=== PATIENT | female | born 1940 | race Caucasian/White ===

== ENCOUNTER 2023-04-12 08:52 | Outpatient (OUT) | payer MEDICARE, OTHER, SELFPAY ==
--- NOTE | 2023-04-12 09:06 | XR_ITS ---
The [address] [address] Patient Name: TAMMY SANDOVAL MRN: [id number] date: 1940 Sex: F Assigned Patient Location: [facility] Current Patient Location: RAD Accession/Order Number: [id number] Exam Date: 04/12/2023 09:13 Report Date: 04/12/2023 09:28 At the request of: MATTIE BALL Procedure: XR chest 2V EXAMINATION: XR chest 2V HISTORY: screening ; chronic cough COMPARISON: No relevant comparison available. FINDINGS: LUNGS: Mild stranding within left lung base suspected represent a prominent pericardial fat pad. No convincing infiltrates. No suspicious nodules or mass. VASCULATURE: No increased pulmonary vasculature. PLEURA: No pneumothorax, effusion, or pleural thickening. CARDIAC: No cardiomegaly or cardiac silhouette abnormality. MEDIASTINUM: No visible mass or adenopathy. BONES: No fracture or visible bone lesion. OTHER: Cardiac pacer. XR/XR chest 2V IMPRESSION: 1. No acute cardiopulmonary process or significant chronic interstitial changes. Electronically authenticated by: PATRIA HARGROVE Date: 04/12/2023 09:28
== END 2023-04-12 08:53 | disposition home or self-care (01) ==
LOC: RAD 09:00
PROVIDERS: PCP Family Medicine; Visit Provider Internal Medicine
DX: R05.3 Chronic cough (principal)
CPT/HCPCS: 71046

== ENCOUNTER 2023-05-16 08:01 | Outpatient (OUT) | payer MEDICARE, OTHER, SELFPAY ==
--- OUTSIDE RECORDS SUMMARY | 2023-05-16 08:06 | XMS_ITS | CCD ---
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 Role Phone REQUEST, NONE LISTED Admitting Unavailable REQUEST, NONE LISTED Attending Unavailable REQUEST, NONE LISTED Consulting Unavailable REQUEST, NONE LISTED Admitting Unavailable BLANCA YIP Consulting Unavailable REQUEST, NONE LISTED Attending Unavailable REQUEST, NONE LISTED Consulting Unavailable Isaiah Shaw Unavailable Juan C Avila Unavailable ISAIAH SHAW Primary Care Physician DO Isaiah Shaw Primary Care Provider MD Drew Warren Attending Provider DO Isaiah Shaw Attending Provider APRIL Mac Attending Provider DO Isaiah Shaw Primary Care Provider [phone] MD Drew Warren Attending Provider Paulo Rhoades Unavailable DO Isaiah Shaw Primary Care Provider DO Isaiah Shaw Attending Provider APRIL Mac Attending Provider [phone] MD Drew Warren Attending Provider Unavailable Unavailable DO Isaiah Shaw Primary Care Provider DO Isaiah Shaw Attending Provider [phone] None, No PCP Unavailable Unavailable Isaiah Shaw Unavailable DO Isaiah Shaw Primary Care Provider [phone] MD Drew Warren Attending Provider DO Isaiah Shaw Attending Provider DO Pastor Chavarria A Emergency Provider DO Isaiah Shaw Primary Care Provider [phone] MD Regan Jolley Emergency Provider MD Ashleigh Roman Admit Provider MD Ashleigh Roman Attending Provider [phone] MD Joan Page A Other Provider DO Alexander Everett Other Provider MD Medhat Anglin Other Provider MD Regan Villalba Other Provider MD Gege Nava Other Provider DO Naun Odell A Other Provider [phone] MD Anibal Gomes II Other Provider [phone] MD Pablo Davis Admit Provider MD Pablo Davis Attending Provider ERIC العراقي Other Provider Unavailable ERIC Arauz Other Provider Unavailable ERIC Akins Other Provider Unavailable ERIC Simental Other Provider Unavailable ERIC Merchant Other Provider Unavailable Barbie RN Louann Other Provider Unavailable MD Rahel Farmer Other Provider MD Juvenal Taveras Other Provider COLT Chapin Other Provider DO Jory Crow Other Provider MD Guillermo Zeng Other Provider DO Jabari Westbrook Other Provider MD Nate Somers Other Provider MD Inessa Chavez Other Provider Venus, ANP-BC Hayley Other Provider MD Ashleigh Roman Other Provider [phone] MD Alfonso Gutierrez Other Provider MD Mauri Hernandez Other Provider MD Matt Peguero Other Provider DO Regan Mederos Other Provider MD Charlene Amrao Other Provider MD Krishna Pereira Other Provider ETHEL Bernard-C Rachel Razo Other Provider MD Geovany Shirley Other Provider MD Vasquez Wall Other Provider MD Marvel Montiel Other Provider DO Dai Dooley Other Provider DO William Ramirez Other Provider DO Nehemias Heaton Other Provider [phone] COLT Bryant Other Provider DO Kaleb Espino Other Provider MD Stas Araujo Other Provider [phone] COLT Cardozo Other Provider COLT Franklin Other Provider MD Александр Bonilla Other Provider Bria, RN Naomy Other Provider Unavailable MD Igor Pham Other Provider MD Juvenal Taveras Other Provider Unavailable MD Joan Page Attending Provider Joan Page Unavailable Faustino Mac Attending Unavailable Faustino Mac Attending Unavailable Jaret TATE Attending Unavailable MADISYN GABRIEL Attending Unavailable Jaret TATE Attending Unavailable Faustino Mac Attending Unavailable Faustino Mac Admitting Unavailable Edinsons, DO Colon Primary Care Provider Kelvin PELLETIER, Dr. Drew Raygoza Attending Unavailable Kelvin II, Dr. Drew Raygoza Referring Unavailable Kuns, Dr. Isaiah Raygoza Primary Care Unavaila ble Kuns, Dr. Isaiah Raygoza Primary Care Unavaila ble Kuns, Dr. Isaiah Raygoza Primary Care Unavaila ble Mosheuinramsey II, Dr. Drew Raygoza Attending Unavailable Kelvin II, Dr. Drew Raygoza Referring Unavailable Kuns, Dr. Isaiah Raygoza Primary Care Unavaila ble McGuinn II, Dr. Drew Raygoza Attending Unavailable Kuns, Dr. Isaiah Raygoza Primary Care Unavaila ble Kuns, DO Isaiah Primary Care Provider MD Joan Page Attending Provider MD Drew Warren Attending Provider DO Jaziel Carbone Attending Provider Magnolia, DO Colon Primary Care Provider MD Joan Page Attending Provider MD Drew Warren Attending Provider DO Jaziel Carbone Attending Provider Magnolia, DO Colon Attending Provider [phone] Magnolia, DO Colon Attending Provider Magnolia, DO Colon Primary Care Provider MD Joan Page Attending Provider MD Drew Warren Attending Provider Magnolia, DO Colon Primary Care Provider [phone] MD Drew Warren Attending Provider Isaiah Shaw Primary Care Unavailable Joan Page Attending Unavailable Joan Page Admitting Unavailable Isaiah Shaw Primary Care Unavailable Drew Warren Attending Unavail able Drew Warren Admitting Unavail able Keister, Pastor A Admitting Unavailable Pastor Chavarria Attending Unavailable Kuns, Isaiah Primary Care Unavailable Raf, Jaziel M Admitting Unavailab le Raf, Jaziel M Attending Unavailab le Kuns, Isaiah Primary Care Unavailable Kuns, Isaiah Admitting Unavailable Kuns, Isaiah Attending Unavailable Kuns, Isaiah Primary Care Unavailable Kuns, Isaiah Admitting Unavailable Kuns, Isaiah Attending Unavailable Kuns, Isaiah Primary Care Unavailable Kuns, Isaiah Primary Care Unavailable McGuinn, Drew Raygoza Attending Unavail able McGuinn, Drew Valladaresrick Admitting Unavail able Kuns, Isaiah Primary Care Unavailable McGuinn, Drew Raygoza Attending Unavail able McGuinn, Drew Jaret Admitting Unavail able Kuns, Isaiah Primary Care Unavailable Blades, Joan A Attending Unavailable Blades, Joan A Admitting Unavailable Kuns, Isaiah Primary Care Unavailable Blades, Joan A Attending Unavailable Blades, Joan A Admitting Unavailable Blades, Joan A Consulting Unavailable Ashleigh Roman Attending Unavailable Wassobridger, Marwan Admitting Unavailable Kuns, Isaiah Primary Care Unavailable Alexander Everett Consulting Unavailable OleMedhat rockwell Consulting Unavailable Regan Villalba Consulting Unavailable Gege Nava Consulting Unavailable Naun Odell Consulting Unavailable Anibal Gomes II Consulting UnavailCasie Ronquillo Consulting Unavailable Kuns, Isaiah Primary Care Unavailable Pablo Davis Attending Unavailable Pablo Davis Admitting Unavailable Marcelle Arauz Consulting Unavailable Mary Akins Consulting Unavailable Denslow, Helena Consulting Unavailable Tawanna Merchant Consulting Unavailable Louann Valentin Consulting Unavailable MassRahel jean baptiste Consulting Unavailable Nitin, Juvenal K Consulting Unavailable Dials, Liberty M Consulting Unavailable Jory Crow Consulting Unavailable AzucenaCookie luztaq Consulting Unavailable Jabari Westbrook Consulting UnavailNate Concepcion Consulting Unavailable Inessa Chavez Consulting Unavailable Hayley Morton Consulting Unavailabl e WasAshleigh zambrano Consulting Unavailable Alfonso Gutierrez Consulting Unavailable Mauri Hernandez Consulting Unavailable Matt Peguero Consulting Unavailable Regan Mederos Consulting Unavailable Charlene Amaro Consulting Unavailable Krishna Pereira Consulting Unavailable Rachel Bernard Consulting Unavailable Geovany Shirley Consulting Unavailab Vasquez Hubbard Consulting Unavailable Marvel Montiel Consulting Unavailable Dai Dooley Unavailable William Ramirez Consulting Unavailable Nehemias Heaton Consulting Unavailable Alannah Bryant Consulting Unavailable Kaleb Espino Consulting Unavailable Stas Araujo Consulting Unavailable Nitza Cardozo Consulting Unavailable Lee Ann Franklin Consulting Unavailable Александр Bonilla Consulting Unavailable Naomy Fraser Consulting Unavailable Igor Pham Consulting Unavailable Allergies Allergy Classification Reported Allergen(s) Allergy Type Date of Onset Reaction(s) Facility (18 sources) Adhesive agent; Translations: [adhesive] Allergy to substance 2 Redness of Skin/Removes Skin [facility] (6 sources) Adhesive Tape Allergy to substance (finding) [facility] y 250 DO Work Phone: (2 sources) cat dander; Translations: [cat dander] Allergy to substance 4 [facility] Medications Current Medications Medication Drug Class(es) Dates Sig (Normalized) Sig (Original) acetaminophen 500 mg oral tablet (8 sources) Start: 08-19-2022 take 500 mg by mouth every four hours Acetaminophen Active 500 MG PO Q4H 180 30 August 19, 2022 12:00am acetaminophen 325 mg / oxyCODONE hydrochloride 5 mg oral tablet (17 sources) Opioid Agonist Start: 08-19-2022 take 1 tablet by mouth four times daily Oxycodone-Acetamino phen Active 1 TAB PO Four times daily 20 5 August 19, 2022 Start: 08-05-2022 End: 08-19-2022 take 1 tablet by mouth every six hours Oxycodone-Acetaminophen Discontinued 1 T AB PO Q6H 0 August 05, 2022 August 19, 2022 10:52am ALPRAZolam 0.5 mg oral tablet (20 sources) Benzodiazepine Start: 12-17-2018 take 1 tablet by mouth every eight hours Xanax 0.5 MG 1 tablet Orally Three times a day for 30 days Feb, Active aspirin 81 mg oral tablet (20 sources) Platelet Aggregation Inhibitor, Nonsteroidal Anti-inflammatory Drug Start: 03-20-2019 take 81 mg by mouth once daily aspirin 81 mg, Oral, Daily, Refills(s) 0 Start Date: 03/20/19 Status: Ordered Start: 12-17-2018 End: 05-04-2021 take 81 mg by mouth once daily Aspirin Discontinued 81 MG PO Daily December 17, 2018 12:00am May 04, 2021 12:09pm azelastine (20 sources) Histamine-1 Receptor Antagonist Start: 03-20-2019 azelastine nasal Jose G al, BID, Refill(s) 0 Start Date: 03/20/19 Status: Ordered Start: 12-17-2018 End: 10-14-2021 Azelastine Discontinued 1 SP RAY INTRANASAL Twice daily December 17, 2018 12:00am October 14, 2021 8:18am Start: 12-06-2017 take 1 puff(s) nasal route twice daily Azelastine HCl 0.1 % 1 puff in each nostril Nasally Twice a day Nov, Not-Taking Start: 12-06-2017 azithromycin 250 mg oral tablet (1 source) Macrolide Antimicrobial Start: 01-24-2023 Zithromax Z-Fady 250 MG as directed Orally Jan, Active 120 actuat budesonide 0.16 mg/actuat / formoterol fumarate 0.0048 mg/actuat / glycopyrrolate 0.009 mg/actuat metered dose inhaler (2 sources) Corticosteroid, beta2-Adrenergic Agonist Start: 03-03-2023 take 2 puff(s) by inhalation twice daily Breztri Aerosphere 160-9-4.8 MCG/ACT 2 puffs Inhalation Twice a day samples Feb, Active 24 hr buPROPion hydrochloride 150 mg extended release oral tablet (12 sources) Aminoketone take 1 tablet by mouth every twenty-four hours carBAMazepine 200 mg oral tablet (17 sources) Mood Stabilizer Start: 08-05-2022 End: 08-19-2022 take 1 tablet by mouth twice daily Carbamazepine (Tegretol) 200 mg Tablet Active 100 MG PO Twice daily 60 August 19, 2022 10:50am cefdinir 300 mg oral capsule (1 source) Cephalosporin Antibacterial Start: 05-23-2022 take 1 capsule by mouth every twelve hours Cefdinir 300 MG 1 tablet Orally Twice a day for 10 days May, Active ciprofloxacin 500 mg oral tablet (12 sources) Quinolone Antimicrobial Start: 11-14-2022 take 1 tablet by mouth every twelve hours Ciprofloxacin HCl 500 MG 1 tablet Orally Twice a day for 10 days Oct, Active Start: 12-22-2021 take 1 tablet by jose th once daily Cipro 250 mg Tab 250 mg = 1 tab(s), Oral, Daily, Take 1 tablet the day before the procedure and 1 tablet after the procedure, # 2 tab(s), Refills(s) 0, Pharmacy: [facility] [id number], 158, cm, 09/30/21 14:28:00 EDT, Height/Length Dosing, 65, kg, 09/30/21 14:28:00... Start Date: 12/22/21 Status: Ordered Start: 08-16-2021 take 1 tablet by jose th every twelve hours Cipro 500 MG 1 tablet Orally every 12 hrs for 10 day(s) Jul, Active empagliflozin 25 mg oral tablet (12 sources) Sodium-Glucose Cotransporter 2 Inhibitor Start: 10-20-2022 take 1 tablet by mouth every twenty-four hours JARDIANCE 25 MG 1 TABLET PO DAILY for 90 days Sep, Active Start: 10-20-2022 take 10 mg by mouth once daily JARDIANCE 10 mg daily orally samples Sep, Active estradiol 0.1 mg/ml vaginal cream (2 sources) Estrogen Start: 09-30-2021 estradiol 0.1 mg/g vaginal cream See Instructions, 1 gm vaginally nightly for 3 weeks and then 3x a week thereafter for maintenance. Rub small amount around urethral opening as well., # 42.5 gm, Refills(s) 3, Pharmacy: [facility] [id number], 158, cm, 09/30/21 14:28:00 EDT, Height... Start Date: 09/30/21 Status: Ordered estradiol 0.1 mg/g vaginal cream (2 sources) Start: 12-17-2021 estradiol 0.1 mg/g vaginal cream See Instructions, 1 gm vaginally nightly for 3 weeks and then 3x a week thereafter for maintenance. Rub small amount around urethral opening as well., # 42.5 gm, Refills(s) 3, Pharmacy: [facility], 158, cm, 09/30/21 14:28:00 EDT, H... Start Date: 12/17/21 Status: Ordered fluconazole 150 mg oral tablet (1 source) Azole Antifungal Start: 04-19-2023 Fluconazole Active 150 MG PO Q3D April 19, 2023 1:00am gabapentin 300 mg oral capsule (20 sources) Anti-epileptic Agent Start: 08-05-2022 take 300 mg by mouth three times daily Gabapentin Active 300 MG PO Three times daily August 05, 2022 12:00am glimepiride 2 mg oral tablet (20 sources) Sulfonylurea Start: 11-04-2021 take 1 tablet by mouth once daily in the morning Glimepiride (Amaryl) 2 mg tablet Active 2 MG PO Every morning January 18, 2022 1:00am hydroCHLOROthiazide 25 mg oral tablet (20 sources) Thiazide Diuretic Start: 08-05-2022 take 25 mg by mouth once daily Hydrochlorothiazide Active 25 MG PO Daily August 05, 2022 12:00am ipratropium bromide 0.042 mg/actuat metered dose nasal spray (20 sources) Anticholinergic Start: 09-30-2021 ipratropium Nasal 0.06% [place] 2 spray(s), Nasal, TID, 15 mL, Refill(s) 0 Start Date: 09/30/21 Status: Ordered take 2 spray(s) nasa l route three times daily Ipratropium [place] 0.06 % 2 sprays in e ach nostril Nasally Three times a day for 90 days Not-Taking Thyroxine (20 sources) l-Thyroxine Start: 03-20-2019 levothyroxine 50 microgram, Oral, Daily, Refills(s) 0 Start Date: 03/20/19 Status: Ordered Start: 10-26-2017 take 1 tablet by jose th once daily in the morning Levothyroxine (Synthroid) 50 mcg tablet Active 50 MCG PO Every morning December 17, 2018 12:00am Start: 10-26-2017 Levothyroxine Sodium 50 MCG 1 tablet every morning on an empty stomach Orally Once a day for 90 days Oct, Active lisinopril 10 mg oral tablet (20 sources) Angiotensin Converting Enzyme Inhibitor Start: 08-24-2022 take 1 tablet by mouth every twenty-four hours Lisinopril 10 MG 1 tablet Orally Once a day for 90 days Aug, Active Start: 08-19-2022 take 20 mg by mouth once daily Lisinopril Active 20 MG PO Daily August 19, 2022 12:00am Start: 08-05-2022 End: 08-19-2022 take 10 mg by mouth once daily Lisinopril Discontinued 10 MG PO Daily August 05, 2022 12:00am August 19, 2022 10:52am lovastatin 20 mg oral tablet (20 sources) HMG-CoA Reductase Inhibitor Start: 10-26-2017 take 20 mg by mouth once daily in the morning Lovastatin Active 20 MG PO Every morning December 17, 2018 12:00am melatonin 5 mg oral tablet (8 sources) Start: 08-19-2022 take 5 mg by mouth once daily at bedtime Melatonin Active 5 MG PO Daily at bedtime August 19, 2022 12:00am 24 hr mirabegron 50 mg extended release oral tablet (20 sources) beta3-Adrenergic Agonist Start: 06-20-2022 End: 08-19-2022 take 1 tablet by mouth once daily Mirabegron (Myrbetriq) 50 mg tablet extended release 24 hr Active 50 MG PO Daily August 19, 2022 10:50am Nystatin (20 sources) Polyene Antifungal Start: 04-25-2023 take 1 mL by mouth four times daily Nystatin Active 4 ML PO Four times daily 60 April 25, 2023 1:00am swish and swallow Start: 09-30-2021 take 1 mL by mouth e very six hours nystatin 100,000 units/mL Oral Susp 100,000 unit(s) = 1 mL, Oral, q6hr, For an infant give as one milliliter to each side of mouth, Refills(s) 0 Start Date: 09/30/21 Status: Ordered Start: 03-29-2021 take 4 mL by mouth f our times daily Nystatin 410159 UNIT/ML 4 ml Mouth/Throat Four times a day Mar, Active Start: 07-29-2020 End: 08-19-2022 take 446494 [IU] by mouth once daily Nystatin Discontinued [id number] UNIT PO Daily July 29, 2020 12:00am August 19, 2022 10:52am thrush Start: 07-29-2020 take 4 mL by mouth f our times daily as needed Nystatin 589156 UNIT/ML 4 ml Mouth/Throat Four times a day Mar, Not-Taking/PRN Start: 05-01-2018 Start: 05-01-2018 Nystatin 52494 0 units/mL 1 mL to each cheek Four times a day Apr, Active oxybutynin chloride 5 mg oral tablet (20 sources) Cholinergic Muscarinic Antagonist Start: 10-26-2017 take 5 mg by mouth twice daily Oxybutynin Chloride Active 5 MG PO Twice daily December 17, 2018 12:00am Start: 10-26-2017 take 2 tablets by [facility] every twelve hours Oxybutynin Chloride 5 MG 2 tablet Orally Twice a day Oct, Active polyethylene glycol 3350 98666 mg powder for oral solution (8 sources) Osmotic Laxative Start: 08-19-2022 Polyethylene Glycol 3350 (Healthylax) 17 gram Powder In Packet Active 17 GM PO Twice daily August 19, 2022 12:00am potassium chloride 1.33 meq oral tablet (4 sources) Start: 03-20-2019 take 1 tablet by mouth once daily potassium chloride 99 mg oral tablet 99 mg = 1 tab(s), Oral, Daily, # 100 tab(s), Refills(s) 0 Start Date: 03/20/19 Status: Ordered predniSONE 20 mg oral tablet (1 source) Start: 01-24-2023 predniSONE 20 MG 1 tablet BID for 5 days and then 1 tablet daily for 5 days and then stop Orally as directed for 10 days Jan, Active 24 hr tolterodine tartrate 2 mg extended release oral capsule (16 sources) Cholinergic Muscarinic Antagonist Start: 08-05-2022 End: 08-19-2022 take 2 mg by mouth once daily before breakfast Tolterodine Active 2 MG PO Daily before breakfast August 19, 2022 12:00am Vitamin B Complex oral capsule (4 sources) Start: 03-20-2019 Vitamin B Complex oral capsule Oral, Daily, Refill(s) 0 Start Date: 03/20/19 Status: Ordered Vitamin D3 (4 sources) Start: 03-20-2019 Vitamin D3 2,000 International_Unit , Oral, Daily, Refills(s) 0 Start Date: 03/20/19 Status: Ordered Vitamin D3 2000 UNIT (20 sources) take 1 capsule by mouth once sintia ly Vitamin D3 2000 UNIT 1 capsule Orally Once a day Active Completed/Discontinued Medications Medication Drug Class(es) Dates Sig (Normalized) Sig (Original) amLODIPine 5 mg oral tablet (20 sources) Dihydropyridine Calcium Channel Abena Start: 07-30-2020 End: 08-19-2022 take 5 mg by mouth once daily in the morning Amlodipine Discontinued 5 MG PO Every morning January 18, 2022 11:51am August 05, 2022 2:07pm biotin 1 mg oral capsule (17 sources) Start: 12-17-2018 End: 10-25-2019 take 1 mg by mouth once daily Biotin Discontinued 1 MG PO Daily December 17, 2018 12:00am October 25, 2019 12:08pm cephalexin 500 mg oral capsule (17 sources) Cephalosporin Antibacterial Start: 10-25-2019 End: 07-28-2020 take 1 capsule by mouth twice daily Cephalexin (Keflex) 500 mg capsule Discontinued 500 MG PO Twice daily 14 7 October 25, 2019 12:00am July 28, 2020 6:52pm cholecalciferol 0.01 mg oral tablet (20 sources) Vitamin D Start: 12-17-2018 End: 10-25-2019 take 1 tablet by mouth once daily Cholecalciferol (Vitamin D3) (Vitamin D3) 400 unit Tablet Discontinued 400 UNIT PO Daily December 17, 2018 12:00am October 25, 2019 12:08pm Start: 12-17-2018 End: 01-18-2022 take 1 tablet by mouth once daily Cholecalciferol (Vitamin D3) (Vitamin D3) 2,000 unit Tablet Discontinued 2000 UNIT PO Daily December 17, 2018 12:00am January 18, 2022 11:44am citalopram 20 mg oral tablet (20 sources) Serotonin Reuptake Inhibitor Start: 07-28-2020 End: 10-14-2021 take 20 mg by mouth once daily Citalopram Discontinued 20 MG PO Daily July 28, 2020 12:00am October 14, 2021 8:19am Start: 07-17-2020 take 1 tablet by jose th every twenty-four hours CeleXA 40 MG 1 tablet Orally Once a day June, Active clindamycin 300 mg oral capsule (12 sources) Lincosamide Antibacterial Start: 01-20-2022 End: 05-01-2023 take 600 mg by mouth three times daily Clindamycin Hcl Discontinued 600 MG PO Three times daily 12 2 January 20, 2022 1:00am June 20, 2022 11:20am furosemide 40 mg oral tablet (17 sources) Loop Diuretic Start: 12-17-2018 End: 07-28-2020 take 1 tablet by mouth once daily Furosemide (Lasix) 40 mg tablet Discontinued 40 MG PO Daily December 17, 2018 12:00am July 28, 2020 6:52pm meclizine hydrochloride 12.5 mg oral tablet (20 sources) Antiemetic Start: 12-25-2019 End: 08-19-2022 take 12.5 mg by mouth twice daily Meclizine Discontinued 12.5 MG PO Twice daily July 29, 2020 12:00am August 19, 2022 10:52am Start: 12-25-2019 take 1 tablet by jose th every twenty-four hours Meclizine HCl 12.5 MG 1 tablet Orally once a day for 90 days Dec, Active metFORMIN hydrochloride 500 mg oral tablet (20 sources) Biguanide Start: 10-26-2017 End: 08-19-2022 take 1 tablet by mouth twice daily Metformin (Glucophage) 500 mg tablet Discontinued 500 MG PO Twice daily December 17, 2018 12:00am August 19, 2022 10:52am take 1 tablet by jose th every twelve hours at mealtime metFORMIN HCl - 500 MG Oral Tablet TAKE 1 TABLET EVERY 12 HOURS WITH FOOD. Quantity: 0 Refills: 0 Ordered: 10-Jan-2022 DO Active omeprazole 40 mg delayed release oral capsule (20 sources) Proton Pump Inhibitor Start: 10-26-2017 End: 08-19-2022 take 40 mg by mouth once daily in the morning Omeprazole Discontinued 40 MG PO Every morning July 29, 2020 12:00am August 19, 2022 10:51am potassium 99 mg extended release oral tablet (20 sources) Start: 12-17-2018 End: 10-25-2019 take 99 mg by mouth once daily Potassium Discontinued 99 MG PO Daily December 17, 2018 12:00am October 25, 2019 12:09pm potassium gluconate 2.5 meq oral tablet (17 sources) Start: 10-25-2019 End: 08-19-2022 take 99 mg by mouth two times weekly Potassium Gluconate Discontinued 99 MG PO As Directed October 25, 2019 12:00am August 19, 2022 10:52am twice a week Start: 10-25-2019 take 99 mg by mouth once daily Potassium Gluconate Active 99 MG PO Daily October 25, 2019 12:00am solifenacin succinate 5 mg oral tablet (20 sources) Cholinergic Muscarinic Antagonist Start: 09-30-2021 End: 08-19-2022 take 1 tablet by mouth before mealtime Solifenacin (Vesicare) 5 mg tablet Discontinued 5 MG PO Before meals January 18, 2022 1:00am August 19, 2022 10:52am sucralfate 1000 mg oral tablet (20 sources) Aluminum Complex Start: 07-29-2020 End: 05-04-2021 take 1 tablet by mouth twice daily Sucralfate (Carafate) 1 gram Tablet Discontinued 1 GM PO Twice daily July 29, 2020 12:00am May 04, 2021 12:09pm Start: 07-19-2017 take 1 tablet by jose th twice daily at bedtime Carafate 1 GM 1 tablet at bedtime on an empty stomach before meals Orally Twice a day June, Not-Taking Vitamin B Complex (20 sources) Start: 12-17-2018 End: 01-18-2022 take 1 tablet by mouth once daily Vitamin B Complex Discontinued 1 TAB PO Daily December 17, 2018 12:00am January 18, 2022 11:50am Start: 12-17-2018 End: 01-18-2022 take 1 tablet by mouth once daily Vitamin B Complex Discontinued 1 TAB PO Daily December 16, 2018 11:00pm January 18, 2022 10:50am Start: 12-17-2018 take 1 tablet by jose th once daily Vitamin B Complex Active 1 TAB PO Daily December 16, 2018 11:00pm Start: 12-17-2018 take 1 tablet by jose th once daily Vitamin B Complex Active 1 TAB PO Daily December 17, 2018 12:00am Vitamin B Comple x Orally Active Problems Active Problems Problem Classification Problem Date Documented Da te Episodic/Chronic Abdominal pain (20 sources) Left flank pain; Translations: [Unspecified abdominal pain] Episodic Adjustment disorders (12 sources) Adjustment disorder; Translations: [Adjustment disorder, unspecified] Onset: 3 08-12-2022 Chronic Anxiety disorders (20 sources) Mixed anxiety and depressive disorder; Translations: [Other specified anxiety disorders] Onset: 1 Resolved: 2 Chronic Asthma (3 sources) Asthmatic bronchitis; Translations: [Unspecified asthma with (acute) exacerbation] Chronic Blindness and vision defects (20 sources) Psychophysical visual disturbance; Translations: [Visual hallucinations] Episodic Calculus of urinary tract (7 sources) History of calculus of kidney; Translations: [Personal history of urinary calculi] Onset: 2 Episodic Conduction disorders (20 sources) Second degree atrioventricular block; Translations: [Atrioventricular block, second degree] Onset: 4 07-28-2020 Chronic Delirium, dementia, and amnestic and other cognitive disorders (6 sources) Dementia; Translations: [Dementia, unspecified, without behavioral disturbance] Chronic Diabetes mellitus without complication (20 sources) Type 2 diabetes mellitus well controlled; Translations: [Type 2 diabetes mellitus without complications] Onset: 1 Resolved: 2 Chronic Disorders of lipid metabolism (20 sources) Hyperlipidemia; Translations: [Hyperlipidemia, unspecified] Onset: 1 Resolved: 2 Chronic E Codes: Fall (1 source) Unspecified fall, initial encounter Episodic Esophageal disorders (20 sources) Gastroesophageal reflux disease; Translations: [Gastro-esophageal reflux disease without esophagitis] Onset: 1 Resolved: 2 Chronic Essential hypertension (20 sources) Hypertensive disorder; Translations: [Essential (primary) hypertension] Onset: 1 Resolved: 2 Chronic Gastritis and duodenitis (17 sources) Acute gastritis; Translations: [Acute gastritis without bleeding] 04-12-2021 Episodic Genitourinary symptoms and ill-defined conditions (20 sources) Unspecified urinary incontinence; Translations: [Incontinence] Onset: 2 Resolved: 2 Chronic Genitourinary symptoms and ill-defined conditions (20 sources) H/O: urinary disease; Translations: [Personal history of other diseases of urinary system] Onset: 2 Episodic Immunizations and screening for infectious disease (20 sources) Needs influenza immunization; Translations: [Encounter for immunization] Onset: 1 Resolved: 1 Episodic Malaise and fatigue (1 source) Weakness Episodic Menopausal disorders (4 sources) Atrophic vaginitis; Translations: [Postmenopausal atrophic vaginitis] Onset: 2 Chronic Mood disorders (17 sources) Depressive disorder; Translations: [Depression] 07-28-2020 Chronic Mycoses (20 sources) Candidiasis of mouth; Translations: [Candidal stomatitis] Onset: 1 Resolved: 2 Episodic Osteoarthritis (20 sources) Arthritis; Translations: [Unspecified osteoarthritis, unspecified site] Chronic Other congenital anomalies (1 source) Deletion of part of autosome; 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 Other connective tissue disease (2 sources) Arthrodesis status Onset: 2 Resolved: 2 Episodic Other connective tissue disease (20 sources) Recurrent falls ; Translations: [Repeated falls] 07-29-2020 Episodic Other connective tissue disease (1 source) Pain in left arm Episodic Other diseases of bladder and urethra (20 sources) Overactive bladder; Translations: [Overactive bladder] 07-28-2020 Chronic Other diseases of bladder and urethra (8 sources) Overactive bladder; Translations: [Hypertonicity of bladder] Onset: 3 08-19-2022 Chronic Other diseases of bladder and urethra (4 sources) Pain in urethra 03-20-2019 Episodic Other fractures (9 sources) Fracture of second cervical vertebra; Translations: [Unspecified displaced fracture of second cervical vertebra, initial encounter for closed fracture] 08-02-2022 Episodic Other fractures (7 sources) Unspecified displaced fracture of second cervical vertebra, initial encounter for closed fracture; Translations: [Closed fracture of second cervical vertebra] 08-05-2022 Episodic Other fractures (2 sources) Unspecified displaced fracture of second cervical vertebra, subsequent encounter for fracture with routine healing Episodic Other fractures (8 sources) Closed fracture of second cervical vertebra; Translations: [Unspecified nondisplaced fracture of second cervical vertebra, sequela] Episodic Other fractures (1 source) Unspecified nondisplaced fracture of second cervical vertebra, sequela Episodic Other gastrointestinal disorders (20 sources) Diarrhea; Translations: [Diarrhea, unspecified] Episodic Other injuries and conditions due to external causes (1 source) Unspecified injury of head, initial encounter Episodic Other lower respiratory disease (2 sources) Persistent cough; Translations: [Persistent cough] Episodic Other nervous system disorders (20 sources) Unsteady when walking; Translations: [Unsteadiness on feet] Episodic Other nervous system disorders (3 sources) Unsteadiness on feet; Translations: [Unsteady gait R26.81] Onset: 1 Resolved: 1 Episodic Other nervous system disorders (20 sources) Abnormal gait; Translations: [Unspecified abnormalities of gait and mobility] 07-28-2020 Episodic Other nervous system disorders (18 sources) Incoordination; Translations: [Unspecified lack of coordination] Episodic Other nervous system disorders (1 source) Unspecified lack of coordination Episodic Other nervous system disorders (10 sources) Unsteady when standing; Translations: [Unsteadiness on feet] 06-20-2022 Episodic Other nervous system disorders (8 sources) Postoperative pain ; Translations: [Other acute postprocedural pain] 08-19-2022 Episodic Other nervous system disorders (3 sources) Unspecified abnormalities of gait and mobility; Translations: [Gait disturbance] Episodic Other nutritional; endocrine; and metabolic disorders (6 sources) Overweight in adulthood with body mass index of 25 or more but less than 30; Translations: [Body Mass Index 26.0-26.9, adult] Episodic Other nutritional; endocrine; and metabolic disorders (6 sources) Overweight; Translations: [Overweight] Episodic Other screening for suspected conditions (not mental disorders or infectious disease) (18 sources) History of adenomatous polyp of colon; Translations: [Encounter for screening for malignant neoplasm of colon] 12-17-2018 Episodic Other upper respiratory disease (20 sources) Other specified disorders of nose and nasal sinuses; Translations: [Sinus drainage] Onset: 1 Resolved: 2 Episodic Other upper respiratory disease (20 sources) Nasal discharge; Translations: [Other specified disorders of nose and nasal sinuses] Episodic Residual codes; unclassified (20 sources) Hallucinations; Translations: [Hallucinations, unspecified] 07-28-2020 Episodic Residual codes; unclassified (18 sources) Amnesia; Translations: [Other amnesia] Episodic Residual codes; unclassified (1 source) Other amnesia Episodic Spondylosis; intervertebral disc disorders; other back problems (20 sources) Degeneration of lumbar intervertebral disc; Translations: [Other intervertebral disc degeneration, lumbar region] Onset: 2 Resolved: 2 Chronic Thyroid disorders (20 sources) Hyperthyroidism; Translations: [Thyrotoxicosis, unspecified without thyrotoxic crisis or storm] Onset: 1 Resolved: 2 Chronic Unclassified (4 sources) Drug therapy finding 04-09-2019 Unclassified (2 sources) Extended spectrum beta-lactamase producing bacteria carrier Onset: 2 10-04-2021 Comment on above: ESBL E coli in urine 09/30/2021 Unclassified (1 source) Unspecified nondisplaced fracture of second cervical vertebra, subsequent encounter for fracture with routine healing; Translations: [Unspecified nondisplaced fracture of second cervical vertebra, subsequent encounter for fracture with routine healing] Onset: 3 Unclassified (1 source) Unspecified dementia, mild, without behavioral disturbance, psychotic disturbance, mood disturbance, and anxiety; Translations: [Unspecified dementia, mild, without behavioral disturbance, psychotic disturbance, mood disturbance, and anxiety] Onset: 3 Unclassified (1 source) Encounter for checking and testing of cardiac pacemaker pulse generator [battery]; Translations: [Encounter for checking and testing of cardiac pacemaker pulse generator [battery]] Onset: 3 Unclassified (1 source) Unspecified nondisplaced fracture of second cervical vertebra, sequela; Translations: [Unspecified nondisplaced fracture of second cervical vertebra, sequela] Onset: 3 Unclassified (1 source) Unspecified displaced fracture of second cervical vertebra, initial encounter for closed fracture; Translations: [Unspecified displaced fracture of second cervical vertebra, initial encounter for closed fracture] Onset: 3 Urinary tract infections (20 sources) Urinary tract infection, site not specified; Translations: [Urinary tract infectious disease] Onset: 2 Resolved: 2 Episodic Past or Other Problems Problem Classification Problem Date Documented Date Episodic/Chronic Administrative/social admission (12 sources) Other reduced mobility; Translations: [Impaired mobility and activities of daily living] Onset: 08-05-2022 08-06-2022 Episodic Conditions associated with dizziness or vertigo (20 sources) Dizziness; Translations: [Dizziness and giddiness] Onset: 06-20-2022 10-25-2019 Episodic Fracture of lower limb (13 sources) Fracture of great toe ; Translations: [Displaced fracture of distal phalanx of right great toe, initial encounter for closed fracture] Onset: 08-02-2022 08-05-2022 Episodic Other connective tissue disease (9 sources) Repeated falls; Translations: [History of fall] Onset: 08-02-2022 Episodic Other connective tissue disease (1 source) Other symptoms and signs involving the nervous system; Translations: [Other symptoms and signs involving the nervous system] Onset: 08-31-2022 Episodic Other nervous system disorders (1 source) Other acute postprocedural pain; Translations: [Other acute postprocedural pain] Onset: 08-05-2022 Episodic Residual codes; unclassified (1 source) Asymptomatic menopausal state Onset: 11-04-2021 Resolved: 11-04-2021 Episodic Residual codes; unclassified (1 source) Other specified health status; Translations: [Other specified health status] Onset: 08-05-2022 Episodic Spondylosis; intervertebral disc disorders; other back problems (20 sources) Radiculopathy, sacral and sacrococcygeal region; Translations: [Fusion of spine, lumbar region] Onset: 07-07-2021 Resolved: 11-04-2021 Episodic Superficial injury; contusion (17 sources) Contusion of right index finger; Translations: [Contusion of right index finger without damage to nail, initial encounter] Onset: 08-02-2022 08-05-2022 Episodic Unclassified (3 sources) Lumbar pain M54.50 Onset: 05-26-2021 Resolved: 09-28-2021 Unclassified (1 source) Persistent cough R05.3 Results Test Name Value Interpretation Reference Range Facility A1C HEMOGLOBINon 03-03-2023 HbA1c (Bld) [Mass fraction] 8.5 % [employer] Other HbA1c (Bld) [Mass fraction]o n 03-03-2023 A1C HEMOGLOBIN [facility] [employer] Other A1C HEMOGLOBINon 11-29-2022 HbA1c (Bld) [Mass fraction] 8.0 % [employer] Other Creatinine (Bld) [Mass/Vol]O rdered By: Jaziel Carbone on 11-29-2022 Creatinine [Mass/Vol] 1.0 mg/dL 0.6-1.3 [facility] Comment on above: ER/ESD physician is notified/shown all ISTAT results.Critical values may be confirmed by laboratory testing ifdeemed necessary by ER attending doctor. HbA1c (Bld) [Mass fraction]o n 11-29-2022 A1C HEMOGLOBIN [employer] Other ISTAT XRay CREon 11-29-2022 Creatinine [Mass/Vol] 1.0 mg/dL Normal 0.6-1.3 [facility] Comment on above: Result Comment: ER/E SD physician is notified/shown all ISTAT results. Critical values may be confirmed by laboratory testing if deemed necessary by ER attending doctor. Performed By: #### G LULS #### Point of Care testing , ISTAT GFR 55.552 [facility] Comment on above: Result Comment: PERF ORMED BY: [place] [address] PATHOLOGIST PICKER MACHINE OPERATOR BRETT NAVAS M.D. Performed By: #### G LULS #### Point of Care testing , MR head/brain wo/w conon MR head/brain wo/w con [facility] [place] [address] MRI Report Signed Patient: Tammy Sandoval MR#: [id number] 3 : 1940 Acct:[id number] Age/Sex: 82 / F ADM Date: 11/29/22 Loc: MR Room: Type: [facility] Attending Dr: Jaziel Carbone DO Copies to: Jaziel Carbone DO Ordering Provider: Jaziel Carbone DO Date of Service: 11/29/22 MR/MR head/brain wo/w con: F03.A0 MILD DEMENTIA MR head/brain wo/w con 11/29/2022 7:31 AM SIGN AND SYMPTOMS: Multiple falls, dementia PROTOCOL: Multiplanar multisequence MR images of the brain were obtained with and without IV contrast CONTRAST: 13 mL of intravenous ProHance COMPARISON: 08/02/2022 FINDINGS: Extra axial spaces: There is diffuse age-related cortical atrophy. There is no evidence of focal atrophy. Hemorrhage: None. Ventricular system: Within normal limits. Basal cisterns: Within normal limits and not effaced. Cerebral parenchyma: Periventricular and subcortical white matter T2 and FLAIR hyperintense signal is noted consistent with chronic microvascular ischemic change. Midline shift: None.. Cerebellum: Within normal limits. Brainstem: Within normal limits. OTHER: Calvarium: Normal marrow signal. 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 This is unchanged when compared to the prior study. Visualized Paranasal sinuses: Within normal limits. Visualized Orbits: Within normal limits. Visualized upper cervical spine: There is redemonstration of a healed or healing obliquely oriented type III odontoid/C2 fracture. Sella and skull base: Within normal limits. MR/MR head/brain wo/w con IMPRESSION: No acute intracranial pathology or abnormal postcontrast enhancement. Chronic age-related neurodegenerative changes are noted, as above. There is no evidence of focal atrophy. 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 This is unchanged when compared to the prior study. There is redemonstration of a healed or healing obliquely oriented type III odontoid/C2 fracture. Impression dictated by: Josh Hensley M.D.11/29/2022 2:01 PM Dictation Location: [place] [address] Transcribed By: [facility] 11/29/22 1401 Dictated By: Josh Hensley II, MD 11/29/22 1352 Signed By: 11/29/22 1401 Normal [facility] No Panel InformationOrdered By: Jaziel Carbone on 11-29-2022 Bedside Estimated GFR (eGFR) 55.552 [facility] XR cerv spine AP/LAT/FLX/EXT on 10-28-2022 XR cerv spine AP/LAT/FLX/EXT [place] [address] XRay Report Signed Patient: Tammy Sandoval MR#: [id number] 3 : 1940 Acct:[id number] Age/Sex: 82 / F ADM Date: 10/28/22 Loc: XD Room: Type: [facility] Attending Dr: Joan Page MD Copies to: Joan Page MD Ordering Provider: Joan Page MD Date of Service: 10/28/22 XR/XR cerv spine AP/LAT/FLX/EXT: S12.101S AP with lateral neutral, flexion extension views of thecervical spine HISTORY: Follow-up neck fracture continued neck pain COMPARISON: 08/31/22 POSTOPERATIVE CHANGES: None BONY ALIGNMENT: Stable bony alignment. No hypermobility. FRACTURE: Stable C2 fracture. DISC DEGENERATION: Similar extensive spondylosis. Multilevel facet degeneration FACETS: Degenerative change FORAMEN: Unremarkable DENS: Intact CRANIOCERVICAL JUNCTION: Unremarkable SOFT TISSUES: Unremarkable XR/XR cerv spine AP/LAT/FLX/EXT IMPRESSION: Stable C2 fracture. No hypermobility. Impression dictated by: Juan Mcintosh M.D.10/28/2022 1:55 PM Dictation Location: [place] [address] Transcribed By: [facility] 10/28/22 1355 Dictated By: Juan Mcintosh DO 10/28/22 1353 Signed By: 10/28/22 1355 [facility] A1C HEMOGLOBINon 10-20-2022 HbA1c (Bld) [Mass fraction] 8.7 % [employer] Other HbA1c (Bld) [Mass fraction]o n 10-20-2022 A1C HEMOGLOBIN [facility] [employer] Other Reminderson 09-05-2022 Reminders - From: Judy Rico To: EU - Recalls Tate; Cc: Judy Rico; Sent: 09/05/2022 13:34:02 EDT Show up: 10/21/2022 13:33:00 EDT Subject: Call for update/sched Botox Due Date/Time: 11/07/2022 13:34:00 EDT Reminder/Recall Call pt in Oct if she has not called to see how she is doing after falling and breaking her neck. She can be sched for Botox.[facility] XR cerv spine AP/LAT/FLX/EXT on 08-31-2022 XR cerv spine AP/LAT/FLX/EXT [facility] [place] [address] [place] [address] XRay Report Signed Patient: Tammy Sandoval MR#: [id number] 3 : 1940 Acct:[id number] Age/Sex: 82 / F ADM Date: 08/31/22 Loc: XD Room: Type: [facility] Attending Dr: Joan Page MD Copies to: Joan Page MD Ordering Provider: Joan Page MD Date of Service: 08/31/22 XR/XR cerv spine AP/LAT/FLX/EXT: R29.818,R27.9,R29.6,S12.1 01D,M54.2 AP with lateral neutral, flexion and extension views of thecervical spine HISTORY: Follow-up C2 fracture one month ago COMPARISON: 08/03/22 POSTOPERATIVE CHANGES: None BONY ALIGNMENT: No hypermobility. Stable bony alignment. Minimal degenerative listhesis. FRACTURE: C2 fracture alignment unchanged. DISC DEGENERATION: Similar extensive spondylosis. FACETS: Unremarkable DENS: Intact CRANIOCERVICAL JUNCTION: Unremarkable SOFT TISSUES: Unremarkable XR/XR cerv spine AP/LAT/FLX/EXT IMPRESSION: No hypermobility. Stable bony alignment. Similar C2 fracture. Impression dictated by: Juan Mcintosh M.D.08/31/2022 2:34 PM Dictation Location: [place] [address] Transcribed By: [facility] 08/31/221433 Dictated By: Juan Mcintosh DO 08/31/221431 Signed By: 08/31/22 143 [facility] Glucose Glucometer (BldC) [M ass/Vol]Ordered By: Pablo Davis on 08-18-2022 Glucose [Mass/Vol] 194 mg/dL [facility] Comment on above: Random Glucose Refer ence Range is dependent on time and content of last meal. Glucose of more than 200 mg/dL in a nonstressed, ambulatory subject supports the diagnosis of Diabetes Mellitus. Glucose Poct Glucometerson 0 08-18-2022 Commemt1 Glu2: Cleaned Meter [facility] Comment on above: Result Comment: PERF ORMED BY: [address] [place] [address] PATHOLOGIST PICKER MACHINE OPERATOR BRETT NAVAS M.D. Performed By: #### G LULS #### Point of Care testing , Glucose [Mass/Vol] 194 mg/dL Normal [facility] Comment on above: Result Comment: [place] om Glucose Reference Range is dependent on time and content of last meal. Glucose of more than 200 mg/dL in a nonstressed, ambulatory subject supports the diagnosis of Diabetes Mellitus. Performed By: #### G LULS #### Point of Care testing , Commemt1 Glu2: Cleaned Meter [facility] Comment on above: Result Comment: PERF ORMED BY: [address] [address] PATHOLOGIST PICKER MACHINE OPERATOR BRETT NAVAS M.D. Performed By: #### G LULS #### Point of Care testing , Glucose [Mass/Vol] 94 mg/dL Normal [facility] Comment on above: Result Comment: [place] om Glucose Reference Range is dependent on time and content of last meal. Glucose of more than 200 mg/dL in a nonstressed, ambulatory subject supports the diagnosis of Diabetes Mellitus. Performed By: #### G LULS #### Point of Care testing , Commemt1 Glu2: Cleaned Meter [facility] Comment on above: Result Comment: PERF ORMED BY: [facility] [address] [place] [address] PATHOLOGIST PICKER MACHINE OPERATOR BRETT NAVAS M.D. Performed By: #### G LULS #### Point of Care testing , Glucose [Mass/Vol] 159 mg/dL Normal [facility] Comment on above: Result Comment: [place] om Glucose Reference Range is dependent on time and content of last meal. Glucose of more than 200 mg/dL in a nonstressed, ambulatory subject supports the diagnosis of Diabetes Mellitus. Performed By: #### G CANDY #### Point of Care testing , Commemt1 Glu2: Cleaned Meter Normal [facility] Comment on above: Result Comment: PERF ORMED BY: [place] [address] PATHOLOGIST PICKER MACHINE OPERATOR BRETT NAVAS M.D. Performed By: #### P TT, PT, CMP, BNP, HS TROP, CBC #### [address] Glucose [Mass/Vol] 118 mg/dL Normal [facility] Comment on above: Result Comment: [place] om Glucose Reference Range is dependent on time and content of last meal. Glucose of more than 200 mg/dL in a nonstressed, ambulatory subject supports the diagnosis of Diabetes Mellitus. Performed By: #### P TT, PT, CMP, BNP, HS TROP, CBC #### [address] No Panel InformationOrdered By: Pablo Davsi on 08-18-2022 Bedside Glucose Comment Glu2: cleaned meter [facility] Basic Metabolic Panelon 07-22 Anion gap [Moles/Vol] 13.7 mmol/L Normal 6.0-15.0 [facility] Comment on above: Performed By: #### P TT, PT, CMP, BNP, HS TROP, CBC #### [address] Calcium [Mass/Vol] 9.0 mg/dL Normal 8.6-10.3 [facility] Comment on above: Performed By: #### P TT, PT, CMP, BNP, HS TROP, CBC #### [address] Chloride [Moles/Vol] 95 mmol/L Low 98-107 [facility] Comment on above: Performed By: #### P TT, PT, CMP, BNP, HS TROP, CBC #### [facility] [address] [place] [address] [place] CO2 [Moles/Vol] 24.3 mmol/L Normal 21.0-31.0 [facility] Comment on above: Performed By: #### P TT, PT, CMP, BNP, HS TROP, CBC #### [facility] [address] [place] [address] [place] Creatinine [Mass/Vol] 0.78 mg/dL Normal 0.60-1.20 [facility] Comment on above: Performed By: #### P TT, PT, CMP, BNP, HS TROP, CBC #### [facility] [address] [place] [address] [place] Creatinine Clr Calc Pharmacy 47.42 [facility] Comment on above: Result Comment: PERF ORMED BY: [place] [address] PATHOLOGIST PICKER MACHINE OPERATOR BRETT NAVAS M.D. Performed By: #### P TT, PT, CMP, BNP, HS TROP, CBC #### [facility] [address] [place] [address] [place] GFR/1.73 sq M.predicted MDRD (S/P/Bld) [Vol rate/Area] mL/min/{1.73_m2} [facility] Comment on above: Performed By: #### P TT, PT, CMP, BNP, HS TROP, CBC #### [facility] [address] [place] [address] [place] Glucose [Mass/Vol] 106 mg/dL High 70-100 [facility] Comment on above: Result Comment: [place] Glucose Reference Range is dependent on time and content of last meal. Glucose of more than 200 mg/dL in a nonstressed, ambulatory subject supports the diagnosis of Diabetes Mellitus. ADA recommended reference range Performed By: #### P TT, PT, CMP, BNP, HS TROP, CBC #### [facility] [address] [place] [address] [place] Potassium [Moles/Vol] 4.0 mmol/L Normal 3.5-5.1 [facility] Comment on above: Performed By: #### P TT, PT, CMP, BNP, HS TROP, CBC #### [facility] [address] [place] [address] [place] Sodium [Moles/Vol] 129 mmol/L Low 136-145 [facility] Comment on above: Performed By: #### P TT, PT, CMP, BNP, HS TROP, CBC #### [facility] [address] [place] [address] [place] Urea nitrogen [Mass/Vol] 24 mg/dL Normal 7-25 [facility] Comment on above: Performed By: #### P TT, PT, CMP, BNP, HS TROP, CBC #### [facility] [address] Calcium [Mass/volume] in Ser um or PlasmaOrdered By: Pablo Davis on 08-17-2022 Calcium [Mass/Vol] 9.0 mg/dL 8.6-10.3 [facility] Carbon dioxide, total [Moles /volume] in Serum or PlasmaOrdered By: Pablo Davis on 08-17-2022 CO2 [Moles/Vol] 24.3 mmol/L 21.0-31.0 [facility] Chloride [Moles/volume] in S garret or PlasmaOrdered By: Pablo Davis on 08-17-2022 Chloride [Moles/Vol] 95 mmol/L 98-107 [facility] Creatinine [Mass/volume] in Serum or PlasmaOrdered By: Pablo Davis on 08-17-2022 Creatinine [Mass/Vol] 0.78 mg/dL 0.60-1.20 [facility] Glucose Poct Glucometerson 0 08-17-2022 Glucose [Mass/Vol] 124 mg/dL Normal [facility] Comment on above: Result Comment: [facility] Glucose Reference Range is dependent on time and content of last meal. Glucose of more than 200 mg/dL in a nonstressed, ambulatory subject supports the diagnosis of Diabetes Mellitus. PERFORMED BY: [facility] [address] [place] [address] PATHOLOGIST PICKER MACHINE OPERATOR BRETT NAVAS M.D. Performed By: #### G ACNDY #### Point of Care testing , Glucose [Mass/volume] in Ser um or PlasmaOrdered By: Pablo Davis on 08-17-2022 Glucose [Mass/Vol] 106 mg/dL 70-100 [facility] Comment on above: ADA recommended refe rence rangeRandom Glucose Reference Range is dependent on time and content of last meal. Glucose of more than 200 mg/dL in a nonstressed, ambulatory subject supports the diagnosis of Diabetes Mellitus. No Panel InformationOrdered By: Pablo Davis on 08-17-2022 Estimated GFR (CKD-EPI) > 60.0 mL/Min [facility] Creatinine Clearance (Chem 47.42 [facility] Potassium [Moles/volume] in Serum or PlasmaOrdered By: Pablo Davis on 08-17-2022 Potassium [Moles/Vol] 4.0 mmol/L 3.5-5.1 [facility] Serum or plasma anion gap de terminationOrdered By: Pablo Davis on 08-17-2022 Anion gap [Moles/Vol] 13.7 mmol/L 6.0-15.0 [facility] Sodium [Moles/volume] in Ser um or PlasmaOrdered By: Pablo Davis on 08-17-2022 Sodium [Moles/Vol] 129 mmol/L 136-145 [facility] Urea nitrogen [Mass/volume] in Serum or PlasmaOrdered By: Pablo Davis on 08-17-2022 Urea nitrogen [Mass/Vol] 24 mg/dL 7-25 [facility] Basic Metabolic Panelon 07-22 Anion gap [Moles/Vol] 14.4 mmol/L Normal 6.0-15.0 [facility] Comment on above: Performed By: #### P TT, PT, CMP, BNP, HS TROP, CBC #### [facility] [address] [place] [address] [place] Calcium [Mass/Vol] 9.0 mg/dL Normal 8.6-10.3 [facility] Comment on above: Performed By: #### P TT, PT, CMP, BNP, HS TROP, CBC #### [facility] [address] [place] [id number] [place] Chloride [Moles/Vol] 92 mmol/L Low 98-107 [facility] Comment on above: Performed By: #### P TT, PT, CMP, BNP, HS TROP, CBC #### [facility] [address] CO2 [Moles/Vol] 25.5 mmol/L Normal 21.0-31.0 [facility] Comment on above: Performed By: #### P TT, PT, CMP, BNP, HS TROP, CBC #### [facility] [address] Creatinine [Mass/Vol] 0.79 mg/dL Normal 0.60-1.20 [facility] Comment on above: Performed By: #### P TT, PT, CMP, BNP, HS TROP, CBC #### [address] Creatinine Clr Calc Pharmacy 47.42 [facility] Comment on above: Result Comment: PERF ORMED BY: [place] [address] PATHOLOGIST PICKER MACHINE OPERATOR BRETT NAVAS M.D. Performed By: #### P TT, PT, CMP, BNP, HS TROP, CBC #### [address] GFR/1.73 sq M.predicted MDRD (S/P/Bld) [Vol rate/Area] mL/min/{1.73_m2} [facility] Comment on above: Performed By: #### P TT, PT, CMP, BNP, HS TROP, CBC #### [facility] [address] Glucose [Mass/Vol] 105 mg/dL High 70-100 [facility] Comment on above: Result Comment: [place] Glucose Reference Range is dependent on time and content of last meal. Glucose of more than 200 mg/dL in a nonstressed, ambulatory subject supports the diagnosis of Diabetes Mellitus. ADA recommended reference range Performed By: #### P TT, PT, CMP, BNP, HS TROP, CBC #### [facility] [address] [place] [address] Potassium [Moles/Vol] 3.9 mmol/L Normal 3.5-5.1 [facility] Comment on above: Performed By: #### P TT, PT, CMP, BNP, HS TROP, CBC #### [address] Sodium [Moles/Vol] 128 mmol/L Low 136-145 [facility] Comment on above: Performed By: #### P TT, PT, CMP, BNP, HS TROP, CBC #### [address] Urea nitrogen [Mass/Vol] 22 mg/dL Normal 7-25 [facility] Comment on above: Performed By: #### P TT, PT, CMP, BNP, HS TROP, CBC #### [address] Basophils Auto (Bld) [#/Vol] Ordered By: Pablo Davis on 08-16-2022 Basophils (Bld) [#/Vol] 0.1 10*3/uL 0.0-0.2 [facility] Basophils/100 WBC Auto (Bld) Ordered By: Pablo Davis on 08-16-2022 Basophils/100 WBC (Bld) 1.0 % . [facility] Complete Blood Count Auto Di ffon 08-16-2022 Basophils (Bld) [#/Vol] 0.1 10*3/uL Normal 0.0-0.2 [facility] Comment on above: Result Comment: PERF ORMED BY: [place] [address] PATHOLOGIST PICKER MACHINE OPERATOR BRETT NAVAS M.D. Performed By: #### P TT, PT, CMP, BNP, HS TROP, CBC #### [address] Basophils/100 WBC (Bld) 1.0 % Normal . [facility] Comment on above: Performed By: #### P TT, PT, CMP, BNP, HS TROP, CBC #### [facility] [address] [place] [address] Eosinophils (Bld) [#/Vol] 0.2 10*3/uL Normal 0.0-0.45 [facility] Comment on above: Performed By: #### P TT, PT, CMP, BNP, HS TROP, CBC #### [address] Eosinophils/100 WBC (Bld) 2.1 % Normal . [facility] Comment on above: Performed By: #### P TT, PT, CMP, BNP, HS TROP, CBC #### [address] Erythrocyte distribution width (RBC) [Ratio] 14.6 % Normal 11.9-15.3 [facility] Comment on above: Performed By: #### P TT, PT, CMP, BNP, HS TROP, CBC #### [address] Hematocrit (Bld) [Volume fraction] 36.5 % Normal 34.0-46.4 [facility] Comment on above: Performed By: #### P TT, PT, CMP, BNP, HS TROP, CBC #### [address] Hemoglobin (Bld) [Mass/Vol] 12.4 g/dL Normal 11.8-15.4 [facility] Comment on above: Performed By: #### P TT, PT, CMP, BNP, HS TROP, CBC #### [address] Lymphocytes (Bld) [#/Vol] 3.2 10*3/uL Normal 1.00-4.8 [facility] Comment on above: Performed By: #### P TT, PT, CMP, BNP, HS TROP, CBC #### [address] Lymphocytes/100 WBC (Bld) 35.6 % Normal . [facility] Comment on above: Performed By: #### P TT, PT, CMP, BNP, HS TROP, CBC #### [address] MCH (RBC) [Entitic mass] 29.1 pg Normal 24.7-34.3 [facility] Comment on above: Performed By: #### P TT, PT, CMP, BNP, HS TROP, CBC #### [address] MCV (RBC) [Entitic vol] 85.5 fL Normal 80-100 [facility] Comment on above: Performed By: #### P TT, PT, CMP, BNP, HS TROP, CBC #### [address] Mean Corpuscular HGB Conc 34.0 g/dL Normal 32.0-35.0 [facility] Comment on above: Performed By: #### P TT, PT, CMP, BNP, HS TROP, CBC #### [address] Monocytes (Bld) [#/Vol] 0.7 10*3/uL Normal 0.0-0.8 [facility] Comment on above: Performed By: #### P TT, PT, CMP, BNP, HS TROP, CBC #### [address] Monocytes/100 WBC (Bld) 8.1 % Normal . [facility] Comment on above: Performed By: #### P TT, PT, CMP, BNP, HS TROP, CBC #### [address] Neutrophils (Bld) [#/Vol] 4.9 10*3/uL Normal 1.8-7.7 [facility] Comment on above: Performed By: #### P TT, PT, CMP, BNP, HS TROP, CBC #### [address] Neutrophils/100 WBC (Bld) 53.2 % Normal . [facility] Comment on above: Performed By: #### P TT, PT, CMP, BNP, HS TROP, CBC #### [address] NRBC% 0.1 /100{WBC} Normal 0-0.5 [facility] Comment on above: Performed By: #### P TT, PT, CMP, BNP, HS TROP, CBC #### [facility] [address] Platelet mean volume (Bld) [Entitic vol] 7.4 fL Normal 6.3-10.7 [facility] Comment on above: Performed By: #### P TT, PT, CMP, BNP, HS TROP, CBC #### [facility] [address] Platelets (Bld) [#/Vol] 209 10*3/uL Normal 150-450 [facility] Comment on above: Performed By: #### P TT, PT, CMP, BNP, HS TROP, CBC #### [address] RBC (Bld) [#/Vol] 4.27 10*6/uL Normal 3.60-5.00 [facility] Comment on above: Performed By: #### P TT, PT, CMP, BNP, HS TROP, CBC #### [address] WBC (Bld) [#/Vol] 9.1 10*3/uL Normal 3.8-11.6 [facility] Comment on above: Performed By: #### P TT, PT, CMP, BNP, HS TROP, CBC #### [address] Eosinophils Auto (Bld) [#/Vo l]Ordered By: Pablo Davis on 08-16-2022 Eosinophils (Bld) [#/Vol] 0.2 10*3/uL 0.0-0.45 [facility] Eosinophils/100 WBC Auto (Bl d)Ordered By: Pablo Davis on 08-16-2022 Eosinophils/100 WBC (Bld) 2.1 % . [facility] Erythrocyte distribution wid th Auto (RBC) [Ratio]Ordered By: Pablo Davis on 08-16-2022 Erythrocyte distribution width (RBC) [Ratio] 14.6 % 11.9-15.3 [facility] Glucose Poct Glucometerson 0 08-16-2022 Glucose [Mass/Vol] 202 mg/dL Normal [facility] Comment on above: Result Comment: [place] om Glucose Reference Range is dependent on time and content of last meal. Glucose of more than 200 mg/dL in a nonstressed, ambulatory subject supports the diagnosis of Diabetes Mellitus. PERFORMED BY: [place] [address] PATHOLOGIST PICKER MACHINE OPERATOR BRETT NAVAS M.D. Performed By: #### G LULS #### Point of Care testing , Commemt1 Glu2: Cleaned Meter [facility] Comment on above: Result Comment: PERF ORMED BY: [place] [address] PATHOLOGIST PICKER MACHINE OPERATOR BRETT NAVAS M.D. Performed By: #### P TT, PT, CMP, BNP, HS TROP, CBC #### [place] [address] [place] Glucose [Mass/Vol] 191 mg/dL Normal [facility] Comment on above: Result Comment: [facility] Glucose Reference Range is dependent on time and content of last meal. Glucose of more than 200 mg/dL in a nonstressed, ambulatory subject supports the diagnosis of Diabetes Mellitus. Performed By: #### P TT, PT, CMP, BNP, HS TROP, CBC #### [facility] [address] [place] [address] [place] Commemt1 Glu2: Cleaned Meter [facility] Comment on above: Result Comment: PERF ORMED BY: [facility] [address] [place] [address] PATHOLOGIST PICKER MACHINE OPERATOR BRETT NAVAS M.D. Performed By: #### P TT, PT, CMP, BNP, HS TROP, CBC #### [place] [id number] [place] Glucose [Mass/Vol] 177 mg/dL Normal [facility] Comment on above: Result Comment: [place] om Glucose Reference Range is dependent on time and content of last meal. Glucose of more than 200 mg/dL in a nonstressed, ambulatory subject supports the diagnosis of Diabetes Mellitus. Performed By: #### P TT, PT, CMP, BNP, HS TROP, CBC #### [facility] [address] Commemt1 Glu2: Cleaned Meter Normal [facility] Comment on above: Result Comment: PERF ORMED BY: [place] [address] PATHOLOGIST PICKER MACHINE OPERATOR BRETT NAVAS M.D. Performed By: #### P TT, PT, CMP, BNP, HS TROP, CBC #### [facility] [address] Glucose [Mass/Vol] 121 mg/dL Normal [facility] Comment on above: Result Comment: [place] Glucose Reference Range is dependent on time and content of last meal. Glucose of more than 200 mg/dL in a nonstressed, ambulatory subject supports the diagnosis of Diabetes Mellitus. Performed By: #### P TT, PT, CMP, BNP, HS TROP, CBC #### [facility] [address] Hematocrit Auto (Bld) [Volum e fraction]Ordered By: Pablo Davis on 08-16-2022 Hematocrit (Bld) [Volume fraction] 36.5 % 34.0-46.4 [facility] Hemoglobin [Mass/volume] in BloodOrdered By: Pablo Davis on 08-16-2022 Hemoglobin (Bld) [Mass/Vol] 12.4 g/dL 11.8-15.4 [facility] Leukocytes [#/volume] correc deysi for nucleated erythrocytes in Blood by Automated counOrdered By: Pablo Davis on 08-16-2022 WBC corrected for nucl RBC Auto (Bld) [#/Vol] 9.1 10*3/uL 3.8-11.6 [facility] Lymphocytes Auto (Bld) [#/Vo l]Ordered By: Pablo Davis on 08-16-2022 Lymphocytes (Bld) [#/Vol] 3.2 10*3/uL 1.00-4.8 [facility] Lymphocytes/100 WBC Auto (Bl d)Ordered By: Pablo Davis on 08-16-2022 Lymphocytes/100 WBC (Bld) 35.6 % . [facility] MCH Auto (RBC) [Entitic mass ]Ordered By: Pablo Davis on 08-16-2022 MCH (RBC) [Entitic mass] 29.1 pg 24.7-34.3 [facility] MCHC Auto (RBC) [Mass/Vol]Or dered By: Pablo Davis on 08-16-2022 MCHC (RBC) [Mass/Vol] 34.0 g/dL 32.0-35.0 [facility] MCV Auto (RBC) [Entitic vol] Ordered By: Pablo Davis on 08-16-2022 MCV (RBC) [Entitic vol] 85.5 fL 80-100 [facility] Monocytes Auto (Bld) [#/Vol] Ordered By: Pablo Davis on 08-16-2022 Monocytes (Bld) [#/Vol] 0.7 10*3/uL 0.0-0.8 [facility] Monocytes/100 WBC Auto (Bld) Ordered By: Pablo Davis on 08-16-2022 Monocytes/100 WBC (Bld) 8.1 % . [facility] Neutrophils Auto (Bld) [#/Vo l]Ordered By: Pablo Davis on 08-16-2022 Neutrophils (Bld) [#/Vol] 4.9 10*3/uL 1.8-7.7 [facility] Neutrophils/100 WBC Auto (Bl d)Ordered By: Pablo Davis on 08-16-2022 Neutrophils/100 WBC (Bld) 53.2 % . [facility] Nucleated erythrocytes [Pres ence] in Blood by Automated countOrdered By: Pablo Davis on 08-16-2022 Nucleated RBC Auto Ql (Bld) 0.1 /100{WBC} 0-0.5 [facility] Platelet mean volume Auto (B ld) [Entitic vol]Ordered By: Pablo Davis on 08-16-2022 Platelet mean volume (Bld) [Entitic vol] 7.4 fL 6.3-10.7 [facility] Platelets Auto (Bld) [#/Vol] Ordered By: Pablo Davis on 08-16-2022 Platelets (Bld) [#/Vol] 209 10*3/uL 150-450 [facility] RBC Auto (Bld) [#/Vol]Ordere d By: Pablo Davis on 08-16-2022 RBC (Bld) [#/Vol] 4.27 10*6/uL 3.60-5.00 [facility] WBC Auto (Bld) [#/Vol]Ordere d By: Pablo Ryan on 08-16-2022 WBC (Bld) [#/Vol] 9.1 10*3/uL 3.8-11.6 [facility] Glucose Poct Glucometerson 0 08-15-2022 Commemt1 Glu2: Cleaned Meter Normal [facility] Comment on above: Result Comment: PERF ORMED BY: [place] [address] PATHOLOGIST PICKER MACHINE OPERATOR BRETT NAVAS M.D. Performed By: #### P TT, PT, CMP, BNP, HS TROP, CBC #### [facility] [address] Glucose [Mass/Vol] 127 mg/dL Normal [facility] Comment on above: Result Comment: [place] om Glucose Reference Range is dependent on time and content of last meal. Glucose of more than 200 mg/dL in a nonstressed, ambulatory subject supports the diagnosis of Diabetes Mellitus. Performed By: #### P TT, PT, CMP, BNP, HS TROP, CBC #### [facility] [address] [place] [address] Commemt1 Glu2: Cleaned Meter Normal [facility] Comment on above: Result Comment: PERF ORMED BY: [facility] [address] [place] [address] PATHOLOGIST PICKER MACHINE OPERATOR BRETT NAVAS M.D. Performed By: #### G LULS #### Point of Care testing , Glucose [Mass/Vol] 142 mg/dL Normal [facility] Comment on above: Result Comment: [place] om Glucose Reference Range is dependent on time and content of last meal. Glucose of more than 200 mg/dL in a nonstressed, ambulatory subject supports the diagnosis of Diabetes Mellitus. Performed By: #### G LULS #### Point of Care testing , Glucose Poct Glucometerson 0 08-14-2022 Commemt1 Glu2: Cleaned Meter Normal [facility] Comment on above: Result Comment: PERF ORMED BY: [place] [address] [place] [address] PATHOLOGIST PICKER MACHINE OPERATOR BRETT NAVAS M.D. Performed By: #### G LULS #### Point of Care testing , Glucose [Mass/Vol] 155 mg/dL Normal [facility] Comment on above: Result Comment: [place] om Glucose Reference Range is dependent on time and content of last meal. Glucose of more than 200 mg/dL in a nonstressed, ambulatory subject supports the diagnosis of Diabetes Mellitus. Performed By: #### G LULS #### Point of Care testing , Glucose Poct Glucometerson 0 08-13-2022 Glucose [Mass/Vol] 135 mg/dL Normal [facility] Comment on above: Result Comment: [place] om Glucose Reference Range is dependent on time and content of last meal. Glucose of more than 200 mg/dL in a nonstressed, ambulatory subject supports the diagnosis of Diabetes Mellitus. PERFORMED BY: [address] [place] [address] PATHOLOGIST PICKER MACHINE OPERATOR BRETT NAVAS M.D. Performed By: #### G LULS #### Point of Care testing , Glucose Poct Glucometerson 0 08-12-2022 Glucose [Mass/Vol] 181 mg/dL Normal [facility] Comment on above: Result Comment: [place] om Glucose Reference Range is dependent on time and content of last meal. Glucose of more than 200 mg/dL in a nonstressed, ambulatory subject supports the diagnosis of Diabetes Mellitus. PERFORMED BY: [address] [place] [address] PATHOLOGIST PICKER MACHINE OPERATOR BRETT NAVAS M.D. Performed By: #### G LULS #### Point of Care testing , Glucose [Mass/Vol] 278 mg/dL Normal [facility] Comment on above: Result Comment: [place] om Glucose Reference Range is dependent on time and content of last meal. Glucose of more than 200 mg/dL in a nonstressed, ambulatory subject supports the diagnosis of Diabetes Mellitus. PERFORMED BY: [address] [place] [address] PATHOLOGIST PICKER MACHINE OPERATOR BRETT NAVAS M.D. Performed By: #### G LULS #### Point of Care testing , Glucose Poct Glucometerson 0 08-11-2022 Commemt1 Glu2: Cleaned Meter [facility] Comment on above: Result Comment: PERF ORMED BY: [address] [place] [address] PATHOLOGIST PICKER MACHINE OPERATOR BRETT NAVAS M.D. Performed By: #### G LULS #### Point of Care testing , Glucose [Mass/Vol] 126 mg/dL Normal [facility] Comment on above: Result Comment: [facility] Glucose Reference Range is dependent on time and content of last meal. Glucose of more than 200 mg/dL in a nonstressed, ambulatory subject supports the diagnosis of Diabetes Mellitus. Performed By: #### G LULS #### Point of Care testing , Commemt1 Glu2: Cleaned Meter [facility] Comment on above: Result Comment: PERF ORMED BY: [place] [address] PATHOLOGIST PICKER MACHINE OPERATOR BRETT NAVAS M.D. Performed By: #### P TT, PT, CMP, BNP, HS TROP, CBC #### [facility] [address] [place] [address] [place] Glucose [Mass/Vol] 153 mg/dL Normal [facility] Comment on above: Result Comment: [place] om Glucose Reference Range is dependent on time and content of last meal. Glucose of more than 200 mg/dL in a nonstressed, ambulatory subject supports the diagnosis of Diabetes Mellitus. Performed By: #### P TT, PT, CMP, BNP, HS TROP, CBC #### [facility] [address] [place] [address] [place] Glucose [Mass/Vol] 296 mg/dL Normal [facility] Comment on above: Result Comment: [place] om Glucose Reference Range is dependent on time and content of last meal. Glucose of more than 200 mg/dL in a nonstressed, ambulatory subject supports the diagnosis of Diabetes Mellitus. PERFORMED BY: [place] [address] PATHOLOGIST PICKER MACHINE OPERATOR BRETT NAVAS M.D. Performed By: #### P TT, PT, CMP, BNP, HS TROP, CBC #### [address] Glucose [Mass/Vol] 171 mg/dL Normal [facility] Comment on above: Result Comment: [place] Glucose Reference Range is dependent on time and content of last meal. Glucose of more than 200 mg/dL in a nonstressed, ambulatory subject supports the diagnosis of Diabetes Mellitus. PERFORMED BY: [place] [address] PATHOLOGIST PICKER MACHINE OPERATOR BRETT NAVAS M.D. Performed By: #### P TT, PT, CMP, BNP, HS TROP, CBC #### [address] Glucose Poct Glucometerson 0 08-09-2022 Commemt1 Glu2: Cleaned Meter [facility] Comment on above: Result Comment: PERF ORMED BY: [place] [address] PATHOLOGIST PICKER MACHINE OPERATOR BRETT NAVAS M.D. Performed By: #### P TT, PT, CMP, BNP, HS TROP, CBC #### [address] Glucose [Mass/Vol] 149 mg/dL Normal [facility] Comment on above: Result Comment: [place] om Glucose Reference Range is dependent on time and content of last meal. Glucose of more than 200 mg/dL in a nonstressed, ambulatory subject supports the diagnosis of Diabetes Mellitus. Performed By: #### P TT, PT, CMP, BNP, HS TROP, CBC #### [address] Commemt1 Glu2: Cleaned Meter [facility] Comment on above: Result Comment: PERF ORMED BY: [place] [address] PATHOLOGIST PICKER MACHINE OPERATOR BRETT NAVAS M.D. Performed By: #### G LULS #### Point of Care testing , Glucose [Mass/Vol] 146 mg/dL Normal [facility] Comment on above: Result Comment: [place] om Glucose Reference Range is dependent on time and content of last meal. Glucose of more than 200 mg/dL in a nonstressed, ambulatory subject supports the diagnosis of Diabetes Mellitus. Performed By: #### G LULS #### Point of Care testing , Commemt1 Glu2: Cleaned Meter [facility] Comment on above: Result Comment: PERF ORMED BY: [place] [address] PATHOLOGIST PICKER MACHINE OPERATOR BRETT NAVAS M.D. Performed By: #### G LULS #### Point of Care testing , Glucose [Mass/Vol] 149 mg/dL Normal [facility] Comment on above: Result Comment: [place] om Glucose Reference Range is dependent on time and content of last meal. Glucose of more than 200 mg/dL in a nonstressed, ambulatory subject supports the diagnosis of Diabetes Mellitus. Performed By: #### G LULS #### Point of Care testing , Glucose Poct Glucometerson 0 08-08-2022 Commemt1 Glu2: Cleaned Meter [facility] Comment on above: Result Comment: PERF ORMED BY: [place] [address] PATHOLOGIST PICKER MACHINE OPERATOR BRETT NAVAS M.D. Performed By: #### P TT, PT, CMP, BNP, HS TROP, CBC #### [address] Glucose [Mass/Vol] 192 mg/dL Normal [facility] Comment on above: Result Comment: [place] om Glucose Reference Range is dependent on time and content of last meal. Glucose of more than 200 mg/dL in a nonstressed, ambulatory subject supports the diagnosis of Diabetes Mellitus. Performed By: #### P TT, PT, CMP, BNP, HS TROP, CBC #### [facility] [address] [place] [address] [place] Glucose [Mass/Vol] 251 mg/dL Normal [facility] Comment on above: Result Comment: [place] om Glucose Reference Range is dependent on time and content of last meal. Glucose of more than 200 mg/dL in a nonstressed, ambulatory subject supports the diagnosis of Diabetes Mellitus. Performed By: #### P TT, PT, CMP, BNP, HS TROP, CBC #### [facility] [address] [place] [address] [place] Glucose [Mass/Vol] 139 mg/dL Normal [facility] Comment on above: Result Comment: [place] om Glucose Reference Range is dependent on time and content of last meal. Glucose of more than 200 mg/dL in a nonstressed, ambulatory subject supports the diagnosis of Diabetes Mellitus. PERFORMED BY: [place] [address] PATHOLOGIST PICKER MACHINE OPERATOR BRETT NAVAS M.D. Performed By: #### G LULS #### Point of Care testing , Glucose Poct Glucometerson 0 08-07-2022 Glucose [Mass/Vol] 253 mg/dL Normal [facility] Comment on above: Result Comment: [place] om Glucose Reference Range is dependent on time and content of last meal. Glucose of more than 200 mg/dL in a nonstressed, ambulatory subject supports the diagnosis of Diabetes Mellitus. PERFORMED BY: [place] [address] PATHOLOGIST PICKER MACHINE OPERATOR BRETT NAVAS M.D. Performed By: #### G LULS #### Point of Care testing , Glucose [Mass/Vol] 164 mg/dL Normal [facility] Comment on above: Result Comment: [place] om Glucose Reference Range is dependent on time and content of last meal. Glucose of more than 200 mg/dL in a nonstressed, ambulatory subject supports the diagnosis of Diabetes Mellitus. PERFORMED BY: [place] [address] PATHOLOGIST PICKER MACHINE OPERATOR BRETT NAVAS M.D. Performed By: #### P TT, PT, CMP, BNP, HS TROP, CBC #### [facility] [facility] [address] [id number] [facility] Glucose [Mass/Vol] 210 mg/dL Normal [facility] Comment on above: Result Comment: [place] Glucose Reference Range is dependent on time and content of last meal. Glucose of more than 200 mg/dL in a nonstressed, ambulatory subject supports the diagnosis of Diabetes Mellitus. PERFORMED BY: [place] [address] PATHOLOGIST PICKER MACHINE OPERATOR BRETT NAVAS M.D. Performed By: #### P TT, PT, CMP, BNP, HS TROP, CBC #### [address] [address] [facility] Alanine aminotransferase [En zymatic activity/volume] in Serum or PlasmaOrdered By: Pablo Davis on 08-06-2022 ALT [Catalytic activity/Vol] 19 U/L 7-52 [facility] Albumin [Mass/volume] in Ser um or Plasma by Bromocresol green (BCG) dye binding methoOrdered By: Pablo Davis on 08-06-2022 Albumin BCG dye [Mass/Vol] 4.1 g/dL 3.5-5.7 [facility] Alkaline phosphatase [Enzyma tic activity/volume] in Serum or PlasmaOrdered By: Pablo Davis on 08-06-2022 ALP [Catalytic activity/Vol] 74 U/L 34-104 [facility] Aspartate aminotransferase [ Enzymatic activity/volume] in Serum or PlasmaOrdered By: Pablo Davis on 08-06-2022 AST [Catalytic activity/Vol] 17 U/L 13-39 [facility] Bilirubin.total [Mass/volume ] in Serum or PlasmaOrdered By: Pablo Davis on 08-06-2022 Bilirubin [Mass/Vol] 0.4 mg/dL 0.3-1.0 [facility] Complete Blood Count Auto Di ffon 08-06-2022 Basophils (Bld) [#/Vol] 0.0 10*3/uL Normal 0.0-0.2 [facility] Comment on above: Result Comment: PERF ORMED BY: [place] [address] PATHOLOGIST PICKER MACHINE OPERATOR BRETT NAVAS M.D. Performed By: #### P TT, PT, CMP, BNP, HS TROP, CBC #### [address] Basophils/100 WBC (Bld) 0.4 % Normal . [facility] Comment on above: Performed By: #### P TT, PT, CMP, BNP, HS TROP, CBC #### [address] Eosinophils (Bld) [#/Vol] 0.1 10*3/uL Normal 0.0-0.45 [facility] Comment on above: Performed By: #### P TT, PT, CMP, BNP, HS TROP, CBC #### [address] Eosinophils/100 WBC (Bld) 0.9 % Normal . [facility] Comment on above: Performed By: #### P TT, PT, CMP, BNP, HS TROP, CBC #### [address] Erythrocyte distribution width (RBC) [Ratio] 14.5 % Normal 11.9-15.3 [facility] Comment on above: Performed By: #### P TT, PT, CMP, BNP, HS TROP, CBC #### [address] Hematocrit (Bld) [Volume fraction] 38.6 % Normal 34.0-46.4 [facility] Comment on above: Performed By: #### P TT, PT, CMP, BNP, HS TROP, CBC #### [address] Hemoglobin (Bld) [Mass/Vol] 13.1 g/dL Normal 11.8-15.4 [facility] Comment on above: Performed By: #### P TT, PT, CMP, BNP, HS TROP, CBC #### [address] Lymphocytes (Bld) [#/Vol] 3.5 10*3/uL Normal 1.00-4.8 [facility] Comment on above: Performed By: #### P TT, PT, CMP, BNP, HS TROP, CBC #### [address] Lymphocytes/100 WBC (Bld) 34.2 % Normal . [facility] Comment on above: Performed By: #### P TT, PT, CMP, BNP, HS TROP, CBC #### [address] MCH (RBC) [Entitic mass] 29.2 pg Normal 24.7-34.3 [facility] Comment on above: Performed By: #### P TT, PT, CMP, BNP, HS TROP, CBC #### [address] MCV (RBC) [Entitic vol] 85.7 fL Normal 80-100 [facility] Comment on above: Performed By: #### P TT, PT, CMP, BNP, HS TROP, CBC #### [address] Mean Corpuscular HGB Conc 34.0 g/dL Normal 32.0-35.0 [facility] Comment on above: Performed By: #### P TT, PT, CMP, BNP, HS TROP, CBC #### [address] Monocytes (Bld) [#/Vol] 0.7 10*3/uL Normal 0.0-0.8 [facility] Comment on above: Performed By: #### P TT, PT, CMP, BNP, HS TROP, CBC #### [place] [address] [place] Monocytes/100 WBC (Bld) 7.3 % Normal . [facility] Comment on above: Performed By: #### P TT, PT, CMP, BNP, HS TROP, CBC #### [place] [address] [place] Neutrophils (Bld) [#/Vol] 5.8 10*3/uL Normal 1.8-7.7 [facility] Comment on above: Performed By: #### P TT, PT, CMP, BNP, HS TROP, CBC #### [address] Neutrophils/100 WBC (Bld) 57.2 % Normal . [facility] Comment on above: Performed By: #### P TT, PT, CMP, BNP, HS TROP, CBC #### [address] NRBC% 0.1 /100{WBC} Normal 0-0.5 [facility] Comment on above: Performed By: #### P TT, PT, CMP, BNP, HS TROP, CBC #### [address] Platelet mean volume (Bld) [Entitic vol] 7.6 fL Normal 6.3-10.7 [facility] Comment on above: Performed By: #### P TT, PT, CMP, BNP, HS TROP, CBC #### [address] Platelets (Bld) [#/Vol] 212 10*3/uL Normal 150-450 [facility] Comment on above: Performed By: #### P TT, PT, CMP, BNP, HS TROP, CBC #### [address] RBC (Bld) [#/Vol] 4.50 10*6/uL Normal 3.60-5.00 [facility] Comment on above: Performed By: #### P TT, PT, CMP, BNP, HS TROP, CBC #### [address] WBC (Bld) [#/Vol] 10.1 10*3/uL Normal 3.8-11.6 [facility] Comment on above: Performed By: #### P TT, PT, CMP, BNP, HS TROP, CBC #### [address] Comprehensive Metabolic Pane nevin 08-06-2022 Albumin [Mass/Vol] 4.1 g/dL Normal 3.5-5.7 [facility] Comment on above: Performed By: #### P TT, PT, CMP, BNP, HS TROP, CBC #### [facility] [address] Albumin/Globulin [Mass ratio] 1.4 {ratio} Normal [facility] Comment on above: Performed By: #### P TT, PT, CMP, BNP, HS TROP, CBC #### [facility] [address] ALP [Catalytic activity/Vol] 74 U/L Normal 34-104 [facility] Comment on above: Performed By: #### P TT, PT, CMP, BNP, HS TROP, CBC #### [facility] [address] ALT [Catalytic activity/Vol] 19 U/L Normal 7-52 [facility] Comment on above: Performed By: #### P TT, PT, CMP, BNP, HS TROP, CBC #### [facility] [address] Anion gap [Moles/Vol] 14.5 mmol/L Normal 6.0-15.0 [facility] Comment on above: Performed By: #### P TT, PT, CMP, BNP, HS TROP, CBC #### [facility] [address] AST [Catalytic activity/Vol] 17 U/L Normal 13-39 [facility] Comment on above: Performed By: #### P TT, PT, CMP, BNP, HS TROP, CBC #### [facility] [address] [place] [address] [place] Bilirubin [Mass/Vol] 0.4 mg/dL Normal 0.3-1.0 [facility] Comment on above: Performed By: #### P TT, PT, CMP, BNP, HS TROP, CBC #### [facility] [address] Calcium [Mass/Vol] 9.2 mg/dL Normal 8.6-10.3 [facility] Comment on above: Performed By: #### P TT, PT, CMP, BNP, HS TROP, CBC #### [facility] [address] Chloride [Moles/Vol] 95 mmol/L Low 98-107 [facility] Comment on above: Performed By: #### P TT, PT, CMP, BNP, HS TROP, CBC #### [facility] [address] CO2 [Moles/Vol] 27.0 mmol/L Normal 21.0-31.0 [facility] Comment on above: Performed By: #### P TT, PT, CMP, BNP, HS TROP, CBC #### [address] Creatinine [Mass/Vol] 0.89 mg/dL Normal 0.60-1.20 [facility] Comment on above: Performed By: #### P TT, PT, CMP, BNP, HS TROP, CBC #### [facility] [address] [place] [address] Creatinine Clr Calc Pharmacy 41.94 [facility] Comment on above: Performed By: #### P TT, PT, CMP, BNP, HS TROP, CBC #### [place] [address] [place] GFR/1.73 sq M.predicted MDRD (S/P/Bld) [Vol rate/Area] mL/min/{1.73_m2} [facility] Comment on above: Performed By: #### P TT, PT, CMP, BNP, HS TROP, CBC #### [facility] [address] [place] [address] [place] Globulin (S) [Mass/Vol] 3.0 g/dL [facility] Comment on above: Performed By: #### P TT, PT, CMP, BNP, HS TROP, CBC #### [facility] [address] Glucose [Mass/Vol] 201 mg/dL High 70-100 [facility] Comment on above: Result Comment: [facility] Glucose Reference Range is dependent on time and content of last meal. Glucose of more than 200 mg/dL in a nonstressed, ambulatory subject supports the diagnosis of Diabetes Mellitus. ADA recommended reference range Performed By: #### P TT, PT, CMP, BNP, HS TROP, CBC #### [facility] [address] Potassium [Moles/Vol] 3.5 mmol/L Normal 3.5-5.1 [facility] Comment on above: Performed By: #### P TT, PT, CMP, BNP, HS TROP, CBC #### [facility] [address] Protein [Mass/Vol] 7.1 g/dL Normal 6.4-8.9 [facility] Comment on above: Performed By: #### P TT, PT, CMP, BNP, HS TROP, CBC #### [facility] [address] Sodium [Moles/Vol] 133 mmol/L Low 136-145 [facility] Comment on above: Performed By: #### P TT, PT, CMP, BNP, HS TROP, CBC #### [facility] [address] Urea nitrogen [Mass/Vol] 28 mg/dL High 7-25 [facility] Comment on above: Performed By: #### P TT, PT, CMP, BNP, HS TROP, CBC #### [address] Globulin Calc (S) [Mass/Vol] Ordered By: Pablo Davis on 08-06-2022 Globulin (S) [Mass/Vol] 3.0 g/dL [facility] Glucose Poct Glucometerson 0 08-06-2022 Glucose [Mass/Vol] 303 mg/dL Normal [facility] Comment on above: Result Comment: [facility] Glucose Reference Range is dependent on time and content of last meal. Glucose of more than 200 mg/dL in a nonstressed, ambulatory subject supports the diagnosis of Diabetes Mellitus. PERFORMED BY: [address] [address] PATHOLOGIST PICKER MACHINE OPERATOR BRETT NAVAS M.D. Performed By: #### P TT, PT, CMP, BNP, HS TROP, CBC #### [facility] [address] Glucose [Mass/Vol] 183 mg/dL Normal [facility] Comment on above: Result Comment: [facility] Glucose Reference Range is dependent on time and content of last meal. Glucose of more than 200 mg/dL in a nonstressed, ambulatory subject supports the diagnosis of Diabetes Mellitus. PERFORMED BY: [place] [address] PATHOLOGIST PICKER MACHINE OPERATOR BRETT NAVAS M.D. Performed By: #### P TT, PT, CMP, BNP, HS TROP, CBC #### [address] [address] [facility] Prealbuminon 08-06-2022 Prealbumin [Mass/Vol] 26.1 mg/dL Normal 17.0-34.0 [facility] Comment on above: Result Comment: PERF ORMED BY: [place] [address] PATHOLOGIST PICKER MACHINE OPERATOR BRETT NAVAS M.D. Performed By: #### P TT, PT, CMP, BNP, HS TROP, CBC #### [address] Prealbumin [Mass/volume] in Serum or PlasmaOrdered By: Pablo Davis on 08-06-2022 Prealbumin [Mass/Vol] 26.1 mg/dL 17.0-34.0 [facility] Protein [Mass/volume] in Ser um or PlasmaOrdered By: Pablo Davis on 08-06-2022 Protein [Mass/Vol] 7.1 g/dL 6.4-8.9 [facility] Serum or plasma albumin/glob ulin mass ratioOrdered By: Pablo Davis on 08-06-2022 Albumin/Globulin [Mass ratio] 1.4 {ratio} [facility] Glucose Glucometer (BldC) [M ass/Vol]Ordered By: Ashleigh Roman on 08-05-2022 Glucose [Mass/Vol] 327 mg/dL [facility] Comment on above: [place] Glucose Refer ence Range is dependent on time and content of last meal. Glucose of more than 200 mg/dL in a nonstressed, ambulatory subject supports the diagnosis of Diabetes Mellitus. Glucose [Mass/Vol] 230 mg/dL [facility] Comment on above: Random Glucose Refer ence Range is dependent on time and content of last meal. Glucose of more than 200 mg/dL in a nonstressed, ambulatory subject supports the diagnosis of Diabetes Mellitus. Glucose Poct Glucometerson 0 08-05-2022 Commemt1 Glu2: Cleaned Meter [facility] Comment on above: Result Comment: PERF ORMED BY: [address] [place] [id number] PATHOLOGIST PICKER MACHINE OPERATOR BRETT NAVAS M.D. Performed By: #### G LULS #### Point of Care testing , Glucose [Mass/Vol] 327 mg/dL Normal [facility] Comment on above: Result Comment: [place] Glucose Reference Range is dependent on time and content of last meal. Glucose of more than 200 mg/dL in a nonstressed, ambulatory subject supports the diagnosis of Diabetes Mellitus. Performed By: #### G LULS #### Point of Care testing , Commemt1 Glu2: Cleaned Meter [facility] Comment on above: Result Comment: PERF ORMED BY: [facility] [address] [facility] [place] [address] PATHOLOGIST PICKER MACHINE OPERATOR BRETT NAVAS M.D. Performed By: #### G LULS #### Point of Care testing , Glucose [Mass/Vol] 230 mg/dL Normal [facility] Comment on above: Result Comment: [place] om Glucose Reference Range is dependent on time and content of last meal. Glucose of more than 200 mg/dL in a nonstressed, ambulatory subject supports the diagnosis of Diabetes Mellitus. Performed By: #### G LULS #### Point of Care testing , No Panel InformationOrdered By: Ashleigh Roman on 08-05-2022 Bedside Glucose Comment Glu2: cleaned meter [facility] Bedside Glucose Comment Glu2: cleaned meter [facility] Basic Metabolic Panelon 07-21 Anion gap [Moles/Vol] 11.6 mmol/L Normal 6.0-15.0 [facility] Comment on above: Performed By: #### P TT, PT, CMP, BNP, HS TROP, CBC #### [facility] [address] Calcium [Mass/Vol] 8.8 mg/dL Normal 8.6-10.3 [facility] Comment on above: Performed By: #### P TT, PT, CMP, BNP, HS TROP, CBC #### [facility] [address] Chloride [Moles/Vol] 97 mmol/L Low 98-107 [facility] Comment on above: Performed By: #### P TT, PT, CMP, BNP, HS TROP, CBC #### [address] CO2 [Moles/Vol] 28.3 mmol/L Normal 21.0-31.0 [facility] Comment on above: Performed By: #### P TT, PT, CMP, BNP, HS TROP, CBC #### [address] Creatinine [Mass/Vol] 0.92 mg/dL Normal 0.60-1.20 [facility] Comment on above: Performed By: #### P TT, PT, CMP, BNP, HS TROP, CBC #### [address] Creatinine Clr Calc Pharmacy 34.71 Normal [facility] Comment on above: Result Comment: PERF ORMED BY: [place] [address] PATHOLOGIST PICKER MACHINE OPERATOR BRETT NAVAS M.D. Performed By: #### P TT, PT, CMP, BNP, HS TROP, CBC #### [address] GFR/1.73 sq M.predicted MDRD (S/P/Bld) [Vol rate/Area] mL/min/{1.73_m2} Normal [facility] Comment on above: Performed By: #### P TT, PT, CMP, BNP, HS TROP, CBC #### [facility] [address] [place] [address] [place] Glucose [Mass/Vol] 230 mg/dL High 70-100 [facility] Comment on above: Result Comment: [place] Glucose Reference Range is dependent on time and content of last meal. Glucose of more than 200 mg/dL in a nonstressed, ambulatory subject supports the diagnosis of Diabetes Mellitus. ADA recommended reference range Performed By: #### P TT, PT, CMP, BNP, HS TROP, CBC #### [facility] [address] Potassium [Moles/Vol] 3.9 mmol/L Normal 3.5-5.1 [facility] Comment on above: Performed By: #### P TT, PT, CMP, BNP, HS TROP, CBC #### [facility] [address] [place] [address] [place] Sodium [Moles/Vol] 133 mmol/L Low 136-145 [facility] Comment on above: Performed By: #### P TT, PT, CMP, BNP, HS TROP, CBC #### [facility] [address] [place] [address] [place] Urea nitrogen [Mass/Vol] 23 mg/dL Normal 7-25 [facility] Comment on above: Performed By: #### P TT, PT, CMP, BNP, HS TROP, CBC #### [facility] [address] [place] [address] [place] Calcium [Mass/volume] in Ser um or PlasmaOrdered By: Ashleigh Roman on 08-04-2022 Calcium [Mass/Vol] 8.8 mg/dL 8.6-10.3 [facility] Carbon dioxide, total [Moles /volume] in Serum or PlasmaOrdered By: Ashleigh Roman on 08-04-2022 CO2 [Moles/Vol] 28.3 mmol/L 21.0-31.0 [facility] Chloride [Moles/volume] in S garret or PlasmaOrdered By: Ashleigh Roman on 08-04-2022 Chloride [Moles/Vol] 97 mmol/L 98-107 [facility] Creatinine [Mass/volume] in Serum or PlasmaOrdered By: Ashleigh Roman on 08-04-2022 Creatinine [Mass/Vol] 0.92 mg/dL 0.60-1.20 [facility] Erythrocyte distribution wid th Auto (RBC) [Ratio]Ordered By: Ashleigh Roman on 08-04-2022 Erythrocyte distribution width (RBC) [Ratio] 14.5 % 11.9-15.3 [facility] Glucose Poct Glucometerson 0 08-04-2022 Glucose [Mass/Vol] 177 mg/dL Normal [facility] Comment on above: Result Comment: [facility] Glucose Reference Range is dependent on time and content of last meal. Glucose of more than 200 mg/dL in a nonstressed, ambulatory subject supports the diagnosis of Diabetes Mellitus. PERFORMED BY: [facility] [address] [facility] [place] [id number] PATHOLOGIST PICKER MACHINE OPERATOR BRETT NAVAS M.D. Performed By: #### G LULS #### Point of Care testing , Commemt1 Glu2: Cleaned Meter Normal [facility] Comment on above: Result Comment: PERF ORMED BY: [facility] [address] [facility] [place] [address] PATHOLOGIST PICKER MACHINE OPERATOR BRETT NAVAS M.D. Performed By: #### G LULS #### Point of Care testing , Glucose [Mass/Vol] 235 mg/dL Normal [facility] Comment on above: Result Comment: [place] Glucose Reference Range is dependent on time and content of last meal. Glucose of more than 200 mg/dL in a nonstressed, ambulatory subject supports the diagnosis of Diabetes Mellitus. Performed By: #### G LULS #### Point of Care testing , Glucose [Mass/volume] in Ser um or PlasmaOrdered By: Ashleigh Roman on 08-04-2022 Glucose [Mass/Vol] 230 mg/dL 70-100 [facility] Comment on above: ADA recommended refe rence rangeRandom Glucose Reference Range is dependent on time and content of last meal. Glucose of more than 200 mg/dL in a nonstressed, ambulatory subject supports the diagnosis of Diabetes Mellitus. Hematocrit Auto (Bld) [Volum e fraction]Ordered By: Ashleigh Roman on 08-04-2022 Hematocrit (Bld) [Volume fraction] 38.3 % 34.0-46.4 [facility] Hemoglobin [Mass/volume] in BloodOrdered By: Ashleigh Roman on 08-04-2022 Hemoglobin (Bld) [Mass/Vol] 13.0 g/dL 11.8-15.4 [facility] Hemogram CBC Without Diffon 08-04-2022 Erythrocyte distribution width (RBC) [Ratio] 14.5 % Normal 11.9-15.3 [facility] Comment on above: Performed By: #### P TT, PT, CMP, BNP, HS TROP, CBC #### [address] Hematocrit (Bld) [Volume fraction] 38.3 % Normal 34.0-46.4 [facility] Comment on above: Performed By: #### P TT, PT, CMP, BNP, HS TROP, CBC #### [address] Hemoglobin (Bld) [Mass/Vol] 13.0 g/dL Normal 11.8-15.4 [facility] Comment on above: Performed By: #### P TT, PT, CMP, BNP, HS TROP, CBC #### [address] MCH (RBC) [Entitic mass] 29.0 pg Normal 24.7-34.3 [facility] Comment on above: Performed By: #### P TT, PT, CMP, BNP, HS TROP, CBC #### [address] MCV (RBC) [Entitic vol] 85.8 fL Normal 80-100 [facility] Comment on above: Performed By: #### P TT, PT, CMP, BNP, HS TROP, CBC #### [address] Mean Corpuscular HGB Conc 33.8 g/dL Normal 32.0-35.0 [facility] Comment on above: Performed By: #### P TT, PT, CMP, BNP, HS TROP, CBC #### [address] Platelet mean volume (Bld) [Entitic vol] 7.7 fL Normal 6.3-10.7 [facility] Comment on above: Result Comment: PERF ORMED BY: [place] [address] PATHOLOGIST PICKER MACHINE OPERATOR BRETT NAVAS M.D. Performed By: #### P TT, PT, CMP, BNP, HS TROP, CBC #### [address] Platelets (Bld) [#/Vol] 172 10*3/uL Normal 150-450 [facility] Comment on above: Performed By: #### P TT, PT, CMP, BNP, HS TROP, CBC #### [address] RBC (Bld) [#/Vol] 4.47 10*6/uL Normal 3.60-5.00 [facility] Comment on above: Performed By: #### P TT, PT, CMP, BNP, HS TROP, CBC #### [address] WBC (Bld) [#/Vol] 9.0 10*3/uL Normal 3.8-11.6 [facility] Comment on above: Performed By: #### P TT, PT, CMP, BNP, HS TROP, CBC #### [address] Leukocytes [#/volume] correc deysi for nucleated erythrocytes in Blood by Automated counOrdered By: Ashleigh Roman on 08-04-2022 WBC corrected for nucl RBC Auto (Bld) [#/Vol] 9.0 10*3/uL 3.8-11.6 [facility] MCH Auto (RBC) [Entitic mass ]Ordered By: Ashleigh Roman on 08-04-2022 MCH (RBC) [Entitic mass] 29.0 pg 24.7-34.3 [facility] MCHC Auto (RBC) [Mass/Vol]Or dered By: Ashleigh Roman on 08-04-2022 MCHC (RBC) [Mass/Vol] 33.8 g/dL 32.0-35.0 [facility] MCV Auto (RBC) [Entitic vol] Ordered By: Ashleigh Roman on 08-04-2022 MCV (RBC) [Entitic vol] 85.8 fL 80-100 [facility] No Panel InformationOrdered By: Ashleigh Roman on 08-04-2022 Estimated GFR (CKD-EPI) > 60.0 mL/Min [facility] Creatinine Clearance (Chem 34.71 [facility] Platelet mean volume Auto (B ld) [Entitic vol]Ordered By: Ashleigh Roman on 08-04-2022 Platelet mean volume (Bld) [Entitic vol] 7.7 fL 6.3-10.7 [facility] Platelets Auto (Bld) [#/Vol] Ordered By: Ashleigh Oneilkenya on 08-04-2022 Platelets (Bld) [#/Vol] 172 10*3/uL 150-450 [facility] Potassium [Moles/volume] in Serum or PlasmaOrdered By: Ashleigh Roman on 08-04-2022 Potassium [Moles/Vol] 3.9 mmol/L 3.5-5.1 [facility] RBC Auto (Bld) [#/Vol]Ordere d By: Ashleigh Oneilsobridger on 08-04-2022 RBC (Bld) [#/Vol] 4.47 10*6/uL 3.60-5.00 [facility] Serum or plasma anion gap de terminationOrdered By: Ashleigh Riggssobridger on 08-04-2022 Anion gap [Moles/Vol] 11.6 mmol/L 6.0-15.0 [facility] Sodium [Moles/volume] in Ser um or PlasmaOrdered By: Ashleigh Roman on 08-04-2022 Sodium [Moles/Vol] 133 mmol/L 136-145 [facility] Urea nitrogen [Mass/volume] in Serum or PlasmaOrdered By: Ashleigh Roman on 08-04-2022 Urea nitrogen [Mass/Vol] 23 mg/dL 7-25 [facility] Glucose Poct Glucometerson 0 08-03-2022 Glucose [Mass/Vol] 266 mg/dL Normal [facility] Comment on above: Result Comment: [place] Glucose Reference Range is dependent on time and content of last meal. Glucose of more than 200 mg/dL in a nonstressed, ambulatory subject supports the diagnosis of Diabetes Mellitus. PERFORMED BY: [place] [address] PATHOLOGIST PICKER MACHINE OPERATOR BRETT NAVAS M.D. Performed By: #### G LULS #### Point of Care testing , Commemt1 Glu2: Cleaned Meter [facility] Comment on above: Result Comment: PERF ORMED BY: [place] [address] PATHOLOGIST PICKER MACHINE OPERATOR BRETT NAVAS M.D. Performed By: #### G LULS #### Point of Care testing , Glucose [Mass/Vol] 246 mg/dL Normal [facility] Comment on above: Result Comment: [facility] Glucose Reference Range is dependent on time and content of last meal. Glucose of more than 200 mg/dL in a nonstressed, ambulatory subject supports the diagnosis of Diabetes Mellitus. Performed By: #### G LULS #### Point of Care testing , Commemt1 Glu2: Cleaned Meter [facility] Comment on above: Result Comment: PERF ORMED BY: [place] [address] PATHOLOGIST PICKER MACHINE OPERATOR BRETT NAVAS M.D. Performed By: #### P TT, PT, CMP, BNP, HS TROP, CBC #### [address] Glucose [Mass/Vol] 233 mg/dL Normal [facility] Comment on above: Result Comment: [facility] Glucose Reference Range is dependent on time and content of last meal. Glucose of more than 200 mg/dL in a nonstressed, ambulatory subject supports the diagnosis of Diabetes Mellitus. Performed By: #### P TT, PT, CMP, BNP, HS TROP, CBC #### [address] XR cervical spine 2Von 08-03 XR cervical spine 2V [facility] Main [place] [id number] XRay Report Signed Patient: Tammy Sandoval MR#: [id number] 3 : 1940 Acct:[id number] Age/Sex: 82 / F ADM Date: 08/02/22 Loc: Room: [address] [place] [address] Type: ADM IN Attending Dr: Ashleigh Roman MD Copies to: MD Ashleigh Sanders MD Ordering Provider: Joan Page MD Date of Service: 08/03/22 XR/XR cervical spine 2V: c2 fx- assess alignment in soft collar 2 views of thecervical spine HISTORY: Assessment of C2 fracture. COMPARISON: CT 08/02/22 POSTOPERATIVE CHANGES: None BONY ALIGNMENT: Adequate FRACTURE: C2 fracture alignment unchanged. DISC DEGENERATION: Advanced C5-C6 spondylosis. Facet degeneration. FACETS: Unremarkable FORAMEN: Unremarkable DENS: Intact CRANIOCERVICAL JUNCTION: Unremarkable SOFT TISSUES: Unremarkable XR/XR cervical spine 2V IMPRESSION: Stable alignment of C2 fracture. Impression dictated by: Juan Mcintosh M.D.08/03/2022 12:59 PM Dictation Location: [place] [address] Transcribed By: [facility] 08/03/22 1259 Dictated By: Juan Mcintosh DO 08/03/22 1257 Signed By: 08/03/22 1259 [facility] XR foot RT 2Von 08-03-2022 XR foot RT 2V [facility] Main [place] [id number] XRay Report Signed Patient: Tammy Sandoval MR#: [id number] 3 : 1940 Acct:[id number] Age/Sex: 82 / F ADM Date: 08/02/22 Loc: 4N Room: 4G2702-2 Type: ADM IN Attending Dr: Ashleigh Roman MD Copies to: DO Ashleigh Mccoy MD Ordering Provider: Alexander Everett DO Date of Service: 08/03/22 XR/XR foot RT 2V: fall, bruising suggestive of fracture XR foot RT 2V 08/03/2022 2:01 PM SIGNS AND SYMPTOMS: Bruising and swelling of first and second digits, recent fall PROTOCOL: Frontal and lateral radiographs of the right foot COMPARISON: None FINDINGS: Findings suggest a transverse aortic fracture through the waist of the distal phalanx of the first digit with accompanying soft tissue swelling. No additional fractures are visualized. There is diffuse osteopenia. The joint spaces are relatively well-preserved. There is plantar surface calcaneal spurring. XR/XR foot RT 2V IMPRESSION: Findings suggest a transverse aortic fracture through the waist of the distal phalanx of the first digit with accompanying soft tissue swelling. No additional fractures are visualized. Impression dictated by: Josh Hensley M.D.08/03/2022 3:56 PM Dictation Location: [place] [address] Transcribed By: [facility] 08/03/22 1555 Dictated By: Josh Hensley II, MD 08/03/22 1554 Signed By: 08/03/22 1556 [facility] XR hand RT min 3V*on 023 XR hand RT min 3V* [place] [address] XRay Report Signed Patient: Tammy Sandoval MR#: [id number] 3 : 1940 Acct:[id number] Age/Sex: 82 / F ADM Date: 08/02/22 Loc: 4N Room: 2B0449-3 Type: ADM IN Attending Dr: Ashleigh Roman MD Copies to: MD Ashleigh Sanders MD Ordering Provider: Joan Page MD Date of Service: 08/03/22 XR/XR hand RT min 3V*: R/O Right index fx 3 views RIGHT hand plain film COMPARISON: None HISTORY: RIGHT index finger injury ACUTE FINDINGS: None DEGENERATIVE CHANGE: Extensive interphalangeal degenerative changes. SOFT TISSUE FINDINGS: Unremarkable JOINT EFFUSION: None POSTOP CHANGES: None BONY MINERALIZATION: Adequate XR/XR hand RT min 3V* IMPRESSION: No acute fracture. Extensive degenerative change. Impression dictated by: Juan Mcintosh M.D.08/03/2022 1:00 PM Dictation Location: [place] [address] Transcribed By: [facility] 08/03/22 1300 Dictated By: Juan Mcintosh DO 08/03/22 1259 Signed By: 08/03/22 1300 Normal [facility] Activated partial thrombopla stin time (aPTT) in platelet poor plasma by coagulation aOrdered By: Sanchez Campoverde on 08-02-2022 aPTT Coag (PPP) [Time] 27.5 s 25.1-36.5 [facility] Alanine aminotransferase [En zymatic activity/volume] in Serum or PlasmaOrdered By: Sanchez Campoverde on 08-02-2022 ALT [Catalytic activity/Vol] 33 U/L 7-52 [facility] Albumin [Mass/volume] in Ser um or Plasma by Bromocresol green (BCG) dye binding methoOrdered By: Sanchez Campoverde on 08-02-2022 Albumin BCG dye [Mass/Vol] 4.6 g/dL 3.5-5.7 [facility] Alkaline phosphatase [Enzyma tic activity/volume] in Serum or PlasmaOrdered By: Sanchez Campoverde on 08-02-2022 ALP [Catalytic activity/Vol] 90 U/L 34-104 [facility] Aspartate aminotransferase [ Enzymatic activity/volume] in Serum or PlasmaOrdered By: Sanchez Campoverde on 08-02-2022 AST [Catalytic activity/Vol] 55 U/L 13-39 [facility] Automated erythrocytes count in urine sediment (number/area)Ordered By: Sanchez Campoverde on 08-02-2022 RBC Auto (Urine sed) [#/Area] 3-4 [HPF] 0-4 [facility] Automated leukocytes count i n urine sediment (number/area)Ordered By: Sanchez Campoverde on 08-02-2022 WBC Auto (Urine sed) [#/Area] 10-19 [HPF] 0-4 [facility] B-Type Natriuretic Peptideon 08-02-2022 Natriuretic peptide B (Bld) [Mass/Vol] 48.0 pg/mL Normal 5-100 [facility] Comment on above: Result Comment: PERF ORMED BY: [place] [address] PATHOLOGIST PICKER MACHINE OPERATOR BRETT NAVAS M.D. Performed By: #### P TT, PT, CMP, BNP, HS TROP, CBC #### [address] Basophils Auto (Bld) [#/Vol] Ordered By: Sanchez Campoverde on 08-02-2022 Basophils (Bld) [#/Vol] 0.0 10*3/uL 0.0-0.2 [facility] Basophils/100 WBC Auto (Bld) Ordered By: Sanchez Campoverde on 08-02-2022 Basophils/100 WBC (Bld) 0.4 % . [facility] Bilirubin Test strip Ql (U)O rdered By: Krysten Mike on 08-02-2022 Bilirubin Ql (U) Negative Negative [facility] Bilirubin.total [Mass/volume ] in Serum or PlasmaOrdered By: Sanchez Campoverde on 08-02-2022 Bilirubin [Mass/Vol] 0.6 mg/dL 0.3-1.[address] [facility] [address] angio neckon 08-02-2022 CT angio neck [facility] Main [place] [address] [place] [address] CT Scan Report Signed Patient: Tammy Sandoval MR#: [id number] 3 : 1940 Acct:[id number] Age/Sex: 82 / F ADM Date: 08/02/22 Loc: ER Room: Type: [facility] ER Attending Dr: Copies to: Krysten Mike APRN Ordering Provider: Krysten Mike APRN Date of Service: 08/02/22 CT/CT angio head: injury ([id number]) CT/CT angio neck: injury CTA Head and Neck TECHNIQUE: Axial imaging of the head and neck with 2-D and 3-D reconstruction. 90cc of Isovue-370. The CT exam was performed using one or more the following dose reduction techniques: Automated exposure control, adjustment of the MA and/or Kv according to patient size, or use of the iterative reconstruction technique. Stenoses were measured using the NASCET criteria. COMPARISON: CT head and neck 06/20/2022 HISTORY: Fracture of the dens with involvement of the right transverse process foramen The visualized aortic arch and great vessels are unremarkable. Subclavian arteries are patent No carotid dissection, critical stenosis or occlusion identified. There is lack of contrast identified in the midportion of the right vertebral artery at the C3 level. Lack of contrast present in the levels of C2 and C1 level of the right vertebral artery with reconstitution of flow identified in the occipital region. The findings are concerning for occlusion and spasm in this region. There may be concern for intramural hematoma and/or occluding dissection. Left vertebral artery unremarkable. The carotid siphons and vertebral basilar systems are patent. No intracranial aneurysm, dissection, abrupt cut off or critical stenosis identified.. . CT/CT angio head IMPRESSION: Redemonstration of fracture of the dens which extends into the right transverse process foramen. There is lack of contrast opacification of the midportion of the right vertebral artery with smooth narrowing starting at the C3 level with reconstitution of flow identified at the level of the occiput. Findings are concerning for occlusion of a vertebral artery this at this level with likely spasm. There also may be concern for intramural hematoma and/or dissection at this level. Dedicated angiogram may be beneficial. The left vertebral artery and carotid arteries and intracranial circulation unremarkable. Impression dictated by: Juan Mcintosh M.D.08/02/2022 5:24 PM Dictation Location: [place] [address] Transcribed By: [facility] 08/02/221723 Dictated By: Juan Mcintosh DO 08/02/221702 Signed By: 08/02/22 [address] [facility] [address] cervical spine wo conon 0 08-02-2022 CT cervical spine wo [facility] [place] [address] CT Scan Report Signed Patient: Tammy Sandoval MR#: [id number] 3 : 1940 Acct:[id number] Age/Sex: 82 / F ADM Date: 08/02/22 Loc: ER Room: Type: PRE ER Attending Dr: Copies to: COLT Andrade DO Ordering Provider: Sanchez Campoverde DO Date of Service: 08/02/22 CT/CT cervical spine wo con: fall CT Cervical Spine withoutcontrast TECHNIQUE: Axial imaging with 2-D and 3-D reconstruction. The CT exam was performed using one or more the following dose reduction techniques: Automated exposure control, adjustment of the MA and/or Kv according to patient size, or use of the iterative reconstruction technique. COMPARISON: CTA head and neck 06/20/2022 HISTORY: Fell this morning. Spasms in the head. Frequent falls. POST SURGERY CHANGES: None BONY ALIGNMENT: Adequate BONY SPINAL CANAL: Patent central bony canal FRACTURE: Acute comminuted mildly displaced fracture of the base of the dens of the C2 vertebral body identified. This extends into the transverse processes bilaterally. This extends into the right transverse foramen with resultant marked narrowing. This is new compared to prior CTA 06/20/2022. There is concern for the right vertebral artery injury at this level. BONY LESIONS: None SOFT TISSUES: Unremarkable DEGENERATIVE CHANGES: None LUNG APICES: Unremarkable ADDITIONAL FINDINGS: CT/CT cervical spine wo con IMPRESSION: Comminuted fracture involving the base of the dens extending into the transverse processes bilaterally. There is encroachment into the right transverse foramen concerning for vertebral artery injury. CTA head and neck recommended to further assess. Preliminary findings given at 3:52 PM 08/02/2022 Impression dictated by: Juan Mcintosh M.D.08/02/2022 4:00 PM Dictation Location: [place] [address] Transcribed By: [facility] 08/02/22 1600 Dictated By: Juan Mcintosh DO 08/02/22 1551 Signed By: 08/02/22 [address] [facility] [address] facial bones wo vince CT facial bones wo [facility] [place] [address] [place] [address] [address] [address] Scan Report Signed Patient: Tammy Sandoval MR#: [id number] 3 : 1940 Acct:[id number] Age/Sex: 82 / F ADM Date: 08/02/22 Loc: ER Room: Type: REG ER Attending Dr: Copies to: COLT Andrade DO Ordering Provider: Sanchez Campoverde DO Date of Service: 08/02/22 CT/CT facial bones wo con: fall CT Facial Bones without contrast TECHNIQUE: Axial imaging with 2-D reconstruction. The CT exam was performed using one or more the following dose reduction techniques: Automated exposure control, adjustment of the MA and/or Kv according to patient size, or use of the iterative reconstruction technique. HISTORY: Fell this morning. Neck pain and had spasms COMPARISON: None FRACTURES: Dens fracture redemonstrated better visualized with CT of the cervical spine. No facial bone fracture. BONY LESIONS: None ORBITS: Unremarkable SINUSES: The sinuses are well pneumatized. SOFT TISSUES: No focal soft tissue abnormality identified. ADDITIONAL FINDINGS: None CT/CT facial bones wo con IMPRESSION: No facial bone fracture. Redemonstration of dense fracture. Impression dictated by: Juan Mcintosh M.D.08/02/2022 4:13 PM Dictation Location: [place] [address] Transcribed By: [facility] 08/02/22 1613 Dictated By: Juan Mcintosh DO 08/02/22 1541 Signed By: 08/02/22 1613 [facility] [address] head/brain wo conon 08-02 CT head/brain wo con [facility] Main [address] [address] [address] Scan Report Signed Patient: Tammy Sandoval MR#: [id number] 3 : 1940 Acct:[id number] Age/Sex: 82 / F ADM Date: 08/02/22 Loc: ER Room: Type: PRE ER Attending Dr: Copies to: COLT Andrade DO Ordering Provider: Sanchez Campoverde DO Date of Service: 08/02/22 CT/CT head/brain wo con: fall Unenhanced head CT TECHNIQUE: Contiguous axial imaging of the head. The CT exam was performed using one or more the following dose reduction techniques: Automated exposure control, adjustment of the MA and/or Kv according to patient size, or use of the iterative reconstruction technique. COMPARISON: 06/20/2022 HISTORY: Fell this morning. Neck pain. Head spasms. VENTRICLES: Within normal limits ATROPHY: None BRAIN PARENCHYMA: Adequate wetzel-white matter differentiation identified. HEMORRHAGE: None HERNIATION: No mass effect or herniation INFARCTION: No recent vascular distribution infarction is seen. EXTRA-AXIAL FLUID COLLECTIONS None MIDBRAIN: Unremarkable RJ: Unremarkable MEDULLA: Unremarkable SINUSES: Unremarkable ORBITS: Grossly unremarkable MASTOIDS: Unremarkable BONY STRUCTURES Intact ADDITIONAL FINDINGS: CT/CT head/brain wo con IMPRESSION: No acute intracranial findings. Impression dictated by: Juan Mcintosh M.D.08/02/2022 4:04 PM Dictation Location: [place] [address] Transcribed By: [facility] 08/02/22 1604 Dictated By: Juan Mcintosh DO 08/02/22 1600 Signed By: 08/02/22 1604 Normal [facility] Color Auto (U)Ordered By: Nori Mike on 08-02-2022 Color (U) Yellow Yellow [facility] Complete Blood Count Auto Di ffon 08-02-2022 Basophils (Bld) [#/Vol] 0.0 10*3/uL Normal 0.0-0.2 [facility] Comment on above: Result Comment: PERF ORMED BY: [address] [place] [address] PATHOLOGIST PICKER MACHINE OPERATOR BRETT NAVAS M.D. Performed By: #### P TT, PT, CMP, BNP, HS TROP, CBC #### [facility] [address] [place] [address] [place] Basophils/100 WBC (Bld) 0.4 % Normal . [facility] Comment on above: Performed By: #### P TT, PT, CMP, BNP, HS TROP, CBC #### [facility] [address] [place] [address] [place] Eosinophils (Bld) [#/Vol] 0.0 10*3/uL Normal 0.0-0.45 [facility] Comment on above: Performed By: #### P TT, PT, CMP, BNP, HS TROP, CBC #### [address] Eosinophils/100 WBC (Bld) 0.1 % Normal . [facility] Comment on above: Performed By: #### P TT, PT, CMP, BNP, HS TROP, CBC #### [address] Erythrocyte distribution width (RBC) [Ratio] 14.5 % Normal 11.9-15.3 [facility] Comment on above: Performed By: #### P TT, PT, CMP, BNP, HS TROP, CBC #### [address] Hematocrit (Bld) [Volume fraction] 41.3 % Normal 34.0-46.4 [facility] Comment on above: Performed By: #### P TT, PT, CMP, BNP, HS TROP, CBC #### [address] Hemoglobin (Bld) [Mass/Vol] 13.9 g/dL Normal 11.8-15.4 [facility] Comment on above: Performed By: #### P TT, PT, CMP, BNP, HS TROP, CBC #### [address] Lymphocytes (Bld) [#/Vol] 1.0 10*3/uL Normal 1.00-4.8 [facility] Comment on above: Performed By: #### P TT, PT, CMP, BNP, HS TROP, CBC #### [address] Lymphocytes/100 WBC (Bld) 9.2 % Normal . [facility] Comment on above: Performed By: #### P TT, PT, CMP, BNP, HS TROP, CBC #### [address] MCH (RBC) [Entitic mass] 29.1 pg Normal 24.7-34.3 [facility] Comment on above: Performed By: #### P TT, PT, CMP, BNP, HS TROP, CBC #### [address] MCV (RBC) [Entitic vol] 86.5 fL Normal 80-100 [facility] Comment on above: Performed By: #### P TT, PT, CMP, BNP, HS TROP, CBC #### [address] Mean Corpuscular HGB Conc 33.7 g/dL Normal 32.0-35.0 [facility] Comment on above: Performed By: #### P TT, PT, CMP, BNP, HS TROP, CBC #### [address] Monocytes (Bld) [#/Vol] 0.3 10*3/uL Normal 0.0-0.8 [facility] Comment on above: Performed By: #### P TT, PT, CMP, BNP, HS TROP, CBC #### [address] Monocytes/100 WBC (Bld) 21.64 % High 0.00-20.00 [facility] Comment on above: Result Comment: For adults in ED, MDW > 20.0 may be associated with a higher risk of sepsis during the first 12 hrs of hospital admission Performed By: #### P TT, PT, CMP, BNP, HS TROP, CBC #### [address] Monocytes/100 WBC (Bld) 2.9 % Normal . [facility] Comment on above: Performed By: #### P TT, PT, CMP, BNP, HS TROP, CBC #### [address] Neutrophils (Bld) [#/Vol] 9.5 10*3/uL High 1.8-7.7 [facility] Comment on above: Performed By: #### P TT, PT, CMP, BNP, HS TROP, CBC #### [address] Neutrophils/100 WBC (Bld) 87.4 % Normal . [facility] Comment on above: Performed By: #### P TT, PT, CMP, BNP, HS TROP, CBC #### [address] NRBC% 0.1 /100{WBC} Normal 0-0.5 [facility] Comment on above: Performed By: #### P TT, PT, CMP, BNP, HS TROP, CBC #### [address] Platelet mean volume (Bld) [Entitic vol] 7.8 fL Normal 6.3-10.7 [facility] Comment on above: Performed By: #### P TT, PT, CMP, BNP, HS TROP, CBC #### [address] Platelets (Bld) [#/Vol] 183 10*3/uL Normal 150-450 [facility] Comment on above: Performed By: #### P TT, PT, CMP, BNP, HS TROP, CBC #### [address] RBC (Bld) [#/Vol] 4.78 10*6/uL Normal 3.60-5.00 [facility] Comment on above: Performed By: #### P TT, PT, CMP, BNP, HS TROP, CBC #### [address] WBC (Bld) [#/Vol] 10.8 10*3/uL Normal 3.8-11.6 [facility] Comment on above: Performed By: #### P TT, PT, CMP, BNP, HS TROP, CBC #### [address] Comprehensive Metabolic Pane nevin 08-02-2022 Albumin [Mass/Vol] 4.6 g/dL Normal 3.5-5.7 [facility] Comment on above: Performed By: #### P TT, PT, CMP, BNP, HS TROP, CBC #### [facility] [address] Albumin/Globulin [Mass ratio] 1.4 {ratio} Normal [facility] Comment on above: Performed By: #### P TT, PT, CMP, BNP, HS TROP, CBC #### [facility] [address] ALP [Catalytic activity/Vol] 90 U/L Normal 34-104 [facility] Comment on above: Performed By: #### P TT, PT, CMP, BNP, HS TROP, CBC #### [address] ALT [Catalytic activity/Vol] 33 U/L Normal 7-52 [facility] Comment on above: Performed By: #### P TT, PT, CMP, BNP, HS TROP, CBC #### [address] Anion gap [Moles/Vol] 15.7 mmol/L High 6.0-15.0 [facility] Comment on above: Performed By: #### P TT, PT, CMP, BNP, HS TROP, CBC #### [address] AST [Catalytic activity/Vol] 55 U/L High 13-39 [facility] Comment on above: Performed By: #### P TT, PT, CMP, BNP, HS TROP, CBC #### [address] Bilirubin [Mass/Vol] 0.6 mg/dL Normal 0.3-1.0 [facility] Comment on above: Performed By: #### P TT, PT, CMP, BNP, HS TROP, CBC #### [address] Calcium [Mass/Vol] 9.1 mg/dL Normal 8.6-10.3 [facility] Comment on above: Performed By: #### P TT, PT, CMP, BNP, HS TROP, CBC #### [facility] [address] [place] [address] [place] Chloride [Moles/Vol] 97 mmol/L Low 98-107 [facility] Comment on above: Performed By: #### P TT, PT, CMP, BNP, HS TROP, CBC #### [address] CO2 [Moles/Vol] 25.7 mmol/L Normal 21.0-31.0 [facility] Comment on above: Performed By: #### P TT, PT, CMP, BNP, HS TROP, CBC #### [address] Creatinine [Mass/Vol] 0.83 mg/dL Normal 0.60-1.20 [facility] Comment on above: Performed By: #### P TT, PT, CMP, BNP, HS TROP, CBC #### [address] Creatinine Clr Calc Pharmacy 44.90 [facility] Comment on above: Result Comment: PERF ORMED BY: [place] [address] PATHOLOGIST PICKER MACHINE OPERATOR BRETT NAVAS M.D. Performed By: #### P TT, PT, CMP, BNP, HS TROP, CBC #### [address] GFR/1.73 sq M.predicted MDRD (S/P/Bld) [Vol rate/Area] mL/min/{1.73_m2} [facility] Comment on above: Performed By: #### P TT, PT, CMP, BNP, HS TROP, CBC #### [address] Globulin (S) [Mass/Vol] 3.2 g/dL [facility] Comment on above: Performed By: #### P TT, PT, CMP, BNP, HS TROP, CBC #### [address] Glucose [Mass/Vol] 289 mg/dL High 70-100 [facility] Comment on above: Result Comment: [place] Glucose Reference Range is dependent on time and content of last meal. Glucose of more than 200 mg/dL in a nonstressed, ambulatory subject supports the diagnosis of Diabetes Mellitus. ADA recommended reference range Performed By: #### P TT, PT, CMP, BNP, HS TROP, CBC #### [address] Potassium [Moles/Vol] 4.4 mmol/L Normal 3.5-5.1 [facility] Comment on above: Performed By: #### P TT, PT, CMP, BNP, HS TROP, CBC #### [address] Protein [Mass/Vol] 7.8 g/dL Normal 6.4-8.9 [facility] Comment on above: Performed By: #### P TT, PT, CMP, BNP, HS TROP, CBC #### [address] Sodium [Moles/Vol] 134 mmol/L Low 136-145 [facility] Comment on above: Performed By: #### P TT, PT, CMP, BNP, HS TROP, CBC #### [address] Urea nitrogen [Mass/Vol] 17 mg/dL Normal 7-25 [facility] Comment on above: Performed By: #### P TT, PT, CMP, BNP, HS TROP, CBC #### [address] Dipstick and Microscopicon 0 08-02-2022 Appearance (U) Clear Normal Clear [facility] Comment on above: Order Comment: Name Collection Type:: Clean-Voided Midstream Performed By: #### G LULS #### Point of Care testing , Order Comment: Name Collection Type:: Straight Catheter Performed By: #### P TT, PT, CMP, BNP, HS TROP, CBC #### [address] Bacteria,Urine None Seen Normal None Seen [facility] Comment on above: Order Comment: Name Collection Type:: Clean-Voided Midstream Performed By: #### G LULS #### Point of Care testing , Bilirubin,Urine Negative Normal Negative [facility] Comment on above: Order Comment: Name Collection Type:: Clean-Voided Midstream Performed By: #### G LULS #### Point of Care testing , Order Comment: Name Collection Type:: Straight Catheter Performed By: #### P TT, PT, CMP, BNP, HS TROP, CBC #### [facility] [address] [place] [address] [place] Color (U) Yellow Normal Yellow [facility] Comment on above: Order Comment: Name Collection Type:: Clean-Voided Midstream Performed By: #### G LULS #### Point of Care testing , Order Comment: Name Collection Type:: Straight Catheter Performed By: #### P TT, PT, CMP, BNP, HS TROP, CBC #### [address] Glucose Ql (U) 500 mg/dL High Normal [facility] Comment on above: Order Comment: Name Collection Type:: Clean-Voided Midstream Performed By: #### G LULS #### Point of Care testing , Order Comment: Name Collection Type:: Straight Catheter Performed By: #### P TT, PT, CMP, BNP, HS TROP, CBC #### [facility] [address] [place] [address] [place] Hyaline Casts,Urine 0-8 Normal 0-8 [facility] Comment on above: Order Comment: Name Collection Type:: Clean-Voided Midstream Result Comment: PERF ORMED BY: [place] [address] PATHOLOGIST PICKER MACHINE OPERATOR BRETT NAVAS M.D. Performed By: #### G LULS #### Point of Care testing , Ketones Ql (U) 1+ High Negative [facility] Comment on above: Order Comment: Name Collection Type:: Clean-Voided Midstream Performed By: #### G LULS #### Point of Care testing , Order Comment: Name Collection Type:: Straight Catheter Performed By: #### P TT, PT, CMP, BNP, HS TROP, CBC #### [address] Leukocyte esterase Test strip Ql (U) Negative Normal Negative [facility] Comment on above: Order Comment: Name Collection Type:: Clean-Voided Midstream Performed By: #### G LULS #### Point of Care testing , Order Comment: Name Collection Type:: Straight Catheter Performed By: #### P TT, PT, CMP, BNP, HS TROP, CBC #### [place] [address] [place] Nitrite,Urine Negative Normal Negative [facility] Comment on above: Order Comment: Name Collection Type:: Clean-Voided Midstream Performed By: #### G LULS #### Point of Care testing , Order Comment: Name Collection Type:: Straight Catheter Performed By: #### P TT, PT, CMP, BNP, HS TROP, CBC #### [address] Occult Blood,Urine 2+ High Negative [facility] Comment on above: Order Comment: Name Collection Type:: Clean-Voided Midstream Result Comment: PERF ORMED BY: [place] [address] PATHOLOGIST PICKER MACHINE OPERATOR BRETT NAVAS M.D. Performed By: #### G LULS #### Point of Care testing , Order Comment: Name Collection Type:: Straight Catheter Performed By: #### P TT, PT, CMP, BNP, HS TROP, CBC #### [address] pH (U) 7.0 [pH] Normal 5.0-9.0 [facility] Comment on above: Order Comment: Name Collection Type:: Clean-Voided Midstream Performed By: #### G LULS #### Point of Care testing , Order Comment: Name Collection Type:: Straight Catheter Performed By: #### P TT, PT, CMP, BNP, HS TROP, CBC #### [address] Protein (U) [Mass/Vol] 300 mg/dL High Negative [facility] Comment on above: Order Comment: Name Collection Type:: Clean-Voided Midstream Performed By: #### G LULS #### Point of Care testing , Order Comment: Name Collection Type:: Straight Catheter Performed By: #### P TT, PT, CMP, BNP, HS TROP, CBC #### [facility] [address] RBC,Urine 3-4 Normal 0-4 [facility] Comment on above: Order Comment: Name Collection Type:: Clean-Voided Midstream Performed By: #### G LULS #### Point of Care testing , Renal Epithelial Cells,Urine None Seen Normal 0-1 [facility] Comment on above: Order Comment: Name Collection Type:: Clean-Voided Midstream Performed By: #### G LULS #### Point of Care testing , Specificy [place],Urine 1.022 Normal 1.001-1.03 0 [facility] Comment on above: Order Comment: Name Collection Type:: Clean-Voided Midstream Performed By: #### G LULS #### Point of Care testing , Order Comment: Name Collection Type:: Straight Catheter Performed By: #### P TT, PT, CMP, BNP, HS TROP, CBC #### [facility] [address] [place] [address] [place] Squamous Epithelial Cell,Urine 5-9 High 0-2 [facility] Comment on above: Order Comment: Name Collection Type:: Clean-Voided Midstream Performed By: #### G LULS #### Point of Care testing , Urobilinogen,Urine Normal Normal Normal [facility] Comment on above: Order Comment: Name Collection Type:: Clean-Voided Midstream Performed By: #### G LULS #### Point of Care testing , Order Comment: Name Collection Type:: Straight Catheter Performed By: #### P TT, PT, CMP, BNP, HS TROP, CBC #### [facility] [address] [place] [address] [place] WBC,Urine 10-19 High 0-4 [facility] Comment on above: Order Comment: Name Collection Type:: Clean-Voided Midstream Performed By: #### G LULS #### Point of Care testing , ECG 12 lead ECGon 08-02-2022 ECG 12 lead ECG [place] [address] Electrocardiograph Report Signed Patient: Tammy Sandoval MR#: [id number] 3 : 1940 Acct:[id number] Age/Sex: 82 / F ADM Date: 08/02/22 Loc: ER Room: Type: PRE ER Attending Dr: Ordering Provider: Sanchez Campoverde DO Date of Service: 08/02/22 ECG/ECG 12 lead ECG: Fall Copies to: Test Reason : Blood Pressure : 166/078 mmHG Vent. Rate : 092 BPM Atrial Rate : 092 BPM P-R Int : 168 ms QRS Dur : 154 ms QT Int : 466 ms P-R-T Axes : 058 -80 102 degrees QTc Int : 576 ms Normal sinus rhythm Left axis deviation Left bundle branch block Abnormal ECG When compared with ECG of 20-JUN-2022 09:50, Sinus rhythm has replaced Electronic ventricular pacemaker Confirmed by Sanchez Campoverde DO ([id number]) on 08/02/2022 3:22:35 PM Referred By: Electronically Signed By:Sanchez Campoverde DO Transcribed By: MUS Signed By Sanchez Campoverde DO 3 1522 Normal [facility] Eosinophils Auto (Bld) [#/Vo l]Ordered By: Sanchez Campoverde on 08-02-2022 Eosinophils (Bld) [#/Vol] 0.0 10*3/uL 0.0-0.45 [facility] Eosinophils/100 WBC Auto (Bl d)Ordered By: Sanchez Campoverde on 08-02-2022 Eosinophils/100 WBC (Bld) 0.1 % . [facility] Folate [Mass/volume] in Seru m or PlasmaOrdered By: Ashleigh Roman on 08-02-2022 Folate [Mass/Vol] 35.0 ng/mL >5.9 [facility] Comment on above: Folate reference ran ge: >5.9 ng/mlThe WHO technical consultation on folate and vitamin [id number] has determined that folate concentrations lessthan 4 ng/ml are considered deficient. Globulin Calc (S) [Mass/Vol] Ordered By: Sanchez Campoverde on 08-02-2022 Globulin (S) [Mass/Vol] 3.2 g/dL [facility] Ketones Auto test strip (U) [Mass/Vol]Ordered By: Krysten Mike on 08-02-2022 Ketones (U) [Mass/Vol] 1+ Negative Fi relaFormerly [facility] - CoagulationOrde red By: Sanchez Campoverde on 08-02-2022 PT Coag (PPP) [Time] 13.1 s 9.0-12.9 [facility] Laboratory - UrinalysisOrder ed By: Sanchez Campoverde on 08-02-2022 Hyaline casts LM Ql (Urine sed) 0-8 [LPF] 0-8 [facility] Lymphocytes Auto (Bld) [#/Vo l]Ordered By: Sanchez Campoverde on 08-02-2022 Lymphocytes (Bld) [#/Vol] 1.0 10*3/uL 1.00-4.8 [facility] Lymphocytes/100 WBC Auto (Bl d)Ordered By: Sanchez Campoverde on 08-02-2022 Lymphocytes/100 WBC (Bld) 9.2 % . [facility] Monocyte distribution width [Entitic volume] in Blood by AutomatedOrdered By: Sanchez Campoverde on 08-02-2022 Monocyte distribution width Auto (Bld) [Entitic vol] 21.64 % 0.00-20.00 [facility] Comment on above: For adults in ED, MD W > 20.0 may be associated with a higher risk of sepsis during the first 12 hrs of hospital admission Monocytes Auto (Bld) [#/Vol] Ordered By: Sanchez Campoverde on 08-02-2022 Monocytes (Bld) [#/Vol] 0.3 10*3/uL 0.0-0.8 [facility] Monocytes/100 WBC Auto (Bld) Ordered By: Sanchez Campoverde on 08-02-2022 Monocytes/100 WBC (Bld) 2.9 % . [facility] Natriuretic peptide B [Mass/ Vol]Ordered By: Sanchez Campoverde on 08-02-2022 Natriuretic peptide B (Bld) [Mass/Vol] 48.0 pg/mL 5-100 [facility] Neutrophils Auto (Bld) [#/Vo l]Ordered By: Sanchez Campoverde on 08-02-2022 Neutrophils (Bld) [#/Vol] 9.5 10*3/uL 1.8-7.7 [facility] Neutrophils/100 WBC Auto (Bl d)Ordered By: Sanchez Campoverde on 08-02-2022 Neutrophils/100 WBC (Bld) 87.4 % . [facility] Nitrite Test strip Ql (U)Ord ered By: Krysten Mike on 08-02-2022 Nitrite Ql (U) Negative Negative [facility] Nucleated erythrocytes [Pres ence] in Blood by Automated countOrdered By: Sanchez Campoverde on 08-02-2022 Nucleated RBC Auto Ql (Bld) 0.1 /100{WBC} 0-0.5 [facility] Partial Thromboplastin Timeo n 08-02-2022 aPTT Coag (Bld) [Time] 27.5 s Normal 25.1-36.5 [facility] Comment on above: Result Comment: PERF ORMED BY: [place] [address] PATHOLOGIST PICKER MACHINE OPERATOR BRETT NAVAS M.D. Performed By: #### P TT, PT, CMP, BNP, HS TROP, CBC #### [address] Platelet poor plasma interna tional normalized ratio (INR) by coagulation assay (relatOrdered By: Sanchez Campoverde on 08-02-2022 INR Coag (PPP) [Relative time] 1.1 {INR} [facility] Comment on above: INR Therapeutic Rang e A) Pre- and Peroperative OAT started two weeks before surgery. NOT HIP SURGERY: 1.5 - 2.5 HIP SURGERY: 2 - 3B) Primary and secondary prevention of venous THROMBOSIS: 2 - 3C) Active venous thrombosis, pulmonary embolismand prevention of recurrent venous thrombosis: 2 - 3D) Prevention of arterial thromboembolismincluding patients with mechanical heart valves: 3 - 4.5 Protein Auto test strip (U) [Mass/Vol]Ordered By: Krysten Mike on 08-02-2022 Protein (U) [Mass/Vol] 300 mg/dL Negative [facility] Protein [Mass/volume] in Ser um or PlasmaOrdered By: Sanchez Campoverde on 08-02-2022 Protein [Mass/Vol] 7.8 g/dL 6.4-8.9 [facility] Prothrombin Time INRon 08-02 INR Coag (PPP) [Relative time] 1.1 {INR} Normal [facility] Comment on above: Result Comment: INR Therapeutic Range A) Pre- and Peroperative OAT started two weeks before surgery. NOT HIP SURGERY: 1.5 - 2.5 HIP SURGERY: 2 - 3 B) Primary and secondary prevention of venous THROMBOSIS: 2 - 3 C) Active venous thrombosis, pulmonary embolism and prevention of recurrent venous thrombosis: 2 - 3 D) Prevention of arterial thromboembolism including patients with mechanical heart valves: 3 - 4.5 Performed By: #### P TT, PT, CMP, BNP, HS TROP, CBC #### [facility] [address] PT Coag (PPP) [Time] 13.1 s High 9.0-12.9 [facility] Comment on above: Performed By: #### P TT, PT, CMP, BNP, HS TROP, CBC #### [facility] [address] Serum or plasma albumin/glob ulin mass ratioOrdered By: Sanchez Campoverde on 08-02-2022 Albumin/Globulin [Mass ratio] 1.4 {ratio} [facility] Specific gravity Auto test s trip (U) [Rel density]Ordered By: Krysten Mike on 08-02-2022 Specific gravity (U) [Rel density] 1.022 1.001-1.03 0 [facility] Squamous epithelial cells de tection in urine sediment by light microscopyOrdered By: Sanchez Campoverde on 08-02-2022 Epithelial cells.squamous LM Ql (Urine sed) 5-9 [HPF] 0-2 [facility] Thyroid Stimulating Hormoneo n 08-02-2022 TSH Qn 2.46 m[IU]/L Normal 0.45-5.33 [facility] Comment on above: Order Comment: Comme nt add on Comment Add on Performed By: #### P TT, PT, CMP, BNP, HS TROP, CBC #### [facility] [address] Thyrotropin [Units/volume] i n Serum or PlasmaOrdered By: Ashleigh Roman on 08-02-2022 TSH Qn 2.46 m[IU]/L 0.45-5.33 [facility] Troponin I High Sensitivityo n 08-02-2022 Troponin I High Sensitivity 6.4 pg/mL Normal 0.0-15.0 [facility] Comment on above: Result Comment: PERF ORMED BY: [facility] [address] [place] [address] PATHOLOGIST PICKER MACHINE OPERATOR BRETT NAVAS M.D. Performed By: #### P TT, PT, CMP, BNP, HS TROP, CBC #### [facility] [address] Troponin I.cardiac [Mass/vol ume] in Serum or Plasma by Detection limit <= 0.01 ng/Ordered By: Sanchez Campoverde on 08-02-2022 Troponin I.cardiac DL <= 0.01 ng/mL [Mass/Vol] 6.4 pg/mL 0.0-15.0 [facility] Urine bacteria detection by automated methodOrdered By: Sanchez Campoverde on 08-02-2022 Bacteria Auto Ql (U) None seen None Seen [facility] Urine clarity by refractomet ry automatedOrdered By: Krysten Mike on 08-02-2022 Clarity Refractometry automated (U) Clear Clear [facility] Urine glucose measurement by automated test strip (mass/volume)Ordered By: Krysten Mike on 08-02-2022 Glucose Auto test strip (U) [Mass/Vol] 500 mg/dL Normal [facility] Urine hemoglobin detection b y automated test stripOrdered By: Krysten Mike on 08-02-2022 Hemoglobin Auto test strip Ql (U) 2+ Negative [facility] Urine leukocyte esterase det ection by automated test stripOrdered By: Krysten Mike on 08-02-2022 Leukocyte esterase Auto test strip Ql (U) Negative Negative [facility] Urine sediment renal epithel ial cell count by microscopy (number/high power field)Ordered By: Sanchez Campoverde on 08-02-2022 Epithelial cells.renal LM.HPF (Urine sed) [#/Area] None seen [HPF] 0-1 [facility] Urobilinogen Auto test strip (U) [Mass/Vol]Ordered By: Krysten Mike on 08-02-2022 Urobilinogen (U) [Mass/Vol] Normal mg/dL Normal [facility] Vit. B12/Folate Profileon Cobalamin (Vitamin B12) [Mass/Vol] 773 pg/mL Normal 180-914 [facility] Comment on above: Order Comment: Fermin nt add on Comment Add on Performed By: #### P TT, PT, CMP, BNP, HS TROP, CBC #### [facility] [address] Folate 35.0 ng/mL Normal >5.9 [facility] Comment on above: Order Comment: Comme nt add on Comment Add on Result Comment: Joanie te reference range: >5.9 ng/ml The WHO technical consultation on folate and vitamin b12 deficiencies has determined that folate concentrations less than 4 ng/ml are considered deficient. Performed By: #### P TT, PT, CMP, BNP, HS TROP, CBC #### [facility] [address] [place] [id number] [facility] Vitamin B12 ser/plasOrdered By: Ashleigh Roman on 08-02-2022 Cobalamin (Vitamin B12) [Mass/Vol] 773 pg/mL 180-914 [facility] Vitamin D 25 Hydroxy Totalon 08-02-2022 Vitamin D 25 Hydroxy Total 49.2 ng/mL Normal 30-100 [facility] Comment on above: Order Comment: Comme nt add on Comment Add on Result Comment: CRUZ MIN D STATUS 25(OH)VITAMIN D RANGE (ng/mL) Deficient <20 Insufficient 20 to <30 Sufficient 30 to 100 Reference: Uriel MF,Baldemar NC, Kelsey FERRERA, et al. Evaluation,treatment, and prevention of vitamin D deficiency; an Endocrine Society clinical practice guideline. JCEM. 2010; 96(7):1911-30. PERFORMED BY: [place] [address] PATHOLOGIST PICKER MACHINE OPERATOR BRETT NAVAS M.D. Performed By: #### P TT, PT, CMP, BNP, HS TROP, CBC #### [address] Vitamin D+Metabolites [Mass/ volume] in Serum or PlasmaOrdered By: Ashleigh Roman on 08-02-2022 Vitamin D+Metabolites [Mass/Vol] 49.2 ng/mL 30-100 [facility] Comment on above: VITAMIN D STATUS 25( [place])VITAMIN D RANGE (ng/mL) Deficient <20 Insufficient 20 to <30Sufficient 30 to 100Reference: Uriel MF,Baldemar CHÁVEZ, Kelsey FERRERA, et al. Evaluation,treatment, and prevention of vitamin D deficiency; an Endocrine Society clinical practice guideline. JCEM. 2010; 96(7):191-. WBC Auto (Bld) [#/Vol]Ordere d By: Sanchez Campoverde on 08-02-2022 WBC (Bld) [#/Vol] 10.8 10*3/uL 3.8-11.6 [facility] XR chest 1V portableon 08-02 XR chest 1V portable [facility] [place] [address] [place], [place] [id number] XRay Report Signed Patient: Tammy Sandoval MR#: [id number] 3 : 1940 Acct:[id number] Age/Sex: 82 / F ADM Date: 08/02/22 Loc: ER Room: Type: PRE ER Attending Dr: Copies to: COLT Andrade DO Ordering Provider: Sanchez Campoverde DO Date of Service: 08/02/22 XR/XR chest 1V portable: Fall Plain film chest single view HISTORY: Fell. COMPARISON: 06/20/2022 FINDINGS: SUPPORT DEVICES: None POSTSURGICAL CHANGES: Left cardiac device remains intact. HEART: Within normal limits PULMONARY HAYDEN: Stable MEDIASTINUM: Stable LUNGS AND PLEURA: No acute lung process, pleural effusion or pneumothorax identified. Minor basilar interstitial prominence. BONY STRUCTURES: Intact ADDITIONAL FINDINGS None XR/XR chest 1V portable IMPRESSION: No acute process. Impression dictated by: Juan Mcintosh M.D.08/02/2022 3:22 PM Dictation Location: [place] [address] Transcribed By: [facility] 08/02/22 1522 Dictated By: Juan Mcintosh DO 08/02/22 1520 Signed By: 08/02/22 152 Normal [facility] pH Auto test strip (U)Ordere d By: Krysten Mike on 08-02-2022 pH (U) 7.0 [pH] 5.0-9.0 [facility] Patient Educationon 07-29-19 Patient Education Urology Botulinum Toxin Bladder Injection A botulinum toxin bladder injection is a procedure to treat an overactive bladder. During the procedure, a drug called botulinum toxin is injected into the bladder through a long, thin needle. This drug relaxes the bladder muscles and reduces overactivity. You may need this procedure if your medicines are not working or you cannot take them. The procedure may be repeated as needed. The treatment is done once and it usually lasts for 6 months. Your health care provider will monitor you to see how well you respond. Tell a health care provider about: ? Any allergies you have. ? All medicines you are taking, including vitamins, herbs, eye drops, creams, and gdeu-pch-qnrzevv medicines. ? Any problems you or family members have had with anesthetic medicines. ? Any bleeding problems you have. ? Any surgeries you have had. ? Any medical conditions you have. ? Any previous reactions to a botulinum toxin injection. ? Any symptoms of urinary tract infection. These include chills, fever, a burning feeling when passing urine, and needing to pass urine often. ? Whether you are or may be . What are the risks? Generally this is a safe procedure. However, problems may occur, including: ? Not being able to pass urine. If this happens, you may need to have your bladder emptied with a thin tube (urinary catheter). ? Bleeding. ? Urinary tract infection. ? Allergic reaction to the botulinum toxin. ? Pain or burning when passing urine. ? Damage to nearby structures or organs. What happens before the procedure? When to stop eating and drinking Follow instructions from your health care provider about what you may eat and drink before your procedure. These may include: ? 8 hours before the procedure ? Stop eating most foods. Do not eat meat, fried foods, or fatty foods. ? Eat only light foods, such as toast or crackers. ? All liquids are okay except energy drinks and alcohol. ? 6 hours before the procedure ? Stop eating. ? Drink only clear liquids, such as water, clear fruit juice, black coffee, plain tea, and sports drinks. ? Do not drink energy drinks or alcohol. ? 2 hours before the procedure ? Stop drinking all liquids. ? You may be allowed to take medicines with small sips of water. If you do not follow your health care provider's instructions, your procedure may be delayed or canceled. Medicines Ask your health care provider about: ? Changing or stopping your regular medicines. This is especially important if you are taking diabetes medicines or blood thinners. ? Taking medicines such as aspirin and ibuprofen. These medicines can thin your blood. Do not take these medicines unless your health care provider tells you to take them. ? Taking vtat-zfm-poyojgf medicines, vitamins, herbs, and supplements. General instructions ? Ask your health care provider what steps will be taken to help prevent infection. These steps may include: ? Removing hair at the procedure site. ? Washing skin with a germ-killing soap. ? Taking antibiotic medicine. ? If you will be going home right after the procedure, plan to have a responsible adult: ? Take you home from the hospital or clinic. You will not be allowed to drive. ? Care for you for the time you are told. What happens during the procedure? ? You will be asked to empty your bladder. ? An IV will be inserted into one of your veins. ? You will be given one or more of the following: ? A medicine to help you relax (sedative). ? A medicine to numb the area (local anesthetic). ? A medicine to make you fall asleep (general anesthetic). ? A long, thin scope called a cystoscope will be passed into your bladder through the part of the body that carries urine from your bladder (urethra). ? The cystoscope will be used to fill your bladder with water. ? A long needle will be passed through the cystoscope and into the bladder. ? The botulinum toxin will be injected into your bladder. It may be injected into multiple areas of your bladder. ? The cystoscope will be removed and your bladder will be emptied with a urinary catheter. The procedure may vary among health care providers and hospitals. What can I expect after the procedure? After your procedure, it is common to have: ? Blood-tinged urine. ? Burning or soreness when you pass urine. Follow these instructions at home: Medicines ? Take xpes-nic-wlfckzr and prescription medicines only as told by your health care provider. ? If you were prescribed an antibiotic medicine, take it as told by your health care provider. Do not stop using the antibiotic even if you start to feel better. General instructions ? If you were given a sedative during the procedure, it can affect you for several hours. Do not drive or operate machinery until your health ca (more content not included)... Normal [facility] Urology Office/Clinic Noteon 07-28-2022 Urology Office/Clinic Note Chief Complaint OV HPI Staff This is a 82 year old female due to not being able to control bladder. Previous DX: H/O urethral stricture, recurrent UTI, dysuria, urgency, H/O kidney stone and atrophic vaginitis. Pt. was not able to give a urine sample today. Pt. states she was taking VESIcare 5mg but she states it was not helping. Pt. states Dr. Shaw put her on Myrbetriq but then she was not able to urinate. Pt. states she went back on VESIcare 5mg BID. Dysuria: no Incomplete bladder emptying: no Hematuria: no Frequency: Pt. states she is leaking all the time Urgency: yes Nocturia: 1-2x's Stream: Pt. states she is not sure due to leaking all the time Wearing pads/ Depends: Pt. states she wears Depends and sometimes will use as pad as well as Depends. Urge incontinence: yes Stress incontinence: yes Incontinence without Sensory Awareness: Pt. states she is leaking all the time History of Present Illness staff HPI reviewed and agree. Tests Reviewed: Reviewed UA, op note. Review of Systems PHQ Score Initial Depression Screen Score: 0 no fever, chills, malaise, myalgia. no rash/lesions. no chest pain, palpitations, or SOB. no abdominal pain, nausea, vomiting. no unilateral calf swelling, redness, pain Physical Exam Vitals & Measurements HR: 75(Peripheral) RR: 16 BP: 168/87 HT: 62 in HT: 158 cm WT: 65 kg WT: 143 lb BMI: 26.04 General: nontoxic, NAD Mouth: moist mucosa Lungs: normal respiratory effort Cardio: regular rate, good distal perfusion Abdomen: nondistended, no suprapubic distention or tenderness, no CVA tenderness Neurologic: Grossly normal Skin: No rashes or suspicious lesions Assessment/Plan PRW pt. Pt here with today. Pt unable to give urine sample today. Bladder scan 0ml. 1. 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 Had Nbtenfje-Vwxtvdiyq-Hguxvg procedure in the 70s and says she has leaked to some degree since prior to that. Previously failed Ditropan due to SEs (dry eyes and mouth) and lack of efficacy. Was taking Vesicare 5 mg qd but it was not effective. Tried 10mg without success. Dr. Shaw stopped Vesicare and started Myrbetriq but pt was unable to urinate. Restarted Vesicare 5 mg bid. Wearing depends, sometimes pad in addition to depends. Leaks all the time. Vesicare helped at first then became ineffective. Discussed tx options including Botox vs SNM. Risks and benefits discussed. Educational pamphlets provided. Pt more interested in Botox. Goal would be to eventually d/c Vesicare hopefully. -Will schedule Botox with PRW. The procedural risks, benefits, details, and treatment alternatives have been discussed with the patient. These include bleeding, infection, continued problems with overactive bladder, inability to empty the bladder which could require an indwelling catheter or need for in/out catheterization to empty the bladder, and need for repeat procedures over time (usually lasts up to six months), as well as fatigue and insomnia, among others. There is a minimal risk of Botox entering the blood stream and causing neurological problems, which is quite rare. Full informed consent has been obtained. Will order Local anesthesia. -knows she will need to submit UA within 2 weeks prior to procedure. Hat given so she can collect at home. 2. Urgency incontinence (N39.41: Urge incontinence) See #1. 3. Urethral stricture (N35.919: Unspecified urethral stricture, male, unspecified site) Cysto/UD 01/04/22 - Tight urethra. Dilated 20-30 Fr. No GUERA, or prolapse. No change in sx since UD. 4. History of kidney stones (Z87.442: Personal history of urinary calculi) CT AP wo con 10/22/21 - Punctate stone LLP, slightly larger stone LMP 3 mm. No R stones. No hydro. 5. Atrophic vaginitis (N95.2: Postmenopausal atrophic vaginitis) Cysto/UD 01/04/22 - Moderate A.V. Using Estradiol. Follow-up With When Contact Information ANDREA CHEN, MADISYN Cabrera, URL [address] [facility] [place] [address] Additional Instructions: schedule botox with prw Patient Education Botulinum Toxin Bladder Injection Documentation recorded by the scribtrish Ballard accurately reflects the services(s) I performed and decisions made by me. Authenticated by Madisyn Gabriel PA-C on 07/28/2022 17:03:08. IAmarilis, personally scribed for DICK Hernandez on 07/28/2022 15:02:32. . Problem List/Past Medical History Ongoing Anticoagulated Atrophic vaginitis Bladder wall thickening Diabetes mellitus Dysuria ESBL E. coli carrier Frequency of urination Hematuria History of kidney stones History of urethral stricture Hyperlipidemia Hypertension Incontinence without sensory awareness Leaking of urine Mixed incontinence Nocturia Recurrent UTI Renal cyst Urethral pain Urethral stricture Urgency incontinence Historical No q (more content not included)... Normal [facility] Comment on above: Result Comment: Elec tronically Signed By: MADISYN GABRIEL PA-C\.br\Date and Time Signed: 07/28/22 17:04 EDT\.br\Electronically Co-Signed By: Amarilis Ballard.br\Date and Time Co-Signed: 07/28/22 15:02 EDT Activated partial thrombopla stin time (aPTT) in platelet poor plasma by coagulation aOrdered By: Pastor Chavarria on 06-20-2022 aPTT Coag (PPP) [Time] 26.0 s 25.1-36.5 [facility] Alanine aminotransferase [En zymatic activity/volume] in Serum or PlasmaOrdered By: Pastor Chavarria on 06-20-2022 ALT [Catalytic activity/Vol] 16 U/L 7-52 [facility] Albumin [Mass/volume] in Ser um or Plasma by Bromocresol green (BCG) dye binding methoOrdered By: Pastor Chavarria on 06-20-2022 Albumin BCG dye [Mass/Vol] 4.2 g/dL 3.5-5.7 [facility] Alkaline phosphatase [Enzyma tic activity/volume] in Serum or PlasmaOrdered By: Pastor Chavarria on 06-20-2022 ALP [Catalytic activity/Vol] 63 U/L 34-104 [facility] Aspartate aminotransferase [ Enzymatic activity/volume] in Serum or PlasmaOrdered By: Pastor Chavarria on 06-20-2022 AST [Catalytic activity/Vol] 16 U/L 13-39 [facility] Automated epithelial cells c ount in urine sediment (number/area)Ordered By: Pastor Chavarria on 06-20-2022 Epithelial cells Auto (Urine sed) [#/Area] 10-19 [HPF] 0-2 [facility] Comment on above: Microscopic results may be affected due to low specimen volume. Automated erythrocytes count in urine sediment (number/area)Ordered By: Pastor Chavarria on 06-20-2022 RBC Auto (Urine sed) [#/Area] 20-49 [HPF] 0-4 [facility] Comment on above: Microscopic results may be affected due to low specimen volume. Automated leukocytes count i n urine sediment (number/area)Ordered By: Pastor Chavarria on 06-20-2022 WBC Auto (Urine sed) [#/Area] 10-19 [HPF] 0-4 [facility] Comment on above: Microscopic results may be affected due to low specimen volume. Automated urine hyaline cast s count (number/volume)Ordered By: Pastor Chavarria on 06-20-2022 Hyaline casts Auto (U) [#/Vol] 0-1 [LPF] 0-1 [facility] Comment on above: Microscopic results may be affected due to low specimen volume. Basophils Auto (Bld) [#/Vol] Ordered By: Pastor Chavarria on 06-20-2022 Basophils (Bld) [#/Vol] 0.1 10*3/uL 0.0-0.2 [facility] Basophils/100 WBC Auto (Bld) Ordered By: Pastor Chavarria on 06-20-2022 Basophils/100 WBC (Bld) 1.0 % . [facility] Bilirubin Auto test strip Ql (U)Ordered By: Pastor Chavarria on 06-20-2022 Bilirubin Ql (U) Negative Negative [facility] Bilirubin.total [Mass/volume ] in Serum or PlasmaOrdered By: Pastor Chavarria on 06-20-2022 Bilirubin [Mass/Vol] 0.4 mg/dL 0.3-1.[address] [facility] [address] angio neckon 06-20-2022 CT angio neck [place] [address] CT Scan Report Signed Patient: Tammy Sandoval MR#: [id number] 3 : 1940 Acct:[id number] Age/Sex: 82 / F ADM Date: 06/20/22 Loc: ER Room: Type: [facility] ER Attending Dr: Copies to: Pastor Chavarria DO Ordering Provider: Pastor Chavarria DO Date of Service: 06/20/22 CT/CT angio head: neuro ([id number]) CT/CT angio neck: neuro CTA Head and Neck TECHNIQUE: Axial imaging of the head and neck with 2-D and 3-D reconstruction. 75cc of Isovue-370. The CT exam was performed using one or more the following dose reduction techniques: Automated exposure control, adjustment of the MA and/or Kv according to patient size, or use of the iterative reconstruction technique. Stenoses were measured using the NASCET criteria. COMPARISON: 07/28/20 HISTORY: Dizziness. Lightheaded. The visualized aortic arch and great vessels are unremarkable. No carotid dissection, critical stenosis or occlusion identified. Mild atherosclerosis. No vertebral dissection, occlusion or abrupt cut off identified. The carotid siphons and vertebral basilar systems are patent. No intracranial aneurysm, dissection, abrupt cut off or critical stenosis identified.. Hypoplasia of the LEFT A1 segment present. origin of the LEFT posterior cerebral artery present. Intracranial circulation patent.. Advanced cervical spine degeneration. CT/CT angio head IMPRESSION: No occlusion, critical stenosis or dissection of the extracranial or intracranial circulation. No intracranial aneurysm. Impression dictated by: Juan Mcintosh M.D.06/20/2022 1:03 PM Dictation Location: [place] [address] Transcribed By: [facility] 06/20/22 1303 Dictated By: Juan Mcintosh DO 06/20/22 1259 Signed By: 06/20/22 130[address] [facility] [address] head/brain wo conon 06-20 CT head/brain wo con [facility] [place] [address] [place] [address] CT Scan Report Signed Patient: Tammy Sandoval MR#: [id number] 3 : 1940 Acct:[id number] Age/Sex: 82 / F ADM Date: 06/20/22 Loc: ER Room: Type: [facility] ER Attending Dr: Copies to: Pastor Chavarria DO Ordering Provider: Pastor Chavarria DO Date of Service: 06/20/22 CT/CT head/brain wo con: lightheadedness/dizziness Unenhanced head CT TECHNIQUE: Contiguous axial imaging of the head. The CT exam was performed using one or more the following dose reduction techniques: Automated exposure control, adjustment of the MA and/or Kv according to patient size, or use of the iterative reconstruction technique. COMPARISON: 10/13/20 HISTORY: Dizziness. VENTRICLES: Stable ATROPHY: Mild generalized atrophy. BRAIN PARENCHYMA: Decreased density of the white matter is most consistent with chronic small vessel disease. HEMORRHAGE: None HERNIATION: No mass effect or herniation INFARCTION: No recent vascular distribution infarction is seen. EXTRA-AXIAL FLUID COLLECTIONS None MIDBRAIN: Unremarkable RJ: Unremarkable MEDULLA: Unremarkable SINUSES: Unremarkable ORBITS: Grossly unremarkable MASTOIDS: Unremarkable BONY STRUCTURES Intact ADDITIONAL FINDINGS: CT/CT head/brain wo con IMPRESSION: No acute findings. Impression dictated by: Juan Mcintosh M.D.06/20/2022 12:51 PM Dictation Location: [place] [address] Transcribed By: [facility] 06/20/22 1251 Dictated By: Juan Mcintosh DO 06/20/22 1245 Signed By: 05/01/23 1251 [facility] Calcium [Mass/volume] in Ser um or PlasmaOrdered By: Pastor Chavarria on 06-20-2022 Calcium [Mass/Vol] 8.5 mg/dL 8.6-10.3 [facility] Carbon dioxide, total [Moles /volume] in Serum or PlasmaOrdered By: Pastor Chavarria on 06-20-2022 CO2 [Moles/Vol] 24.3 mmol/L 21.0-31.0 [facility] Chloride [Moles/volume] in S garret or PlasmaOrdered By: Pastor Chavarria on 06-20-2022 Chloride [Moles/Vol] 103 mmol/L 98-107 [facility] Complete Blood Count Auto Di ffon 06-20-2022 Basophils (Bld) [#/Vol] 0.1 10*3/uL Normal 0.0-0.2 [facility] Comment on above: Result Comment: PERF ORMED BY: [facility] [address] [place] [address] PATHOLOGIST PICKER MACHINE OPERATOR BRETT NAVAS M.D. Performed By: #### G LULS #### Point of Care testing , Basophils/100 WBC (Bld) 1.0 % Normal . [facility] Comment on above: Performed By: #### G LULS #### Point of Care testing , Eosinophils (Bld) [#/Vol] 0.2 10*3/uL Normal 0.0-0.45 [facility] Comment on above: Performed By: #### G LULS #### Point of Care testing , Eosinophils/100 WBC (Bld) 3.3 % Normal . [facility] Comment on above: Performed By: #### G LULS #### Point of Care testing , Erythrocyte distribution width (RBC) [Ratio] 15.4 % High 11.9-15.3 [facility] Comment on above: Performed By: #### G LULS #### Point of Care testing , Hematocrit (Bld) [Volume fraction] 40.6 % Normal 34.0-46.4 [facility] Comment on above: Performed By: #### G LULS #### Point of Care testing , Hemoglobin (Bld) [Mass/Vol] 13.2 g/dL Normal 11.8-15.4 [facility] Comment on above: Performed By: #### Genaro GUPTA #### Point of Care testing , Lymphocytes (Bld) [#/Vol] 1.9 10*3/uL Normal 1.00-4.8 [facility] Comment on above: Performed By: #### Genaro GUPTA #### Point of Care testing , Lymphocytes/100 WBC (Bld) 33.2 % Normal . [facility] Comment on above: Performed By: #### Genaro GUPTA #### Point of Care testing , MCH (RBC) [Entitic mass] 28.0 pg Normal 24.7-34.3 [facility] Comment on above: Performed By: #### Genaro GUPTA #### Point of Care testing , MCV (RBC) [Entitic vol] 86.0 fL Normal 80-100 [facility] Comment on above: Performed By: #### Genaro GUPTA #### Point of Care testing , Mean Corpuscular HGB Conc 32.5 g/dL Normal 32.0-35.0 [facility] Comment on above: Performed By: #### Genaro GUPTA #### Point of Care testing , Monocytes (Bld) [#/Vol] 0.3 10*3/uL Normal 0.0-0.8 [facility] Comment on above: Performed By: #### Genaro GUPTA #### Point of Care testing , Monocytes/100 WBC (Bld) 19.20 % Normal 0.00-20.00 [facility] Comment on above: Performed By: #### Genaro GUPTA #### Point of Care testing , Monocytes/100 WBC (Bld) 6.0 % Normal . [facility] Comment on above: Performed By: #### Genaro GUPTA #### Point of Care testing , Neutrophils (Bld) [#/Vol] 3.3 10*3/uL Normal 1.8-7.7 [facility] Comment on above: Performed By: #### Genaro GUPTA #### Point of Care testing , Neutrophils/100 WBC (Bld) 56.5 % Normal . [facility] Comment on above: Performed By: #### G CANDY #### Point of Care testing , NRBC% 0.1 /100{WBC} Normal 0-0.5 [facility] Comment on above: Performed By: #### G CANDY #### Point of Care testing , Platelet mean volume (Bld) [Entitic vol] 7.6 fL Normal 6.3-10.7 [facility] Comment on above: Performed By: #### G CANDY #### Point of Care testing , Platelets (Bld) [#/Vol] 176 10*3/uL Normal 150-450 [facility] Comment on above: Performed By: #### G CANDY #### Point of Care testing , RBC (Bld) [#/Vol] 4.72 10*6/uL Normal 3.60-5.00 [facility] Comment on above: Performed By: #### G CHLOELS #### Point of Care testing , WBC (Bld) [#/Vol] 5.9 10*3/uL Normal 3.8-11.6 [facility] Comment on above: Performed By: #### G CANDY #### Point of Care testing , Comprehensive Metabolic Pane nevin 06-20-2022 Albumin [Mass/Vol] 4.2 g/dL Normal 3.5-5.7 [facility] Comment on above: Performed By: #### P TT, PT, CMP, BNP, HS TROP, CBC #### [facility] [address] Albumin/Globulin [Mass ratio] 1.3 {ratio} Normal [facility] Comment on above: Performed By: #### P TT, PT, CMP, BNP, HS TROP, CBC #### [facility] [address] ALP [Catalytic activity/Vol] 63 U/L Normal 34-104 [facility] Comment on above: Performed By: #### P TT, PT, CMP, BNP, HS TROP, CBC #### [facility] [address] ALT [Catalytic activity/Vol] 16 U/L Normal 7-52 [facility] Comment on above: Performed By: #### P TT, PT, CMP, BNP, HS TROP, CBC #### [facility] [address] Anion gap [Moles/Vol] 12.9 mmol/L Normal 6.0-15.0 [facility] Comment on above: Performed By: #### P TT, PT, CMP, BNP, HS TROP, CBC #### [facility] [address] AST [Catalytic activity/Vol] 16 U/L Normal 13-39 [facility] Comment on above: Performed By: #### P TT, PT, CMP, BNP, HS TROP, CBC #### [address] Bilirubin [Mass/Vol] 0.4 mg/dL Normal 0.3-1.0 [facility] Comment on above: Performed By: #### P TT, PT, CMP, BNP, HS TROP, CBC #### [address] Calcium [Mass/Vol] 8.5 mg/dL Low 8.6-10.3 [facility] Comment on above: Performed By: #### P TT, PT, CMP, BNP, HS TROP, CBC #### [facility] [address] [place] [address] [place] Chloride [Moles/Vol] 103 mmol/L Normal 98-107 [facility] Comment on above: Performed By: #### P TT, PT, CMP, BNP, HS TROP, CBC #### [facility] [address] [place] [address] [place] CO2 [Moles/Vol] 24.3 mmol/L Normal 21.0-31.0 [facility] Comment on above: Performed By: #### P TT, PT, CMP, BNP, HS TROP, CBC #### [address] Creatinine [Mass/Vol] 0.99 mg/dL Normal 0.60-1.20 [facility] Comment on above: Performed By: #### P TT, PT, CMP, BNP, HS TROP, CBC #### [facility] [address] [place] [address] [place] Creatinine Clr Calc Pharmacy 38.56 [facility] Comment on above: Performed By: #### P TT, PT, CMP, BNP, HS TROP, CBC #### [facility] [address] [place] [address] [place] GFR/1.73 sq M.predicted MDRD (S/P/Bld) [Vol rate/Area] 56.226 mL/min/{1.73_m2} [facility] Comment on above: Performed By: #### P TT, PT, CMP, BNP, HS TROP, CBC #### [facility] [address] Globulin (S) [Mass/Vol] 3.2 g/dL [facility] Comment on above: Performed By: #### P TT, PT, CMP, BNP, HS TROP, CBC #### [facility] [address] Glucose [Mass/Vol] 192 mg/dL High 70-100 [facility] Comment on above: Result Comment: [place] Glucose Reference Range is dependent on time and content of last meal. Glucose of more than 200 mg/dL in a nonstressed, ambulatory subject supports the diagnosis of Diabetes Mellitus. ADA recommended reference range Performed By: #### P TT, PT, CMP, BNP, HS TROP, CBC #### [facility] [address] Potassium [Moles/Vol] 4.2 mmol/L Normal 3.5-5.1 [facility] Comment on above: Performed By: #### P TT, PT, CMP, BNP, HS TROP, CBC #### [facility] [address] Protein [Mass/Vol] 7.4 g/dL Normal 6.4-8.9 [facility] Comment on above: Performed By: #### P TT, PT, CMP, BNP, HS TROP, CBC #### [facility] [address] [place] [id number] [place] Sodium [Moles/Vol] 136 mmol/L Normal 136-145 [facility] Comment on above: Performed By: #### P TT, PT, CMP, BNP, HS TROP, CBC #### [facility] [address] [place] [id number] [place] Urea nitrogen [Mass/Vol] 18 mg/dL Normal 7-25 [facility] Comment on above: Performed By: #### P TT, PT, CMP, BNP, HS TROP, CBC #### [facility] [address] [place] [id number] [place] Creatine Kinaseon 06-20-2022 CK [Catalytic activity/Vol] 36 U/L Normal [facility] Comment on above: Performed By: #### G CANDY #### Point of Care testing , Creatine kinase [Enzymatic a ctivity/volume] in Serum or PlasmaOrdered By: Pastor Chavarria on 06-20-2022 CK [Catalytic activity/Vol] 36 U/L [facility] Creatinine [Mass/volume] in Serum or PlasmaOrdered By: Pastor Chavarria on 06-20-2022 Creatinine [Mass/Vol] 0.99 mg/dL 0.60-1.20 [facility] Dipstick and Microscopicon 0 06-20-2022 Appearance (U) Slightly Cloudy Critically abnormal Clear [facility] Comment on above: Order Comment: Name Collection Type:: Clean-Voided Midstream Performed By: #### P TT, PT, CMP, BNP, HS TROP, CBC #### [facility] [address] [place] [id number] [place] Bacteria,Urine Rare High None Seen [facility] Comment on above: Order Comment: Name Collection Type:: Clean-Voided Midstream Result Comment: Micr oscopic results may be affected due to low specimen volume. Performed By: #### P TT, PT, CMP, BNP, HS TROP, CBC #### [facility] [address] [place] [address] [place] Bilirubin,Urine Negative Normal Negative [facility] Comment on above: Order Comment: Name Collection Type:: Clean-Voided Midstream Performed By: #### P TT, PT, CMP, BNP, HS TROP, CBC #### [address] Color (U) Yellow Normal Yellow [facility] Comment on above: Order Comment: Name Collection Type:: Clean-Voided Midstream Performed By: #### P TT, PT, CMP, BNP, HS TROP, CBC #### [address] Glucose Ql (U) Normal Normal Normal [facility] Comment on above: Order Comment: Name Collection Type:: Clean-Voided Midstream Performed By: #### P TT, PT, CMP, BNP, HS TROP, CBC #### [address] Hyaline Casts,Urine 0-1 Normal 0-1 [facility] Comment on above: Order Comment: Name Collection Type:: Clean-Voided Midstream Result Comment: Micr oscopic results may be affected due to low specimen volume. PERFORMED BY: [place] [address] PATHOLOGIST PICKER MACHINE OPERATOR BRETT NAVAS M.D. Performed By: #### P TT, PT, CMP, BNP, HS TROP, CBC #### [address] Ketones Ql (U) Negative Normal Negative [facility] Comment on above: Order Comment: Name Collection Type:: Clean-Voided Midstream Performed By: #### P TT, PT, CMP, BNP, HS TROP, CBC #### [place] [address] [place] Leukocyte esterase Test strip Ql (U) 4+ High Negative [facility] Comment on above: Order Comment: Name Collection Type:: Clean-Voided Midstream Performed By: #### P TT, PT, CMP, BNP, HS TROP, CBC #### [place] [address] [place] Nitrite,Urine Negative Normal Negative [facility] Comment on above: Order Comment: Name Collection Type:: Clean-Voided Midstream Performed By: #### P TT, PT, CMP, BNP, HS TROP, CBC #### [address] Occult Blood,Urine 3+ High Negative [facility] Comment on above: Order Comment: Name Collection Type:: Clean-Voided Midstream Result Comment: PERF ORMED BY: [place] [address] PATHOLOGIST PICKER MACHINE OPERATOR BRETT NAVAS M.D. Performed By: #### P TT, PT, CMP, BNP, HS TROP, CBC #### [address] pH (U) 6.0 [pH] Normal 5.0-9.0 [facility] Comment on above: Order Comment: Name Collection Type:: Clean-Voided Midstream Performed By: #### P TT, PT, CMP, BNP, HS TROP, CBC #### [address] Protein (U) [Mass/Vol] 30 mg/dL High Negative [facility] Comment on above: Order Comment: Name Collection Type:: Clean-Voided Midstream Performed By: #### P TT, PT, CMP, BNP, HS TROP, CBC #### [address] RBC,Urine 20-49 High 0-4 [facility] Comment on above: Order Comment: Name Collection Type:: Clean-Voided Midstream Result Comment: Micr oscopic results may be affected due to low specimen volume. Performed By: #### P TT, PT, CMP, BNP, HS TROP, CBC #### [address] Specificy [place],Urine 1.025 Normal 1.001-1.03 0 [facility] Comment on above: Order Comment: Name Collection Type:: Clean-Voided Midstream Performed By: #### P TT, PT, CMP, BNP, HS TROP, CBC #### [place] [address] [place] Squamous Epithelial Cell,Urine 10-19 High 0-2 [facility] Comment on above: Order Comment: Name Collection Type:: Clean-Voided Midstream Result Comment: Micr oscopic results may be affected due to low specimen volume. Performed By: #### P TT, PT, CMP, BNP, HS TROP, CBC #### [facility] [address] [place] [address] [facility] Urobilinogen,Urine Normal Normal Normal [facility] Comment on above: Order Comment: Name Collection Type:: Clean-Voided Midstream Performed By: #### P TT, PT, CMP, BNP, HS TROP, CBC #### [facility] [address] [place] [address] [facility] WBC,Urine 10-19 High 0-4 [facility] Comment on above: Order Comment: Name Collection Type:: Clean-Voided Midstream Result Comment: Micr oscopic results may be affected due to low specimen volume. Performed By: #### P TT, PT, CMP, BNP, HS TROP, CBC #### [facility] [address] [place] [address] [facility] ECG 12 lead ECGon 06-20-2022 ECG 12 lead ECG [facility] [place] [address] [place] [address] Electrocardiograph Report Signed Patient: Tammy Sandoval MR#: [id number] 3 : 1940 Acct:[id number] Age/Sex: 82 / F ADM Date: 06/20/22 Loc: ER Room: Type: [facility] ER Attending Dr: Ordering Provider: Pastor Chavarria DO Date of Service: 06/20/2203/14/945 ECG/ECG 12 lead ECG: Fall Copies to: Test Reason : Blood Pressure : 191/086 mmHG Vent. Rate : 072 BPM Atrial Rate : 072 BPM P-R Int : 186 ms QRS Dur : 168 ms QT Int : 488 ms P-R-T Axes : 040 -75 093 degrees QTc Int : 534 ms Atrial-sensed ventricular-paced rhythm Left axis deviation Left bundle branch block Confirmed by Pastor CHAVARRIA DO ([id number]) on 06/20/2022 3:05:30 PM Referred By: Electronically Signed By:Pastor CHAVARRIA DO Transcribed By: MUS Signed By Pastor Chavarria, 0 06/20/22 1505 Normal [facility] Eosinophils Auto (Bld) [#/Vo l]Ordered By: Pastor Chavarria on 06-20-2022 Eosinophils (Bld) [#/Vol] 0.2 10*3/uL 0.0-0.45 [facility] Eosinophils/100 WBC Auto (Bl d)Ordered By: Pastor Chavarria on 06-20-2022 Eosinophils/100 WBC (Bld) 3.3 % . [facility] Erythrocyte distribution wid th Auto (RBC) [Ratio]Ordered By: Pastor Chavarria on 06-20-2022 Erythrocyte distribution width (RBC) [Ratio] 15.4 % 11.9-15.3 [facility] Globulin Calc (S) [Mass/Vol] Ordered By: Pastor Chavarria on 06-20-2022 Globulin (S) [Mass/Vol] 3.2 g/dL [facility] Glucose [Mass/volume] in Ser um or PlasmaOrdered By: Pastor Chavarria on 06-20-2022 Glucose [Mass/Vol] 192 mg/dL 70-100 [facility] Comment on above: ADA recommended refe rence rangeRandom Glucose Reference Range is dependent on time and content of last meal. Glucose of more than 200 mg/dL in a nonstressed, ambulatory subject supports the diagnosis of Diabetes Mellitus. Hematocrit Auto (Bld) [Volum e fraction]Ordered By: Pastor Chavarria on 06-20-2022 Hematocrit (Bld) [Volume fraction] 40.6 % 34.0-46.4 [facility] Hemoglobin [Mass/volume] in BloodOrdered By: Pastor Chavarria on 06-20-2022 Hemoglobin (Bld) [Mass/Vol] 13.2 g/dL 11.8-15.4 [facility] Ketones Auto test strip (U) [Mass/Vol]Ordered By: Pastor Chavarria on 06-20-2022 Ketones (U) [Mass/Vol] Negative Negative Fi [facility] Laboratory - CoagulationOrde red By: Pastor Chavarria on 06-20-2022 PT Coag (PPP) [Time] 12.3 s 9.0-12.9 [facility] Leukocytes [#/volume] correc deysi for nucleated erythrocytes in Blood by Automated counOrdered By: Pastor Chavarria on 06-20-2022 WBC corrected for nucl RBC Auto (Bld) [#/Vol] 5.9 10*3/uL 3.8-11.6 [facility] Lymphocytes Auto (Bld) [#/Vo l]Ordered By: Pastor Chavarria on 06-20-2022 Lymphocytes (Bld) [#/Vol] 1.9 10*3/uL 1.00-4.8 [facility] Lymphocytes/100 WBC Auto (Bl d)Ordered By: Pastor Chavarria on 06-20-2022 Lymphocytes/100 WBC (Bld) 33.2 % . [facility] MCH Auto (RBC) [Entitic mass ]Ordered By: Pastor Chavarria on 06-20-2022 MCH (RBC) [Entitic mass] 28.0 pg 24.7-34.3 [facility] MCHC Auto (RBC) [Mass/Vol]Or dered By: Pastor Chavarria on 06-20-2022 MCHC (RBC) [Mass/Vol] 32.5 g/dL 32.0-35.0 [facility] MCV Auto (RBC) [Entitic vol] Ordered By: Pastor Chavarria on 06-20-2022 MCV (RBC) [Entitic vol] 86.0 fL 80-100 [facility] Monocyte distribution width [Entitic volume] in Blood by AutomatedOrdered By: Pastor Chavarria on 06-20-2022 Monocyte distribution width Auto (Bld) [Entitic vol] 19.20 % 0.00-20.00 [facility] Monocytes Auto (Bld) [#/Vol] Ordered By: Pastor Chavarria on 06-20-2022 Monocytes (Bld) [#/Vol] 0.3 10*3/uL 0.0-0.8 [facility] Monocytes/100 WBC Auto (Bld) Ordered By: Pastor Chavarria on 06-20-2022 Monocytes/100 WBC (Bld) 6.0 % . [facility] Neutrophils Auto (Bld) [#/Vo l]Ordered By: Pastor Chavarria on 06-20-2022 Neutrophils (Bld) [#/Vol] 3.3 10*3/uL 1.8-7.7 [facility] Neutrophils/100 WBC Auto (Bl d)Ordered By: Pastor Chavarria on 06-20-2022 Neutrophils/100 WBC (Bld) 56.5 % . [facility] No Panel InformationOrdered By: Pastor Chavarria on 06-20-2022 Estimated GFR (CKD-EPI) 56.226 mL/Min [facility] Creatinine Clearance (Chem 38.56 [facility] Nucleated erythrocytes [Pres ence] in Blood by Automated countOrdered By: Pastor Chavarria on 06-20-2022 Nucleated RBC Auto Ql (Bld) 0.1 /100{WBC} 0-0.5 [facility] Partial Thromboplastin Timeo n 06-20-2022 aPTT Coag (Bld) [Time] 26.0 s Normal 25.1-36.5 [facility] Comment on above: Result Comment: PERF ORMED BY: [place] [address] PATHOLOGIST PICKER MACHINE OPERATOR BRETT NAVAS M.D. Performed By: #### P TT, PT, CMP, BNP, HS TROP, CBC #### [facility] [address] [place] [address] Platelet mean volume Auto (B ld) [Entitic vol]Ordered By: Pastor Chavarria on 06-20-2022 Platelet mean volume (Bld) [Entitic vol] 7.6 fL 6.3-10.7 [facility] Platelet poor plasma interna tional normalized ratio (INR) by coagulation assay (relatOrdered By: Pastor Chavarria on 06-20-2022 INR Coag (PPP) [Relative time] 1.1 {INR} [facility] Comment on above: INR Therapeutic Rang e A) Pre- and Peroperative OAT started two weeks before surgery. NOT HIP SURGERY: 1.5 - 2.5 HIP SURGERY: 2 - 3B) Primary and secondary prevention of venous THROMBOSIS: 2 - 3C) Active venous thrombosis, pulmonary embolismand prevention of recurrent venous thrombosis: 2 - 3D) Prevention of arterial thromboembolismincluding patients with mechanical heart valves: 3 - 4.5 Platelets Auto (Bld) [#/Vol] Ordered By: Pastor Chavarria on 06-20-2022 Platelets (Bld) [#/Vol] 176 10*3/uL 150-450 [facility] Potassium [Moles/volume] in Serum or PlasmaOrdered By: Pastor Chavarria on 06-20-2022 Potassium [Moles/Vol] 4.2 mmol/L 3.5-5.1 [facility] Protein Auto test strip (U) [Mass/Vol]Ordered By: Pastor Chavarria on 06-20-2022 Protein (U) [Mass/Vol] 30 mg/dL Negative [facility] Protein [Mass/volume] in Ser um or PlasmaOrdered By: Pastor Chavarria on 06-20-2022 Protein [Mass/Vol] 7.4 g/dL 6.4-8.9 [facility] Prothrombin Time INRon 06-20 INR Coag (PPP) [Relative time] 1.1 {INR} Normal [facility] Comment on above: Result Comment: INR Therapeutic Range A) Pre- and Peroperative OAT started two weeks before surgery. NOT HIP SURGERY: 1.5 - 2.5 HIP SURGERY: 2 - 3 B) Primary and secondary prevention of venous THROMBOSIS: 2 - 3 C) Active venous thrombosis, pulmonary embolism and prevention of recurrent venous thrombosis: 2 - 3 D) Prevention of arterial thromboembolism including patients with mechanical heart valves: 3 - 4.5 Performed By: #### P TT, PT, CMP, BNP, HS TROP, CBC #### [facility] [address] [place] [address] [place] PT Coag (PPP) [Time] 12.3 s Normal 9.0-12.9 [facility] Comment on above: Performed By: #### P TT, PT, CMP, BNP, HS TROP, CBC #### [facility] [address] [place] [address] [place] RBC Auto (Bld) [#/Vol]Ordere d By: Pastor Chavarria on 06-20-2022 RBC (Bld) [#/Vol] 4.72 10*6/uL 3.60-5.00 [facility] Serum or plasma albumin/glob ulin mass ratioOrdered By: Pastor Chavarria on 06-20-2022 Albumin/Globulin [Mass ratio] 1.3 {ratio} [facility] Serum or plasma anion gap de terminationOrdered By: Pastor Chavarria on 06-20-2022 Anion gap [Moles/Vol] 12.9 mmol/L 6.0-15.0 [facility] Sodium [Moles/volume] in Ser um or PlasmaOrdered By: Pastor Chavarria on 06-20-2022 Sodium [Moles/Vol] 136 mmol/L 136-145 [facility] Thyroid Stimulating Hormoneo n 06-20-2022 TSH Qn 3.57 m[IU]/L Normal 0.45-5.33 [facility] Comment on above: Result Comment: PERF ORMED BY: [place] [address] PATHOLOGIST PICKER MACHINE OPERATOR BRETT NAVAS M.D. Performed By: #### P TT, PT, CMP, BNP, HS TROP, CBC #### [facility] [address] Thyrotropin [Units/volume] i n Serum or PlasmaOrdered By: Pastor Chavarria on 06-20-2022 TSH Qn 3.57 m[IU]/L 0.45-5.33 [facility] Troponin I High Sensitivityo n 06-20-2022 Troponin I High Sensitivity 5.3 pg/mL Normal 0.0-15.0 [facility] Comment on above: Result Comment: PERF ORMED BY: [place] [address] PATHOLOGIST PICKER MACHINE OPERATOR BRETT NAVAS M.D. Performed By: #### G LULS #### Point of Care testing , Troponin I.cardiac [Mass/vol ume] in Serum or Plasma by Detection limit <= 0.01 ng/Ordered By: Pastor Chavarria on 06-20-2022 Troponin I.cardiac DL <= 0.01 ng/mL [Mass/Vol] 5.3 pg/mL 0.0-15.0 [facility] Urea nitrogen [Mass/volume] in Serum or PlasmaOrdered By: Pastor Chavarria on 06-20-2022 Urea nitrogen [Mass/Vol] 18 mg/dL 7-25 [facility] Urine Cultureon 06-20-2022 Bacteria identified Cx Nom (U) 50,000 colonies/ml mixed bacterial skin contaminants 2 Days PERFORMED BY: [place] [address] PATHOLOGIST PICKER MACHINE OPERATOR BRETT NAVAS M.D. Normal [facility] Comment on above: Performed By: #### P TT, PT, CMP, BNP, HS TROP, CBC #### [address] Urine appearanceOrdered By: Pastor Chavarria on 06-20-2022 Appearance (U) Slightly cloudy Clear [facility] Urine bacteria detection by automated methodOrdered By: Pastor Chavarria on 06-20-2022 Bacteria Auto Ql (U) Rare None Seen [facility] Comment on above: Microscopic results may be affected due to low specimen volume. Urine colorOrdered By: Kendra Chavarria on 06-20-2022 Color (U) Yellow Yellow [facility] Urine culture routineOrdered By: Pastor Chavarria on 06-20-2022 Bacteria identified Cx Nom (U) 2 Days [facility] Urine glucose measurement by automated test strip (mass/volume)Ordered By: Pastor Chavarria on 06-20-2022 Glucose Auto test strip (U) [Mass/Vol] Normal mg/dL Normal [facility] Urine hemoglobin detection b y automated test stripOrdered By: Patsor Chavarria on 06-20-2022 Hemoglobin Auto test strip Ql (U) 3+ Negative [facility] Urine leukocyte esterase det ection by automated test stripOrdered By: Pastor Chavarria on 06-20-2022 Leukocyte esterase Auto test strip Ql (U) 4+ Negative [facility] Urine nitrite detection by a utomated test stripOrdered By: Pastor Chavarria on 06-20-2022 Nitrite Auto test strip Ql (U) Negative Negative [facility] Urobilinogen Auto test strip (U) [Mass/Vol]Ordered By: Pastor Chavarria on 06-20-2022 Urobilinogen (U) [Mass/Vol] Normal mg/dL Normal [facility] WBC Auto (Bld) [#/Vol]Ordere d By: Pastor Chavarria on 06-20-2022 WBC (Bld) [#/Vol] 5.9 10*3/uL 3.8-11.6 [facility] XR chest 2V*on 06-20-2022 XR chest 2V* [facility] [place] [address] [place] [id number] XRay Report Signed Patient: Tammy Sandoval MR#: [id number] 3 : 1940 Acct:[id number] Age/Sex: 82 / F ADM Date: 06/20/22 Loc: ER Room: Type: [facility] ER Attending Dr: Copies to: Pastor Chavarria DO Ordering Provider: Pastor Chavarria DO Date of Service: 06/20/22 XR/XR chest 2V*: Fall Plain film chest 2 view HISTORY: Fell. Weakness. Shortness of breath. COMPARISON: 01/20/22 FINDINGS: SUPPORT DEVICES: LEFT cardiac device remains intact. POSTSURGICAL CHANGES: None HEART: Within normal limits PULMONARY HAYDEN: Within normal limits MEDIASTINUM: Unremarkable LUNGS AND PLEURA: No acute lung process, pleural effusion or pneumothorax identified. BONY STRUCTURES: Thoracic spondylosis. ADDITIONAL FINDINGS atherosclerosis. XR/XR chest 2V* IMPRESSION: No acute process. Impression dictated by: Juan Mcintosh M.D.06/20/2022 12:58 PM Dictation Location: [place] [address] Transcribed By: [facility] 06/20/22 1258 Dictated By: Juan Mcintosh DO 06/20/22 1257 Signed By: 06/20/22 1258 Normal [facility] pH Auto test strip (U)Ordere d By: Pastor Chavarria on 06-20-2022 pH (U) 1.025 [pH] 1.001-1.03 0 [facility] pH (U) 6.0 [pH] 5.0-9.0 [facility] A1C with Estimated Average G lorenn 06-07-2022 Glucose [Mass/Vol] 169 mg/dL Normal [facility] Comment on above: Order Comment: Reaso n for Exam Diabetes type 2, controlled Result Comment: PERF ORMED BY: [address] [address] PATHOLOGIST PICKER MACHINE OPERATOR BRETT NAVAS M.D. Performed By: #### G LULS #### Point of Care testing , HbA1c (Bld) [Mass fraction] 7.5 % High 4.3-5.6 [facility] Comment on above: Order Comment: Reaso n for Exam Diabetes type 2, controlled Result Comment: Incr eased risk for diabetes: 5.7 - 6.4 diabetes: >6.4 glycemic control for adults with diabetes: <7.0 Performed By: #### G LULS #### Point of Care testing , Alanine aminotransferase [En zymatic activity/volume] in Serum or PlasmaOrdered By: Isaiah Shaw on 06-07-2022 ALT [Catalytic activity/Vol] 20 U/L 7-52 [facility] Albumin [Mass/volume] in Ser um or Plasma by Bromocresol green (BCG) dye binding methoOrdered By: Isaiah Shaw on 06-07-2022 Albumin BCG dye [Mass/Vol] 4.1 g/dL 3.5-5.7 [facility] Alkaline phosphatase [Enzyma tic activity/volume] in Serum or PlasmaOrdered By: Isaiah Shaw on 06-07-2022 ALP [Catalytic activity/Vol] 60 U/L 34-104 [facility] Aspartate aminotransferase [ Enzymatic activity/volume] in Serum or PlasmaOrdered By: Isaiah Shaw on 06-07-2022 AST [Catalytic activity/Vol] 21 U/L 13-39 [facility] Basophils Auto (Bld) [#/Vol] Ordered By: Isaiah Shaw on 06-07-2022 Basophils (Bld) [#/Vol] 0.0 10*3/uL 0.0-0.2 [facility] Basophils/100 WBC Auto (Bld) Ordered By: Isaiah Shaw on 06-07-2022 Basophils/100 WBC (Bld) 0.7 % . [facility] Bilirubin.total [Mass/volume ] in Serum or PlasmaOrdered By: Isaiah Shaw on 06-07-2022 Bilirubin [Mass/Vol] 0.4 mg/dL 0.3-1.0 [facility] Calcium [Mass/volume] in Ser um or PlasmaOrdered By: Isaiah Shaw on 06-07-2022 Calcium [Mass/Vol] 8.5 mg/dL 8.6-10.3 [facility] Carbon dioxide, total [Moles /volume] in Serum or PlasmaOrdered By: Isaiah Shaw on 06-07-2022 CO2 [Moles/Vol] 28.1 mmol/L 21.0-31.0 [facility] Chloride [Moles/volume] in S garret or PlasmaOrdered By: Isaiah Shaw on 06-07-2022 Chloride [Moles/Vol] 102 mmol/L 98-107 [facility] Cholesterol [Mass/volume] in Serum or PlasmaOrdered By: Isaiah Shaw on 06-07-2022 Cholesterol [Mass/Vol] 217 mg/dL 140-200 [facility] Comment on above: Chol less than 200 m g/dl low riskChol 201-239 mg/dl borderline riskChol 240 mg/dl and greater high risk Cholesterol in LDL Calc [Mas s/Vol]Ordered By: Isaiah Shaw on 06-07-2022 Cholesterol in LDL [Mass/Vol] 106 mg/dL 0-100 [facility] Comment on above: LDL ATP III CLASSIFI CATIONLDL less than 100 mg/dL OptimalLDL 100-129 mg/dL Near or above optimalLDL 130-159 mg/dL Borderline highLDL 160-189 mg/dL HighLDL greater than 189 mg/dL Very high Cholesterol in VLDL Calc [Ma ss/Vol]Ordered By: Isaiah Shaw on 06-07-2022 Cholesterol in VLDL [Mass/Vol] 66 mg/dL [facility] Complete Blood Count Auto Di ffon 06-07-2022 Basophils (Bld) [#/Vol] 0.0 10*3/uL Normal 0.0-0.2 [facility] Comment on above: Order Comment: Reaso n for Exam Hyperlipidemia Result Comment: PERF ORMED BY: [facility] [address] [place] [address] PATHOLOGIST PICKER MACHINE OPERATOR BRETT NAVAS M.D. Performed By: #### G LULS #### Point of Care testing , Basophils/100 WBC (Bld) 0.7 % Normal . [facility] Comment on above: Order Comment: Reaso n for Exam Hyperlipidemia Performed By: #### G LULS #### Point of Care testing , Eosinophils (Bld) [#/Vol] 0.2 10*3/uL Normal 0.0-0.45 [facility] Comment on above: Order Comment: Reaso n for Exam Hyperlipidemia Performed By: #### G LULS #### Point of Care testing , Eosinophils/100 WBC (Bld) 3.0 % Normal . [facility] Comment on above: Order Comment: Reaso n for Exam Hyperlipidemia Performed By: #### G LULS #### Point of Care testing , Erythrocyte distribution width (RBC) [Ratio] 15.9 % High 11.9-15.3 [facility] Comment on above: Order Comment: Reaso n for Exam Hyperlipidemia Performed By: #### G LULS #### Point of Care testing , Hematocrit (Bld) [Volume fraction] 41.6 % Normal 34.0-46.4 [facility] Comment on above: Order Comment: Reaso n for Exam Hyperlipidemia Performed By: #### G LULS #### Point of Care testing , Hemoglobin (Bld) [Mass/Vol] 13.5 g/dL Normal 11.8-15.4 [facility] Comment on above: Order Comment: Reaso n for Exam Hyperlipidemia Performed By: #### G LULS #### Point of Care testing , Lymphocytes (Bld) [#/Vol] 2.8 10*3/uL Normal 1.00-4.8 [facility] Comment on above: Order Comment: Reaso n for Exam Hyperlipidemia Performed By: #### G LULS #### Point of Care testing , Lymphocytes/100 WBC (Bld) 45.1 % Normal . [facility] Comment on above: Order Comment: Reaso n for Exam Hyperlipidemia Performed By: #### G LULS #### Point of Care testing , MCH (RBC) [Entitic mass] 28.1 pg Normal 24.7-34.3 [facility] Comment on above: Order Comment: Reaso n for Exam Hyperlipidemia Performed By: #### G LULS #### Point of Care testing , MCV (RBC) [Entitic vol] 86.5 fL Normal 80-100 [facility] Comment on above: Order Comment: Reaso n for Exam Hyperlipidemia Performed By: #### G LULS #### Point of Care testing , Mean Corpuscular HGB Conc 32.4 g/dL Normal 32.0-35.0 [facility] Comment on above: Order Comment: Reaso n for Exam Hyperlipidemia Performed By: #### G LULS #### Point of Care testing , Monocytes (Bld) [#/Vol] 0.3 10*3/uL Normal 0.0-0.8 [facility] Comment on above: Order Comment: Reaso n for Exam Hyperlipidemia Performed By: #### G LULS #### Point of Care testing , Monocytes/100 WBC (Bld) 5.2 % Normal . [facility] Comment on above: Order Comment: Reaso n for Exam Hyperlipidemia Performed By: #### G LULS #### Point of Care testing , Neutrophils (Bld) [#/Vol] 2.9 10*3/uL Normal 1.8-7.7 [facility] Comment on above: Order Comment: Reaso n for Exam Hyperlipidemia Performed By: #### G LULS #### Point of Care testing , Neutrophils/100 WBC (Bld) 46.0 % Normal . [facility] Comment on above: Order Comment: Reaso n for Exam Hyperlipidemia Performed By: #### G LULS #### Point of Care testing , NRBC% 0.2 /100{WBC} Normal 0-0.5 [facility] Comment on above: Order Comment: Reaso n for Exam Hyperlipidemia Performed By: #### G LULS #### Point of Care testing , Platelet mean volume (Bld) [Entitic vol] 7.9 fL Normal 6.3-10.7 [facility] Comment on above: Order Comment: Reaso n for Exam Hyperlipidemia Performed By: #### G LULS #### Point of Care testing , Platelets (Bld) [#/Vol] 181 10*3/uL Normal 150-450 [facility] Comment on above: Order Comment: Reaso n for Exam Hyperlipidemia Performed By: #### G LULS #### Point of Care testing , RBC (Bld) [#/Vol] 4.80 10*6/uL Normal 3.60-5.00 [facility] Comment on above: Order Comment: Reaso n for Exam Hyperlipidemia Performed By: #### G LULS #### Point of Care testing , WBC (Bld) [#/Vol] 6.3 10*3/uL Normal 3.8-11.6 [facility] Comment on above: Order Comment: Reaso n for Exam Hyperlipidemia Performed By: #### G LULS #### Point of Care testing , Comprehensive Metabolic Pane nevin 06-07-2022 Albumin [Mass/Vol] 4.1 g/dL Normal 3.5-5.7 [facility] Comment on above: Order Comment: Reaso n for Exam Hyperlipidemia Performed By: #### G CHLOELS #### Point of Care testing , Albumin/Globulin [Mass ratio] 1.2 {ratio} Normal [facility] Comment on above: Order Comment: Reaso n for Exam Hyperlipidemia Performed By: #### G CHLOELS #### Point of Care testing , ALP [Catalytic activity/Vol] 60 U/L Normal 34-104 [facility] Comment on above: Order Comment: Reaso n for Exam Hyperlipidemia Performed By: #### G CHLOELS #### Point of Care testing , ALT [Catalytic activity/Vol] 20 U/L Normal 7-52 [facility] Comment on above: Order Comment: Reaso n for Exam Hyperlipidemia Performed By: #### G CHLOELS #### Point of Care testing , Anion gap [Moles/Vol] 11.8 mmol/L Normal 6.0-15.0 [facility] Comment on above: Order Comment: Reaso n for Exam Hyperlipidemia Performed By: #### G LULS #### Point of Care testing , AST [Catalytic activity/Vol] 21 U/L Normal 13-39 [facility] Comment on above: Order Comment: Reaso n for Exam Hyperlipidemia Performed By: #### G LULS #### Point of Care testing , Bilirubin [Mass/Vol] 0.4 mg/dL Normal 0.3-1.0 [facility] Comment on above: Order Comment: Reaso n for Exam Hyperlipidemia Performed By: #### G LULS #### Point of Care testing , Calcium [Mass/Vol] 8.5 mg/dL Low 8.6-10.3 [facility] Comment on above: Order Comment: Reaso n for Exam Hyperlipidemia Performed By: #### G LULS #### Point of Care testing , Chloride [Moles/Vol] 102 mmol/L Normal 98-107 [facility] Comment on above: Order Comment: Reaso n for Exam Hyperlipidemia Performed By: #### G LULS #### Point of Care testing , CO2 [Moles/Vol] 28.1 mmol/L Normal 21.0-31.0 [facility] Comment on above: Order Comment: Reaso n for Exam Hyperlipidemia Performed By: #### G LULS #### Point of Care testing , Creatinine [Mass/Vol] 0.88 mg/dL Normal 0.60-1.20 [facility] Comment on above: Order Comment: Reaso n for Exam Hyperlipidemia Performed By: #### G LULS #### Point of Care testing , GFR/1.73 sq M.predicted MDRD (S/P/Bld) [Vol rate/Area] mL/min/{1.73_m2} [facility] Comment on above: Order Comment: Reaso n for Exam Hyperlipidemia Performed By: #### G LULS #### Point of Care testing , Globulin (S) [Mass/Vol] 3.3 g/dL [facility] Comment on above: Order Comment: Reaso n for Exam Hyperlipidemia Performed By: #### G LULS #### Point of Care testing , Glucose [Mass/Vol] 164 mg/dL High 70-100 [facility] Comment on above: Order Comment: Reaso n for Exam Hyperlipidemia Result Comment: [place] Glucose Reference Range is dependent on time and content of last meal. Glucose of more than 200 mg/dL in a nonstressed, ambulatory subject supports the diagnosis of Diabetes Mellitus. ADA recommended reference range Performed By: #### G LULS #### Point of Care testing , Potassium [Moles/Vol] 3.9 mmol/L Normal 3.5-5.1 [facility] Comment on above: Order Comment: Reaso n for Exam Hyperlipidemia Performed By: #### G LULS #### Point of Care testing , Protein [Mass/Vol] 7.4 g/dL Normal 6.4-8.9 [facility] Comment on above: Order Comment: Reaso n for Exam Hyperlipidemia Performed By: #### G LULS #### Point of Care testing , Sodium [Moles/Vol] 138 mmol/L Normal 136-145 [facility] Comment on above: Order Comment: Reaso n for Exam Hyperlipidemia Performed By: #### G LULS #### Point of Care testing , Urea nitrogen [Mass/Vol] 16 mg/dL Normal 7-25 [facility] Comment on above: Order Comment: Reaso n for Exam Hyperlipidemia Performed By: #### G LULS #### Point of Care testing , Creatinine [Mass/volume] in Serum or PlasmaOrdered By: Isaiah Shaw on 06-07-2022 Creatinine [Mass/Vol] 0.88 mg/dL 0.60-1.20 [facility] Eosinophils Auto (Bld) [#/Vo l]Ordered By: Isaiah Shaw on 06-07-2022 Eosinophils (Bld) [#/Vol] 0.2 10*3/uL 0.0-0.45 [facility] Eosinophils/100 WBC Auto (Bl d)Ordered By: Isaiah Shaw on 06-07-2022 Eosinophils/100 WBC (Bld) 3.0 % . [facility] Erythrocyte distribution wid th Auto (RBC) [Ratio]Ordered By: Isaiah Shaw on 06-07-2022 Erythrocyte distribution width (RBC) [Ratio] 15.9 % 11.9-15.3 [facility] Globulin Calc (S) [Mass/Vol] Ordered By: Isaiah Shaw on 06-07-2022 Globulin (S) [Mass/Vol] 3.3 g/dL [facility] Glucose [Mass/volume] in Ser um or PlasmaOrdered By: Isaiah Shaw on 06-07-2022 Glucose [Mass/Vol] 164 mg/dL 70-100 [facility] Comment on above: ADA recommended refe rence rangeRandom Glucose Reference Range is dependent on time and content of last meal. Glucose of more than 200 mg/dL in a nonstressed, ambulatory subject supports the diagnosis of Diabetes Mellitus. Glucose mean value [Mass/vol ume] in Blood Estimated from glycated hemoglobinOrdered By: Isaiah Shaw on 06-07-2022 Average glucose Estimated from glycated hemoglobin (Bld) [Mass/Vol] 169 mg/dL [facility] Hematocrit Auto (Bld) [Volum e fraction]Ordered By: Isaiah Shaw on 06-07-2022 Hematocrit (Bld) [Volume fraction] 41.6 % 34.0-46.4 [facility] Hemoglobin A1c percentageOrd ered By: Isaiah Shaw on 06-07-2022 HbA1c (Bld) [Mass fraction] 7.5 % 4.3-5.6 [facility] Comment on above: Increased risk for d iabetes: 5.7 - 6.4diabetes: >6.4glycemic control for adults with diabetes: <7.0 Hemoglobin [Mass/volume] in BloodOrdered By: Isaiah Shaw on 06-07-2022 Hemoglobin (Bld) [Mass/Vol] 13.5 g/dL 11.8-15.4 [facility] Leukocytes [#/volume] correc deysi for nucleated erythrocytes in Blood by Automated counOrdered By: Isaiah Shaw on 06-07-2022 WBC corrected for nucl RBC Auto (Bld) [#/Vol] 6.3 10*3/uL 3.8-11.6 [facility] Lipid Panelon 06-07-2022 Cholesterol [Mass/Vol] 217 mg/dL High 140-200 [facility] Comment on above: Order Comment: Reaso n for Exam Hyperlipidemia Result Comment: Chol less than 200 mg/dl low risk Chol 201-239 mg/dl borderline risk Chol 240 mg/dl and greater high risk Performed By: #### G LULS #### Point of Care testing , Cholesterol in HDL [Mass/Vol] 44 mg/dL Normal 35-85 [facility] Comment on above: Order Comment: Reaso n for Exam Hyperlipidemia Result Comment: HDL CHOL ATP-III CLASSIFICATION Cardiovascular Risk HDL > or equal to 60 mg/dL LOW HDL < 40 mg/dL HIGH Performed By: #### G LULS #### Point of Care testing , Cholesterol.total/Chol esterol in HDL [Mass ratio] 4.9 {ratio} Normal <5.0 [facility] Comment on above: Order Comment: Reaso n for Exam Hyperlipidemia Performed By: #### G LULS #### Point of Care testing , LDL Cholesterol,Calculated 106 mg/dL High 0-100 [facility] Comment on above: Order Comment: Reaso n for Exam Hyperlipidemia Result Comment: LDL ATP III CLASSIFICATION LDL less than 100 mg/dL Optimal LDL 100-129 mg/dL Near or above optimal LDL 130-159 mg/dL Borderline high LDL 160-189 mg/dL High LDL greater than 189 mg/dL Very high Performed By: #### G LULS #### Point of Care testing , Triglyceride w/Reflex 334 mg/dL High 0-149 [facility] Comment on above: Order Comment: Reaso n for Exam Hyperlipidemia Result Comment: TRIG ATP III CLASSIFICATION TRIG less than 150 mg/dL Normal TRIG 150-199 mg/dL Borderline high TRIG 200-500 mg/dL High TRIG greater than 500 mg/dL Very high Standard traceable to the Center for Disease Conrtrol and Prevention (CDC) test method. Performed By: #### G LULS #### Point of Care testing , VLDL CHOLESTEROL 66 mg/dL Normal [facility] Comment on above: Order Comment: Reaso n for Exam Hyperlipidemia Performed By: #### G LULS #### Point of Care testing , Lymphocytes Auto (Bld) [#/Vo l]Ordered By: Isaiah Shaw on 06-07-2022 Lymphocytes (Bld) [#/Vol] 2.8 10*3/uL 1.00-4.8 [facility] Lymphocytes/100 WBC Auto (Bl d)Ordered By: Isaiah Shaw on 06-07-2022 Lymphocytes/100 WBC (Bld) 45.1 % . [facility] MCH Auto (RBC) [Entitic mass ]Ordered By: Isaiah Shaw on 06-07-2022 MCH (RBC) [Entitic mass] 28.1 pg 24.7-34.3 [facility] MCHC Auto (RBC) [Mass/Vol]Or dered By: Isaiah Shaw on 06-07-2022 MCHC (RBC) [Mass/Vol] 32.4 g/dL 32.0-35.0 [facility] MCV Auto (RBC) [Entitic vol] Ordered By: Isaiah Shaw on 06-07-2022 MCV (RBC) [Entitic vol] 86.5 fL 80-100 [facility] Monocytes Auto (Bld) [#/Vol] Ordered By: Isaiah Shaw on 06-07-2022 Monocytes (Bld) [#/Vol] 0.3 10*3/uL 0.0-0.8 [facility] Monocytes/100 WBC Auto (Bld) Ordered By: Isaiah Shaw on 06-07-2022 Monocytes/100 WBC (Bld) 5.2 % . [facility] Neutrophils Auto (Bld) [#/Vo l]Ordered By: Isaiah Shaw on 06-07-2022 Neutrophils (Bld) [#/Vol] 2.9 10*3/uL 1.8-7.7 [facility] Neutrophils/100 WBC Auto (Bl d)Ordered By: Isaiah Shaw on 06-07-2022 Neutrophils/100 WBC (Bld) 46.0 % . [facility] No Panel InformationOrdered By: Isaiah Shaw on 06-07-2022 Estimated GFR (CKD-EPI) > 60.0 mL/Min [facility] Creatinine Clearance (Chem N/A [facility] Nucleated erythrocytes [Pres ence] in Blood by Automated countOrdered By: Isaiah Shaw on 06-07-2022 Nucleated RBC Auto Ql (Bld) 0.2 /100{WBC} 0-0.5 [facility] Platelet mean volume Auto (B ld) [Entitic vol]Ordered By: Isaiah Shaw on 06-07-2022 Platelet mean volume (Bld) [Entitic vol] 7.9 fL 6.3-10.7 [facility] Platelets Auto (Bld) [#/Vol] Ordered By: Isaiah hSaw on 06-07-2022 Platelets (Bld) [#/Vol] 181 10*3/uL 150-450 [facility] Potassium [Moles/volume] in Serum or PlasmaOrdered By: Isaiah Shaw on 06-07-2022 Potassium [Moles/Vol] 3.9 mmol/L 3.5-5.1 [facility] Protein [Mass/volume] in Ser um or PlasmaOrdered By: Isaiah Shaw on 06-07-2022 Protein [Mass/Vol] 7.4 g/dL 6.4-8.9 [facility] RBC Auto (Bld) [#/Vol]Ordere d By: Isaiah Shaw on 06-07-2022 RBC (Bld) [#/Vol] 4.80 10*6/uL 3.60-5.00 [facility] Serum or plasma albumin/glob ulin mass ratioOrdered By: Isaiah Shaw on 06-07-2022 Albumin/Globulin [Mass ratio] 1.2 {ratio} [facility] Serum or plasma anion gap de terminationOrdered By: Isaiah Shaw on 06-07-2022 Anion gap [Moles/Vol] 11.8 mmol/L 6.0-15.0 [facility] Serum or plasma high density lipoprotein (HDL) cholesterol measurementOrdered By: Isaiah Shaw on 06-07-2022 Cholesterol in HDL [Mass/Vol] 44 mg/dL 35-85 [facility] Comment on above: HDL CHOL ATP-III CLA SSIFICATION Cardiovascular RiskHDL > or equal to 60 mg/dL LOWHDL < 40 mg/dL HIGH Serum or plasma total choles terol/high density lipoprotein (HDL) cholesterol mass ratOrdered By: Isaiah Shaw on 06-07-2022 Cholesterol.total/Chol esterol in HDL [Mass ratio] 4.9 {ratio} <5.0 [facility] Sodium [Moles/volume] in Ser um or PlasmaOrdered By: Isaiah Shaw on 06-07-2022 Sodium [Moles/Vol] 138 mmol/L 136-145 [facility] Thyroid Stimulating Hormoneo n 06-07-2022 TSH Qn 5.56 m[IU]/L High 0.45-5.33 [facility] Comment on above: Order Comment: Reaso n for Exam Hyperlipidemia Result Comment: PERF ORMED BY: [facility] [address] [place] [address] PATHOLOGIST PICKER MACHINE OPERATOR BRETT NAVAS M.D. Performed By: #### G LULS #### Point of Care testing , Thyrotropin [Units/volume] i n Serum or PlasmaOrdered By: Isaiah Shaw on 06-07-2022 TSH Qn 5.56 m[IU]/L 0.45-5.33 [facility] Triglyceride [Mass/volume] i n Serum or PlasmaOrdered By: Isaiah Shaw on 06-07-2022 Triglyceride [Mass/Vol] 334 mg/dL 0-149 [facility] Comment on above: TRIG ATP III CLASSIF ICATIONTRIG less than 150 mg/dL NormalTRIG 150-199 mg/dL Borderline highTRIG 200-500 mg/dL High TRIG greater than 500 mg/dL Very highStandard traceable to the Center for Disease Conrtrol and Prevention (CDC) test method. Urea nitrogen [Mass/volume] in Serum or PlasmaOrdered By: Isaiah Shaw on 06-07-2022 Urea nitrogen [Mass/Vol] 16 mg/dL 7-25 [facility] WBC Auto (Bld) [#/Vol]Ordere d By: Isaiah Shaw on 06-07-2022 WBC (Bld) [#/Vol] 6.3 10*3/uL 3.8-11.6 [facility] A1C HEMOGLOBINon 03-14-2022 HbA1c (Bld) [Mass fraction] 7.4 % [facility] [employer] Other HbA1c (Bld) [Mass fraction]o n 03-14-2022 A1C HEMOGLOBIN [facility] [employer] Other Activated partial thrombopla stin time (aPTT) in platelet poor plasma by coagulation aOrdered By: Drew Warren on 01-20-2022 aPTT Coag (PPP) [Time] 31.4 s 25.1-36.5 [facility] Glucose Glucometer (BldC) [M ass/Vol]Ordered By: Drew Warren on 01-20-2022 Glucose [Mass/Vol] 139 mg/dL [facility] Comment on above: Random Glucose Refer ence Range is dependent on time and content of last meal. Glucose of more than 200 mg/dL in a nonstressed, ambulatory subject supports the diagnosis of Diabetes Mellitus. Laboratory - CoagulationOrde red By: Drew Warren on 01-20-2022 PT Coag (PPP) [Time] 12.8 s 9.0-12.9 [facility] No Panel Informationon 01-20 139\S\[address] [facility] y 250 DO Work Phone: Comment on above: Random Glucose Refer ence Range is dependent on time and content of last meal. Glucose of more than 200 mg/dL in a nonstressed, ambulatory subject supports the diagnosis of Diabetes Mellitus.PERFORMED BY:[address] [place], [place] [phone] MEDICAL DIRECTORBRETT NAVAS M.D. 189\S\189 Normal [facility] 250 DO Work Phone: Comment on above: Random Glucose Refer ence Range is dependent on time and content of last meal. Glucose of more than 200 mg/dL in a nonstressed, ambulatory subject supports the diagnosis of Diabetes Mellitus.PERFORMED BY:[place] [address] [address] [place], [place] [id number] MEDICAL DIRECTORBRETT NAVAS M.D. 31.4\S\31.4 Normal 25.1-36.5 [facility] 250 DO Work Phone: Comment on above: PERFORMED BY:[place] [address] [address] [place], [place] [phone] MEDICAL DIRECTORBRETT NAVAS M.D. 1.1\S\1.[address] [facility] y 250 DO Work Phone: Comment on above: INR Therapeutic Rang e A) Pre- and Peroperative OAT started two weeks before surgery. NOT HIP SURGERY: 1.5 - 2.5 HIP SURGERY: 2 - 3 B) Primary and secondary prevention of venous THROMBOSIS: 2 - 3 C) Active venous thrombosis, pulmonary embolism and prevention of recurrent venous thrombosis: 2 - 3 D) Prevention of arterial thromboembolism including patients with mechanical heart valves: 3 - 4.5 12.8\S\12.8 Normal 9.0-12.9 [facility] y 250 DO Work Phone: Normal [facility] y 250 DO Work Phone: Platelet poor plasma interna tional normalized ratio (INR) by coagulation assay (relatOrdered By: Drew Warren on 01-20-2022 INR Coag (PPP) [Relative time] 1.1 {INR} [facility] Comment on above: INR Therapeutic Rang e A) Pre- and Peroperative OAT started two weeks before surgery. NOT HIP SURGERY: 1.5 - 2.5 HIP SURGERY: 2 - 3B) Primary and secondary prevention of venous THROMBOSIS: 2 - 3C) Active venous thrombosis, pulmonary embolismand prevention of recurrent venous thrombosis: 2 - 3D) Prevention of arterial thromboembolismincluding patients with mechanical heart valves: 3 - 4.5 Radiologyon 01-20-2022 Portable XR Chest Views Normal [facility] y 250 DO Work Phone: Basophils Auto (Bld) [#/Vol] Ordered By: Drew Warren on 01-18-2022 Basophils (Bld) [#/Vol] 0.1 10*3/uL 0.0-0.2 [facility] Basophils/100 WBC Auto (Bld) Ordered By: Drew Warren on 01-18-2022 Basophils/100 WBC (Bld) 0.8 % . [facility] Creatinine and Glomerular fi ltration rate.predicted panel (S/P/Bld)Ordered By: Drew Warren on 01-18-2022 Creatinine [Mass/Vol] 0.82 mg/dL 0.44-1.03 [facility] Eosinophils Auto (Bld) [#/Vo l]Ordered By: Drew Warren on 01-18-2022 Eosinophils (Bld) [#/Vol] 0.2 10*3/uL 0.0-0.45 [facility] Eosinophils/100 WBC Auto (Bl d)Ordered By: Drwe Warren on 01-18-2022 Eosinophils/100 WBC (Bld) 4.0 % . [facility] Erythrocyte distribution wid th Auto (RBC) [Ratio]Ordered By: Drew Warren on 01-18-2022 Erythrocyte distribution width (RBC) [Ratio] 14.6 % 11.9-15.3 [facility] Estimated glomerular filtrat ion rate (GFR) non- AmericanOrdered By: Drew Warren on 01-18-2022 GFR/1.73 sq M.predicted among non-blacks MDRD (S/P/Bld) [Vol rate/Area] > 60 mL/Min [facility] Hematocrit Auto (Bld) [Volum e fraction]Ordered By: Drew Warren on 01-18-2022 Hematocrit (Bld) [Volume fraction] 41.1 % 34.0-46.4 [facility] Hemoglobin [Mass/volume] in BloodOrdered By: Drew Warren on 01-18-2022 Hemoglobin (Bld) [Mass/Vol] 13.6 g/dL 11.8-15.4 [facility] Lymphocytes Auto (Bld) [#/Vo l]Ordered By: Drew Warren on 01-18-2022 Lymphocytes (Bld) [#/Vol] 2.3 10*3/uL 1.00-4.8 [facility] Lymphocytes/100 WBC Auto (Bl d)Ordered By: Drew Warren on 01-18-2022 Lymphocytes/100 WBC (Bld) 37.9 % . [facility] MCH Auto (RBC) [Entitic mass ]Ordered By: Drew Warren on 01-18-2022 MCH (RBC) [Entitic mass] 28.8 pg 24.7-34.3 [facility] MCHC Auto (RBC) [Mass/Vol]Or dered By: Drew Warren on 01-18-2022 MCHC (RBC) [Mass/Vol] 33.1 g/dL 32.0-35.0 [facility] MCV Auto (RBC) [Entitic vol] Ordered By: Derw Warren on 01-18-2022 MCV (RBC) [Entitic vol] 87.0 fL 80-100 [facility] Monocytes Auto (Bld) [#/Vol] Ordered By: Drew Warren on 01-18-2022 Monocytes (Bld) [#/Vol] 0.4 10*3/uL 0.0-0.8 [facility] Monocytes/100 WBC Auto (Bld) Ordered By: Drew Warren on 01-18-2022 Monocytes/100 WBC (Bld) 6.4 % . [facility] Neutrophils Auto (Bld) [#/Vo l]Ordered By: Drew Warren on 01-18-2022 Neutrophils (Bld) [#/Vol] 3.1 10*3/uL 1.8-7.7 [facility] Neutrophils/100 WBC Auto (Bl d)Ordered By: Drew Warren on 01-18-2022 Neutrophils/100 WBC (Bld) 50.9 % . [facility] No Panel InformationOrdered By: Drew Warren on 01-18-2022 Estimated GFR () > 60 mL/Min [facility] Comment on above: GFR estimated refere nce range: According to KDOQI guidelines, <60 ml/min/1.73m2 is sufficient to diagnose a patient with chronic kidney disease. Pharmacy Creatinine Clearance (Chem N/A [facility] No Panel Informationon 01-18 14.1\S\14.1 Normal 6.0-15.0 [facility] Work Phone: 8.9\S\8.9 Normal 8.2-10.2 [facility] Work Phone: Comment on above: PERFORMED BY:[place] [address] [address] [place], [place] [phone] MEDICAL DIRECTORBRETT NAVAS M.D. 24.1\S\24.1 Normal 22.0-30.0 [facility] Work Phone: 102\S\102 Normal 95-114 [facility] Work Phone: 4.2\S\4.2 Normal 3.5-5.1 [facility] Work Phone: [phone] 136\S\136 Normal 136-146 [facility] 250 DO Work Phone: [phone] > 60 Normal [facility] 250 DO Work Phone: [phone] Comment on above: GFR estimated refere nce range: According to KDOQI guidelines, <60 ml/min/1.73m2 is sufficient to diagnose a patient with chronic kidney disease. 0.82\S\0.82 Normal 0.44-1.03 [facility] [place]o 250 DO Work Phone: [phone] 15\S\15 Normal 9-23 [facility] 250 DO Work Phone: 144\S\144 above high threshold 70-100 [facility] dEy robledo 250 DO Work Phone: Comment on above: Random Glucose Refer ence Range is dependent on time and content of last meal. Glucose of more than 200 mg/dL in a nonstressed, ambulatory subject supports the diagnosis of Diabetes Mellitus. ADA recommended reference range 50.9\S\50.9 Normal . [facility] 250 DO Work Phone: [phone] 7.9\S\7.9 Normal 6.3-10.7 [facility] 250 DO Work Phone: [phone] 192\S\192 Normal 150-450 [facility] 250 DO Work Phone: [phone] 14.6\S\14.6 Normal 11.9-15.3 [facility] 250 DO Work Phone: [phone] 33.1\S\33.1 Normal 32.0-35.0 [facility] 250 DO Work Phone: [phone] 28.8\S\28.8 Normal 24.7-34.3 [facility] 250 DO Work Phone: [phone] 3.1\S\3.1 Normal 1.8-7.7 [facility] 250 DO Work Phone: 0.0\S\0.0 Normal 0-0.5 [facility] 250 DO Work Phone: 0.8\S\0.8 Normal . [facility] 250 DO Work Phone: 4.0\S\4.0 Normal . [facility] 250 DO Work Phone: 6.4\S\6.4 Normal . [facility] 250 DO Work Phone: 37.9\S\37.9 Normal . [facility] 250 DO Work Phone: 0.1\S\0.1 Normal 0.0-0.2 [facility] 250 DO Work Phone: [phone] Comment on above: PERFORMED BY:[facility] [place], [place] [phone] MEDICAL DIRECTORBRETT NAVAS M.D. 0.2\S\0.2 Normal 0.0-0.45 [facility] 250 DO Work Phone: 0.4\S\0.4 Normal 0.0-0.8 [facility] 250 DO Work Phone: 2.3\S\2.3 Normal 1.00-4.8 [facility] 250 DO Work Phone: 87.0\S\87.0 Normal 80-100 [facility] 250 DO Work Phone: 41.1\S\41.1 Normal 34.0-46.4 [facility] 250 DO Work Phone: 13.6\S\13.6 Normal 11.8-15.4 [facility] 250 DO Work Phone: 4.73\S\4.73 Normal 3.60-5.00 [facility] 250 DO Work Phone: 6.1\S\6.1 Normal 3.8-11.6 [facility] 250 DO Work Phone: Nucleated erythrocytes [Pres ence] in Blood by Automated countOrdered By: Drew Warren on 01-18-2022 Nucleated RBC Auto Ql (Bld) 0.0 % 0-0.5 [facility] Platelet mean volume Auto (B ld) [Entitic vol]Ordered By: Drew Warren on 01-18-2022 Platelet mean volume (Bld) [Entitic vol] 7.9 fL 6.3-10.7 [facility] Platelets Auto (Bld) [#/Vol] Ordered By: Drew Warren on 01-18-2022 Platelets (Bld) [#/Vol] 192 10*3/uL 150-450 [facility] RBC Auto (Bld) [#/Vol]Ordere d By: Drew Warren on 01-18-2022 RBC (Bld) [#/Vol] 4.73 10*6/uL 3.60-5.00 [facility] Serum or plasma anion gap de terminationOrdered By: Drew Warren on 01-18-2022 Anion gap [Moles/Vol] 14.1 mmol/L 6.0-15.0 [facility] Serum or plasma calcium jacy urement (mass/volume)Ordered By: Drew Warren on 01-18-2022 Calcium [Mass/Vol] 8.9 mg/dL 8.2-10.2 [facility] Serum or plasma chloride mele surement (moles/volume)Ordered By: Drew Warren on 01-18-2022 Chloride [Moles/Vol] 102 mmol/L 95-114 [facility] Serum or plasma glucose jacy urement (mass/volume)Ordered By: Drew Warren on 01-18-2022 Glucose [Mass/Vol] 144 mg/dL 70-100 [facility] Comment on above: ADA recommended refe rence rangeRandom Glucose Reference Range is dependent on time and content of last meal. Glucose of more than 200 mg/dL in a nonstressed, ambulatory subject supports the diagnosis of Diabetes Mellitus. Serum or plasma potassium me asurement (moles/volume)Ordered By: Drew Warren on 01-18-2022 Potassium [Moles/Vol] 4.2 mmol/L 3.5-5.1 [facility] Serum or plasma sodium measu rement (moles/volume)Ordered By: Drew Warren on 01-18-2022 Sodium [Moles/Vol] 136 mmol/L 136-146 [facility] Serum or plasma total carbon dioxide measurement (moles/volume)Ordered By: Drew Warren on 01-18-2022 CO2 [Moles/Vol] 24.1 mmol/L 22.0-30.0 [facility] Serum or plasma urea nitroge n measurement (mass/volume)Ordered By: Drew Warren on 01-18-2022 Urea nitrogen [Mass/Vol] 15 mg/dL 9- [facility] WBC Auto (Bld) [#/Vol]Ordere d By: Drew Warren on 01-18-2022 WBC (Bld) [#/Vol] 6.1 10*3/uL 4.5-11.0 [facility] Consent for Procedure/Surger yon 01-05-2022 Consent for Procedure/Surgery [id number]:1 [id number] Normal [facility] Ambulatory Visit Summaryon 1 03-06-2021 Ambulatory Visit Summary TAMMY SANDOVAL Rubi :1940 Visit Date:01/04/2022 Ambulatory Visit Instructions Your Diagnosis History of urethral stricture Recurrent UTI Dysuria Urgency incontinence History of kidney stones Atrophic vaginitis Your Care Team Attending Physician - LEA SHAW, Jaret Davila Primary Care Physician - ISAIAH SHAW DO This Is Your Medications List ciprofloxacin (Cipro 250 mg Tab) estradiol topical (estradiol 0.1 mg/g vaginal cream) solifenacin (solifenacin 5 mg Tab) Contact prescribing physician if questions or concerns alprazolam (Xanax) amlodipine (amLODIPine 5 mg Tab) aspirin azelastine nasal cholecalciferol (Vitamin D3) ipratropium nasal (ipratropium Nasal 0.06% [place]) levothyroxine lovastatin metformin multivitamin (Vitamin B Complex oral capsule) nystatin (nystatin 100,000 units/mL Oral Susp) omeprazole (omeprazole 40 mg Cap-DR) potassium chloride (potassium chloride 99 mg oral tablet) Procedures Performed Cystourethroscopy with dilation of urethral stricture (01/04/2022), Cystourethroscopy with dilation of urethral stricture (2019), Appendectomy, Cardiac pacemaker, Fusion of lumbar spine, h/o colon polyps, Hysterectomy. Discharge Vitals Height 158 cm Height 62 in Weight 65 kg Weight 143 lb BMI 26.04 What to do next Scheduled Follow-Up Appointments Monday 2:00 PM EST With: LEA SHAW, Jaret Davila Where: [facility] Patient Educationon 01-05-20 Patient Education Urology Urodynamic Testing What is urodynamic testing? Urodynamic tests are done to determine how well your lower urinary tract is working. The lower urinary tract includes your bladder and the part of your body that drains urine from the bladder (urethra). When your kidneys filter your blood, urine is stored in your bladder until you feel the urge to urinate. Urination requires coordination between the nerves and muscles of your bladder and urethra. When your lower urinary tract is working well, you should be able to: ? Start urinating when your bladder is full. ? Empty your bladder completely. ? Control the flow of your urine. Why do I need urodynamic testing? You may need urodynamic testing to help find the cause of any of these problems: ? Leaking urine (incontinence). ? Problems starting or stopping your urine flow. ? Frequent or painful urination. ? Frequent urinary tract infections. ? Being unable to empty your bladder completely. ? Having strong urges to pass urine (urgency). ? Having a weak flow of urine. How do I prepare for the tests? ? Ask your health care provider about changing or stopping your regular medicines. This is especially important if you are taking diabetes medicines or blood thinners. ? You may be asked to avoid urinating before coming to the test so that you arrive with a full bladder. ? Tell a health care provider about: ? Any allergies you have. ? All medicines you are taking, including vitamins, herbs, eye drops, creams, and vrbx-yjg-nweugwh medicines. ? Whether you are or may be . What are the risks of this testing? Generally, these tests are safe. However, some of the tests have risks, including: ? Discomfort. ? Frequent urge to urinate. ? Bleeding. ? Infection. ? Allergic reactions to medicines or dyes (contrast material). How is urodynamic testing done? You may have various urodynamic tests. The tests may be done separately or may all be done during one testing visit. You may be given an antibiotic medicine before or after testing to help prevent infection. The types of tests that may be done include: Uroflowmetry This test measures how much urine you pass and how long it takes to pass. ? You will urinate into a certain type of toilet or device (flowmeter). ? The device will measure the volume and the time of your urine flow. ? These measurements will be sent to a computer that creates a graph of your urine flow. Postvoid residual measurement This test measures how much urine is left in your bladder after you urinate. ? The test may be done with ultrasound. In this method, sound waves and a computer will be used to create an image of your bladder. ? The test can also be done by inserting a thin, flexible tube (catheter) into your bladder after you urinate. The remaining urine will be removed through the catheter so it can be measured. ? Remaining urine will be measured in milliliters (mL). If you have more than 100 mL left in your bladder after you urinate, your bladder is not emptying as it should. Cystometric testing This test uses a type of bladder catheter that can measure pressure. ? You may be given a medicine to numb the area (local anesthetic). ? The area around the opening of your urethra will be cleaned. ? A urinary catheter will be passed through your urethra into your bladder and used to empty your bladder completely. ? Then a measuring catheter will be placed, and your bladder will be filled with warm, germ-free (sterile) water. ? Pressure measurements will be taken: ? As your bladder fills. ? When you feel the need to urinate. ? As your bladder is emptied. ? You may be asked to cough or bear down to check for leakage. ? In some cases, your bladder may be filled with a material that shows up on X-rays (contrast material) so that X-ray pictures can be taken during the test. Electromyogram This test measures the electrical activity of the nerves and muscles of your bladder and the opening of your urethra. ? Sticky patches (electrodes) will be placed near your rectum and urethra to measure electrical activity. ? The measurements will show how well your nerves are communicating with your muscles. What happens after the testing? ? You should be able to go home right away and do your usual activities. ? You may be told to drink a glass of water every 30 minutes for the first 2 hours after testing. ? Taking a warm bath or using warm, wet cloths (warm compresses) may relieve any discomfort near your urethra. ? Contact your health care provider if you have: ? Pain. ? Blood in your urine. ? Chills. ? Fever. What do the results mean? Talk with your health care provider about what your results mean. Some common causes for abnormal results from urodynamic tests include: ? Enlarged prostate in men. ? Overactive bladder. ? Urinary tract infection. ? Nervous system diseases. (more content not included)... Normal [facility] Urology Office/Clinic Noteon 01-04-2022 Urology Office/Clinic Note Chief Complaint Pt is here for cysto/UD HPI Staff Tammy is a 81 y.o. female here for cysto/UD. ABX taken. History of Present Illness Tests reviewed: none. I have reviewed the previous health record information and history for this patient from Dr. Tate. I have reviewed and verified the staff HPI to be accurate for this encounter. There have been no associated fever, chills, flank pain, or blood in the urine. Denies any urinary infections since last encounter. Review of Systems PHQ Score Initial Depression Screen Score: 0 ROS - Provider Constitutional: denies weight loss, denies hot flashes. Eyes: denies eye problems. Gastrointestinal: denies nausea, denies vomiting. Cardiovascular: denies chest pain or angina. Integumentary: no dryness Musculoskeletal: denies musculoskeletal symptoms. ENMT: denies otolaryngeal symptoms. Respiratory: no shortness of breath. Heme/Lymph: denies easy bleeding tendency, denies easy bruising tendency. Psychiatric: no confusion, no anxiety. Genitourinary: denies vaginal discharge, denies incontinence, denies dysuria, denies hematuria, denies urinary frequency, denies amenorrhea, denies menorrhagia, denies abnormal bleeding, denies pelvic pain, denies genital sores, and denies decreased libido. Physical Exam Vitals & Measurements HT: 62 in HT: 158 cm WT: 65 kg WT: 143 lb BMI: 26.04 General Appearance: alert , no acute distress, well nourished, well developed female. Genitourinary: bladder nonpalpable, no flank pain. Procedure Operative Information Anesthesia Type: Local Procedure: Local Cystoscopy with Urethral Dilation Complications: None Surgical risks, benefits, details of the procedure have been explained to the patient. Full informed consent has been obtained. Intraoperative Information Prepped: Patient is brought back to the endoscopy suite. Patient is placed in modified dorso/lithotomy position. Patient prepped in the usual fashion with Betadine solution. 2% Xylocaine Jelly is placed per Urethra. After waiting several minutes, the Cystoscope is introduced. The Urethra is: Tight A.V. evident. The Bladder: Normal, no GUERA, or prolapse. Moderate A.V. No tumors or stones. Trabeculated: None (0) The Ureteral orifices: Show efflux of clear urine The Urethra was dilated to: 20-30 Gren[place] with sounds. Specimens Removed: None Removal: Cystoscope is removed. The patient tolerated it well. Postoperative Information Patient is discharged home with antibiotic coverage. Follow up arranged. Assessment/Plan DLS patient. 1. History of urethral stricture (Z87.448: Personal history of other diseases of urinary system) Pt IO today for cysto/UD. ABX taken. she will continue estradiol cream. Follow up 3 mos. 2. Recurrent UTI (N39.0: Urinary tract infection, site not specified) Pt continues to use Estradiol 0.1mg/g. 3. Dysuria (R30.0: Dysuria) May be due to UTI or vaginal atrophy. 4. Urgency incontinence (N39.41: Urge incontinence) Reports urgency w/ urge incontinence. she failed ditroapan due to side effect and lack of efficacy. Pt to start Vesicare 5mg QD. Rx sent to pharmacy. 5. History of kidney stones (Z87.442: Personal history of urinary calculi) CT AP w/o con done 10/22/21 showed left nephrolithiasis and possible small cysts. No obstructive uropathy. Under distended bladder with apparent wall thickening. Minor diverticulosis. 6. Atrophic vaginitis (N95.2: Postmenopausal atrophic vaginitis) Moderate A.V. noted during cysto/UD today. she will continue her estradiol cream. Follow-up With When Contact Information Jaret TATE MD, VIRGIL In 3 months [facility] [address], [place] [address]- Additional Instructions: Office visit Patient Education Urodynamic Testing I, Amarilis Ballard, personally scribed for Dr. Tate on 01/04/2022 15:25:34. . Documentation recorded by the scribe, Amarilis aBllard, accurately reflects the services(s) I performed and decisions made by me. Authenticated by Dr. Tate on 01/04/2022 15:28:25. Problem List/Past Medical History Ongoing Anticoagulated Atrophic vaginitis Diabetes mellitus Dysuria ESBL E. coli carrier Frequency of urination Hematuria History of kidney stones History of urethral stricture Hyperlipidemia Hypertension Leaking of urine Mixed incontinence Nocturia Recurrent UTI Urethral pain Urgency incontinence Historical No qualifying data Procedure/Surgical History Cystourethroscopy with dilation of urethral stricture (01/04/2022), Cystourethroscopy with dilation of urethral stricture (2019), Appendectomy, Cardiac pacemaker, Fusion of lumbar spine, h/o colon polyps, Hysterectomy. Medications amLODIPine 5 mg Tab aspirin, 81 mg, Oral, Daily azelastine nasal, Nasal, BID Cipro 250 mg Tab, 250 mg= 1 tab(s), Oral, Daily estradiol 0.1 mg/g vaginal cream, See Instructions, 3 refills ipratro (more content not included)... Normal [facility] Comment on above: Result Comment: Elec tronically Signed By: Jaret TATE MD\.br\Date and Time Signed: 01/04/22 15:28 EST\.br\Electronically Co-Signed By: Amarilis Ballard.br\Date and Time Co-Signed: 01/04/22 15:26 EST Pre-Certification Formon Pre-Certification Form [id number]#1.00CD:1 27 [facility] Patient Letter [facility] (Inserted Image. Amy ble to display) December 02, 2021 TAMMY SANDOVAL [address] [place] [phone] Dear Tammy Sandoval, Our office has been trying to reach you to get scheduled for the scope of your bladder (cystoscopy) and possible dilation with Dr. Jaret Tate. The office has left messages with no response from you. Please call our office as soon as possible to get scheduled for this simple out patient procedure. Thank you for your cooperation in this matter. Sincerely, Jaret Tate M.D., F.A.C.S. [facility] [address] [place] [id number] [facility] RAD - CT Reporton 11-21-[address] - [address] Report [id number]#[id number]:12 7 [facility] Lab Reportson 10-27-2021 Lab Reports [id number]#[id number]:12 7 [facility] Provider Letter [facility] Provider Letter [facility] October 13, 2021 TAMMY SANDOVAL [address] [place] [phone] TAMMY SANDOVAL 1940 Dear Tammy, We have been trying to reach you with no success. It is important that you return our call upon receiving this letter. Also, at the time of your call, please provide us with your current information. Thank you for your prompt attention to this matter. Sincerely, [facility] [address] [place] [address] [place] [address] [facility] Coding Summary.on 10-11-2021 Coding Summary. [id number] Gh0bW w+PGhlYWQ+SX2NDWSrX83uoUE dhD5NS7fCEU0CSFQZSGFWUG7H JL0qzZM6PAfpK0JomrZg KwvhoSQfVT12SXa1UFR1hEcoE LbmhT7cuSGzJ0c3WxRwEE45fW 88ABphECGlCnO3YwZhvhxdsTT y G2nzYfIrwNJuRff+PHRhYmxlI HdpZHRoPScxMDAlJyBzdHlsZT 6yNi3vFKCrOHDuwDwfbWZtYfY j w9dkFUUeYKcrPQ5ydMukE5Vyv OM8IDZqy1h0Bc35oUE+PHRkIH Q4dNifTBnpt729NmBig9miLPR 3 iDZwHJhvZWP9T01ap5F2GSIjT CGvNWZ3yDW5jN8hpKseueahN9 MstPAgUdM6BUE1aSSluS3qaDy n oigisA8uJwf+P45FKD2LTGDAB F5FPok7U1MiRgpktHI+PC90YW YiWU67yUDvvNYeb8mruEw0VmD w KFIvCYM8xRfgZIpat0RzKMDeT 74sfSSqe0U1CEJayWhmkWQjYc DkbYD2pP5xIIaibvhgw2qhean n Yjleq0annh90jA60V22iMPkxH UEsOAK0BSDwZWKamIajpk2tbA 9wIi8+JTydi6wbt1qolUj0VpT w FNSrxaZzkVnkQWI4n5TeYo09E 3PqsEfiv7OtOeq7zc83yYBrb7 O3iXA8ZWjxLECmxD2gWXiuGeC 6 RPAkRiEroL62oYVqKSwuPn5rz CphiQftQP2xCZOmjspmMPHrhK 4mUXDtaXOfxHkiFG8yGWTkjbj m c676CzKcLPF6DACccXOwP0Kfz Q3fUgPdPDFmUVYkY8WhyBNkFH shR865LUpqFbW7IOTzmgEdP0V s GBNozZkpTzW5k5X6Ki0We7Tcg cygISH7ZZeeKAL2ElSpMjVkTw B8I9NaJyi5EDIwkDihAI0dI0M h QUGsuqskdcrqeDU6NIHtJHQqp T28wYFzMSwfDo7fg8U3w123TZ AaVTAmkP10Mn2djHawEKKgdSZ U dU5ghspor5okjhmiYmUqHKBjF Ld6DOe9JEIhgUynOoWgYLN3Gk A3ZIA1tRKfwW3ktWhihjnluD8 w Oyc+Z23iuU3lSCP0EUA3arayZ DUqwoRnHZ61UW55A9QxKdvldK FibGU+VEEhpdOnaSvxTN4cXbL j b6bhd5ReTZyyH5SrFOUfAOfrY xu7QMAhUDL5kZM4jU8lYJZwWS bvg7G4iKP0V4XiunPhzq0ub1z s YUKzOBqfQ73fqEQgu4U8HIIdw YL9PDVwmXbpFfLocB37Xri+PG EdgAqqc9MeGecws7fxc7zmxNn 9 NsWrNMDrfxZgcRjcQIV8u1UeS h64M49hAIkpRVEkWTGlWQGzSO YwlOliho4taA9mFv4+PGNvbCB 3 wKG4dN3pXSJdIkZ5QDskD257U zOkxCEfHisge2brj1pewGm5Gg NxYEQpzvBnrBkcSAZ0s6PlGn6 8 R29vIMscMBXeKVZnPWEpDMNpb Epckb3nmH0sOl3+ER0hn9ntfz 60vL25yMK+IYKlIOQ5fKogWSk w AGZwtQ7hWVqyUtU9AAPfNkEvm H81nFTgEJnpMd9alZiwmJafBE 8nLTIncjgbk654CyWmp4jbJBF w xEBbYDaeTKO5T72ux6R0QJMtC PImFJR5wBX0cZ0poFxjnarnoO EquMtpyaGkdHfrLYgnOCnaN07 6 IHRvcDsnPlBhdGllbnQgTmFtZ Zu4Q8VwDgj8QDVecDtqDQ7tsC OtZGajJn9sfYwmgDupIH9vFMK p ilqzb795NwDqa4luBIYmoUHlM VccWQD1K05gi2N1PAOgXSKkDH O1cZW0cI7tlTkpvkhtkBKshDs g pxKmlXguCCtsTFabK244LORgk TtqOuYmhgOhSKQkzQP3ZM81WX 67uKTzb7Z6dOI7V5CfUKFpesu t rtngdOQ2YKCmFIIzbR16Rf2ze AhsBt4oXNJxXRR2JQVneDNqJ8 PvbG2dMbWjUCNvAGEyS4HezYK t PNddH681USsdJaR4UKMsglVsT 4KyCREjbDojSgW6a4M7Ir2VK4 Y2AD71BW47tIVgk9Z8qGZ9U9Z h DQLvbgubkcgwjAI1HWZcSJNmu N47Bj3koErnEg9iHUQsDTF7SV SobIFoD4PdpA2pJjUaZWIfGLH w Z9TwbMVbUAanO974RAbhIhH2F BNtclRfE1GfHZMbpMovDeK7m4 G2Cc3SWVy3UF72JP54zHMpf3Y 5 oZT8M3RqEQOwxjdrhihffFV6O GUeNGHjsN10Bg8oqQqkUk9gMD XcUUC6PYMmpGUaW5LhuE5qNoT j MLSqTRIxX9VepVAeWIdiW964H LqmEbZ7FTKmjwGeA8TlGPTbyN kcBwS9o5V2Pv0HKKPoFH64LQY 5 oCJ8EK40FC43L7XkZkyxmEBil +PHRhYmxlIHdpZHRoPScxMD GtUpOldQayLM7lUy3tHGDbJQJ v lXhucUZlZeTwf3taTGWuJXswU X6rmZkyF7BxoKK2JBYgr4t6Xf 75I97rM0ToiKD+KKZbjDB8nGP 0 dQ6vHpUiBhV8QYftL777NbOyj VQhSqevf7ftn4awgKy5UtS2XT ReoaEobPfySRT0i6HiIw27S87 s IHdpZHRoPSIxNSUiIHZhbGlnb g1ovE7mIi8+OXVfvFE1aDB0uM 6uBxJyVvH6OEdvE346OxPivIP v Wqhaj7bei2vyfDm0JnMlYCYzp zVtcCaeJDC2e0UiIi48Z0DmwH azc2GtFdh0eh35gIQah6C5fQW 9 Q0KjTUXzxakyqAInaDrlII1qN VYpsjesJURrmS5dVWNuE6t1Yr CpElS1SNeeE0HeroE8TJDncMM g GAhwWNH4Z41kp5I0FFLkLXMnD LA3gPR3nM4moFglypkvsZBndS evrgXfvFfuPGjqGLgcT274VXN v cVtdPNWimM2lMEJjdSResVxcN Y2hHKIvpqidRtKFK1WVOCcqIj 6FNrEDOU35UX75dXVzu6M1wHW 9 G9LtOIPrmqqhnsfnpLC5UNNdL LRsvE03lDTgHPljGy1jz7X2e6 52INOrBJIjtD60Af9yyTxeFGH w yTSIzX1lfrfvu6btdbxfRtGnB XCySRw5IRe4WFBuhRisEeNjJB T1VdU6QPY0bQUevH2ytVnuclo g oY7eQur+MDIvMDMvMTkzOTwvd GQ+PLAiPIA3bAeuWOoiIUNtiE 2uQYXtG7f0GnKwLgW0EEdlV3A h MCCaoehuCk00vM0vRiLrBrL6P GhwX3IdrlD8RUEmmMOsFMmcTG L8T68ph1V5FUXdINUvBSX3kGL 4 gE5ywPrphgkioAXztTanmvPjj ZmjHKjdUWdwG538HEThwAhrOu ijXImtXIGyKB45AY24cAFoq8T 5 tFA3P2ElEKVapwtnbxfxzIT8K IQzVONnnP15tHSzFOkhQf3ku3 K2d419LIUyFOCnvZ00Ag3cxWr g QYLagYNXhN3lmmwsp6kktrhvD uYzVGGlSJh3PZm0ANAkqGbjSe ZdXIS6QsF4XUL1zOBwnR7ohVw n dkpjtQ1gXat+TvOmVQqjNY12A T71fKHrz9L9rER6R1DgRCNunv obnnwaeIZ9LLMkCHSovE98kJD k VRsgPe6xk2B9w390PJKwRIGbk J95Lh7voPayGVZvdNXPcE6wwt xnj2lumifuAwKpCIDnDRe5SOa 0 VQYokVclVlSpOUC9XsR3UOE4o PRahQ4vpDoyqyfbwV4lPjz+TG VoJUVbs6Vbx4VxXZ12CZ12U3V y PjwvdGFibGU+PHRhYmxlIHdpZ SQwAJkkLXMlGuVvpHdyJI2zHt 7gCCGmGLOpsMejhGQoVwUzf4y s RVZwENbpFP2fuBieM7YagTL7V VZru9f8Yf79H73uI1BdbCO+PG KjwNZ7uME8zL6sJbAbPaO4SHc p E263GbCjjLPrZkvjv9pxg5tgh Mf7HqUdBJMlhsCccCmuPLP1k8 TwIb06M28hIPuqWKDsZUFxFSV i XWVrbVpjgv4yuK2nQa5+PGNvb WU1tJZ2qL7yWfZrOwC6FTshJ3 59ZyMxpSQaDwwlY66bF7HyjLP + OQHkNmk1PHDgfWghYX2adINzW XvgAf7aSKX0PuLtDtHkBStvP8 XbIUKaupspwrzluOX1RPRvHQB w hO04Vw4spKwuFr8xQNYrGVJ0A KOuaMWoU8QwfE8iCcPtVSUqYY KqP7NteXHtPQptM815CMubZgP 7 SHQxrpPwQ4MsHHMopZorPqT2n 4E2Df9KrQsxlIBpPO2nKdFgHJ q8P1AqBws9MFLzvKmuYT6saZE k RVdsNs0uaUhrxAktLF1eAUQts znit402FoUpg7qsGQPhxKAaAF acLJD9P88lz5W0TKHqIZNxTVW 7 kBE3yE4keUlvivcrhIQwdIszl tGuvXlnULfqVNkuH068TGMxfR khQlDTVmf1I2MjCqm3XLLtgDc s QT2qhJUqUGfuYc9cxZhcnFthM E9iXQNgjpvuj165SzCsg1wzLF KvrAPmNWjcSCC3L74xd5B1KWD w SAFzGUJ9tKB1eV1laLawyrfod GVmdDsgdmVydGljYWwtYWxpZ2 92SFPiyZncXm4UFlx5F2XtWyh 0 KVHlsNepUX9osDNmVYtaTr7tr OgfuQuqUR8kJBFjlzvvu112Cj Iso3dfPHMmmEGaFDwcAAW4G53 s i6Z1TYZjJIDeJZE5iXF5zZ7lc GlnbjogbGVmdDsgdmVydGljYW aeKYovY460WHEjqWfoRyWdbZI y OjwvdGQ+AS43hd96M3XcCpesQ te2RLWyPPM5rCS5zP0uRHYjNK qko4S7aHF2D6FuecUqko3ub0u s YXBz (more content not included)... Normal [facility] Albumin [Mass/volume] in Ser um or PlasmaOrdered By: Isaiah Shaw on 10-08-2021 Albumin [Mass/Vol] 3.9 g/dL 3.2-5.5 [facility] Basophils Auto (Bld) [#/Vol] Ordered By: Isaiah Shaw on 10-08-2021 Basophils (Bld) [#/Vol] 0.1 10*3/uL 0.0-0.2 [facility] Basophils/100 WBC Auto (Bld) Ordered By: Isaiah Shaw on 10-08-2021 Basophils/100 WBC (Bld) 0.9 % . [facility] Blood hemoglobin measurement (mass/volume)Ordered By: Isaiah Shaw on 10-08-2021 Hemoglobin (Bld) [Mass/Vol] 13.7 g/dL 11.8-15.4 [facility] Blood leukocytes automated c ount (number/volume)Ordered By: Isaiah Shaw on 10-08-2021 WBC (Bld) [#/Vol] 7.2 10*3/uL 4.5-11.0 [facility] Cholesterol [Mass/volume] in Serum or PlasmaOrdered By: Isaiah Shaw on 10-08-2021 Cholesterol [Mass/Vol] 166 mg/dL 140-200 [facility] Comment on above: Chol less than 200 m g/dl low risk Chol 201-239 mg/dl borderline risk Chol 240 mg/dl and greater high risk Chol less than 200 m g/dl low riskChol 201-239 mg/dl borderline riskChol 240 mg/dl and greater high risk Cholesterol in LDL Calc [Mas s/Vol]Ordered By: Isaiah Shaw on 10-08-2021 Cholesterol in LDL [Mass/Vol] 83 mg/dL 0-100 [facility] Comment on above: LDL ATP III CLASSIFI CATION LDL less than 100 mg/dL Optimal LDL 100-129 mg/dL Near or above optimal LDL 130-159 mg/dL Borderline high LDL 160-189 mg/dL High LDL greater than 189 mg/dL Very high LDL ATP III CLASSIFI CATIONLDL less than 100 mg/dL OptimalLDL 100-129 mg/dL Near or above optimalLDL 130-159 mg/dL Borderline highLDL 160-189 mg/dL HighLDL greater than 189 mg/dL Very high Cholesterol in VLDL Calc [Ma ss/Vol]Ordered By: Isaiah Shaw on 10-08-2021 Cholesterol in VLDL [Mass/Vol] 46 mg/dL [facility] Creatinine and Glomerular fi ltration rate.predicted panel (S/P/Bld)Ordered By: Isaiah Shwa on 10-08-2021 Creatinine [Mass/Vol] 0.89 mg/dL 0.44-1.03 [facility] Eosinophils Auto (Bld) [#/Vo l]Ordered By: Isaiah Shaw on 10-08-2021 Eosinophils (Bld) [#/Vol] 0.4 10*3/uL 0.0-0.45 [facility] Eosinophils/100 WBC Auto (Bl d)Ordered By: Isaiah Shaw on 10-08-2021 Eosinophils/100 WBC (Bld) 5.6 % . [facility] Erythrocyte distribution wid th Auto (RBC) [Ratio]Ordered By: Isaiah Shaw on 10-08-2021 Erythrocyte distribution width (RBC) [Ratio] 13.7 % 11.9-15.3 [facility] Estimated glomerular filtrat ion rate (GFR) non- AmericanOrdered By: Isaiah Shaw on 10-08-2021 GFR/1.73 sq M.predicted among non-blacks MDRD (S/P/Bld) [Vol rate/Area] > 60 mL/Min [facility] Globulin Calc (S) [Mass/Vol] Ordered By: Isaiah Shaw on 10-08-2021 Globulin (S) [Mass/Vol] 3.5 g/dL [facility] Glucose mean value [Mass/vol ume] in Blood Estimated from glycated hemoglobinOrdered By: Isaiah Shaw on 10-08-2021 Average glucose Estimated from glycated hemoglobin (Bld) [Mass/Vol] 171 mg/dL [facility] Hematocrit Auto (Bld) [Volum e fraction]Ordered By: Isaiah Shaw on 10-08-2021 Hematocrit (Bld) [Volume fraction] 41.0 % 34.0-46.4 [facility] Hemoglobin A1c percentageOrd ered By: Isaiah Shaw on 10-08-2021 HbA1c (Bld) [Mass fraction] 7.6 % 4.3-5.6 [facility] Comment on above: Increased risk for d iabetes: 5.7 - 6.4 diabetes: >6.4 glycemic control for adults with diabetes: <7.0 Increased risk for d iabetes: 5.7 - 6.4diabetes: >6.4glycemic control for adults with diabetes: <7.0 Laboratory - Hematology and Cell countsOrdered By: Isaiah Shaw on 10-08-2021 Nucleated RBC/100 WBC (Bld) [Ratio] 0.1 % 0-0.5 [facility] Lymphocytes Auto (Bld) [#/Vo l]Ordered By: Isaiah Shaw on 10-08-2021 Lymphocytes (Bld) [#/Vol] 3.0 10*3/uL 1.00-4.8 [facility] Lymphocytes/100 WBC Auto (Bl d)Ordered By: Isaiah Shaw on 10-08-2021 Lymphocytes/100 WBC (Bld) 41.4 % . [facility] MCH Auto (RBC) [Entitic mass ]Ordered By: Isaiah Shaw on 10-08-2021 MCH (RBC) [Entitic mass] 29.0 pg 24.7-34.3 [facility] MCHC Auto (RBC) [Mass/Vol]Or dered By: Isaiah Shaw on 10-08-2021 MCHC (RBC) [Mass/Vol] 33.4 g/dL 32.0-35.0 [facility] MCV Auto (RBC) [Entitic vol] Ordered By: Isaiah Shaw on 10-08-2021 MCV (RBC) [Entitic vol] 86.8 fL 80-100 [facility] Monocytes Auto (Bld) [#/Vol] Ordered By: Isaiah Shaw on 10-08-2021 Monocytes (Bld) [#/Vol] 0.5 10*3/uL 0.0-0.8 [facility] Monocytes/100 WBC Auto (Bld) Ordered By: Isaiah Shaw on 10-08-2021 Monocytes/100 WBC (Bld) 6.4 % . [facility] Neutrophils Auto (Bld) [#/Vo l]Ordered By: Isaiah Shaw on 10-08-2021 Neutrophils (Bld) [#/Vol] 3.3 10*3/uL 1.8-7.7 [facility] Neutrophils/100 WBC Auto (Bl d)Ordered By: Isaiah Shaw on 10-08-2021 Neutrophils/100 WBC (Bld) 45.7 % . [facility] No Panel InformationOrdered By: Isaiah Shaw on 10-08-2021 Estimated GFR () > 60 mL/Min [facility] Comment on above: GFR estimated refere nce range: According to KDOQI guidelines, <60 ml/min/1.73m2 is sufficient to diagnose a patient with chronic kidney disease. Pharmacy Creatinine Clearance (Chem N/A [facility] Platelet mean volume Auto (B ld) [Entitic vol]Ordered By: Isaiah Shaw on 10-08-2021 Platelet mean volume (Bld) [Entitic vol] 8.4 fL 6.3-10.7 [facility] Platelets Auto (Bld) [#/Vol] Ordered By: Isaiah Shaw on 10-08-2021 Platelets (Bld) [#/Vol] 233 10*3/uL 150-450 [facility] Pre-Certification Formon Pre-Certification Form [id number]#1.00CD:127 Normal [facility] Protein [Mass/volume] in Ser um or PlasmaOrdered By: Isaiah Shaw on 10-08-2021 Protein [Mass/Vol] 7.4 g/dL 6.1-7.9 [facility] RBC Auto (Bld) [#/Vol]Ordere d By: Isaiah Shaw on 10-08-2021 RBC (Bld) [#/Vol] 4.72 10*6/uL 3.60-5.00 [facility] Serum or plasma alanine mackenzie otransferase measurement without P-5'-P (enzymatic activiOrdered By: Isaiah Shaw on 10-08-2021 ALT No additional P-5'-P [Catalytic activity/Vol] 26 U/L 10-60 [facility] Serum or plasma albumin/glob ulin mass ratioOrdered By: Isaiah Shaw on 10-08-2021 Albumin/Globulin [Mass ratio] 1.1 {ratio} [facility] Serum or plasma alkaline elfego sphatase measurement (enzymatic activity/volume)Ordered By: Isaiah Shaw on 10-08-2021 ALP [Catalytic activity/Vol] 69 U/L 32-92 [facility] Serum or plasma aspartate am inotransferase measurement (enzymatic activity/volume)Ordered By: Isaiah Shaw on 10-08-2021 AST [Catalytic activity/Vol] 25 U/L 10-42 [facility] Serum or plasma calcium ajcy urement (mass/volume)Ordered By: Isaiah Shaw on 10-08-2021 Calcium [Mass/Vol] 9.3 mg/dL 8.2-10.2 [facility] Serum or plasma chloride mele surement (moles/volume)Ordered By: Isaiah Shaw on 10-08-2021 Chloride [Moles/Vol] 101 mmol/L 95-114 [facility] Serum or plasma glucose jacy urement (mass/volume)Ordered By: Isaiah Shaw on 10-08-2021 Glucose [Mass/Vol] 176 mg/dL 70-100 [facility] Comment on above: ADA recommended refe rence range Random Glucose Reference Range is dependent on time and content of last meal. Glucose of more than 200 mg/dL in a nonstressed, ambulatory subject supports the diagnosis of Diabetes Mellitus. ADA recommended refe rence rangeRandom Glucose Reference Range is dependent on time and content of last meal. Glucose of more than 200 mg/dL in a nonstressed, ambulatory subject supports the diagnosis of Diabetes Mellitus. Serum or plasma high density lipoprotein (HDL) cholesterol measurementOrdered By: Isaiah Shaw on 10-08-2021 Cholesterol in HDL [Mass/Vol] 37 mg/dL 35-85 [facility] Comment on above: HDL CHOL ATP-III CLA SSIFICATION Cardiovascular Risk HDL > or equal to 60 mg/dL LOW HDL < 40 mg/dL HIGH HDL CHOL ATP-III CLA SSIFICATION Cardiovascular RiskHDL > or equal to 60 mg/dL LOWHDL < 40 mg/dL HIGH Serum or plasma potassium me asurement (moles/volume)Ordered By: Isaiah Shaw on 10-08-2021 Potassium [Moles/Vol] 3.7 mmol/L 3.5-5.1 [facility] Serum or plasma sodium measu rement (moles/volume)Ordered By: Isaiah Shaw on 10-08-2021 Sodium [Moles/Vol] 135 mmol/L 136-146 [facility] Serum or plasma total biliru bin measurement (mass/volume)Ordered By: Isaiah Shaw on 10-08-2021 Bilirubin [Mass/Vol] 0.2 mg/dL 0.3-1.2 [facility] Serum or plasma total carbon dioxide measurement (moles/volume)Ordered By: Isaiah Shaw on 10-08-2021 CO2 [Moles/Vol] 23.9 mmol/L 22.0-30.0 [facility] Serum or plasma total choles terol/high density lipoprotein (HDL) cholesterol mass ratOrdered By: Isiaah Shaw on 10-08-2021 Cholesterol.total/Chol esterol in HDL [Mass ratio] 4.5 {ratio} <5.0 [facility] Serum or plasma urea nitroge n measurement (mass/volume)Ordered By: Isaiah Shaw on 10-08-2021 Urea nitrogen [Mass/Vol] 24 mg/dL 9- [facility] TSH DL <= 0.005 mIU/L QnOrde red By: Isaiah Shaw on 10-08-2021 TSH Qn 5.07 m[IU]/L 0.45-5.33 [facility] Triglyceride [Mass/volume] i n Serum or PlasmaOrdered By: Isaiah Shaw on 10-08-2021 Triglyceride [Mass/Vol] 232 mg/dL 35-149 [facility] Comment on above: TRIG ATP III CLASSIF ICATION TRIG less than 150 mg/dL Normal TRIG 150-199 mg/dL Borderline high TRIG 200-500 mg/dL High TRIG greater than 500 mg/dL Very high Standard traceable to the Center for Disease Conrtrol and Prevention (CDC) test method. TRIG ATP III CLASSIF ICATIONTRIG less than 150 mg/dL NormalTRIG 150-199 mg/dL Borderline highTRIG 200-500 mg/dL High TRIG greater than 500 mg/dL Very highStandard traceable to the Center for Disease Conrtrol and Prevention (CDC) test method. C Urineon 10-02-2021 Bacteria identified Cx Nom (U) Microbiology PROCEDURE: Urine Culture [R1] SOURCE: U CleanCatch BODY SITE: COLLECTED DATE/TIME: 09/30/2021 14:35 EDT RECEIVED DATE/TIME: 09/30/2021 19:06 EDT START DATE/TIME: 09/30/2021 19:07 EDT FREE TEXT SOURCE: Faustino Mccarthy, Faustino Jay FINAL REPORTS Final Report [] Verified Date/Time: 10/02/2021 10:40 EDT >100,000 cfu/ml Escherichia coli ESBL confirmed ESBL. SUSCEPTIBILITY RESULTS LEGEND: S=Susceptible, N/R=Not Reported, Blank=Data not available, or drug not advisable or tested, I=Intermediate, ESBL=Extended spectrum beta-lactamase, R=Resistant, TFG=Thymidine-dependent strain, VINOD=Beta-lactamase positive, ANA=mcg/m;(mg/L), S*=Predicted susceptible interp, R*=Predicted resistant interp ECESBL Antibiotic ANA Dilutn ANA Interp Amikacin <=16 S Ampicillin >16 R* Ampicillin/ 16/8 I Sulbactam Aztreonam >16 ESBL Cefazolin >16 R* Cefepime >16 R* Cefoxitin <=8 S Ceftazidime 16 ESBL Ceftazidime/ <=8 S Avibactam Ceftriaxone >32 ESBL Ciprofloxacin >2 R Ertapenem <=0.5 S Gentamicin <=4 S Levofloxacin >4 R Meropenem <=1 S Nitrofurantoin <=32 S Piperacillin/ <=16 S Tazobactam Tetracycline <=4 S Tigecycline <=2 S Tobramycin <=4 S Trimethoprim/ <=2/38 S Sulfa Performing Locations R1: This test was performed at: [facility], [address] [place] [address], [id number] , , Normal [facility] Comment on above: Performed By: #### [id number] ####[facility] [id number] [place] [address] Urology Office/Clinic Noteon 10-02-2021 Urology Office/Clinic Note Chief Complaint recurrent uti HPI Staff Office visit due to recurrent UTI. Patient last seen 04/09/2019 for follow up to negative Cysto with Dr. Cardozo. Cysto w/ UD done 03/28/2019 due to asymptomatic microscopic hematuria and urethral stricture. Prior Dx: nocturia, frequency of urination, mixed incontinence, Hx of kidney stones. Patient did have urodynamics done on 05/27/2015. Pt comments on having bladder surgery (describes suspension) in 1989. Denies having mesh. Reports bladder spasms in the past 6 weeks. Can go urinate and 20 min later be back in restroom urinating again. Nocturia 5-6x/night and gets leakage before making it to the toilet. This occurs more often than not. Dysuria x 6 weeks. Patient was given Cipro 2x in the last 6 weeks for urinary Sx. Currently taking oxybutynin 5 mg bid. Pt indicates she increased dose to 2 tabs BID 6-8 months ago. Reports dry mouth. Pt can't think of any changes that would have contributed to her Sx. She denies change in meds, change in health, and no hospitalization(s) since Sx started around 6 weeks ago. Had dysuria so went to PCP probably around July 2021. Was treated based on urine specimen but specimen not sent for Cx per Pt. Took Cipro (she thinks once/day x 10 days). The burning and bladder spasms resolved. Sx returned in August 2021. Placed back on Cipro again (x10 days) and cleared up Sx and then 1-2 weeks later Sx came back and PCP said go to urologist. The 2nd Rx for Cipro was prescribed after Pt made phone call to PCP. Pt doesn't think a Cx was ever done. Dysuria: yes but denies active pain/dysuria but did have it this AM when she was urinating; onset of this 6 weeks ago Incomplete bladder emptying: denies; PVR 10 mL today Hematuria: denies gross hematuria Frequency: no Urgency: yes Nocturia:every 20 minutes Stream: weak stream (all the time) that had a gradual onset; improved stream after urethral dilation in the past; denies spraying stream or split stream Leaking: severe Post void dripping: no Wearing pads/Depends: wears Depends which she changes 2-3x a day; also puts a large pad in the Depends and changes the pad 3x/day; says she doesn't let the pads get saturated; Pt cautioned about sitting in wet pads and says she doesn't Urge incontinence: sudden severe; can not hold; states when she gets the urge to urinate its too late and she already has leaked; worse x 6 weeks, manageable before 6 weeks ago Stress incontinence: no Incontinence without Sensory Awareness: Abdominal pain: no Flank pain: no Sexual complaints: no History of Present Illness See staff HPI. Review of Systems Denies known fever. Does report bilateral LBP. Says she has rods . See staff HPI. Physical Exam Vitals & Measurements HR: 76(Peripheral) BP: 149/73 HT: 158 cm HT: 158.0 cm WT: 65 kg WT: 65.0 kg BMI: 26.04 General Appearance: alert , no acute distress, well nourished, well developed female. HEENT: normal orbit and globe, no facial weakness. Chest: respirations non labored, no conversational dyspnea Cardiovascular: no cyanosis or edema Abdomen: soft, non distended, tenderness just in infraumbilical area, no mass or organomegaly Genitourinary: bladder nonpalpable, suprapubic area non-tender External genitalia normally formed and dry mucous membranes but w/o irritation other than irritation at urethral opening (Pt also indicates feeling irritated at urethral opening area when I palpate area). Urethral opening is patent. No external genitalia drainage, swelling, lesions or masses. Feels like minimal descent of bladder w/ Valsalva. No stress incontinence w/ Valsalva. Weak contraction of pelvic floor muscles when asked to identify pelvic floor muscles during digital exam. Lymph Nodes: no inguinal adenopathy Skin: warm, dry, no bruising. Psychiatric: cooperative, affect appropriate for age, normal judgement, euthymic mood. Assessment/Plan 1. Recurrent UTI (N39.0: Urinary tract infection, site not specified) UA today w/ small blood, protein 30 mg/dl, large WBC, nitrite +. Sending urine for Cx. Discussed empiric antibiotic while waiting for Cx. Rx for Keflex 500 mg BID x 7 days and may need to be changed depending on C & S results. Pt says she did wipe w/ a towelette prior to submitting urine specimen. Double voiding discussed. Pt indicates she always wipes from front to back. Pt is a type 2 diabetic (treated w/ meds) and says her glucose has been normal . OTC supplements (probiotics, D-mannose, cranberry extract) for UTI prevention discussed and can re-visit this topic in the future. Estrogen cream prescribed today and may help w/ UTIs. Rx for estrogen cream sent to pharmacy. Discussed intravaginal use as well as rubbing a small amount around urethral opening. Will have staff request records from PCP regarding Tx of UTIs/suspected UTIs. Ordered: Urine Culture 2. Dysuria (R30.0: Dysuria) May be due to UTI. Also considered and discussed may be due to vaginal atr (more content not included)... Normal [facility] Comment on above: Result Comment: Elec tronically Signed By: Faustino Mccarthy\.angle\Date and Time Signed: 10/01/21 22:06 EDT Ambulatory Visit Summaryon 0 09-30-2021 Ambulatory Visit Summary TAMMY SANDOVAL :1940 Visit Date:09/30/2021 Ambulatory Visit Instructions Your Diagnosis Recurrent UTI History of kidney stones History of urethral stricture Dysuria Other deletions of part of a chromosome Tests Performed Urnls Dip Stick Auto w/o Microscopy POC [address] CT Abdomen w/o Contrast -- Results Pending -- Please visit your patient portal for your results or contact your primary care physician. Your Care Team Attending Physician - Faustino Mccarthy Primary Care Physician - ISAIAH SHAW DO This Is Your Medications List alprazolam (Xanax) amlodipine (amLODIPine 5 mg Tab) aspirin azelastine nasal cholecalciferol (Vitamin D3) estradiol topical (estradiol 0.1 mg/g vaginal cream) ipratropium nasal (ipratropium Nasal 0.06% [place]) levothyroxine lovastatin metformin multivitamin (Vitamin B Complex oral capsule) nystatin (nystatin 100,000 units/mL Oral Susp) omeprazole (omeprazole 40 mg Cap-DR) potassium chloride (potassium chloride 99 mg oral tablet) solifenacin (solifenacin 5 mg Tab) [Image Removed: STOP]Stop taking these medications oxybutynin (Ditropan XL 5 mg Tab-ER) Procedures Performed Cystourethroscopy with dilation of urethral stricture (2019), Appendectomy, Cardiac pacemaker, Fusion of lumbar spine, h/o colon polyps, Hysterectomy. Discharge Vitals Heart Rate (Peripheral) 76 Blood Pressure 149/73 Height 158 cm Height 158.0 cm Weight 65 kg Weight 65.0 kg BMI 26.04 Medications What How Much When Instructions New estradiol topical (estradiol 0.1 mg/ g vaginal cream) See instructions Refills: 3 1 gm vaginally nightly for 3 weeks and then 3x a week thereafter for maintenance. Rub small amount around urethral opening as well. Pickup at [facility] [id number] New solifenacin (solifenacin 5 mg Tab) 1 Tablets By Mouth Every day Refills: 3 Pickup at [facility] [id number] Unchanged alprazolam (Xanax) 0.5 Milligram By Mouth As Directed Unchanged amlodipine (amLODIPine 5 mg Tab) Unchanged aspirin 81 Milligram By Mouth Every day Unchanged azelastine nasal Nasal Inhalation 2 times a day Unchanged cholecalciferol (Vitamin D3) 2,000 International unit By Mouth Every day Unchanged ipratropium nasal (ipratropium Nasal 0.06% [place]) 2 Sprays Nasal Inhalation 3 times a day Unchanged levothyroxine 50 Microgram By Mouth Every day Unchanged lovastatin 20 Milligram By Mouth Every day Unchanged metformin 500 Milligram By Mouth 2 times a day Unchanged multivitamin (Vitamin B Complex oral capsule) By Mouth Every day Unchanged nystatin (nystatin 100,000 units/ mL Oral Susp) 1 Milliliter By Mouth Every 6 hours For an give as one milliliter to each side of mouth Unchanged omeprazole (omeprazole 40 mg Cap-DR) Unchanged potassium chloride (potassium chloride 99 mg oral tablet) 1 Tablets By Mouth Every day Pharmacy Information [facility] [id number]: [address] [place], [place] [id number] [phone] What How Much When Comments Stop Taking oxybutynin (Ditropan XL 5 mg Tab-ER) 1 Tablets By Mouth 2 times a day Test Results Urnls Dip Stick Auto w/o Microscopy POC 83806 (09/30/2021) Bilirubin Urine Dipstick - Negative Blood Urine Dipstick - 1+ Small Glucose Urine Dipstick - Negative Ketones Urine Dipstick - Negative Leukocytes Urine Dipstick - 3+ Large Nitrite Urine Dipstick - Positive Protein Urine Dipstick - 1+ (30 mg/dl) Specific [place] Urine Dipstick - 1.020 Urine Appearance Urine Dipstick - Clear Urine Color Urine Dipstick - Yellow Urobilinogen Urine Dipstick - Normal 0.2-1 EU/dl pH Urine Dipstick - 5.5 Allergies No Known Allergies Problems Ongoing - Any problem that you are currently receiving treatment for. Anticoagulated Diabetes mellitus Dysuria Frequency of urination Hematuria History of kidney stones History of urethral stricture Hyperlipidemia Hypertension Leaking of urine Mixed incontinence Nocturia Urethral pain Normal [facility] A1C HEMOGLOBINon 04-05-2021 HbA1c (Bld) [Mass fraction] 6.8 % [facility] Other HbA1c (Bld) [Mass fraction]o n 02-14-2022 A1C HEMOGLOBIN [employer] Other A1C HEMOGLOBINon 11-25-2020 HbA1c (Bld) [Mass fraction] 7.0 % [facility] Other HbA1c (Bld) [Mass fraction]o n 11-25-2020 A1C HEMOGLOBIN [employer] Other Vital Signs Date Time Vital Sign Value Performing Clinician Facility 03-03-2023 12:40-0500 Body height 156.21 cm Isaiah Shaw Other [facility] 03-03-2023 12:40-0500 Body mass index (BMI) [Ratio] 26.95 kg/m2 Isaiah Shaw Other [facility] Other 03-03-2023 12:40-0500 Body weight 65.77 kg Isaiah Shaw Other [facility] 03-03-2023 12:40-0500 Diastolic blood pressure 60 mm[Hg] Isaiah Shaw Other [facility] 03-03-2023 12:40-0500 Respiratory rate 20 /min Isaiah Shaw Other [facility] Other 03-03-2023 12:40-0500 SaO2% (BldA) [Mass fraction] 92 % Isaiah Shaw Other [facility] Other 03-03-2023 12:40-0500 Systolic blood pressure 140 mm[Hg] Isaiah Shaw Other [facility] 11-29-2022 13:00-0400 Body height 156.21 cm Isaiah Shaw Other [facility] Other 11-29-2022 13:00-0400 Body mass index (BMI) [Ratio] 26.21 kg/m2 Isaiah Shaw Other [facility] Other 11-29-2022 13:00-0400 Body weight 63.96 kg Isaiah Nevesrosendo Other [facility] Other 11-29-2022 13:00-0400 Diastolic blood pressure 62 mm[Hg] Isaiah Shaw Other [facility] Other 11-29-2022 13:00-0400 Respiratory rate 18 /min Isaiahpati Shaw Other [facility] Other 11-29-2022 13:00-0400 SaO2% (BldA) [Mass fraction] 93 % Isaiah Shaw Other [facility] Other 11-29-2022 13:00-0400 Systolic blood pressure 136 mm[Hg] Isaiah Shaw Other [facility] Other 11-29-2022 07:38-0400 Body height 157.48 cm DO Isaiah Shaw Work Phone: [facility] 11-29-2022 07:38-0400 Body weight 63.5 kg DO Isaiah Shaw Work Phone: [facility] 10-20-2022 13:30-0400 Body height 156.21 cm Isaiah Shaw Other [facility] Other 10-20-2022 13:30-0400 Body mass index (BMI) [Ratio] 26.58 kg/m2 Isaiah Shaw Other [facility] Other 10-20-2022 13:30-0400 Body weight 64.86 kg Isaiah Shaw Other [facility] Other 10-20-2022 13:30-0400 Diastolic blood pressure 60 mm[Hg] Isaiah Shaw Other [facility] Other 10-20-2022 13:30-0400 Respiratory rate 18 /min Isaiah Shaw Other [facility] Other 10-20-2022 13:30-0400 SaO2% (BldA) [Mass fraction] 97 % Isaiah Magnolia Other [facility] Other 10-20-2022 13:30-0400 Systolic blood pressure 124 mm[Hg] Isaiah hSaw Other [facility] Other 08-31-2022 10:00-0400 Body height 156.21 cm Joan Blades Other [facility] Other 08-31-2022 10:00-0400 Body mass index (BMI) [Ratio] 25.28 kg/m2 Joan Blades Other [facility] Other 08-31-2022 10:00-0400 Body weight 61.69 kg Joan Blades Other [facility] Other 08-31-2022 10:00-0400 Diastolic blood pressure 64 mm[Hg] Joan Blades Other [facility] Other 08-31-2022 10:00-0400 Systolic blood pressure 102 mm[Hg] Joan Blades Other [facility] Other 08-19-2022 11:30-0400 Body temperature 98 [degF] DO Isaiah Shaw Work Phone: [facility] 08-19-2022 11:30-0400 Diastolic blood pressure 79 mm[Hg] DO Isaiah Kuns Work Phone: [facility] 08-19-2022 11:30-0400 Respiratory rate 15 /min DO Isaiah Kuns Work Phone: [facility] 08-19-2022 11:30-0400 SaO2% (BldA) [Mass fraction] 95 % DO Isiaah Kuns Work Phone: [facility] 08-19-2022 11:30-0400 Systolic blood pressure 165 mm[Hg] DO Isaiah Kuns Work Phone: [facility] 08-19-2022 05:00-0400 Heart rate 72 /min DO Isaiah Kuns Work Phone: [facility] 08-17-2022 08:41-0400 Body height 157.48 cm DO Isaiah Kuns Work Phone: [facility] 08-14-2022 06:00-0400 Body weight 68.3 kg DO Isaiah Kuns Work Phone: [facility] 08-05-2022 15:31-0400 Body temperature 97.7 [degF] DO Isaiah Kuns Work Phone: [facility] 08-05-2022 15:31-0400 Diastolic blood pressure 94 mm[Hg] DO Isaiah Kuns Work Phone: [facility] 08-05-2022 15:31-0400 Heart rate 91 /min DO Isaiah Kuns Work Phone: [facility] 08-05-2022 15:31-0400 Respiratory rate 14 /min DO Isaiah Kuns Work Phone: [facility] 08-05-2022 15:31-0400 SaO2% (BldA) [Mass fraction] 92 % DO Isaiah Kuns Work Phone: [facility] 08-05-2022 15:31-0400 Systolic blood pressure 182 mm[Hg] DO Isaiah Kuns Work Phone: [facility] 08-05-2022 06:00-0400 Body weight 49.5 kg DO Isaiah Kuns Work Phone: [facility] 08-03-2022 13:24-0400 Body height 157.48 cm DO Isaiah Kuns Work Phone: [facility] 06-20-2022 14:11-0400 Diastolic blood pressure 82 mm[Hg] DO Isaiah Kuns Work Phone: [facility] 06-20-2022 14:11-0400 Heart rate 79 /min DO Isaiah Kuns Work Phone: [facility] 06-20-2022 14:11-0400 Respiratory rate 22 /min DO Isaiah Edinsons Work Phone: [facility] 06-20-2022 14:11-0400 SaO2% (BldA) [Mass fraction] 94 % DO Isaiah Edinsons Work Phone: [facility] 06-20-2022 14:11-0400 Systolic blood pressure 180 mm[Hg] DO Isaiah Edinsons Work Phone: [facility] 06-20-2022 09:44-0400 Body temperature 97.7 [degF] DO Isaiah Edinsons Work Phone: [facility] 06-20-2022 09:42-0400 Body height 157.48 cm DO Isaiah Kuns Work Phone: [facility] 06-20-2022 09:42-0400 Body weight 69.2 kg DO Isaiah Kuns Work Phone: [facility] 06-20-2022 09:15-0400 Body height 156.21 cm Isaiah Edinsons Other [facility] Other 06-20-2022 09:15-0400 Body mass index (BMI) [Ratio] 28.44 kg/m2 Isaiahpati Nevesrosendo Other [facility] Other 06-20-2022 09:15-0400 Body weight 69.4 kg Isaiah Edinsonrosendo Other [facility] Other 06-20-2022 09:15-0400 Diastolic blood pressure 70 mm[Hg] Isaiah Shaw Other [facility] Other 06-20-2022 09:15-0400 Respiratory rate 16 /min Isaiah Shaw Other [facility] Other 06-20-2022 09:15-0400 SaO2% (BldA) [Mass fraction] 96 % Isaiah Shaw Other [facility] Other 06-20-2022 09:15-0400 Systolic blood pressure 164 mm[Hg] Isaiah Shaw Other [facility] Other 03-14-2022 10:15-0500 Body height 156.21 cm Isaiah Shaw Other [facility] Other 03-14-2022 10:15-0500 Body mass index (BMI) [Ratio] 28.25 kg/m2 Isaiah Shaw Other [facility] Other 03-14-2022 10:15-0500 Body weight 68.95 kg Isaiah Shaw Other [facility] Other 03-14-2022 10:15-0500 Diastolic blood pressure 70 mm[Hg] Isaiah Shaw Other [facility] Other 03-14-2022 10:15-0500 Respiratory rate 16 /min Isaiah Shaw Other [facility] Other 03-14-2022 10:15-0500 SaO2% (BldA) [Mass fraction] 95 % Isaiah Edinsonrosendo Other [facility] Other 03-14-2022 10:15-0500 Systolic blood pressure 132 mm[Hg] Isaiah Shaw Other [facility] Other 01-27-2022 10:47-0500 Body temperature 97.2 [degF] Isaiah Shaw Work Phone: [facility] DO Work Phone: 01-27-2022 10:47-0500 Body weight 68.61 kg Isaiah Nevesrosendo Work Phone: [facility] DO Work Phone: 01-27-2022 10:47-0500 Diastolic blood pressure 72 mm[Hg] Isaiah Nevesrosendo Work Phone: [facility] DO Work Phone: 01-27-2022 10:47-0500 Heart rate 68 /min Isaiah Dejah Shaw Work Phone: [facility] DO Work Phone: 01-27-2022 10:47-0500 Systolic blood pressure 128 mm[Hg] Isaiah Shaw Work Phone: [facility] DO Work Phone: 01-20-2022 13:50-0500 Diastolic blood pressure 70 mm[Hg] DO Isaiahpati Shaw Work Phone: [facility] 01-20-2022 13:50-0500 Heart rate 68 /min DO Isaiah Shaw Work Phone: [facility] 01-20-2022 13:50-0500 Respiratory rate 16 /min DO Isaiah Shaw Work Phone: [facility] 01-20-2022 13:50-0500 SaO2% (BldA) [Mass fraction] 96 % DO Isaiah Shaw Work Phone: [facility] 01-20-2022 13:50-0500 Systolic blood pressure 139 mm[Hg] DO Isaiah Shaw Work Phone: [facility] 01-20-2022 10:56-0500 Body height 160.02 cm DO Isaiah Shaw Work Phone: [facility] 01-20-2022 10:56-0500 Body mass index (BMI) [Ratio] 26.7 kg/m2 DO Isaiah Shaw Work Phone: [facility] 01-20-2022 10:56-0500 Body weight 68.5 kg DO Isaiah Shaw Work Phone: [facility] 01-20-2022 09:37-0500 Body temperature 98.2 [degF] DO Isaiah Shaw Work Phone: [facility] 01-04-2022 14:46-0500 Blood Pressure Location Jaret TATE [facility] 12-28-2021 11:40-0500 Body height 156.21 cm Paulo Rhoades Other [facility] Other 12-28-2021 11:40-0500 Body mass index (BMI) [Ratio] 27.32 kg/m2 Paulo Rhoades Other [facility] Other 12-28-2021 11:40-0500 Body weight 66.68 kg Paulo Rhoades Other [facility] Other 11-04-2021 15:15-0400 Body height 156.21 cm Isaiah Shaw Other [facility] Other 11-04-2021 15:15-0400 Body mass index (BMI) [Ratio] 27.36 kg/m2 Isaiah Magnolia Other [facility] Other 11-04-2021 15:15-0400 Body weight 66.77 kg Isaiah Shaw Other [facility] Other 11-04-2021 15:15-0400 Diastolic blood pressure 68 mm[Hg] Isaiah Shaw Other [facility] Other 11-04-2021 15:15-0400 Respiratory rate 18 /min Isaiah Shaw Other [facility] Other 11-04-2021 15:15-0400 SaO2% (BldA) [Mass fraction] 97 % Isaiah Shaw Other [facility] Other 11-04-2021 15:15-0400 Systolic blood pressure 136 mm[Hg] Isaiah Shaw Other [facility] Other 10-14-2021 10:08-0400 Diastolic blood pressure 84 mm[Hg] DO Isaiah Edinsons Work Phone: [facility] 10-14-2021 10:08-0400 Heart rate 67 /min DO Isaiah Kuns Work Phone: [facility] 10-14-2021 10:08-0400 Respiratory rate 16 /min DO Isaiah Kuns Work Phone: [facility] 10-14-2021 10:08-0400 SaO2% (BldA) [Mass fraction] 95 % DO Isaiah Shaw Work Phone: [facility] 10-14-2021 10:08-0400 Systolic blood pressure 164 mm[Hg] DO Isaiah Shaw Work Phone: [facility] 10-14-2021 08:15-0400 Body height 157.48 cm DO Isaiah Shaw Work Phone: [facility] 10-14-2021 08:15-0400 Body weight 62.14 kg DO Isaiah Shaw Work Phone: [facility] 09-30-2021 14:27-0400 Blood Pressure Location Faustino Mac [facility] 09-30-2021 14:27-0400 Diastolic blood pressure 73 mm[Hg] Faustino Mac [facility] 09-30-2021 14:27-0400 Heart rate 76 /min Faustino Mac [facility] 09-30-2021 14:27-0400 Systolic blood pressure 149 mm[Hg] Faustino Mac [facility] 07-07-2021 09:30-0400 Body height 156.21 cm Isaiah Shaw Other [facility] Other 07-07-2021 09:30-0400 Body mass index (BMI) [Ratio] 26.95 kg/m2 Isaiah Shaw Other [facility] Other 07-07-2021 09:30-0400 Body weight 65.77 kg Isaiah Shaw Other [facility] Other 07-07-2021 09:30-0400 Diastolic blood pressure 70 mm[Hg] Isaiah Shaw Other [facility] Other 07-07-2021 09:30-0400 Respiratory rate 16 /min Isaiah Shaw Other [facility] Other 07-07-2021 09:30-0400 SaO2% (BldA) [Mass fraction] 99 % Isaiah Shaw Other [facility] Other 07-07-2021 09:30-0400 Systolic blood pressure 142 mm[Hg] Isaiah Shaw Other [facility] Other 04-05-2021 10:30-0500 Body height 156.21 cm Isaiah Shaw Other [facility] Other 04-05-2021 10:30-0500 Body mass index (BMI) [Ratio] 27.66 kg/m2 Isaiah Shaw Other [facility] Other 04-05-2021 10:30-0500 Body weight 67.5 kg Isaiah Shaw Other [facility] Other 04-05-2021 10:30-0500 Diastolic blood pressure 72 mm[Hg] Isaiah Shaw Other [facility] Other 04-05-2021 10:30-0500 Respiratory rate 18 /min Isaiah Shaw Other [facility] Other 04-05-2021 10:30-0500 SaO2% (BldA) [Mass fraction] 95 % Isaiah Shaw Other [facility] Other 04-05-2021 10:30-0500 Systolic blood pressure 139 mm[Hg] Isaiah Shaw Other [facility] Other 11-25-2020 10:45-0400 Body height 156.21 cm Isaiah Shaw Other [facility] Other 11-25-2020 10:45-0400 Body mass index (BMI) [Ratio] 27.14 kg/m2 Isaiah Shaw Other [facility] Other 11-25-2020 10:45-0400 Body weight 66.23 kg Isaiah Shaw Other [facility] Other 11-25-2020 10:45-0400 Diastolic blood pressure 70 mm[Hg] Isaiah Shaw Other [facility] Other 11-25-2020 10:45-0400 Respiratory rate 16 /min Isaiah Shaw Other [facility] Other 11-25-2020 10:45-0400 SaO2% (BldA) [Mass fraction] 94 % Isaiah Shaw Other [facility] Other 11-25-2020 10:45-0400 Systolic blood pressure 144 mm[Hg] Isaiah Shaw Other [facility] Other Encounters Encounter Date Encounter Type Care Provider Facility Start: 05-10-2023 End: 05-10-2023 ambulatory Isaiah Shaw Facility:[facility] Start: 05-10-2023 End: 05-10-2023 ambulatory DO Isaiah Shaw Work Phone: [facility] Work Phone: Start: 05-10-2023 End: 05-10-2023 Patient encounter procedure DO Isaiah Shaw Work Phone: [facility] Start: 03-22-2023 End: 03-22-2023 ambulatory Isaiah Nevesrosendo Other [facility] Other Start: 03-22-2023 Telephone encounter Isaiah Shaw [employer] [facility] Start: 03-03-2023 End: 03-03-2023 ambulatory Isaiah Shaw Other [facility] Other Start: 03-03-2023 Office outpatient visit 25 minutes Isaiah Shaw [facility] [place] Start: 03-03-2023 End: 03-03-2023 Patient encounter procedure DO Isaiah Shaw Work Phone: [facility] [place] Work Phone: Start: 02-15-2023 End: 02-15-2023 ambulatory Isaiah Shaw Other [employer] Other Start: 02-15-2023 Telephone encounter Isaiah Shaw [facility] [place] Start: 02-06-2023 End: 02-06-2023 ambulatory Isaiah Shaw Facility:[facility] Start: 02-06-2023 End: 02-06-2023 ambulatory DO Isaiah Shaw Work Phone: [facility] Work Phone: Start: 02-06-2023 End: 02-06-2023 Patient encounter procedure DO Isaiah Shaw Work Phone: [facility]-Pacemaker Check Start: 01-24-2023 End: 01-24-2023 ambulatory DO Isaiah Shaw Work Phone: [facility] Work Phone: Start: 01-24-2023 End: 01-24-2023 Discharged Recurring DO Isaiah Shaw Work Phone: [facility]-Physical Therapy [place] Work Phone: Start: 12-20-2022 End: 12-20-2022 ambulatory Isaiah Shaw Other [facility] [employer] Other Start: 12-20-2022 Telephone encounter Isaiah Shaw [facility] Start: 12-19-2022 End: 12-19-2022 ambulatory Isaiah Shaw Other [facility] [employer] Other Start: 12-19-2022 Telephone encounter Isaiah Shaw [facility] Start: 12-01-2022 Registered Recurring DO Isaiah Shaw Work Phone: [facility]-Physical Therapy [place] Work Phone: Start: 11-29-2022 Office outpatient visit 25 minutes Isaiahpati Shaw [facility] [place] Start: 11-29-2022 End: 11-29-2022 ambulatory Isaiah Shaw Facility:[facility] Start: 11-29-2022 End: 11-29-2022 ambulatory DO Isaiah Shaw Work Phone: [facility] Work Phone: Start: 11-29-2022 End: 11-29-2022 Discharged Recurring DO Isaiah Shaw Work Phone: [facility]-Physical Therapy [place] Work Phone: Start: 11-29-2022 Registered Recurring DO Isaiah Shaw Work Phone: [facility]-Physical Therapy [place] Work Phone: Start: 11-29-2022 End: 11-29-2022 ambulatory Jaziel Carbone Facility:[facility] Start: 11-29-2022 End: 11-29-2022 ambulatory DO Isaiah Shaw Work Phone: [facility] Work Phone: Start: 11-29-2022 End: 11-29-2022 Patient encounter procedure DO Isaiah Shaw Work Phone: [facility]-MRI [place] Work Phone: Start: 11-04-2022 End: 11-04-2022 ambulatory Isaiah Shaw Facility:[facility] Start: 11-04-[address] Isaiah Nevess Facility:[id number] Start: 11-04-2022 End: 11-04-2022 Patient encounter procedure DO Isaiah Shaw Work Phone: [facility]-Pacemaker Check Start: 11-03-2022 End: 11-03-2022 ambulatory Isaiah Shaw Other [employer] Other Start: 11-03-2022 Telephone encounter Isaiah Shaw [facility] [place] Start: 10-28-2022 End: 10-28-2022 ambulatory Isaiah Shaw Facility:[facility] Start: 10-28-2022 End: 10-28-2022 ambulatory DO Isaiah Shaw Work Phone: [facility] Work Phone: Start: 10-28-2022 End: 10-28-2022 Patient encounter procedure DO Isaiah Shaw Work Phone: [facility]-XRay [place] Work Phone: Start: 10-20-2022 End: 10-20-2022 ambulatory Isaiah Shaw Other [employer] Other Start: 10-20-2022 Office outpatient visit 25 minutes Isaiah Shaw [facility] [place] Start: 10-20-2022 Telephone encounter Isaiah Shaw [facility] [place] Start: 09-21-2022 End: 09-21-2022 ambulatory Isaiah Shaw Other [employer] Other Start: 09-21-2022 Telephone encounter Isaiah Shaw [facility] [place] Start: 09-15-2022 End: 09-15-2022 ambulatory Isaiah Shaw Other [employer] Other Start: 09-15-2022 Telephone encounter Isaiah Shaw [facility] [place] Start: 08-31-2022 Office outpatient visit 15 minutes Joan Page [facility] Neurosurgery Start: 08-31-2022 End: 08-31-2022 ambulatory Isaiah Shaw Facility:[facility] Start: 08-31-2022 End: 08-31-2022 ambulatory DO Isaiah hSaw Work Phone: [facility] Work Phone: Start: 08-31-2022 End: 08-31-2022 Patient encounter procedure DO Isaiah Shaw Work Phone: [facility]-XRay [place] Work Phone: Start: 08-29-2022 End: 08-29-2022 ambulatory Isaiah Shaw Other [employer] Other Start: 08-29-2022 Telephone encounter Isaiah Shaw [facility] [place] Start: 08-24-2022 End: 08-24-2022 ambulatory Isaiah Shaw Other [employer] Other Start: 08-24-2022 Telephone encounter Isaiah Shaw [facility] [place] Start: 08-19-2022 End: 08-19-2022 ambulatory Isaiah Shaw Other [employer] Other Start: 08-19-2022 Telephone encounter Isaiah Shaw [facility] [place] Start: 08-18-2022 End: 08-18-2022 ambulatory Isaiah Shaw Other [employer] Other Start: 08-18-2022 Telephone encounter Isaiah Shaw [facility] Start: 08-08-2022 End: 08-08-2022 ambulatory Isaiah Shaw Other [employer] Other Start: 08-08-2022 Telephone encounter Isaiah Shaw [facility] Start: 08-05-2022 End: 08-19-2022 Evaluation and management of inpatient Casie Dulce Maria Facility:[facility] Start: 08-05-2022 End: 08-19-2022 Evaluation and management of inpatient DO Isaiah Shaw Work Phone: [facility] Work Phone: Start: 08-02-2022 End: 08-05-2022 Evaluation and management of inpatient Joan Page Facility:[facility] Start: 08-02-2022 End: 08-05-2022 Evaluation and management of inpatient DO Isaiah Shaw Work Phone: [facility] Work Phone: Start: 07-28-2022 End: 07-29-2022 ambulatory MADISYN GABRIEL Facility:[facility] Start: 06-20-2022 Office outpatient visit 25 minutes Isaiah Shaw [facility] Start: 06-20-2022 End: 06-20-[address] Isaiah Shaw [place] [employer] Other Start: 06-20-2022 End: 06-20-2022 Emergency department patient visit Pastor Chavarria Facility:[facility] Start: 06-20-2022 End: 06-20-2022 Emergency department patient visit DO Isaiah Shaw Work Phone: [facility]-Emergency Room Work Phone: Start: 06-07-2022 End: 06-07-2022 ambulatory Isaiah Shaw Facility:[facility] Start: 06-07-2022 End: 06-07-2022 Patient encounter procedure DO Isaiah Nevesrosendo Work Phone: [facility]-Lab [place] Work Phone: Start: 05-23-2022 End: 05-23-2022 ambulatory Isaiah Nevesrosendo Other [employer] Other Start: 05-23-2022 Telephone encounter Isaiah Shaw [facility] Start: 05-13-[address] Drew Warren II Facility: Start: 05-04-2022 End: 05-04-2022 ambulatory DO Isaiah Shaw Work Phone: [facility] Work Phone: Start: 05-04-2022 End: 05-04-2022 Patient encounter procedure DO Isaiah Magnolia Work Phone: [facility]-Pacemaker Check Start: 04-06-2022 ambulatory Jaret Starr ty:[facility] Start: 03-14-2022 End: 03-14-2022 ambulatory Isaiah Shaw Other [employer] Other Start: 03-14-2022 Office outpatient visit 25 minutes Isaiah Shaw [facility] Start: 02-24-2022 End: 02-24-2022 ambulatory Isaiah Shaw Other [employer] Other Start: 02-24-2022 Telephone encounter Isaiah Shaw [facility] Start: 01-27-[address] Drew Warren II Facility: Start: 01-27-2022 Postop follow up visit related to original px Isaiah Shaw Work Phone: [facility] [address] DO Work Phone: Start: 01-24-2022 Chart Update No PCP None [facility] hio Heart-[place] 250 DO Work Phone: Start: 01-21-2022 Chart Update No PCP None [facility]-[place] 250 DO Work Phone: Start: 01-20-[address] Drew Warren II Facility:[id number] Start: 01-20-2022 [facility], Provider: Drew Warren, Status: Pen, Time: 11:00 AM Drew Warren MD Work Phone: [facility] [facility] DO Work Phone: Start: 01-20-2022 End: 01-20-2022 Admission to same day surgery center DO Isaiah Shaw Work Phone: [facility]-Surgery Center [place] Start: 01-20-2022 End: 01-20-2022 ambulatory DO Isaiah Shaw Work Phone: [facility] Work Phone: Start: 01-19-2022 Chart Update Drew mustafa MD Work Phone: [facility] [address] DO Work Phone: Start: 01-18-2022 End: 01-18-2022 ambulatory DO Isaiah Shaw Work Phone: [facility] Work Phone: Start: 01-18-2022 End: 01-18-2022 Patient encounter procedure DO Isaiah Shaw Work Phone: [facility]-Pre-Surgical Testing Start: 01-06-2022 Telephone encounter Drew Owens MD Work Phone: [facility] [facility] DO Work Phone: Start: 01-04-2022 End: 01-05-2022 ambulatory Jaret TATE Facility:[facility] Start: 01-04-2022 End: 01-04-2022 Patient encounter procedure Jaret TATE [facility] Start: 12-30-2021 End: 12-30-2021 ambulatory Isaiah Shaw Other [employer] Other Start: 12-30-2021 Telephone encounter Isaiah Shaw [facility] Start: 12-28-2021 End: 12-28-2021 ambulatory Paulo Rhoades Other [place] [employer] Other Start: 12-28-2021 Office outpatient new 30 minutes Paulo Verona [facility] Neurosurgery Start: 12-25-2021 End: 12-25-2021 ambulatory DO Isaiah Shaw Work Phone: [facility] Work Phone: Start: 12-25-2021 End: 12-25-2021 Patient encounter procedure DO Isaiahpati Shaw Work Phone: [facility]-XRay [facility] Start: 11-26-2021 End: 11-26-2021 ambulatory DO Isaiahpati Shaw Work Phone: [facility] Work Phone: Start: 11-26-2021 End: 11-26-2021 Patient encounter procedure DO Isaiah Shaw Work Phone: [facility]-Center for [facility] Care Start: 11-22-2021 End: 11-22-2021 ambulatory Isaiah Shaw Other [facility] [employer] Other Start: 11-22-2021 Telephone encounter Isaiah Sahw [facility] [place] Start: 11-15-2021 End: 11-15-2021 Patient encounter procedure DO Isaiah Shaw Work Phone: [facility]-Pacemaker Check Start: 11-12-[address] Drew Owens II Facility:[id number] Start: 11-04-2021 End: 11-04-2021 ambulatory Isaiah Shaw Other [place] [employer] Other Start: 11-04-2021 Patient encounter procedure Isaiah Shaw [facility] [place] Start: 10-22-2021 End: 10-22-2021 Patient encounter procedure DO Isaiah Magnolia Work Phone: [facility]-CT Scan [place] Start: 10-14-2021 End: 10-14-2021 Admission to same day surgery center DO Isaiah Edinsonrosendo Work Phone: [facility]-XRay [place] Start: 10-08-2021 End: 10-08-2021 Patient encounter procedure DO Isaiah Magnolia Work Phone: [facility]-Lab [place] Start: 10-07-2021 End: 10-07-2021 ambulatory Isaiah Shaw Other [employer] Other Start: 10-07-2021 Telephone encounter Isaiah Shaw [facility] Start: 09-30-2021 End: 10-01-2021 ambulatory Faustino Mac Facility:[facility] Start: 09-30-2021 End: 09-30-2021 Lab Drop off Faustino [facility] Start: 09-30-2021 End: 09-30-2021 Patient encounter procedure Faustino Jay [place] [facility] Start: 09-28-2021 End: 09-28-2021 ambulatory Isaiah Shaw Other [employer] Other Start: 09-28-2021 Telephone encounter Isaiah Shaw [facility] [place] Start: 09-20-2021 End: 09-20-2021 ambulatory Isaiah Shaw Other [employer] Other Start: 09-20-2021 Telephone encounter Isaiah Shaw [facility] [place] Start: 09-06-2021 End: 09-06-2021 ambulatory Isaiah Nevesrosendo Other [employer] Other Start: 09-06-2021 Telephone encounter Isaiahpati Shaw [facility] [place] Start: 09-03-2021 End: 09-03-2021 ambulatory Isaiah Nevesrosendo Other [employer] Other Start: 09-03-2021 Patient encounter procedure Isaiah Shaw [facility] [place] Start: 09-03-2021 Telephone encounter Isaiah Shaw [facility] [place] Start: 08-16-2021 End: 08-16-2021 ambulatory Isaiah Shaw Other [employer] Other Start: 08-16-2021 Telephone encounter Isaiah Shaw [facility] [place] Start: 08-04-2021 End: 08-04-2021 ambulatory Isaiah Shaw Other [employer] Other Start: 08-04-2021 Telephone encounter Isaiah Nevesrosendo [facility] [place] Start: 08-02-2021 End: 08-02-2021 Patient encounter procedure DO Isaiah Magnolia Work Phone: [facility]-Pacemaker Check Start: 07-07-2021 End: 07-07-2021 ambulatory Isaiah Shaw Other [employer] Other Start: 07-07-2021 Office outpatient visit 25 minutes Isaiah Shaw [facility] [place] Start: 06-16-2021 End: 06-16-2021 ambulatory Isaiah Shaw Other [employer] Other Start: 06-16-2021 Telephone encounter Isaiah Shaw [facility] [place] Start: 06-15-2021 End: 06-15-2021 ambulatory Isaiah Shaw Other [employer] Other Start: 06-15-2021 Telephone encounter Isaiahpati Shaw [facility] [place] Start: 05-26-2021 End: 05-26-2021 ambulatory Isaiahpati Shaw Other [employer] Other Start: 05-26-2021 Telephone encounter Isaiahpati Shaw [facility] Vascular Surgery Start: 05-05-2021 End: 05-05-2021 ambulatory Juan C Avila Other [employer] Other Start: 05-05-2021 Telephone encounter Juan C Avila [facility] Start: 04-05-2021 End: 04-05-2021 ambulatory Isaiah Nevesrosendo Other [employer] Other Start: 04-05-2021 Office outpatient visit 25 minutes [facility] Start: 03-29-2021 End: 03-29-2021 ambulatory Isaiahpati Shaw Other [employer] Other Start: 03-29-2021 Telephone encounter Isaiahpati Shaw [facility] [place] Start: 03-22-2021 End: 03-22-2021 ambulatory Isaiahpati Shaw Other [employer] Other Start: 03-22-2021 Telephone encounter Isaiahpati Shaw [facility] [place] Start: 03-03-2021 End: 03-03-2021 ambulatory Isaiahpati Shaw Other [employer] Other Start: 03-03-2021 Telephone encounter Isaiahpati Shaw [facility] [place] Start: 01-27-2021 End: 01-27-2021 ambulatory Isaiahpati Shaw Other [employer] Other Start: 01-27-2021 Telephone encounter Isaiahpati Shaw [facility] [place] Start: 11-25-2020 Office outpatient visit 25 minutes Isaiah Shaw [facility] Start: 11-25-2020 Telephone encounter Isaiah Shaw [facility] Start: 04-21-2020 End: 04-22-2020 Patient encounter procedure NONE LISTED REQUEST Facility:H1 Start: 03-24-2020 End: 2020 Patient encounter procedure NONE LISTED REQUEST Facility: Patient encounter status Drew Warren MD Work Phone: [facility]-[place] 250 DO Work Phone: Procedures Date Procedure Procedure Detail Performing Clinician Start: 11-29-2022 MRI of head DO Isaiah pena Work Phone: Start: 10-28-2022 X-ray of cervical spine DO Isaiah Shaw Work Phone: Start: 08-31-2022 X-ray of cervical spine DO Isaiah Shaw Work Phone: Start: 08-03-2022 X-ray of right foot DO Isaiah Shaw Work Phone: Start: 08-03-2022 Plain X-ray of right hand DO Isaiah Shaw Work Phone: Start: 08-03-2022 X-ray of cervical spine DO Isaiah Shaw Work Phone: Start: 08-02-2022 CT angiography of head DO Isaiah Shaw Work Phone: Start: 08-02-2022 CT angiography of ne ck vessels DO Isaiah Shaw Work Phone: Start: 08-02-2022 CT cervical spine wi thout contrast DO Isaiah Shaw Work Phone: Start: 08-02-2022 CT of facial bones w ithout contrast DO Isaiah Shaw Work Phone: Start: 08-02-2022 CT of head without contrast DO Isaiah Shaw Work Phone: Start: 08-02-2022 Plain chest X-ray DO Angle Shaw Work Phone: Start: 06-20-2022 Urine culture DO Isaiah Shaw Work Phone: Start: 06-20-2022 CT of head without contrast DO Isaiah Shaw Work Phone: Start: 06-20-2022 Plain chest X-ray DO Angle Shaw Work Phone: Start: 06-20-2022 CT angiography of head DO Isaiah Shaw Work Phone: Start: 06-20-2022 CT angiography of ne ck vessels DO Isaiah Shaw Work Phone: Start: 01-20-2022 Plain chest X-ray DO Angle Shaw Work Phone: Start: 01-20-2022 Implantation of card iac pacemaker DO Isaiah Shaw Work Phone: Start: 01-04-2022 Cystourethroscopy wi th dilation of urethral stricture Jaret TATE Start: 12-25-2021 X-ray of lumbar spin e, six views including bending views DO Isaiah Shaw Work Phone: Start: 11-26-2021 Dual energy X-ray absorptiometry DO Isaiah Shaw Work Phone: Start: 10-22-2021 CT of abdomen and pe lvis without contrast DO Isaiah Shaw Work Phone: Start: 10-14-2021 Computerized axial t omography of lumbar spine with contrast DO Isaiah Shaw Work Phone: Start: 10-14-2021 Lumbosacral myelography DO Isaiah Shaw Work Phone: Start: 02-20-2019 Cystourethroscopy wi th dilation of urethral stricture Faustino Mac Appendectomy Faustino Ba s Cardiac pacemaker, d evice (physical object) Faustino Mac h/o colon polyps Faustino Cl emons Hysterectomy Faustino robbins Hysterectomy Drew Warren MD Work Phone: Insertion of pacemak er pulse generator Drew Warren MD Work Phone: Lumbar spinal fusion Madalyn Mac Operation on bladder Drew Warren MD Work Phone: Procedure on back Drew Owens MD Work Phone: Screening for malign ant neoplasm of breast Isaiah Shaw Other Screening for malign ant neoplasm of colon Isaiah Shaw Other Total colonoscopy Drew Owens MD Work Phone: Plan of Treatment Date Care Activity Detail Author Start: 08-19-2022 [facility] Start: 08-11-2022 Referral to psychiatrist [facility] Start: 08-05-2022 Administration of prophylactic treatment [facility] Start: 08-05-2022 Hospital admission [facility] Start: 08-05-2022 Referral to clinical junior programmer analyst [facility] Start: 08-05-2022 [facility] Start: 08-03-2022 Consultation [facility] Start: 08-03-2022 Administration of prophylactic treatment [facility] Start: 08-02-2022 Consultation [facility] Start: 08-02-2022 Referral to neurologist [facility] Start: 08-02-2022 Hospital admission [facility] Start: 08-02-2022 [facility] Start: 06-20-2022 Bacteria identified in Urine by Culture Urine Culture [facility] Start: 05-13-2022 [facility], Provider: Drew Warren, Status: Pen, Time: 2:00 PM [facility], Provider: Drew Warren, Status: Pen, Time: 2:00 PM [facility] [facility] DO Work Phone: Start: 01-27-2022 WOUNDCHEMATTHEW, Provider: DENTON DE LA CRUZ WORK FROM HOME 1,[id number], Status: Pen, Time: 10:00 AM DOMINIQUE, Provider: DENTON DE LA CRUZ WORK FROM [employer] 1,[id number], Status: Pen, Time: 10:00 AM [facility] [facility] DO Work Phone: Start: 01-20-2022 [facility], Provider: Drew Warren, Status: Pen, Time: 11:00 AM [facility], Provider: Drew Warren, Status: Pen, Time: 11:00 AM -[facility] [facility] DO Work Phone: Start: 01-20-2022 End: 01-20-2022 [facility] Start: 10-22-2021 CT of abdomen and pelvis without contrast CT abdomen pelvis wo con [facility] Start: 10-22-2021 End: 10-22-2021 Patient encounter procedure [facility]-CT Scan [facility] [place] Start: 10-14-2021 [facility] Start: 10-14-2021 Computerized axial tomography of lumbar spine with contrast CT lumbar spine w con [facility] Start: 10-14-2021 Lumbosacral myelography IR myelogram spine lumbosacral [facility] Start: 10-14-2021 End: 10-14-2021 Admission to same day surgery center Departed Surgical Day [facility] [place] Patient Education [facility] Work Phone: Patient referral [facility] Work Phone: [facility] Immunizations Immunization Date Immunization Notes Care Provider Gonzalez ferris 02-17-2023 Arexvy-For documentation purposes only Isaiah Shaw Other [facility] 01-20-2023 COVID-19 Moderna (SPIKEVAX) Isaiah Shaw Other [facility] 12-23-2022 Flu Shot - Documentation Purposes Only Isaiah Shaw Other [facility] 12-23-2022 zoster vaccine recombinant Isaiah Edinsons Other [facility] 05-20-2022 zoster vaccine recombinant Isaiah Nevess Other [facility] 12-03-2021 COVID-19 mRNA Bivale nt Booster (Moderna) DO Isaiah Shaw Work Phone: [facility] 12-03-2021 Fluad Quadrivalent 0 .5 ML Intramuscular Prefilled Syringe Isaiah Shaw Work Phone: [facility] 250 DO Work Phone: 12-03-2021 influenza virus vaccine, unspecified formulation Jaret TATE [facility] 11-05-2021 Prevnar 20 Isaiah Shaw Other [facility] 05-28-2021 COVID-19 Vaccine Moderna - Documentation Purposes Only Isaiah Shaw Other [facility] 01-05-2021 COVID-19 Vaccine Moderna - Documentation Purposes Only Isaiah Shaw Other [facility] 11-25-2020 influenza virus vaccine, unspecified formulation Jaret TATE [facility] 11-25-2020 influenza, high dose seasonal, preservative-free Isaiah Shaw Other [facility] [employer] Other 04-21-2020 COVID-19 Vaccine Moderna - Documentation Purposes Only Isaiah Shaw Other [facility] 03-24-2020 COVID-19 Vaccine Moderna - Documentation Purposes Only Isaiah Shaw Other [facility] 03-23-2020 COVID-19 Vaccine Moderna - Documentation Purposes Only Isaiah Shaw Other [facility] [employer] Other 12-08-2019 influenza virus vaccine, unspecified formulation Drew Warren MD Work Phone: [place] [id number] DO Work Phone: 12-05-2019 influenza, high dose seasonal, preservative-free Isaiahpati Shaw Other [facility] [employer] Other 12-05-2019 influenza virus vaccine, unspecified formulation Jaret TATE [facility] 11-30-2018 influenza virus vaccine, unspecified formulation Jaret TATE [facility] 11-30-2018 influenza, high dose seasonal, preservative-free Isaiah Edinsons Other [facility] [employer] Other 11-20-2018 influenza virus vaccine, unspecified formulation Jaret TATE [facility] 11-20-2018 influenza, high dose seasonal, preservative-free Drew Warren MD Work Phone: [place] [id number] DO Work Phone: 11-20-2017 influenza virus vaccine, unspecified formulation Drew Warren MD Work Phone: [place] [id number] DO Work Phone: 12-21-2016 influenza, injectabl e, quadrivalent, contains preservative Isaiah Shaw Other [facility] [employer] Other 12-21-2016 influenza virus vaccine, unspecified formulation Jaret TATE [facility] 12-21-2016 influenza, injectabl e, quadrivalent, preservative free DO Isaiah Magnolia Work Phone: [facility] 12-21-2016 Seasonal trivalent influenza vaccine, adjuvanted, preservative free Drew Warren MD Work Phone: [place] [phone] DO Work Phone: 11-20-2016 influenza virus vaccine, unspecified formulation Drew Warren MD Work Phone: [place] [phone] DO Work Phone: 12-07-2015 influenza, high dose seasonal, preservative-free Isaiah Kuns Other [facility] [employer] Other 12-07-2015 influenza virus vaccine, unspecified formulation Jaret TATE [facility] 11-21-2015 influenza virus vaccine, unspecified formulation Drew Warren MD Work Phone: [place] [phone] DO Work Phone: 06-18-2015 pneumococcal conjuga te vaccine, 13 valent Drew Warren MD Work Phone: [place] [phone] DO Work Phone: 01-12-2015 influenza, high dose seasonal, preservative-free Isaiah Kuns Other [facility] [employer] Other 01-12-2015 influenza virus vaccine, unspecified formulation Jaret TATE [facility] 11-20-2014 influenza virus vaccine, unspecified formulation Drew Warren MD Work Phone: [place] [id number] DO Work Phone: 01-14-2014 influenza virus vaccine, unspecified formulation Jaret TATE [facility] 01-14-2014 influenza, high dose seasonal, preservative-free Isaiah Kuns Other [facility] Other 12-21-2013 influenza virus vaccine, unspecified formulation Drew Warren MD Work Phone: [facility] 250 DO Work Phone: 12-24-2012 influenza, injectabl e, quadrivalent, contains preservative Isaiah Shaw Other [facility] 12-12-2011 influenza virus vaccine, unspecified formulation DO Isaiah Shaw Work Phone: [facility] 12-12-2011 influenza, high dose seasonal, preservative-free Isaiah Magnolia Other [facility] Other influenza virus vaccine, unspecified formulation Drew Warren MD [facility]: [facility] Work Phone: Comment on above: 2012Nov 2011 Payers Date Payer Category Payer Medicare [id number] 2.1 [id number] 2022 [employer] ( and others) [id number] 2022 Medicare [id number] 2022 [employer] ( and others) [id number] 3.19 2022 [employer] ( and others) [id number] 10 2021 [employer] ( and others) 2021 Medicare [id number] 2021 Medicare [id number] 2. 16.840.1.988790.19 1959 Self-pay 1940 Unknown [id number] 2.16.840.1.472477.3.579.2.727 1938 Unknown [id number] 2.16.840.1.870829.3.579.2.727 1938 Unknown [id number] 2.16.840.1.637892.3.579.2.727 1938 Unknown [id number] 2.16.840.1.627075.3.579.2.727 1938 Unknown [id number] 2.16.840.1.412251.3.579.2.727 1938 Unknown [id number] 2.16.840.1.650074.3.579.2.727 1938 Unknown [id number] 2..840.1.148502.3.579.2.356 1938 Unknown [id number] 2..840.1.922831.3.579.2.356 1938 Unknown [id number] 2.840.1.155823.3.579.2.356 1938 Unknown [id number] 2.840.1.480529.3.579.2.356 1938 Unknown [id number] 2.840.1.298207.3.579.2.356 1938 Unknown [id number] 2.840.1.397577.3.579.2.356 1938 Unknown [id number] 2.840.1.701249.3.579.2.356 Unknown [id number] 2.840.1.643778.3.579.2.593 Unknown [id number] 2..840.1.372211.3.579.2.593 Unknown Unknown [id number] 2.16.840.1.393210.3.579.2.531 Unknown [id number] 2.16.840.1.588763.3.579.2.531 Unknown [id number] 2.16.840.1.166472.3.579.2.531 Unknown [id number] 2.840.1.576688.3.579.2.531 Unknown [id number] 2.16.840.1.004294.3.579.2.531 Unknown [id number] 2.16.840.1.921603.3.579.2.531 Unknown [id number] 2.16.840.1.625110.3.579.2.531 Unknown [id number] 2.16.840.1.483148.3.579.2.531 Unknown [id number] 2.16.840.1.338719.3.579.2.531 Unknown [id number] 2.16.840.1.617038.3.579.2.531 Unknown [id number] 2.16.840.1.540099.3.579.2.531 Unknown [id number] 2.16.840.1.076848.3.579.2.531 Social History Date Type Detail Facility Unknown if ever smoked [facility] Other Sex Assigned At [facility] Other Tobacco smoking status No Smokin g Status Entered [facility] Start: 09-30-2021 End: 03-16-2023 Tobacco smoking status Never smoked tobacco (finding) [facility] Start: 1940 Sex Assigned At Female [facility] Daily caffeine consumption Daily caffeine consumption [facility] 250 DO Work Phone: Medical Equipment Procedure Code Equipment Code Equipment Origin al Text Equipment Identifier Dates Insertion, pacemaker Dual-chamber implantable pacemaker, rate-responsive ([id number] [facility] Start: 01-20-2022 Goals Date Patient Goal Desired Activity /State Functional Status Date Assessment Result Facility 08-19-2022 Functional status Patient is Pro gressing Toward Baseline [facility] Work Phone: 08-05-2022 Functional status Patient is Pro gressing Toward Baseline [facility] Work Phone: 01-04-2022 Functional Status N/A [facility] Zahra 09-30-2021 Functional Status N/A [facility] Marichuy Mental Status Date Assessment Result Facility 08-19-2022 Cognitive function Cognitive Sta tus Patient is Progressing Toward Baseline [facility] Work Phone: 08-05-2022 Cognitive function Cognitive Sta tus Patient at Baseline [facility] Work Phone: Clinical Notes 11-25-2020 to 03-03-2023 Note Date & Type Note Facility 03-03-2023 Evaluation note Encounter Date Diagnosis Assessment Notes Feb, Persistent cough (ICD-10 - R05.3) I did provide samples of an inhaler for the patient to start using. We will continue to monitor. Feb, Type 2 diabetes mellitus (ICD-10 - E11.9) In house A1C reading of 8.5. This is an increase from last check at 8.0. Patient admits to running out of the jardiance due to a mailing issues with her pharmacy. Therefore I did provide a refill to a local pharmacy along with some samples. I advised the patient to not run out of the medication. We will recheck again in three months. Feb, Anxiety and depression (ICD-10 - F41.8) Refill provided of the above medication. Feb, Asthmatic bronchitis with acute exacerbation, unspecified asthma severity, unspecified whether persistent (ICD-10 - J45.901) I did provide a sample of the above inhaler. I instructed the patient on how to use the inhaler. I advised the patient once she is finished with the inhaler and this did help, she can call the office for another refill. Patient is to call next week with an update. Feb, Hypertension (ICD-10 - I10) The patients blood pressure was slightly elevated upon check in. Patient is to continue with the above medication. [facility] Other [id number] Evaluation note* Encounter Date Diagnosis Assessment Notes Treatment Notes Treatment Clinical Notes Nov, Anxiety and depression (ICD-10 - F41.8) [facility] Other 10-30-2023 Evaluation note* Encounter Date Diagnosis Assessment Notes Treatment Notes Treatment Clinical Notes Nov, Overactive bladder (ICD-10 - N32.81) [facility] Other 10-10-2023 Evaluation note* Encounter Date Diagnosis Assessment Notes Treatment Notes Treatment Clinical Notes Nov, Type 2 diabetes mellitus (ICD-10 - E11.9) The above lab performed in house, and the improved result reviewed with the pt today. I advsied I am happy with the progress she has made so far, and encourage her to continue on the above medications, and monitoring her diet and increase exercise as tolerated. Nov, Gait disturbance (ICD-10 - R26.9) Pt's MRI from this morning is available to review. I advsied this imaging is negative, and only shows age related changes. She has been doing PT for her balance as ordered by Dr. Page, which she reports does help her. Nov, Closed nondisplaced fracture of second cervical vertebra, unspecified fracture morphology, sequela (ICD-10 - S12.101S) Review of her recent imaging, which does reveal significant arthritis of the cervical spine. I did provide her with a written order for PT for her cervical spine. She is to continue with Dr. Page, and we will continue to monitor. Nov, Overactive bladder (ICD-10 - N32.81) Pt states the above medication is working well for her. She is to continue this, and we will continue to monitor. Nov, Left arm pain (ICD-10 - M79.602) I recommended pt take two Advil twice a day OTC for this as needed. Pt voices agreement. We will continue to monitor. [facility] Other 09-14-2023 Evaluation note* Encounter Date Diagnosis Assessment Notes Treatment Notes Treatment Clinical Notes Oct, Anxiety and depression (ICD-10 - F41.8) [facility] Other 08-31-2023 Evaluation note* Encounter Date Diagnosis Assessment Notes Treatment Notes Treatment Clinical Notes Sep, Type 2 diabetes mellitus (ICD-10 - E11.9) Her a1c has increased from 7.8% in May. She has had episodes of hypoglycemia in the past therefore would recommend that she start Jardiance. She will start 10mg for 3 weeks with samples that were provided to her today, and then if tolerated will increase to 25mg. Sep, Closed odontoid fracture with routine healing, subsequent encounter (ICD-10 - S12.100D) Reviewed xray with patient. She states that her range of motion is very limited and painful. Complains of paresthesia on the right side of her head. We called Dr. Page office for her and have arranged a follow up on 10/28. She was instructed to put her cervical collar back on and she verbalized understanding. Encouraged her to be very careful with all activities. Sep, Hypertension (ICD-10 - I10) Sep, Hyperlipidemia (ICD-10 - E78.5) Sep, Falls (ICD-10 - W19.XXXA) Patient reports 2 falls in the last 24 hours. She really needs to follow up with neurologist and neurosurgeon again as soon as possible and we will help her arrange these visits. She was encouraged to BE VERY CAREFUL, as any further injuries to her neck could results in permanent paralysis. She verbalized undertanding Sep, Gait disturbance (ICD-10 - R26.9) Patient did have a consult with Dr. Carbone prior to her fall and an MRI was ordered and approved but she did not schedule. We will see if the MRI authorization is still valid and if so will have her schedule this and also have her f/u with Dr. Carbone. Sep, Anxiety and depression (ICD-10 - F41.8) Patient was encouraged to try to use this medication sparingly and only when really needed. She states that she is trying to do this. OARRS report ran and reviewed. Sep, Overactive bladder (ICD-10 - N32.81) [facility] Other 07-12-2023 Evaluation note* Encounter Date Diagnosis Assessment Notes Treatment Notes Treatment Clinical Notes Aug, Closed odontoid fracture with routine healing, subsequent encounter (ICD-10 - S12.100D) [facility] Other 07-05-2023 Evaluation note* Encounter Date Diagnosis Assessment Notes Treatment Notes Treatment Clinical Notes Aug, Hypertension (ICD-10 - I10) Aug, Diabetes type 2, controlled (ICD-10 - E11.9) Aug, Unsteady gait (ICD-1 0 - R26.81) Aug, Hyperthyroidism (ICD-10 - E05.90) Aug, Hyperlipidemia (ICD- 10 - E78.5) Aug, GERD (gastroesophage al reflux disease) (ICD-10 - K21.9) Aug, Urinary incontinence (ICD-10 - R32) Aug, Anxiety and depressi on (ICD-10 - F41.8) [facility] Other 06-28-2023 Hospital Discharge instructionsAmbulatory Orders* Initiate Home Health Time Frame: 08/17/22, Location: Determined By Patient Additional Instructions -Code status: DNRCCA with intubation. -Activity: Ambulate as tolerated. Wear soft cervical collar at all times until told otherwise by Dr. Page. Continue to wear right foot post-op shoe when out of bed. No driving, may ride in car. -Diet: Diabetic, 2000 calories a day, carb consistent diet. -You should check your fingerstick blood sugar twice daily, prior to breakfast and dinner. Keep a log of your blood sugars to review with your primary care provider at your follow up appointment (see below for appointment details). Your Home Health agency is [facility] [place] ( ). They will contact you 24-48 hours after discharge to schedule a day/time to meet with you at your home to establish care. You have been given prescriptions for new and/or needed medications. These prescriptions are for a one-time fill only, with no re-fills. For further re-fills going forward, you will need to address with your PCP at your follow up appointment, or by calling your PCP s office prior to the prescriptions running out. NOTE: please call within 24 hours if you need to cancel or change any follow up appointments. Arrive early to all follow up appointments, bring current medication list, photo ID and any insurance card(s) to all future follow ups (listed below). Please remember to wear a mask to all appointments. If you develop any symptoms (cough, fever/chills, shortness of breath, sore throat, nausea/vomiting, etc.) please contact your provider's office to inform them prior to your appointment.[facility] Work Phone: 1(166) 547-939806-28-2023 Progress note Author Pablo Davis [facility] August 17, 2022 10:59am Note Date/Time August 17, 2022 9:27 am [facility] [address] [place] [address] Physiatry(Rehab) Progress Note Signed Patient: Tammy Sandoval MR#: [id number] : 1940 Acct:[id number] Age/Sex: 82 / F Adm Date: 3 Loc: Room: [address] [place] [address] Type: ADM IN Attending Dr: Pablo Davis MD Copies to: ~ Date of Service: 08/17/2022 Subjective Subjective Narrative: Ms. Sandoval is a 82 year old female presenting to acute rehab with functional impairments secondary to C2 fracture s/p fall. Her past medical history is notable for type II DM, hyperlipidemia, GERD, hypothyroidism, cardiac arrhythmias/p pacemaker implantation. Patient reports a history of recurrent falls due to poor balance for the past 2 years. She was seen and worked up by Dr. Klein with neurology a few years ago, however no diagnosis was made at that time. This time she sustained a fall in her living room, striking her head on something; she is not exactly sure whether that was a piece of furniture, or just the floor. She did not lose consciousness, but felt an intense pain in her head and neck. She was unable to get to her phone and laid on the floor for approximately 3 hours until her made his way back home. CT spine demonstrated comminuted mildly displaced fracture of the base of C2, aswell as encroachment to the right transverse foramen concerning for vertebral artery injury. Head CT was nonacute. CTA redemonstrated C2 fracture and opacification of the midpoint of the right vertebral artery with narrowing starting at the C3 level. There was also a right great toe distal phalanx fracture noted, otherwise no acute injuries. Neurosurgery was consulted and recommended conservative treatment with soft c- collar. Neurology was also following while inpatient. 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 Considerations are made for occipital nerve block down the road if symptoms do not improve. Interval History: No acute events overnight Improving with therapy Ambulatory 400'. Discussed progress with , patient wants to go home soon. Chronic conditions stable. Review of Systems Review of Systems All other systems reviewed & are negative unless noted below or in HPI Exam Physical Exam Vital Signs: Temp Pulse Resp BP Pulse Ox O2 Del Method 97.9 F 80 18 156/79 H 94 L Room Air 08/17/22 04:23 08/17/22 04:23 08/17/22 04:23 08/17/22 04:23 08/17/22 04:23 08/17/22 04:23 Narrative: Const General: cooperative, comfortable, no acute distress, well developed Nutritional Appearance: Normal body habitus Orientation: alert, awake and oriented x3 Limitations: None HEENT Head: normal to inspection, normocephalic and atraumatic. Reports frontal headaches which come and go Ears: hearing grossly normal bilaterally Nose: external nose normal Face and sinus: normal facial exam Eyes General: appearance normal, both eyes and all related structures Pupils: PERRL EOM: EOM intact bilaterally Neck Neck: Soft c-collar intact, no lymphadenopathy and trachea midline. Pain with movement. Neck mass: No Chest Chest palpation & inspection: normal inspection of the chest Resp Effort & Inspection: normal respiratory effort, able to speak in complete sentences, symmetric chest movement and no cough Auscultation: clear to auscultation bilaterally Cardio Jugular venous pressure: no JVD Rhythm: Regular rhythm and rate GI: Inspection: normal to inspection Palpation: soft, no hepatosplenomegaly and nontender Auscultation: normal bowel sounds Musc Cervical Spine: normal cervical lordosis and cervical ROM normal Thoracic/Lumbar Spine: thoraco-lumbar ROM normal Skin General: no rashes or lesions noted Neuro General: patient alert, oriented x3, moves all extremities Cranial Nerves: PERRL Speech: speech normal Extrem Other: WNL Psych Appearance: grossly normal Mental Status: WNL Mood: congruent mood Affect: normal affect Speech and Movement: speech and movement normal Attitude: cooperative Insight: Fair Judgment: Fair Objective Labs 08/16/22 05:13 08/17/22 05:08 Labs: Laboratory Results - last 24 hr 08/16/22 08/16/22 08/16/22 11:11 16:14 20:21 PHA Creatinine Clear Sodium Potassium Chloride Carbon Dioxide Anion Gap BUN Creatinine Est GFR (CKD-EPI) Glucose POC Glucose 177 191 202 POC Glucose Comment Glu2: cleaned meter Glu2: cleaned meter Calcium 08/17/22 05:08 PHA Creatinine Clear 47.42 Sodium 129 L Potassium 4.0 Chloride 95 L Carbon Dioxide 24.3 Anion Gap 13.7 BUN 24 Creatinine 0.78 Est GFR (CKD-EPI) > 60.0 Glucose 106 H POC Glucose POC Glucose Comment Calcium 9.0 Medications and Allergies Allergies and Active Meds: Allergies adhesive Allergy (Verified 08/02/22 14:10) Redness of Skin/Removes Skin Active Medications Generic Name Dose Route Start Last Admin Trade Name Freq PRN Reason Stop Dose Admin Acetaminophen 500 mg 08/05/22 16:50 08/16/22 21:10 Acetaminophen 500 Mg Tablet PO 08/05/23 16:49 500 mg Q4H PRN Administration Pain Al Hydrox/Mg Hydrox/Simethicone 30 ml 08/05/22 16:50 Mag Hydrox/Al Hydrox/Simeth 30 Ml Udc PO 08/05/23 16:49 Q4H PRN Indigestion Alprazolam 0.5 mg 08/05/22 16:45 08/16/22 21:09 Alprazolam 0.5 Mg Tablet PO 02/01/23 16:44 0.5 mg TID PRN Administration Anxiety Amlodipine Besylate 10 mg 08/08/22 09:00 08/17/22 08:13 Amlodipine 10 Mg Tablet PO 08/08/23 08:59 10 mg DAILY DONITA Administration Atorvastatin Calcium 5 mg 08/06/22 09:00 08/17/22 08:16 Atorvastatin 10 Mg Tablet PO 08/06/23 08:59 5 mg QAM DONITA Administration Bisacodyl 10 mg 08/05/22 16:50 Bisacodyl 10 Mg Supp.Rect MS 08/05/23 16:49 DAILY PRN Constipation Carbamazepine 100 mg 08/05/22 21:00 08/17/22 08:14 Carbamazepine 200 Mg Tablet PO 08/05/23 20:59 100 mg BID DONITA Administration Docusate Sodium 100 mg 08/05/22 16:50 08/15/22 20:28 Docusate 100 Mg Capsule PO 08/05/23 16:49 100 mg BID PRN Administration Constipation Docusate Sodium 283 mg 08/05/22 16:50 Docusate Enema 283 Mg/5 Ml Enema MS 08/05/23 16:49 DAILY PRN Constipation Gabapentin 300 mg 08/05/22 22:00 08/17/22 08:13 Gabapentin 300 Mg Capsule PO 08/05/23 21:59 300 mg TID DONITA Administration Glimepiride 2 mg 08/06/22 09:00 08/17/22 08:15 Glimepiride 2 Mg Tablet PO 08/06/23 08:59 2 mg QAM DONITA Administration Hydrochlorothiazide 25 mg 08/06/22 09:00 08/17/22 08:15 Hydrochlorothiazide 25 Mg Tablet PO 08/06/23 08:59 25 mg DAILY DONITA Administration Insulin Aspart 0 units 08/07/22 12:00 08/17/22 07:43 Insulin Aspart 300 Units/3 Ml Insuln.Pen SUBCUT 08/07/23 11:59 Not Given TID.WM.HS DONITA Protocol Lactulose 30 gm 08/05/22 16:50 08/08/22 06:47 Lactulose 20 Gm/30 Ml Udc PO 08/05/23 16:49 30 gm DAILY PRN Administration Constipation Levothyroxine Sodium 50 mcg 08/06/22 06:30 08/17/22 06:10 Levothyroxine 50 Mcg Tablet PO 08/06/23 06:29 50 mcg DAILY.0630 DONITA Administration Lisinopril 20 mg 08/11/22 09:00 08/17/22 08:14 Lisinopril 20 Mg Tablet PO 08/11/23 08:59 20 mg DAILY DONITA Administration Meclizine HCl 12.5 mg 08/05/22 16:45 Meclizine 12.5 Mg Tablet PO 08/05/23 16:44 BID PRN Vertigo Melatonin 5 mg 08/09/22 22:00 08/16/22 21:10 Melatonin 5 Mg Tablet PO 08/09/23 21:59 5 mg QHS DONITA Administration Metformin HCl 500 mg 08/05/22 21:00 08/17/22 08:13 Metformin 500 Mg Tablet PO 08/05/23 20:59 500 mg BID DONITA Administration Mirabegron 50 mg 08/06/22 09:00 08/17/22 08:14 Mirabegron 25 Mg Tab.Er.24h PO 08/06/23 08:59 50 mg DAILY DONITA Administration Oxycodone/Acetaminophen 1 tab 08/06/22 09:12 08/16/22 13:22 Oxycodone/Acetaminophen 5-325 Mg Tablet PO 1 tab Q4H PRN Administration Pain Scale 6 - 10 Pantoprazole Sodium 40 mg 08/05/22 21:00 08/17/22 08:14 Pantoprazole 40 Mg Tablet. PO 08/05/23 20:59 40 mg BID DONITA Administration Polyethylene Glycol 17 gm 08/08/22 10:20 08/17/22 08:16 Polyethylene Glycol 3350 17 Gm Powd.Pack PO 08/08/23 10:19 17 gm BID DONITA Administration Sennosides 2 tab 08/06/22 12:00 08/11/22 08:26 Sennosides 8.6 Mg Tablet PO 08/06/23 11:59 2 tab DAILY@12 PRN Administration If no BM in 2 days Sodium Chloride 0 ml 08/05/22 16:50 Sodium Chloride 0.9 % 10 Ml Syringe IV-PUSH 08/05/23 16:49 PRN PRN Flush Tolterodine Tartrate 2 mg 08/06/22 07:30 08/17/22 06:10 Tolterodine 2 Mg Cap.Er.24h PO 08/06/23 07:29 2 mg DAILY.AC.BKFAST DONITA Administration Assessment/Plan Assessment/Plan (1) HTN (hypertension): Code(s): I10 - Essential (primary) hypertension Status: Acute (2) Fracture of distal phalanx of right great toe: Code(s): S92.421A - Displaced fracture of distal phalanx of right great toe, initial encounter for closed fracture Status: Acute (3) C2 cervical fracture: Code(s): S12.100A - Unspecified displaced fracture of second cervical vertebra, initial encounter for closed fracture Status: Acute (4) Overactive bladder: Code(s): N32.81 - Overactive bladder Status: Acute (5) Recurrent falls: Code(s): R29.6 - Repeated falls Status: Acute (6) Hypothyroid: Code(s): E03.9 - Hypothyroidism, unspecified Status: Acute (7) Diabetes: Code(s): E11.9 - Type 2 diabetes mellitus without complications Status: Acute (8) Impaired mobility and activities of daily living: Code(s): Z74.09 - Other reduced mobility; Z78.9 - Other specified health status Status: Acute Plan 82-year-old female who sustained a fall at home resulting in head injury and [id number]. Evaluated by neurosurgery and recommended conservative treatment withjust a soft c-collar. 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 * C-collar on at all times per neurosurgery. * Patient requesting MRI, CT head neck / reviewed. Can f/u outpatient with Dr. Everett. * Ambulatory 400' * Plan for home 08/19 -Hospital bed was prescribed due to patient requiring frequent and immediate changes in body positioning for pain alleviation that is not feasible in a standard bed due to impaired bed mobility related to her C2 cervical fracture. Patient education Pressure ulcer prophylaxis; encourage mobilization, frequent postural changes, pressure-relief techniques DVT prophylaxis: Mechanical prophylaxis with SCDs and DEYSI hose Encourage deep breathing exercise incentive spirometry. Monitor bladder. Toileting schedule. Continue current bladder management, with scans as needed and CIC if needed. Start bowel care program every day to obtain continence, prevent ileus. Maintain fall precautions Gait and balance retraining Functional training and self-care and home management, including activities of daily living and instrumental activities of daily living Provision of the necessary gait aids and functional adaptive equipment to enhance the patient's a functional cheondoism Ensure adequate nutrition and hydration Sleep: Add melatonin. Pain: Continue current regimen Discharge planning: Home with family 08/19. Plan: I completed a substantive portion of this encounter, the medical decision makingportion of this note in its entirety, including Allied health note review, nursing note review, [employer] consultant note review, discussion with nursing and case management, and more than 50% of my time was spent on counseling and coordination of care, time spent 30 minutes Patient was personally seen by me, Dr. Davis, on the day of encounter, reviewed the history and the relevant portions of the chart, including current orders, allied health and [employer] consultant notes, labs/imaging and performed milan elements of exam and I formulated the plan of care and facilitated the medical decision making. Documented By: Pablo Davis MD 08/17/22 0926 Signed By: <Electronically signed by Pablo Davis MD> 08/17/22 1059 [facility] Work Phone: 1(939) 954-850506-26-2023 Progress note Author Pablo Davis [facility] August 15, 2022 4:45pm Note Date/Time August 15, 2022 4:45 pm [facility] [address] [place] [address] Physiatry(Rehab) Progress Note Signed Patient: Tammy Sandoval MR#: [id number] : 1940 Acct:[id number] Age/Sex: 82 / F Adm Date: 3 Loc: Room: 5P0692-0 Type: ADM IN Attending Dr: Pablo Davis MD Copies to: ~ Date of Service: 08/15/2022 Subjective Subjective Narrative: Ms. Sandoval is a 82 year old female presenting to acute rehab with functional impairments secondary to C2 fracture s/p fall. Her past medical history is notable for type II DM, hyperlipidemia, GERD, hypothyroidism, cardiac arrhythmias/p pacemaker implantation. Patient reports a history of recurrent falls due to poor balance for the past 2 years. She was seen and worked up by Dr. Klein with neurology a few years ago, however no diagnosis was made at that time. This time she sustained a fall in her living room, striking her head on something; she is not exactly sure whether that was a piece of furniture, or just the floor. She did not lose consciousness, but felt an intense pain in her head and neck. She was unable to get to her phone and laid on the floor for approximately 3 hours until her made his way back home. CT spine demonstrated comminuted mildly displaced fracture of the base of C2, aswell as encroachment to the right transverse foramen concerning for vertebral artery injury. Head CT was nonacute. CTA redemonstrated C2 fracture and opacification of the midpoint of the right vertebral artery with narrowing starting at the C3 level. There was also a right great toe distal phalanx fracture noted, otherwise no acute injuries. Neurosurgery was consulted and recommended conservative treatment with soft c- collar. Neurology was also following while inpatient. 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 Considerations are made for occipital nerve block down the road if symptoms do not improve. Interval History: No acute events over weekend. Tolerating therapy. FI arranged for tomorrow for d/c planning. Chronic conditions stable. Review of Systems Review of Systems All other systems reviewed & are negative unless noted below or in HPI Exam Physical Exam Vital Signs: Temp Pulse Resp BP Pulse Ox O2 Del Method 97.9 F 83 16 131/66 96 Room Air 08/15/22 15:23 08/15/22 15:23 08/15/22 15:23 08/15/22 15:23 08/15/22 15:23 08/15/22 15:23 Narrative: Const General: cooperative, comfortable, no acute distress, well developed Nutritional Appearance: Normal body habitus Orientation: alert, awake and oriented x3 Limitations: None HEENT Head: normal to inspection, normocephalic and atraumatic. Reports frontal headaches which come and go Ears: hearing grossly normal bilaterally Nose: external nose normal Face and sinus: normal facial exam Eyes General: appearance normal, both eyes and all related structures Pupils: PERRL EOM: EOM intact bilaterally Neck Neck: Soft c-collar intact, no lymphadenopathy and trachea midline. Pain with movement. Neck mass: No Chest Chest palpation & inspection: normal inspection of the chest Resp Effort & Inspection: normal respiratory effort, able to speak in complete sentences, symmetric chest movement and no cough Auscultation: clear to auscultation bilaterally Cardio Jugular venous pressure: no JVD Rhythm: Regular rhythm and rate GI: Inspection: normal to inspection Palpation: soft, no hepatosplenomegaly and nontender Auscultation: normal bowel sounds Musc Cervical Spine: normal cervical lordosis and cervical ROM normal Thoracic/Lumbar Spine: thoraco-lumbar ROM normal Skin General: no rashes or lesions noted Neuro General: patient alert, oriented x3, moves all extremities Cranial Nerves: PERRL Speech: speech normal Extrem Other: WNL Psych Appearance: grossly normal Mental Status: WNL Mood: congruent mood Affect: normal affect Speech and Movement: speech and movement normal Attitude: cooperative Insight: Fair Judgment: Fair Objective Labs 08/06/22 04:53 08/06/22 04:53 Labs: Laboratory Results - last 24 hr 08/14/22 08/15/22 20:07 16:13 POC Glucose 155 142 POC Glucose Comment Glu2: cleaned meter Glu2: cleaned meter Medications and Allergies Allergies and Active Meds: Allergies adhesive Allergy (Verified 08/02/22 14:10) Redness of Skin/Removes Skin Active Medications Generic Name Dose Route Start Last Admin Trade Name Pepe PRN Reason Stop Dose Admin Acetaminophen 500 mg 08/05/22 16:50 08/14/22 08:43 Acetaminophen 500 Mg Tablet PO 08/05/23 16:49 500 mg Q4H PRN Administration Pain Al Hydrox/Mg Hydrox/Simethicone 30 ml 08/05/22 16:50 Mag Hydrox/Al Hydrox/Simeth 30 Ml Udc PO 08/05/23 16:49 Q4H PRN Indigestion Alprazolam 0.5 mg 08/05/22 16:45 08/14/22 20:42 Alprazolam 0.5 Mg Tablet PO 02/01/23 16:44 0.5 mg TID PRN Administration Anxiety Amlodipine Besylate 10 mg 08/08/22 09:00 08/15/22 08:52 Amlodipine 10 Mg Tablet PO 08/08/23 08:59 10 mg DAILY DONITA Administration Atorvastatin Calcium 5 mg 08/06/22 09:00 08/15/22 08:52 Atorvastatin 10 Mg Tablet PO 08/06/23 08:59 5 mg QAM DONITA Administration Bisacodyl 10 mg 08/05/22 16:50 Bisacodyl 10 Mg Supp.Rect MS 08/05/23 16:49 DAILY PRN Constipation Carbamazepine 100 mg 08/05/22 21:00 08/15/22 08:52 Carbamazepine 200 Mg Tablet PO 08/05/23 20:59 100 mg BID DONITA Administration Docusate Sodium 100 mg 08/05/22 16:50 08/10/22 20:35 Docusate 100 Mg Capsule PO 08/05/23 16:49 100 mg BID PRN Administration Constipation Docusate Sodium 283 mg 08/05/22 16:50 Docusate Enema 283 Mg/5 Ml Enema MS 08/05/23 16:49 DAILY PRN Constipation Gabapentin 300 mg 08/05/22 22:00 08/15/22 15:11 Gabapentin 300 Mg Capsule PO 08/05/23 21:59 300 mg TID DONITA Administration Glimepiride 2 mg 08/06/22 09:00 08/15/22 08:52 Glimepiride 2 Mg Tablet PO 08/06/23 08:59 2 mg QAM DONITA Administration Hydrochlorothiazide 25 mg 08/06/22 09:00 08/15/22 08:52 Hydrochlorothiazide 25 Mg Tablet PO 08/06/23 08:59 25 mg DAILY DONITA Administration Insulin Aspart 0 units 08/07/22 12:00 08/15/22 11:34 Insulin Aspart 300 Units/3 Ml Insuln.Pen SUBCUT 08/07/23 11:59 8 units TID.WM.HS DONITA Administration Protocol Lactulose 30 gm 08/05/22 16:50 08/08/22 06:47 Lactulose 20 Gm/30 Ml Udc PO 08/05/23 16:49 30 gm DAILY PRN Administration Constipation Levothyroxine Sodium 50 mcg 08/06/22 06:30 08/15/22 06:10 Levothyroxine 50 Mcg Tablet PO 08/06/23 06:29 50 mcg DAILY.0630 DONITA Administration Lisinopril 20 mg 08/11/22 09:00 08/15/22 08:52 Lisinopril 20 Mg Tablet PO 08/11/23 08:59 20 mg DAILY DONITA Administration Meclizine HCl 12.5 mg 08/05/22 16:45 Meclizine 12.5 Mg Tablet PO 08/05/23 16:44 BID PRN Vertigo Melatonin 5 mg 08/09/22 22:00 08/14/22 20:41 Melatonin 5 Mg Tablet PO 08/09/23 21:59 5 mg QHS DONITA Administration Metformin HCl 500 mg 08/05/22 21:00 08/15/22 08:52 Metformin 500 Mg Tablet PO 08/05/23 20:59 500 mg BID DONITA Administration Mirabegron 50 mg 08/06/22 09:00 08/15/22 08:52 Mirabegron 25 Mg Tab.Er.24h PO 08/06/23 08:59 50 mg DAILY DONITA Administration Oxycodone/Acetaminophen 1 tab 08/06/22 09:12 08/15/22 15:11 Oxycodone/Acetaminophen 5-325 Mg Tablet PO 1 tab Q4H PRN Administration Pain Scale 6 - 10 Pantoprazole Sodium 40 mg 08/05/22 21:00 08/15/22 08:52 Pantoprazole 40 Mg Tablet.Dr PO 08/05/23 20:59 40 mg BID DONITA Administration Polyethylene Glycol 17 gm 08/08/22 10:20 08/15/22 08:53 Polyethylene Glycol 3350 17 Gm Powd.Pack PO 08/08/23 10:19 17 gm BID DONITA Administration Sennosides 2 tab 08/06/22 12:00 08/11/22 08:26 Sennosides 8.6 Mg Tablet PO 08/06/23 11:59 2 tab DAILY@12 PRN Administration If no BM in 2 days Sodium Chloride 0 ml 08/05/22 16:50 Sodium Chloride 0.9 % 10 Ml Syringe IV-PUSH 08/05/23 16:49 PRN PRN Flush Tolterodine Tartrate 2 mg 08/06/22 07:30 08/15/22 06:10 Tolterodine 2 Mg Cap.Er.24h PO 08/06/23 07:29 2 mg DAILY.AC.BKFAST DONITA Administration Assessment/Plan Assessment/Plan (1) HTN (hypertension): Code(s): I10 - Essential (primary) hypertension Status: Acute (2) Fracture of distal phalanx of right great toe: Code(s): S92.421A - Displaced fracture of distal phalanx of right great toe, initial encounter for closed fracture Status: Acute (3) C2 cervical fracture: Code(s): S12.100A - Unspecified displaced fracture of second cervical vertebra, initial encounter for closed fracture Status: Acute (4) Overactive bladder: Code(s): N32.81 - Overactive bladder Status: Acute (5) Recurrent falls: Code(s): R29.6 - Repeated falls Status: Acute (6) Hypothyroid: Code(s): E03.9 - Hypothyroidism, unspecified Status: Acute (7) Diabetes: Code(s): E11.9 - Type 2 diabetes mellitus without complications Status: Acute (8) Impaired mobility and activities of daily living: Code(s): Z74.09 - Other reduced mobility; Z78.9 - Other specified health status Status: Acute Plan 82-year-old female who sustained a fall at home resulting in head injury and [id number]. Evaluated by neurosurgery and recommended conservative treatment withjust a soft c-collar. 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 * C-collar on at all times per neurosurgery. May remove briefly while seated. * Continue current plan of care. * Patient requesting MRI, need outpatient Neurology records. She said she discussed with Dr Everett. * Ambulatory 100'. * Check labs tomorrow. Patient education Pressure ulcer prophylaxis; encourage mobilization, frequent postural changes, pressure-relief techniques DVT prophylaxis: Mechanical prophylaxis with SCDs and DEYSI hose Encourage deep breathing exercise incentive spirometry. Monitor bladder. Toileting schedule. Continue current bladder management, with scans as needed and CIC if needed. Start bowel care program every day to obtain continence, prevent ileus. Maintain fall precautions Gait and balance retraining Functional training and self-care and home management, including activities of daily living and instrumental activities of daily living Provision of the necessary gait aids and functional adaptive equipment to enhance the patient's a functional cheondoism Ensure adequate nutrition and hydration Sleep: Add melatonin. Pain: Continue current regimen Discharge planning: Home with family end of week. Plan: I completed a substantive portion of this encounter, the medical decision makingportion of this note in its entirety, including Allied health note review, nursing note review, [employer] consultant note review, discussion with nursing and case management, and more than 50% of my time was spent on counseling and coordination of care, time spent 30 minutes Patient was personally seen by me, Dr. Davis, on the day of encounter, reviewed the history and the relevant portions of the chart, including current orders, allied health and [employer] consultant notes, labs/imaging and performed milan elements of exam and I formulated the plan of care and facilitated the medical decision making. Documented By: Pablo Davis MD 08/15/221643 Signed By: <Electronically signed by Pablo Davis MD> 08/15/221 [facility] Work Phone: 1(887) 606-207406-25-2023 Progress note Author Hayley Donovan [facility] August 14, 2022 3:45pm Note Date/Time August 14, 2022 2:22 pm [facility] [address] [place] [address] Hospitalist Progress Note Signed Patient: Tammy Sandoval MR#: [id number] : 1940 Acct:[id number] Age/Sex: 82 / F Adm Date: 3 Loc: Room: [address] [place] [address] Type: ADM IN Attending Dr: Pablo Davis MD Copies to: ~ Date of Service: 08/14/2022 Subjective Subjective Narrative: Patient is seen and examined on follow-up. He continues to work with therapy. Psychiatry is following with depression. Declined medication initiation. Cervical pain managed with medication. Vitals reviewed BP not optimally controlled however with advanced age will hold off changing medications at this time to prevent any orthostasis or hypotension potentially contributing to further falls. Labs reviewed from August 06 CBC normal, sodium 133 normal renal function. Exam Physical Exam Vital Signs: Temp Pulse Resp BP Pulse Ox O2 Del Method 97.9 F 90 20 163/77 H 95 Room Air 08/13/22 14:27 08/14/22 08:50 08/14/22 06:31 08/14/22 08:50 08/14/22 08:50 08/14/22 08:50 Narrative: CONST- alert, in bed, no distress at rest, frail elderly CARD- RRR no abnormal heart tones PULM- dimin without wheeze or rhonchi, RA ABD- S/NT, NABS EXTREM- no edema BLE, calves nontender Objective Lab Results 08/06/22 04:53 08/06/22 04:53 Meds Allergies and Active Meds Allergies adhesive Allergy (Verified 08/02/22 14:10) Redness of Skin/Removes Skin Active Meds: Active Medications Generic Name Dose Route Start Last Admin Trade Name Freq PRN Reason Stop Dose Admin Acetaminophen 500 mg 08/05/22 16:50 08/14/22 08:43 Acetaminophen 500 Mg Tablet PO 08/05/23 16:49 500 mg Q4H PRN Administration Pain Al Hydrox/Mg Hydrox/Simethicone 30 ml 08/05/22 16:50 Mag Hydrox/Al Hydrox/Simeth 30 Ml Udc PO 08/05/23 16:49 Q4H PRN Indigestion Alprazolam 0.5 mg 08/05/22 16:45 08/13/22 20:41 Alprazolam 0.5 Mg Tablet PO 02/01/23 16:44 0.5 mg TID PRN Administration Anxiety Amlodipine Besylate 10 mg 08/08/22 09:00 08/14/22 08:40 Amlodipine 10 Mg Tablet PO 08/08/23 08:59 10 mg DAILY DONITA Administration Atorvastatin Calcium 5 mg 08/06/22 09:00 08/14/22 08:40 Atorvastatin 10 Mg Tablet PO 08/06/23 08:59 5 mg QAM DONITA Administration Bisacodyl 10 mg 08/05/22 16:50 Bisacodyl 10 Mg Supp.Rect MS 08/05/23 16:49 DAILY PRN Constipation Carbamazepine 100 mg 08/05/22 21:00 08/14/22 08:40 Carbamazepine 200 Mg Tablet PO 08/05/23 20:59 100 mg BID DONITA Administration Docusate Sodium 100 mg 08/05/22 16:50 08/10/22 20:35 Docusate 100 Mg Capsule PO 08/05/23 16:49 100 mg BID PRN Administration Constipation Docusate Sodium 283 mg 08/05/22 16:50 Docusate Enema 283 Mg/5 Ml Enema MS 08/05/23 16:49 DAILY PRN Constipation Gabapentin 300 mg 08/05/22 22:00 08/14/22 13:48 Gabapentin 300 Mg Capsule PO 08/05/23 21:59 300 mg TID DONITA Administration Glimepiride 2 mg 08/06/22 09:00 08/14/22 08:40 Glimepiride 2 Mg Tablet PO 08/06/23 08:59 2 mg QAM DONITA Administration Hydrochlorothiazide 25 mg 08/06/22 09:00 08/14/22 08:40 Hydrochlorothiazide 25 Mg Tablet PO 08/06/23 08:59 25 mg DAILY DONITA Administration Insulin Aspart 0 units 08/07/22 12:00 08/14/22 13:25 Insulin Aspart 300 Units/3 Ml Insuln.Pen SUBCUT 08/07/23 11:59 2 units TID.WM.HS DONITA Administration Protocol Lactulose 30 gm 08/05/22 16:50 08/08/22 06:47 Lactulose 20 Gm/30 Ml Udc PO 08/05/23 16:49 30 gm DAILY PRN Administration Constipation Levothyroxine Sodium 50 mcg 08/06/22 06:30 08/14/22 06:17 Levothyroxine 50 Mcg Tablet PO 08/06/23 06:29 50 mcg DAILY.0630 DONITA Administration Lisinopril 20 mg 08/11/22 09:00 08/14/22 08:40 Lisinopril 20 Mg Tablet PO 08/11/23 08:59 20 mg DAILY DONITA Administration Meclizine HCl 12.5 mg 08/05/22 16:45 Meclizine 12.5 Mg Tablet PO 08/05/23 16:44 BID PRN Vertigo Melatonin 5 mg 08/09/22 22:00 08/13/22 22:00 Melatonin 5 Mg Tablet PO 08/09/23 21:59 5 mg QHS DONITA Administration Metformin HCl 500 mg 08/05/22 21:00 08/14/22 08:40 Metformin 500 Mg Tablet PO 08/05/23 20:59 500 mg BID DONITA Administration Mirabegron 50 mg 08/06/22 09:00 08/14/22 08:39 Mirabegron 25 Mg Tab.Er.24h PO 08/06/23 08:59 50 mg DAILY DONITA Administration Oxycodone/Acetaminophen 1 tab 08/06/22 09:12 08/14/22 11:26 Oxycodone/Acetaminophen 5-325 Mg Tablet PO 1 tab Q4H PRN Administration Pain Scale 6 - 10 Pantoprazole Sodium 40 mg 08/05/22 21:00 08/14/22 08:40 Pantoprazole 40 Mg Tablet. PO 08/05/23 20:59 40 mg BID DONITA Administration Polyethylene Glycol 17 gm 08/08/22 10:20 08/14/22 08:39 Polyethylene Glycol 3350 17 Gm Powd.Pack PO 08/08/23 10:19 17 gm BID DONITA Administration Sennosides 2 tab 08/06/22 12:00 08/11/22 08:26 Sennosides 8.6 Mg Tablet PO 08/06/23 11:59 2 tab DAILY@12 PRN Administration If no BM in 2 days Sodium Chloride 0 ml 08/05/22 16:50 Sodium Chloride 0.9 % 10 Ml Syringe IV-PUSH 08/05/23 16:49 PRN PRN Flush Tolterodine Tartrate 2 mg 08/06/22 07:30 08/14/22 06:17 Tolterodine 2 Mg Cap.Er.24h PO 08/06/23 07:29 2 mg DAILY.AC.BKFAST DONITA Administration A&P - Hospitalist Assessment/Plan (1) C2 cervical fracture: (2) Fracture of distal phalanx of right great toe: (3) Contusion of right index finger without damage to nail, initial encounter: (4) HTN (hypertension): (5) Recurrent falls: Plan Recurrent falls C2 cervical fracture Fracture of distal phalanx of right great toe Contusion of right index finger ?Plan of care for rehabilitation for PT/OT, DVT prophylaxis, bowel regimen per PM&R team Chronic conditions: 1.Hypertension, suboptimal control but will not change further to prevent any orthostasis which could precipitate further falls with advancing age. Continuesamlodipine, hydrochlorothiazide, lisinopril, continue to monitor 2.Diabetes?metformin and glimepiride, blood sugars controlled 3.Hypothyroidism? Synthroid 4.GERD? pantoprazole 5.Overactive bladder? Detrol LA, Myrbetriq 6.Neuropathy? Tegretol and gabapentin 7.Hyperlipidemia? atorvastatin Documented By: SHANKAR Fontenot 3 1422 Signed By: <Electronically signed by ANP-BC Hayley Donovan> 08/14/22 1541 [facility] Work Phone: [phone]) 756-227106-24-2023 Progress note Author Pablo Davis [facility] August 13, 2022 9:29am Note Date/Time August 12, 2022 10:0 3am [facility] [address] [place] [address] Physiatry(Rehab) Progress Note Signed Patient: Tammy Sandoval MR#: [id number] : 1940 Acct:[id number] Age/Sex: 82 / F Adm Date: 3 Loc: Room: 3H5779-3 Type: ADM IN Attending Dr: Pablo Davis MD Copies to: ~ Date of Service: 08/12/2022 Subjective Subjective Narrative: Ms. Sandoval is a 82 year old female presenting to acute rehab with functional impairments secondary to C2 fracture s/p fall. Her past medical history is notable for type II DM, hyperlipidemia, GERD, hypothyroidism, cardiac arrhythmias/p pacemaker implantation. Patient reports a history of recurrent falls due to poor balance for the past 2 years. She was seen and worked up by Dr. Klein with neurology a few years ago, however no diagnosis was made at that time. This time she sustained a fall in her living room, striking her head on something; she is not exactly sure whether that was a piece of furniture, or just the floor. She did not lose consciousness, but felt an intense pain in her head and neck. She was unable to get to her phone and laid on the floor for approximately 3 hours until her made his way back home. CT spine demonstrated comminuted mildly displaced fracture of the base of C2, aswell as encroachment to the right transverse foramen concerning for vertebral artery injury. Head CT was nonacute. CTA redemonstrated C2 fracture and opacification of the midpoint of the right vertebral artery with narrowing starting at the C3 level. There was also a right great toe distal phalanx fracture noted, otherwise no acute injuries. Neurosurgery was consulted and recommended conservative treatment with soft c- collar. Neurology was also following while inpatient. 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 Considerations are made for occipital nerve block down the road if symptoms do not improve. Interval History: No events overnight. Told staff she wanted to . Psychiatry consulted. Working with PT/OT. Ambulatory with increased time. Chronic conditions stable. Review of Systems Review of Systems All other systems reviewed & are negative unless noted below or in HPI Exam Physical Exam Vital Signs: Temp Pulse Resp BP Pulse Ox O2 Del Method 97.6 F 88 18 128/73 95 Room Air 08/12/22 08:52 08/12/22 08:52 08/12/22 08:52 08/12/22 08:52 08/12/22 08:52 08/12/22 08:52 Narrative: Const General: cooperative, comfortable, no acute distress, well developed Nutritional Appearance: Normal body habitus Orientation: alert, awake and oriented x3 Limitations: None HEENT Head: normal to inspection, normocephalic and atraumatic. Reports frontal headaches which come and go Ears: hearing grossly normal bilaterally Nose: external nose normal Face and sinus: normal facial exam Eyes General: appearance normal, both eyes and all related structures Pupils: PERRL EOM: EOM intact bilaterally Neck Neck: Soft c-collar intact, no lymphadenopathy and trachea midline. Pain with movement. Neck mass: No Chest Chest palpation & inspection: normal inspection of the chest Resp Effort & Inspection: normal respiratory effort, able to speak in complete sentences, symmetric chest movement and no cough Auscultation: clear to auscultation bilaterally Cardio Jugular venous pressure: no JVD Rhythm: Regular rhythm and rate GI: Inspection: normal to inspection Palpation: soft, no hepatosplenomegaly and nontender Auscultation: normal bowel sounds Musc Cervical Spine: normal cervical lordosis and cervical ROM normal Thoracic/Lumbar Spine: thoraco-lumbar ROM normal Skin General: no rashes or lesions noted Neuro General: patient alert, oriented x3, moves all extremities Cranial Nerves: PERRL Speech: speech normal Extrem Other: WNL Psych Appearance: grossly normal Mental Status: WNL Mood: congruent mood Affect: normal affect Speech and Movement: speech and movement normal Attitude: cooperative Insight: Fair Judgment: Fair Objective Labs 08/06/22 04:53 08/06/22 04:53 Labs: Laboratory Results - last 24 hr 08/11/22 08/11/22 08/11/22 11:07 16:19 20:35 POC Glucose 296 153 126 POC Glucose Comment Glu2: cleaned meter Glu2: cleaned meter Medications and Allergies Allergies and Active Meds: Allergies adhesive Allergy (Verified 08/02/22 14:10) Redness of Skin/Removes Skin Active Medications Generic Name Dose Route Start Last Admin Trade Name Freq PRN Reason Stop Dose Admin Acetaminophen 500 mg 08/05/22 16:50 08/11/22 13:20 Acetaminophen 500 Mg Tablet PO 08/05/23 16:49 500 mg Q4H PRN Administration Pain Al Hydrox/Mg Hydrox/Simethicone 30 ml 08/05/22 16:50 Mag Hydrox/Al Hydrox/Simeth 30 Ml Udc PO 08/05/23 16:49 Q4H PRN Indigestion Alprazolam 0.5 mg 08/05/22 16:45 08/11/22 20:17 Alprazolam 0.5 Mg Tablet PO 02/01/23 16:44 0.5 mg TID PRN Administration Anxiety Amlodipine Besylate 10 mg 08/08/22 09:00 08/12/22 08:55 Amlodipine 10 Mg Tablet PO 08/08/23 08:59 10 mg DAILY DONITA Administration Atorvastatin Calcium 5 mg 08/06/22 09:00 08/12/22 08:55 Atorvastatin 10 Mg Tablet PO 08/06/23 08:59 5 mg QAM DONITA Administration Bisacodyl 10 mg 08/05/22 16:50 Bisacodyl 10 Mg Supp.Rect MS 08/05/23 16:49 DAILY PRN Constipation Carbamazepine 100 mg 08/05/22 21:00 08/12/22 08:54 Carbamazepine 200 Mg Tablet PO 08/05/23 20:59 100 mg BID DONITA Administration Docusate Sodium 100 mg 08/05/22 16:50 08/10/22 20:35 Docusate 100 Mg Capsule PO 08/05/23 16:49 100 mg BID PRN Administration Constipation Docusate Sodium 283 mg 08/05/22 16:50 Docusate Enema 283 Mg/5 Ml Enema MS 08/05/23 16:49 DAILY PRN Constipation Gabapentin 300 mg 08/05/22 22:00 08/12/22 08:55 Gabapentin 300 Mg Capsule PO 08/05/23 21:59 300 mg TID DONITA Administration Glimepiride 2 mg 08/06/22 09:00 08/12/22 08:55 Glimepiride 2 Mg Tablet PO 08/06/23 08:59 2 mg QAM DONITA Administration Hydrochlorothiazide 25 mg 08/06/22 09:00 08/12/22 08:55 Hydrochlorothiazide 25 Mg Tablet PO 08/06/23 08:59 25 mg DAILY DONITA Administration Insulin Aspart 0 units 08/07/22 12:00 08/12/22 08:55 Insulin Aspart 300 Units/3 Ml Insuln.Pen SUBCUT 08/07/23 11:59 Not Given TID.WM.HS DONITA Protocol Lactulose 30 gm 08/05/22 16:50 08/08/22 06:47 Lactulose 20 Gm/30 Ml Udc PO 08/05/23 16:49 30 gm DAILY PRN Administration Constipation Levothyroxine Sodium 50 mcg 08/06/22 06:30 08/12/22 06:48 Levothyroxine 50 Mcg Tablet PO 08/06/23 06:29 50 mcg DAILY.0630 DONITA Administration Lisinopril 20 mg 08/11/22 09:00 08/12/22 08:55 Lisinopril 20 Mg Tablet PO 08/11/23 08:59 20 mg DAILY DONITA Administration Meclizine HCl 12.5 mg 08/05/22 16:45 Meclizine 12.5 Mg Tablet PO 08/05/23 16:44 BID PRN Vertigo Melatonin 5 mg 08/09/22 22:00 08/11/22 20:16 Melatonin 5 Mg Tablet PO 08/09/23 21:59 5 mg QHS DONITA Administration Metformin HCl 500 mg 08/05/22 21:00 08/12/22 08:55 Metformin 500 Mg Tablet PO 08/05/23 20:59 500 mg BID DONITA Administration Mirabegron 50 mg 08/06/22 09:00 08/12/22 08:54 Mirabegron 25 Mg Tab.Er.24h PO 08/06/23 08:59 50 mg DAILY DONITA Administration Oxycodone/Acetaminophen 1 tab 08/06/22 09:12 08/12/22 06:48 Oxycodone/Acetaminophen 5-325 Mg Tablet PO 1 tab Q4H PRN Administration Pain Scale 6 - 10 Pantoprazole Sodium 40 mg 08/05/22 21:00 08/12/22 08:55 Pantoprazole 40 Mg Tablet. PO 08/05/23 20:59 40 mg BID DONITA Administration Polyethylene Glycol 17 gm 08/08/22 10:20 08/12/22 08:56 Polyethylene Glycol 3350 17 Gm Powd.Pack PO 08/08/23 10:19 17 gm BID DONITA Administration Sennosides 2 tab 08/06/22 12:00 08/11/22 08:26 Sennosides 8.6 Mg Tablet PO 08/06/23 11:59 2 tab DAILY@12 PRN Administration If no BM in 2 days Sodium Chloride 0 ml 08/05/22 16:50 Sodium Chloride 0.9 % 10 Ml Syringe IV-PUSH 08/05/23 16:49 PRN PRN Flush Tolterodine Tartrate 2 mg 08/06/22 07:30 08/12/22 06:48 Tolterodine 2 Mg Cap.Er.24h PO 08/06/23 07:29 2 mg DAILY.AC.BKFAST DONITA Administration Assessment/Plan Assessment/Plan (1) HTN (hypertension): Code(s): I10 - Essential (primary) hypertension Status: Acute (2) Fracture of distal phalanx of right great toe: Code(s): S92.421A - Displaced fracture of distal phalanx of right great toe, initial encounter for closed fracture Status: Acute (3) C2 cervical fracture: Code(s): S12.100A - Unspecified displaced fracture of second cervical vertebra, initial encounter for closed fracture Status: Acute (4) Overactive bladder: Code(s): N32.81 - Overactive bladder Status: Acute (5) Recurrent falls: Code(s): R29.6 - Repeated falls Status: Acute (6) Hypothyroid: Code(s): E03.9 - Hypothyroidism, unspecified Status: Acute (7) Diabetes: Code(s): E11.9 - Type 2 diabetes mellitus without complications Status: Acute (8) Impaired mobility and activities of daily living: Code(s): Z74.09 - Other reduced mobility; Z78.9 - Other specified health status Status: Acute Plan 82-year-old female who sustained a fall at home resulting in head injury and [id number]. Evaluated by neurosurgery and recommended conservative treatment withjust a soft c-collar. 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 * C-collar on at all times per neurosurgery. May remove briefly while seated. * Passive suicidal ideation, appreciate psychiatry recommendations * Patient requesting MRI, need outpatient Neurology records. She said she discussed with Dr Everett. * Ambulatory 100'. Patient education Pressure ulcer prophylaxis; encourage mobilization, frequent postural changes, pressure-relief techniques DVT prophylaxis: Mechanical prophylaxis with SCDs and DEYSI hose Encourage deep breathing exercise incentive spirometry. Monitor bladder. Toileting schedule. Continue current bladder management, with scans as needed and CIC if needed. Start bowel care program every day to obtain continence, prevent ileus. Maintain fall precautions Gait and balance retraining Functional training and self-care and home management, including activities of daily living and instrumental activities of daily living Provision of the necessary gait aids and functional adaptive equipment to enhance the patient's a functional cheondoism Ensure adequate nutrition and hydration Sleep: Add melatonin. Pain: Continue current regimen Discharge planning: Home with family in 2 weeks. Plan: I completed a substantive portion of this encounter, the medical decision makingportion of this note in its entirety, including Allied health note review, nursing note review, [employer] commerce consultant note review, discussion with nursing and case management, and more than 50% of my time was spent on counseling and coordination of care, time spent 30 minutes Patient was personally seen by me, Dr. Davis, on the day of encounter, reviewed the history and the relevant portions of the chart, including current orders, allied health and ibm web[employer] commerce consultant notes, labs/imaging and performed milan elements of exam and I formulated the plan of care and facilitated the medical decision making. Documented By: Pablo Davis MD 08/12/22 1003 Signed By: <Electronically signed by Pablo Davis MD> 08/13/22 5187 [facility] Work Phone: [phone]) 479-330606-23-2023 Consult note Author Igor Pham [facility] August 12, 2022 11:13am Note Date/Time August 12, 2022 11:1 1am [facility] [address] [place] [address] Psychiatry Consult Note Signed Patient: Tammy Sandoval MR#: [id number] : 1940 Acct:[id number] Age/Sex: 82 / F Adm Date: 3 Loc: Room: 7B2386-4 Type : ADM IN Attending Dr: Pablo Davis MD Copies to: MD Isaiah Gay DO Joseph Riley, MD~ HPI Consult Date: 08/12/22 Requesting Physician: Pablo Davis MD Primary Care Provider: Isaiah Shaw DO Consult Narrative HPI: Ms. Sandoval is a 82 year old female reported that she had suicidal thoughts yesterday when she was in the shower. She reported that she cut down on herselfand did not want to keep doing what she was doing. She reported that she is better today. She slept well overnight. She denied any current thoughts of harming herself. She stated that she is Mandaen and she would never do this. She denied any past psych history including suicide attempts or hospitalizations. She is currently prescribed Xanax for anxiety. Mental Status Exam: Appearance: grossly normal Mental Status: mental status grossly normal Mood: Dysphoric mood due to pain Affect: Normal affect Speech and Movement: speech and movement normal and speech clear Attitude: cooperative Thought Process: normal Thought Content: Denied hallucinations, no homicidality and no suicidality Insight: Good Judgment: Good PMFSH Vaccinated for COVID-19?: Yes Medical History Acid reflux Arthritis Back pain Diabetes GERD (gastroesophageal reflux disease) High cholesterol High triglycerides History of basal cell cancer right nose History of cardiac arrhythmia Hypothyroid Incontinence abb Other abnormal clinical finding I had fluid around my heart Overactive bladder Pacemaker st judes, 2012 placement. Huff 2021 Panic attacks Surgical History History of bladder surgery 1970 History of cystoscopy december 2021 History of hysterectomy History of lumbar laminectomy dr KELTON David, 2013 History of phacoemulsification of cataract of both eyes with intraocular lens implantation Previous back surgery Family History Father HTN (hypertension) Sister Osteoporosis Sister Uterine cancer Sister Alzheimer disease Sister COPD (chronic obstructive pulmonary disease) Social History Smoking Status: Never smoker Substance Use Type: None Substance Abuse Comment: Non smoker and non drinker Social History Comments: Mother of 2 adult males Meds Medications and Allergies Allergies adhesive Allergy (Verified 08/02/22 14:10) Redness of Skin/Removes Skin Home Medications alprazolam 0.5 mg tablet (Xanax) 0.5 mg PO TID PRN Anxiety 12/17/18 [History Confirmed 08/05/22] levothyroxine 50 mcg tablet (Synthroid) 50 mcg PO QAM 12/17/18 [History Confirmed 08/05/22] lovastatin 20 mg tablet 20 mg PO QAM 12/17/18 [History Confirmed 08/05/22] metformin 500 mg tablet (Glucophage) 500 mg PO BID 12/17/18 [History Confirmed 08/05/22] potassium gluconate 600 mg (99 mg) tablet 99 mg PO DIRECTED 10/25/19 [History Confirmed 08/02/22] meclizine 12.5 mg tablet 12.5 mg PO BID PRN Vertigo 07/29/20 [History Confirmed 08/05/22] nystatin 100,000 unit/mL oral suspension 100,000 unit PO DAILY PRN discomfort 07/29/20 [History Confirmed 08/02/22] omeprazole 40 mg capsule,delayed release 40 mg PO QAM 07/29/20 [History Confirmed 08/05/22] glimepiride 2 mg tablet (Amaryl) 2 mg PO QAM 01/18/22 [History Confirmed 08/05/22] solifenacin 5 mg tablet (Vesicare) 5 mg PO AC 01/18/22 [History Confirmed 08/02/22] mirabegron 50 mg tablet,extended release 24 hr (Myrbetriq) 50 mg PO DAILY 06/20/22 [History Confirmed 08/05/22] amlodipine 5 mg tablet 5 mg PO DAILY 08/05/22 [History Confirmed 08/05/22] carbamazepine 200 mg tablet (Tegretol) 100 mg PO BID #60 tabs 08/05/22 [Rx Confirmed 08/05/22] gabapentin 300 mg capsule 300 mg PO TID #90 caps 08/05/22 [Rx Confirmed 08/05/22] hydrochlorothiazide 25 mg tablet 25 mg PO DAILY #30 tabs 08/05/22 [Rx Confirmed 08/05/22] lisinopril 10 mg tablet 10 mg PO DAILY #30 tabs 08/05/22 [Rx Confirmed 08/05/22] oxycodone-acetaminophen 5 mg-325 mg tablet 1 tab PO Q6H PRN Pain Scale 6 - 10 #0tabs 08/05/22 [Rx Confirmed 08/05/22] tolterodine 2 mg capsule,extended release 24 hr (Detrol LA) 2 mg PO DAILY.AC.BKFAST 08/05/22 [History Confirmed 08/05/22] Exam Physical Exam Vital Signs: Temp Pulse Resp BP Pulse Ox O2 Del Method 97.6 F 88 18 128/73 95 Room Air 08/12/22 08:52 08/12/22 08:52 08/12/22 08:52 08/12/22 08:52 08/12/22 08:52 08/12/22 08:52 Results Labs 08/06/22 04:53 08/06/22 04:53 Psychiatry Labs: 08/06/22 08/06/22 04:53 04:53 RBC 4.50 Hgb 13.1 Hct 38.6 MCV 85.7 MCH 29.2 MCHC 34.0 RDW 14.5 Plt Count 212 MPV 7.6 Sodium 133 L Potassium 3.5 Chloride 95 L Carbon Dioxide 27.0 Anion Gap 14.5 BUN 28 H Creatinine 0.89 Calcium 9.2 Total Bilirubin 0.4 AST 17 ALT 19 Alkaline Phosphatase 74 Total Protein 7.1 Albumin 4.1 Assessment/Plan (1) HTN (hypertension): Code(s): I10 - Essential (primary) hypertension Status: Acute (2) Fracture of distal phalanx of right great toe: Code(s): S92.421A - Displaced fracture of distal phalanx of right great toe, initial encounter for closed fracture Status: Acute (3) C2 cervical fracture: Code(s): S12.100A - Unspecified displaced fracture of second cervical vertebra, initial encounter for closed fracture Status: Acute (4) Overactive bladder: Code(s): N32.81 - Overactive bladder Status: Acute (5) Recurrent falls: Code(s): R29.6 - Repeated falls Status: Acute (6) Hypothyroid: Code(s): E03.9 - Hypothyroidism, unspecified Status: Acute (7) Diabetes: Code(s): E11.9 - Type 2 diabetes mellitus without complications Status: Acute (8) Impaired mobility and activities of daily living: Code(s): Z74.09 - Other reduced mobility; Z78.9 - Other specified health status Status: Acute (9) Adjustment disorder: Code(s): F43.20 - Adjustment disorder, unspecified Status: Acute Plan Patient reporting that she is dealing with some depression due to her medical issues and reported that she has been in a lot of pain due to recent falls Denies current suicidal ideation and reported that her malinda prevents her from acting on the thoughts Would not start any medication at this time Please page with any further questions Documented By: Igor Pham MD 08/12/22 111 Signed By: <Electronically signed by Igor Pham MD> 08/12/22 [facility] Work Phone: [phone]) 889-522706-21-2023 Progress note Author Pablo Davis [facility] August 10, 2022 5:50am Note Date/Time August 10, 2022 5:50 am [facility] [address] [place] [address] Physiatry(Rehab) Progress Note Signed Patient: Tammy Sandoval MR#: [id number] : 1940 Acct:[id number] Age/Sex: 82 / F Adm Date: 3 Loc: Room: 9E4801-1 Type: ADM IN Attending Dr: Pablo Davis MD Copies to: ~ Date of Service: 08/09/2022 Subjective Subjective Narrative: Ms. Sandoval is a 82 year old female presenting to acute rehab with functional impairments secondary to C2 fracture s/p fall. Her past medical history is notable for type II DM, hyperlipidemia, GERD, hypothyroidism, cardiac arrhythmias/p pacemaker implantation. Patient reports a history of recurrent falls due to poor balance for the past 2 years. She was seen and worked up by Dr. Klein with neurology a few years ago, however no diagnosis was made at that time. This time she sustained a fall in her living room, striking her head on something; she is not exactly sure whether that was a piece of furniture, or just the floor. She did not lose consciousness, but felt an intense pain in her head and neck. She was unable to get to her phone and laid on the floor for approximately 3 hours until her made his way back home. CT spine demonstrated comminuted mildly displaced fracture of the base of C2, aswell as encroachment to the right transverse foramen concerning for vertebral artery injury. Head CT was nonacute. CTA redemonstrated C2 fracture and opacification of the midpoint of the right vertebral artery with narrowing starting at the C3 level. There was also a right great toe distal phalanx fracture noted, otherwise no acute injuries. Neurosurgery was consulted and recommended conservative treatment with soft c- collar. Neurology was also following while inpatient. 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 Considerations are made for occipital nerve block down the road if symptoms do not improve. Interval History: No events overnight, poor sleep noted, she takes Unisom at home. Ambulatory with therapy Generally weak but improving. Chronic conditions stable. Review of Systems Review of Systems All other systems reviewed & are negative unless noted below or in HPI Exam Physical Exam Vital Signs: Temp Pulse Resp BP Pulse Ox O2 Del Method 98.3 F 79 16 161/74 H 95 Room Air 08/10/22 05:26 08/10/22 05:26 08/10/22 05:26 08/10/22 05:26 08/10/22 05:26 08/10/22 05:26 Narrative: Const General: cooperative, comfortable, no acute distress, well developed Nutritional Appearance: Normal body habitus Orientation: alert, awake and oriented x3 Limitations: None HEENT Head: normal to inspection, normocephalic and atraumatic. Reports frontal headaches which come and go Ears: hearing grossly normal bilaterally Nose: external nose normal Face and sinus: normal facial exam Eyes General: appearance normal, both eyes and all related structures Pupils: PERRL EOM: EOM intact bilaterally Neck Neck: Soft c-collar intact, no lymphadenopathy and trachea midline. Pain with movement. Neck mass: No Chest Chest palpation & inspection: normal inspection of the chest Resp Effort & Inspection: normal respiratory effort, able to speak in complete sentences, symmetric chest movement and no cough Auscultation: clear to auscultation bilaterally Cardio Jugular venous pressure: no JVD Rhythm: Regular rhythm and rate GI: Inspection: normal to inspection Palpation: soft, no hepatosplenomegaly and nontender Auscultation: normal bowel sounds Musc Cervical Spine: normal cervical lordosis and cervical ROM normal Thoracic/Lumbar Spine: thoraco-lumbar ROM normal Skin General: no rashes or lesions noted Neuro General: patient alert, oriented x3, moves all extremities Cranial Nerves: PERRL Speech: speech normal Extrem Other: WNL Psych Appearance: grossly normal Mental Status: WNL Mood: congruent mood Affect: normal affect Speech and Movement: speech and movement normal Attitude: cooperative Insight: Fair Judgment: Fair Objective Labs 08/06/22 04:53 08/06/22 04:53 Labs: Laboratory Results - last 24 hr 08/09/22 08/09/22 08/09/22 07:26 11:30 16:12 POC Glucose 149 146 149 POC Glucose Comment Glu2: cleaned meter Glu2: cleaned meter Glu2: cleaned meter Medications and Allergies Allergies and Active Meds: Allergies adhesive Allergy (Verified 08/02/22 14:10) Redness of Skin/Removes Skin Active Medications Generic Name Dose Route Start Last Admin Trade Name Freq PRN Reason Stop Dose Admin Acetaminophen 500 mg 08/05/22 16:50 08/06/22 20:25 Acetaminophen 500 Mg Tablet PO 08/05/23 16:49 500 mg Q4H PRN Administration Pain Al Hydrox/Mg Hydrox/Simethicone 30 ml 08/05/22 16:50 Mag Hydrox/Al Hydrox/Simeth 30 Ml Udc PO 08/05/23 16:49 Q4H PRN Indigestion Alprazolam 0.5 mg 08/05/22 16:45 08/10/22 05:32 Alprazolam 0.5 Mg Tablet PO 02/01/23 16:44 0.5 mg TID PRN Administration Anxiety Amlodipine Besylate 10 mg 08/08/22 09:00 08/09/22 08:34 Amlodipine 10 Mg Tablet PO 08/08/23 08:59 Not Given DAILY DONITA Atorvastatin Calcium 5 mg 08/06/22 09:00 08/09/22 08:33 Atorvastatin 10 Mg Tablet PO 08/06/23 08:59 5 mg QAM DONITA Administration Bisacodyl 10 mg 08/05/22 16:50 Bisacodyl 10 Mg Supp.Rect MS 08/05/23 16:49 DAILY PRN Constipation Carbamazepine 100 mg 08/05/22 21:00 08/09/22 21:02 Carbamazepine 200 Mg Tablet PO 08/05/23 20:59 100 mg BID DONITA Administration Docusate Sodium 100 mg 08/05/22 16:50 08/07/22 20:31 Docusate 100 Mg Capsule PO 08/05/23 16:49 100 mg BID PRN Administration Constipation Docusate Sodium 283 mg 08/05/22 16:50 Docusate Enema 283 Mg/5 Ml Enema MS 08/05/23 16:49 DAILY PRN Constipation Gabapentin 300 mg 08/05/22 22:00 08/09/22 21:04 Gabapentin 300 Mg Capsule PO 08/05/23 21:59 300 mg TID DONITA Administration Glimepiride 2 mg 08/06/22 09:00 08/09/22 08:34 Glimepiride 2 Mg Tablet PO 08/06/23 08:59 2 mg QAM DONITA Administration Hydrochlorothiazide 25 mg 08/06/22 09:00 08/09/22 08:36 Hydrochlorothiazide 25 Mg Tablet PO 08/06/23 08:59 25 mg DAILY DONITA Administration Insulin Aspart 0 units 08/07/22 12:00 08/09/22 21:05 Insulin Aspart 300 Units/3 Ml Insuln.Pen SUBCUT 08/07/23 11:59 2 units TID.WM.HS DONITA Administration Protocol Lactulose 30 gm 08/05/22 16:50 08/08/22 06:47 Lactulose 20 Gm/30 Ml Udc PO 08/05/23 16:49 30 gm DAILY PRN Administration Constipation Levothyroxine Sodium 50 mcg 08/06/22 06:30 08/10/22 05:32 Levothyroxine 50 Mcg Tablet PO 08/06/23 06:29 50 mcg DAILY.0630 DONITA Administration Lisinopril 10 mg 08/06/22 09:00 08/09/22 08:34 Lisinopril 10 Mg Tablet PO 08/06/23 08:59 Not Given DAILY DONITA Meclizine HCl 12.5 mg 08/05/22 16:45 Meclizine 12.5 Mg Tablet PO 08/05/23 16:44 BID PRN Vertigo Melatonin 5 mg 08/09/22 22:00 08/09/22 21:04 Melatonin 5 Mg Tablet PO 08/09/23 21:59 5 mg QHS DONITA Administration Metformin HCl 500 mg 08/05/22 21:00 08/09/22 21:03 Metformin 500 Mg Tablet PO 08/05/23 20:59 500 mg BID DONITA Administration Mirabegron 50 mg 08/06/22 09:00 08/09/22 08:34 Mirabegron 25 Mg Tab.Er.24h PO 08/06/23 08:59 50 mg DAILY DONITA Administration Oxycodone/Acetaminophen 1 tab 08/06/22 09:12 08/10/22 05:32 Oxycodone/Acetaminophen 5-325 Mg Tablet PO 1 tab Q4H PRN Administration Pain Scale 6 - 10 Pantoprazole Sodium 40 mg 08/05/22 21:00 08/09/22 21:03 Pantoprazole 40 Mg Tablet. PO 08/05/23 20:59 40 mg BID DONITA Administration Polyethylene Glycol 17 gm 08/08/22 10:20 08/09/22 21:02 Polyethylene Glycol 3350 17 Gm Powd.Pack PO 08/08/23 10:19 17 gm BID DONITA Administration Sennosides 2 tab 08/06/22 12:00 08/07/22 20:31 Sennosides 8.6 Mg Tablet PO 08/06/23 11:59 2 tab DAILY@12 PRN Administration If no BM in 2 days Sodium Chloride 0 ml 08/05/22 16:50 Sodium Chloride 0.9 % 10 Ml Syringe IV-PUSH 08/05/23 16:49 PRN PRN Flush Tolterodine Tartrate 2 mg 08/06/22 07:30 08/09/22 08:33 Tolterodine 2 Mg Cap.Er.24h PO 08/06/23 07:29 2 mg DAILY.AC.BKFAST DONITA Administration Assessment/Plan Assessment/Plan (1) HTN (hypertension): Code(s): I10 - Essential (primary) hypertension Status: Acute (2) Fracture of distal phalanx of right great toe: Code(s): S92.421A - Displaced fracture of distal phalanx of right great toe, initial encounter for closed fracture Status: Acute (3) C2 cervical fracture: Code(s): S12.100A - Unspecified displaced fracture of second cervical vertebra, initial encounter for closed fracture Status: Acute (4) Overactive bladder: Code(s): N32.81 - Overactive bladder Status: Acute (5) Recurrent falls: Code(s): R29.6 - Repeated falls Status: Acute (6) Hypothyroid: Code(s): E03.9 - Hypothyroidism, unspecified Status: Acute (7) Diabetes: Code(s): E11.9 - Type 2 diabetes mellitus without complications Status: Acute (8) Impaired mobility and activities of daily living: Code(s): Z74.09 - Other reduced mobility; Z78.9 - Other specified health status Status: Acute Plan 82-year-old female who sustained a fall at home resulting in head injury and R2dbpgtdty. Evaluated by neurosurgery and recommended conservative treatment withjust a soft c-collar. 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 * C-collar on at all times per neurosurgery. May remove briefly while seated. * Continue gabapentin and carbamazepine for occipital neuralgia headaches. * BM 08/08. * Ice and elevate right foot. May also use gentle compression to keep the swelling down. * Ambulatory 100'. Patient education Pressure ulcer prophylaxis; encourage mobilization, frequent postural changes, pressure-relief techniques DVT prophylaxis: Mechanical prophylaxis with SCDs and DEYSI hose Encourage deep breathing exercise incentive spirometry. Monitor bladder. Toileting schedule. Continue current bladder management, with scans as needed and CIC if needed. Start bowel care program every day to obtain continence, prevent ileus. Maintain fall precautions Gait and balance retraining Functional training and self-care and home management, including activities of daily living and instrumental activities of daily living Provision of the necessary gait aids and functional adaptive equipment to enhance the patient's a functional cheondoism Ensure adequate nutrition and hydration Sleep: Add melatonin. Pain: Continue current regimen Discharge planning: Home with family in 2 weeks. Plan: I completed a substantive portion of this encounter, the medical decision makingportion of this note in its entirety, including Allied health note review, nursing note review, [employer] web[employer] commerce consultant note review, discussion with nursing and case management, and more than 50% of my time was spent on counseling and coordination of care, time spent 30 minutes Patient was personally seen by me, Dr. Davis, on the day of encounter, reviewed the history and the relevant portions of the chart, including current orders, allied health and [employer] web[employer] commerce consultant notes, labs/imaging and performed milan elements of exam and I formulated the plan of care and facilitated the medical decision making. Case reviewed at weekly team conference, discussed progress and goals of care, barriers/problems to date and discharge planning. Documented By: Pablo Davis MD 08/10/22 0548 Signed By: <Electronically signed by Pablo Davis MD> 08/10/22 0550 [facility] Work Phone: 1(276) 474-155906-20-2023 Progress note Author Pablo Davis [facility] August 08, 2022 11:43pm Note Date/Time August 08, 2022 11:4 3pm [facility] [address] [place] [address] Physiatry(Rehab) Progress Note Signed Patient: Tammy Sandoval MR#: [id number] : 1940 Acct:[id number] Age/Sex: 82 / F Adm Date: 3 Loc: Room: [address] [place] [address] Type: ADM IN Attending Dr: Pablo Davis MD Copies to: ~ Date of Service: 08/08/2022 Subjective Subjective Narrative: Ms. Sandoval is a 82 year old female presenting to acute rehab with functional impairments secondary to C2 fracture s/p fall. Her past medical history is notable for type II DM, hyperlipidemia, GERD, hypothyroidism, cardiac arrhythmias/p pacemaker implantation. Patient reports a history of recurrent falls due to poor balance for the past 2 years. She was seen and worked up by Dr. Klein with neurology a few years ago, however no diagnosis was made at that time. This time she sustained a fall in her living room, striking her head on something; she is not exactly sure whether that was a piece of furniture, or just the floor. She did not lose consciousness, but felt an intense pain in her head and neck. She was unable to get to her phone and laid on the floor for approximately 3 hours until her made his way back home. CT spine demonstrated comminuted mildly displaced fracture of the base of C2, aswell as encroachment to the right transverse foramen concerning for vertebral artery injury. Head CT was nonacute. CTA redemonstrated C2 fracture and opacification of the midpoint of the right vertebral artery with narrowing starting at the C3 level. There was also a right great toe distal phalanx fracture noted, otherwise no acute injuries. Neurosurgery was consulted and recommended conservative treatment with soft c- collar. Neurology was also following while inpatient. 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 Considerations are made for occipital nerve block down the road if symptoms do not improve. Interval History: Still with headache, likley referred pain. Constipated, no BM since hospital admission. Working with PT/OT/[employer]. Chronic conditions stable. Review of Systems Review of Systems All other systems reviewed & are negative unless noted below or in HPI Exam Physical Exam Vital Signs: Temp Pulse Resp BP Pulse Ox O2 Del Method 97.9 F 82 17 161/70 H 95 Room Air 08/08/22 13:57 08/08/22 13:57 08/08/22 13:57 08/08/22 13:57 08/08/22 13:57 08/08/22 23:06 Narrative: Const General: cooperative, comfortable, no acute distress, well developed Nutritional Appearance: Normal body habitus Orientation: alert, awake and oriented x3 Limitations: None HEENT Head: normal to inspection, normocephalic and atraumatic. Reports frontal headaches which come and go Ears: hearing grossly normal bilaterally Nose: external nose normal Face and sinus: normal facial exam Eyes General: appearance normal, both eyes and all related structures Pupils: PERRL EOM: EOM intact bilaterally Neck Neck: Soft c-collar intact, no lymphadenopathy and trachea midline. Pain with movement. Neck mass: No Chest Chest palpation & inspection: normal inspection of the chest Resp Effort & Inspection: normal respiratory effort, able to speak in complete sentences, symmetric chest movement and no cough Auscultation: clear to auscultation bilaterally Cardio Jugular venous pressure: no JVD Rhythm: Regular rhythm and rate GI: Inspection: normal to inspection Palpation: soft, no hepatosplenomegaly and nontender Auscultation: normal bowel sounds Musc Cervical Spine: normal cervical lordosis and cervical ROM normal Thoracic/Lumbar Spine: thoraco-lumbar ROM normal Skin General: no rashes or lesions noted Neuro General: patient alert, oriented x3, moves all extremities Cranial Nerves: PERRL Speech: speech normal Extrem Other: WNL Psych Appearance: grossly normal Mental Status: WNL Mood: congruent mood Affect: normal affect Speech and Movement: speech and movement normal Attitude: cooperative Insight: Fair Judgment: Fair Objective Labs 08/06/22 04:53 08/06/22 04:53 Labs: Laboratory Results - last 24 hr 08/08/22 08/08/22 08/08/22 06:24 11:00 20:22 POC Glucose 139 251 192 POC Glucose Comment Glu2: cleaned meter Glu2: cleaned meter Medications and Allergies Allergies and Active Meds: Allergies adhesive Allergy (Verified 08/02/22 14:10) Redness of Skin/Removes Skin Active Medications Generic Name Dose Route Start Last Admin Trade Name Freq PRN Reason Stop Dose Admin Acetaminophen 500 mg 08/05/22 16:50 08/06/22 20:25 Acetaminophen 500 Mg Tablet PO 08/05/23 16:49 500 mg Q4H PRN Administration Pain Al Hydrox/Mg Hydrox/Simethicone 30 ml 08/05/22 16:50 Mag Hydrox/Al Hydrox/Simeth 30 Ml Udc PO 08/05/23 16:49 Q4H PRN Indigestion Alprazolam 0.5 mg 08/05/22 16:45 08/08/22 20:53 Alprazolam 0.5 Mg Tablet PO 02/01/23 16:44 0.5 mg TID PRN Administration Anxiety Amlodipine Besylate 10 mg 08/08/22 09:00 08/08/22 08:16 Amlodipine 10 Mg Tablet PO 08/08/23 08:59 10 mg DAILY DONITA Administration Atorvastatin Calcium 5 mg 08/06/22 09:00 08/08/22 08:16 Atorvastatin 10 Mg Tablet PO 08/06/23 08:59 5 mg QAM DONITA Administration Bisacodyl 10 mg 08/05/22 16:50 Bisacodyl 10 Mg Supp.Rect MS 08/05/23 16:49 DAILY PRN Constipation Carbamazepine 100 mg 08/05/22 21:00 08/08/22 20:53 Carbamazepine 200 Mg Tablet PO 08/05/23 20:59 100 mg BID DONITA Administration Docusate Sodium 100 mg 08/05/22 16:50 08/07/22 20:31 Docusate 100 Mg Capsule PO 08/05/23 16:49 100 mg BID PRN Administration Constipation Docusate Sodium 283 mg 08/05/22 16:50 Docusate Enema 283 Mg/5 Ml Enema MS 08/05/23 16:49 DAILY PRN Constipation Gabapentin 300 mg 08/05/22 22:00 08/08/22 20:55 Gabapentin 300 Mg Capsule PO 08/05/23 21:59 300 mg TID DONITA Administration Glimepiride 2 mg 08/06/22 09:00 08/08/22 08:16 Glimepiride 2 Mg Tablet PO 08/06/23 08:59 2 mg QAM DONITA Administration Hydrochlorothiazide 25 mg 08/06/22 09:00 08/08/22 08:16 Hydrochlorothiazide 25 Mg Tablet PO 08/06/23 08:59 25 mg DAILY DONITA Administration Insulin Aspart 0 units 08/07/22 12:00 08/08/22 20:55 Insulin Aspart 300 Units/3 Ml Insuln.Pen SUBCUT 08/07/23 11:59 2 units TID.WM.HS DONITA Administration Protocol Lactulose 30 gm 08/05/22 16:50 08/08/22 06:47 Lactulose 20 Gm/30 Ml Udc PO 08/05/23 16:49 30 gm DAILY PRN Administration Constipation Levothyroxine Sodium 50 mcg 08/06/22 06:30 08/08/22 04:53 Levothyroxine 50 Mcg Tablet PO 08/06/23 06:29 50 mcg DAILY.0630 DONITA Administration Lisinopril 10 mg 08/06/22 09:00 08/08/22 08:16 Lisinopril 10 Mg Tablet PO 08/06/23 08:59 10 mg DAILY DONITA Administration Meclizine HCl 12.5 mg 08/05/22 16:45 Meclizine 12.5 Mg Tablet PO 08/05/23 16:44 BID PRN Vertigo Metformin HCl 500 mg 08/05/22 21:00 08/08/22 20:53 Metformin 500 Mg Tablet PO 08/05/23 20:59 500 mg BID DONITA Administration Mirabegron 50 mg 08/06/22 09:00 08/08/22 08:15 Mirabegron 25 Mg Tab.Er.24h PO 08/06/23 08:59 50 mg DAILY DONITA Administration Oxycodone/Acetaminophen 1 tab 08/06/22 09:12 08/08/22 20:54 Oxycodone/Acetaminophen 5-325 Mg Tablet PO 1 tab Q4H PRN Administration Pain Scale 6 - 10 Pantoprazole Sodium 40 mg 08/05/22 21:00 08/08/22 20:54 Pantoprazole 40 Mg Tablet. PO 08/05/23 20:59 40 mg BID DONITA Administration Polyethylene Glycol 17 gm 08/08/22 10:20 08/08/22 20:52 Polyethylene Glycol 3350 17 Gm Powd.Pack PO 08/08/23 10:19 17 gm BID DONITA Administration Sennosides 2 tab 08/06/22 12:00 08/07/22 20:31 Sennosides 8.6 Mg Tablet PO 08/06/23 11:59 2 tab DAILY@12 PRN Administration If no BM in 2 days Sodium Chloride 0 ml 08/05/22 16:50 Sodium Chloride 0.9 % 10 Ml Syringe IV-PUSH 08/05/23 16:49 PRN PRN Flush Tolterodine Tartrate 2 mg 08/06/22 07:30 08/08/22 08:17 Tolterodine 2 Mg Cap.Er.24h PO 08/06/23 07:29 2 mg DAILY.AC.BKFAST DONITA Administration Assessment/Plan Assessment/Plan (1) HTN (hypertension): Code(s): I10 - Essential (primary) hypertension Status: Acute (2) Fracture of distal phalanx of right great toe: Code(s): S92.421A - Displaced fracture of distal phalanx of right great toe, initial encounter for closed fracture Status: Acute (3) C2 cervical fracture: Code(s): S12.100A - Unspecified displaced fracture of second cervical vertebra, initial encounter for closed fracture Status: Acute (4) Overactive bladder: Code(s): N32.81 - Overactive bladder Status: Acute (5) Recurrent falls: Code(s): R29.6 - Repeated falls Status: Acute (6) Hypothyroid: Code(s): E03.9 - Hypothyroidism, unspecified Status: Acute (7) Diabetes: Code(s): E11.9 - Type 2 diabetes mellitus without complications Status: Acute (8) Impaired mobility and activities of daily living: Code(s): Z74.09 - Other reduced mobility; Z78.9 - Other specified health status Status: Acute Plan 82-year-old female who sustained a fall at home resulting in head injury and N2msaxecyz. Evaluated by neurosurgery and recommended conservative treatment withjust a soft c-collar. 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 * C-collar on at all times per neurosurgery. May remove briefly while seated. * Continue gabapentin and carbamazepine for occipital neuralgia headaches. * Percocet to every 4 hours for breakthrough pain. * MiraLAX scheduled, check KUB if no BM today. * Ice and elevate right foot. May also use gentle compression to keep the swelling down. * Ambulatory 100'. Patient education Pressure ulcer prophylaxis; encourage mobilization, frequent postural changes, pressure-relief techniques DVT prophylaxis: Mechanical prophylaxis with SCDs and DEYSI hose Encourage deep breathing exercise incentive spirometry. Monitor bladder. Toileting schedule. Continue current bladder management, with scans as needed and CIC if needed. Start bowel care program every day to obtain continence, prevent ileus. Maintain fall precautions Gait and balance retraining Functional training and self-care and home management, including activities of daily living and instrumental activities of daily living Provision of the necessary gait aids and functional adaptive equipment to enhance the patient's a functional cheondoism Ensure adequate nutrition and hydration Sleep: No concerns Pain: Continue current regimen Discharge planning: Home with family in 2 weeks. I spent greater than 35 minutes for services, including [id number] encounter with the patient, discussion of the case, plan of care, and exam; and [id number] activities, such as reviewing pertinent ib[employer] web[employer] commerce consultant documentation, recent therapy notes, laboratory and radiology studies, and discussion of case with care team including physician, nursing, case resolution specialist, and therapists. More than 50 % of time was spent on patient/family counseling or coordination ofcare. Documented By: Pablo Davis MD 08/08/222339 Signed By: <Electronically signed by Pablo Davis MD> 08/08/22 [address] [facility] Work Phone: [phone] 312-804206-19-2023 History and physical note Author Pablo Davis [facility] August 08, 2022 3:39pm Note Date/Time August 06, 2022 10:1 4am [facility] [address] [place] [address] Physiatry (Rehab) H&P Signed Patient: Tammy Sandoval MR#: [id number] : 1940 Acct:[id number] Age/Sex: 82 / F Adm Date: 3 Loc: Room: 3Z9762-1 Type: ADM IN Attending Dr: Pablo Davis MD Copies to: Isaiah Shaw,COLT Dumont MD~ <Tisha Noble APRN - Last Filed: 08/06/22 10:20> Date of Service: 08/06/2022 HPI <Tisha Noble APRN - Last Filed: 08/06/22 10:20> The patient was seen and examined on: 08/06/22 History of Present Illness: Ms. Sandoval is a 82 year old female presenting to acute rehab with functional impairments secondary to C2 fracture s/p fall. Her past medical history is notable for type II DM, hyperlipidemia, GERD, hypothyroidism, cardiac arrhythmias/p pacemaker implantation. Patient reports a history of recurrent falls due to poor balance for the past 2 years. She was seen and worked up by Dr. Klein with neurology a few years ago, however no diagnosis was made at that time. This time she sustained a fall in her living room, striking her head on something; she is not exactly sure whether that was a piece of furniture, or just the floor. She did not lose consciousness, but felt an intense pain in her head and neck. She was unable to get to her phone and laid on the floor forapproximately 3 hours until her made his way back home. CT spine demonstrated comminuted mildly displaced fracture of the base of C2, aswell as encroachment to the right transverse foramen concerning for vertebral artery injury. Head CT was nonacute. CTA redemonstrated C2 fracture and opacification of the midpoint of the right vertebral artery with narrowing starting at the C3 level. There was also a right great toe distal phalanx fracture noted, otherwise no acute injuries. Neurosurgery was consulted and recommended conservative treatment with soft c- collar. Neurology was also following while inpatient. 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 Considerations are made for occipital nerve block down the road if symptoms do not improve. On rehab admission, patient is endorsing severe bilateral occipital headache that comes and goes. She describes it as sharp, radiating from the neck into her frontal and temporal regions. States pain medications are partially effective. She denies dizziness, lightheadedness, blurry vision, nausea, or vertigo. She does have some numbness/tingling in bilateral feet from diabetes. Otherwise, her neurological exam is benign. She denies any cardiopulmonary symptoms. Her vital signs are within normal limits. Reports constipation for a few days, no abdominal pain, vomiting. Active bowel sounds throughout. She lives with her who is generally healthy and able to assist with ADLs/IADLs. Does not use any assistive devices for ambulation, even though was recommended to do so by neurology. <Pablo Davis MD - Last Filed: 08/08/22 15:39> Chief complaint: headache, weakness PMFSH <Tisha Noble APRN - Last Filed: 08/06/22 10:20> Vaccinated for COVID-19?: Yes Medical History Acid reflux Arthritis Back pain Diabetes GERD (gastroesophageal reflux disease) High cholesterol High triglycerides History of basal cell cancer right nose History of cardiac arrhythmia Hypothyroid Incontinence abb Other abnormal clinical finding I had fluid around my heart Overactive bladder Pacemaker st judes, 2011 placement. Huff 2021 Panic attacks Surgical History History of bladder surgery 1970 History of cystoscopy december 2021 History of hysterectomy History of lumbar laminectomy dr KELTON David, 2014 History of phacoemulsification of cataract of both eyes with intraocular lens implantation Previous back surgery Family History Father HTN (hypertension) Sister Osteoporosis Sister Uterine cancer Sister Alzheimer disease Sister COPD (chronic obstructive pulmonary disease) Social History Smoking Status: Never smoker Substance Use Type: None Substance Abuse Comment: Non smoker and non drinker Social History Comments: Mother of 2 adult males Review of Systems <Tisha Noble APRN - Last Filed: 08/06/22 10:20> Review of Systems All other systems reviewed & are negative unless noted below or in HPI Meds <Tisha Noble APRN - Last Filed: 08/06/22 10:20> Medications and Allergies Allergies adhesive Allergy (Verified 08/02/22 14:10) Redness of Skin/Removes Skin Home and Active Meds: Home Medications alprazolam 0.5 mg tablet (Xanax) 0.5 mg PO TID PRN Anxiety 10/28/19 [History Confirmed 08/05/22] levothyroxine 50 mcg tablet (Synthroid) 50 mcg PO QAM 12/17/18 [History Confirmed 08/05/22] lovastatin 20 mg tablet 20 mg PO QAM 12/17/18 [History Confirmed 08/05/22] metformin 500 mg tablet (Glucophage) 500 mg PO BID 12/17/18 [History Confirmed 08/05/22] potassium gluconate 600 mg (99 mg) tablet 99 mg PO DIRECTED 10/25/19 [History Confirmed 08/02/22] meclizine 12.5 mg tablet 12.5 mg PO BID PRN Vertigo 07/29/20 [History Confirmed 08/05/22] nystatin 100,000 unit/mL oral suspension 100,000 unit PO DAILY PRN discomfort 07/29/20 [History Confirmed 08/02/22] omeprazole 40 mg capsule,delayed release 40 mg PO QAM 07/29/20 [History Confirmed 08/05/22] glimepiride 2 mg tablet (Amaryl) 2 mg PO QAM 01/18/22 [History Confirmed 08/05/22] solifenacin 5 mg tablet (Vesicare) 5 mg PO AC 01/18/22 [History Confirmed 08/02/22] mirabegron 50 mg tablet,extended release 24 hr (Myrbetriq) 50 mg PO DAILY 06/20/22 [History Confirmed 08/05/22] amlodipine 5 mg tablet 5 mg PO DAILY 08/05/22 [History Confirmed 08/05/22] carbamazepine 200 mg tablet (Tegretol) 100 mg PO BID #60 tabs 08/05/22 [Rx Confirmed 08/05/22] gabapentin 300 mg capsule 300 mg PO TID #90 caps 08/05/22 [Rx Confirmed 08/05/22] hydrochlorothiazide 25 mg tablet 25 mg PO DAILY #30 tabs 08/05/22 [Rx Confirmed 08/05/22] lisinopril 10 mg tablet 10 mg PO DAILY #30 tabs 08/05/22 [Rx Confirmed 08/05/22] oxycodone-acetaminophen 5 mg-325 mg tablet 1 tab PO Q6H PRN Pain Scale 6 - 10 #0tabs 08/05/22 [Rx Confirmed 08/05/22] tolterodine 2 mg capsule,extended release 24 hr (Detrol LA) 2 mg PO DAILY.AC.BKFAST 08/05/22 [History Confirmed 08/05/22] Active Medications Acetaminophen (Acetaminophen 500 Mg Tablet) 500 mg PO Q4H PRN PRN Reason: Pain Stop: 08/05/23 16:49 Al Hydrox/Mg Hydrox/Simethicone (Mag Hydrox/Al Hydrox/Simeth 30 Ml Udc) 30 ml PO Q4H PRN PRN Reason: Indigestion Stop: 08/05/23 16:49 Alprazolam (Alprazolam 0.5 Mg Tablet) 0.5 mg PO TID PRN PRN Reason: Anxiety Stop: 02/01/23 16:44 Last Admin: 08/05/22 21:34 Dose: 0.5 mg Amlodipine Besylate (Amlodipine 5 Mg Tablet) 5 mg PO DAILY DONITA Stop: 08/06/23 08:59 Last Admin: 08/06/22 08:29 Dose: 5 mg Atorvastatin Calcium (Atorvastatin 10 Mg Tablet) 5 mg PO QAM DONITA Stop: 08/06/23 08:59 Last Admin: 08/06/22 08:29 Dose: 5 mg Bisacodyl (Bisacodyl 10 Mg Supp.Rect) 10 mg MS DAILY PRN PRN Reason: Constipation Stop: 08/05/23 16:49 Carbamazepine (Carbamazepine 200 Mg Tablet) 100 mg PO BID DONITA Stop: 08/05/23 20:59 Last Admin: 08/06/22 08:29 Dose: 100 mg Docusate Sodium (Docusate 100 Mg Capsule) 100 mg PO BID PRN PRN Reason: Constipation Stop: 08/05/23 16:49 Docusate Sodium (Docusate Enema 283 Mg/5 Ml Enema) 283 mg MS DAILY PRN PRN Reason: Constipation Stop: 08/05/23 16:49 Gabapentin (Gabapentin 300 Mg Capsule) 300 mg PO TID DONITA Stop: 08/05/23 21:59 Last Admin: 08/06/22 08:28 Dose: 300 mg Glimepiride (Glimepiride 2 Mg Tablet) 2 mg PO QAM DONITA Stop: 08/06/23 08:59 Last Admin: 08/06/22 08:30 Dose: 2 mg Hydrochlorothiazide (Hydrochlorothiazide 25 Mg Tablet) 25 mg PO DAILY DONITA Stop: 08/06/23 08:59 Last Admin: 08/06/22 08:30 Dose: 25 mg Lactulose (Lactulose 20 Gm/30 Ml Udc) 30 gm PO DAILY PRN PRN Reason: Constipation Stop: 08/05/23 16:49 Levothyroxine Sodium (Levothyroxine 50 Mcg Tablet) 50 mcg PO DAILY.30 [facility] Stop: 08/06/23 06:29 Last Admin: 08/06/22 06:30 Dose: 50 mcg Lisinopril (Lisinopril 10 Mg Tablet) 10 mg PO DAILY ODNITA Stop: 08/06/23 08:59 Last Admin: 08/06/22 08:28 Dose: 10 mg Meclizine HCl (Meclizine 12.5 Mg Tablet) 12.5 mg PO BID PRN PRN Reason: Vertigo Stop: 08/05/23 16:44 Metformin HCl (Metformin 500 Mg Tablet) 500 mg PO BID [facility] Stop: 08/05/23 20:59 Last Admin: 08/06/22 08:29 Dose: 500 mg Mirabegron (Mirabegron 25 Mg Tab.Er.24h) 50 mg PO DAILY [facility] Stop: 08/06/23 08:59 Last Admin: 08/06/22 08:28 Dose: 50 mg Oxycodone/Acetaminophen (Oxycodone/Acetaminophen 5-325 Mg Tablet) 1 tab PO Q4H PRN PRN Reason: Pain Scale 6 - 10 Pantoprazole Sodium (Pantoprazole 40 Mg Tablet.Dr) 40 mg PO BID [facility] Stop: 08/05/23 20:59 Last Admin: 08/06/22 08:29 Dose: 40 mg Sennosides (Sennosides 8.6 Mg Tablet) 2 tab PO DAILY@12 PRN PRN Reason: If no BM in 2 days Stop: 08/06/23 11:59 Sodium Chloride (Sodium Chloride 0.9 % 10 Ml Syringe) 0 ml IV-PUSH PRN PRN PRN Reason: Flush Stop: 08/05/23 16:49 Tolterodine Tartrate (Tolterodine 2 Mg Cap.Er.24h) 2 mg PO DAILY.AC.BKFAST [facility] Stop: 08/06/23 07:29 Last Admin: 08/06/22 06:30 Dose: 2 mg Exam <Tisha Noble APRN - Last Filed: 08/06/22 10:20> Physical Exam Vital Signs: Temp Pulse Resp BP Pulse Ox O2 Del Method 97.9 F 73 16 156/80 H 94 L Room Air 08/06/22 05:00 08/06/22 05:00 08/06/22 05:00 08/06/22 05:00 08/06/22 05:00 08/06/22 05:00 Narrative: Const General: cooperative, comfortable, no acute distress, well developed Nutritional Appearance: Normal body habitus Orientation: alert, awake and oriented x3 Limitations: None HEENT Head: normal to inspection, normocephalic and atraumatic. Reports frontal headaches which come and go Ears: hearing grossly normal bilaterally Nose: external nose normal Face and sinus: normal facial exam Eyes General: appearance normal, both eyes and all related structures Pupils: PERRL EOM: EOM intact bilaterally Neck Neck: Soft c-collar intact, no lymphadenopathy and trachea midline. Pain with movement. Neck mass: No Chest Chest palpation & inspection: normal inspection of the chest Resp Effort & Inspection: normal respiratory effort, able to speak in complete sentences, symmetric chest movement and no cough Auscultation: clear to auscultation bilaterally Cardio Jugular venous pressure: no JVD Rhythm: Regular rhythm and rate GI: Inspection: normal to inspection Palpation: soft, no hepatosplenomegaly and nontender Auscultation: normal bowel sounds Musc Cervical Spine: normal cervical lordosis and cervical ROM normal Thoracic/Lumbar Spine: thoraco-lumbar ROM normal Skin General: no rashes or lesions noted Neuro General: patient alert, oriented x3, moves all extremities Cranial Nerves: PERRL Speech: speech normal Extrem Other: WNL Psych Appearance: grossly normal Mental Status: WNL Mood: congruent mood Affect: normal affect Speech and Movement: speech and movement normal Attitude: cooperative Insight: Fair Judgment: Fair Results <Tisha Noble APRN - Last Filed: 08/06/22 10:20> Labs Labs: Laboratory Results - last 24 hr 08/06/22 08/06/22 08/06/22 04:53 04:53 06:33 Corrected WBC 10.1 Uncorrected WBC Count 10.1 RBC 4.50 Hgb 13.1 Hct 38.6 MCV 85.7 MCH 29.2 MCHC 34.0 RDW 14.5 Plt Count 212 MPV 7.6 Neut % (Auto) 57.2 Lymph % (Auto) 34.2 [place] % (Auto) 7.3 Eos % (Auto) 0.9 Baso % (Auto) 0.4 Nucleat RBC Rel Count 0.1 Neut # (Auto) 5.8 Lymph # (Auto) 3.5 [place] # (Auto) 0.7 Eos # (Auto) 0.1 Baso # (Auto) 0.0 PHA Creatinine Clear 41.94 Sodium 133 L Potassium 3.5 Chloride 95 L Carbon Dioxide 27.0 Anion Gap 14.5 BUN 28 H Creatinine 0.89 Est GFR (CKD-EPI) > 60.0 Glucose 201 H POC Glucose 183 Calcium 9.2 Total Bilirubin 0.4 AST 17 ALT 19 Alkaline Phosphatase 74 Total Protein 7.1 Albumin 4.1 Globulin 3.0 Albumin/Globulin Ratio 1.4 Prealbumin 26.1 Additional Results Results Comment: I reviewed clinical lab tests, radiology reports and obtained and summated medical records and have ordered follow up lab tests and imaging studies as needed for rehabilitation care. Functional Status <Tisha Noble APRN - Last Filed: 08/06/22 10:20> Prior Level of Function Narrative: Previously independent ambulator. Requires some assistance with ADLs at home. helps. Current Level of Function Narrative: Mod assist for bed mobility and transfers. Ambulatory 28 feet with a rolling walker and min assist <Pablo Davis MD - Last Filed: 08/08/22 15:39> Individualized Plan of Care Plan of Care: Individualized Overall Plan of Care: Admit Date/Time: 08/05/22 Expected LOS: 14 days Expected Discharge Destination: Home Rehabilitation [facility]: 08.9 Primary Diagnosis: C2 fracture s/p fall with right vertebral a. occlusion Patient?s/Family?s anticipated outcomes/personal goals: To have patient become more independent and to return home. Medical/ Functional Prognosis: Good Anticipated Functional Outcomes/Goals and Interventions: -Therapy Functional Outcome/Goal: Mobility/Locomotion: Patient likely to be independent with ambulation with assistive device. Anticipated interventions: Physician management, PT, OT, Dietitian, Rehab Nursing - Therapy Functional Outcome/Goal: Self Care: Patient likely to be functionally independent for activities of daily living using assistive / adaptive equipment as needed. Anticipated interventions: Physician management, PT, OT, Dietitian, Rehab Nursing - Therapy Functional Outcome/Goal: Bladder/Bowel Management: Patient likely to be independent with bladder care and independent with bowel care. Anticipated interventions: Physician management, PT, OT, Dietitian, Rehab Nursing -Therapy Functional Outcome/Goal: Communication/Cognition: Patient will be able to communicate fully and be safe cognitively. Anticipated interventions: Physician management, PT, OT, Dietitian, Rehab Nursing -Therapy Functional Outcome/Goal: Patient will be independent for bed mobility and transfers Anticipated interventions: Physician management, PT, OT, Dietitian, Rehab Nursing -Therapy Functional Outcome/Goal: Patient will improve endurance to be able to tolerate all daily self care activities and avocational activities. Anticipated interventions: Physician management, PT, OT, Nutrition, Rehab Nursing -Therapy Functional Outcome/Goal: Patient will understand and assimilate / integrate education regarding management of their medical conditions to maintainhealth and wellbeing. Anticipated interventions: Physician management, PT, OT, Dietitian, Rehab Nursing Required Therapy PT: 1.5 hour per day at least 5 days per week with additional therapy on as needed basis. Comments: PT to improve pt's strength, endurance, bed mobility, transfers (sit-stand), standing balance, gait quality on level surfaces and stairs, coordination and functional ADL skills. Will also work to improve pt's safety awareness during transfers and ambulation. OT: 1.5 hour per day at least 5 days per week with additional therapy on as needed basis. Comments: OT for basic ADL re-training (bathing, dressing, toileting, continence, grooming, feeding, transferring), to increase activity tolerance andfunctional mobility and to evaluate for adaptive and assistive devices. Will work to improve pt's endurance and educate pt on fall prevention and energy conservation techniques-pacing strategies and proper breathing techniques duringfunctional tasks. Other: Nutrition, Rehab nursing, Wound, P&O RATIONALE FOR IRF ADMISSION: Patient has both medical and functional complexities that require 24 hour daily monitoring and intervention from [employer] as well as other consulting physicians including internal medicine as well as 24 hour daily assistant professor sculpture nursing - for medical safe / optimal management. Patient requires interdisciplinary therapy team rehabilitation care including OT, PT, SW, Rehab Nursing, requires and can tolerate at least 3 hoursof daily OT and PT therapy at least 5 days weekly. The following medical conditions significantly impact the rehabilitation process and are being addressed daily and can not be managed at home or in a lesser intense medical setting: Refer to above problem oriented plan of care Assessment/Plan <Tisha Noble, SENIOR POWER PLANT OPERATOR - Last Filed: 08/06/22 10:20> (1) HTN (hypertension): Code(s): I10 - Essential (primary) hypertension Status: Acute (2) Fracture of distal phalanx of right great toe: Code(s): S92.421A - Displaced fracture of distal phalanx of right great toe, initial encounter for closed fracture Status: Acute (3) C2 cervical fracture: Code(s): S12.100A - Unspecified displaced fracture of second cervical vertebra, initial encounter for closed fracture Status: Acute (4) Overactive bladder: Code(s): N32.81 - Overactive bladder Status: Acute (5) Recurrent falls: Code(s): R29.6 - Repeated falls Status: Acute (6) Hypothyroid: Code(s): E03.9 - Hypothyroidism, unspecified Status: Acute (7) Diabetes: Code(s): E11.9 - Type 2 diabetes mellitus without complications Status: Acute (8) Impaired mobility and activities of daily living: Code(s): Z74.09 - Other reduced mobility; Z78.9 - Other specified health status Status: Acute Plan 82-year-old female who sustained a fall at home resulting in head injury and [id number]. Evaluated by neurosurgery and recommended conservative treatment withjust a soft c-collar. 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 * C-collar on at all times per neurosurgery. May remove briefly while seated. * Continue gabapentin and carbamazepine for occipital neuralgia headaches. Will increase Percocet to every 4 hours for breakthrough pain. * MiraLAX x1 today for C/O constipation * Ice and elevate right foot. May also use gentle compression to keep the swelling down. Patient education Pressure ulcer prophylaxis; encourage mobilization, frequent postural changes, pressure-relief techniques DVT prophylaxis: Mechanical prophylaxis with SCDs and DEYSI hose Encourage deep breathing exercise incentive spirometry. Monitor bladder. Toileting schedule. Continue current bladder management, with scans as needed and CIC if needed. Start bowel care program every day to obtain continence, prevent ileus. Maintain fall precautions Gait and balance retraining Functional training and self-care and home management, including activities of daily living and instrumental activities of daily living Provision of the necessary gait aids and functional adaptive equipment to enhance the patient's a functional cheondoism Ensure adequate nutrition and hydration Sleep: No concerns Pain: Continue current regimen Discharge planning: Home with family in 7 to 10 days. I spent greater than 35 minutes for services, including julg-hl-mtkl encounter with the patient, discussion of the case, plan of care, and exam; and metadml-ni-xhma activities, such as reviewing pertinent ibm websphere commerce consultant documentation, recent therapy notes, laboratory and radiology studies, and discussion of case with care team including physician, nursing, case resolution specialist, and therapists. More than 50 % of time was spent on patient/family counseling or coordination ofcare. <Pablo Davis MD - Last Filed: 08/08/22 15:39> (1) HTN (hypertension): (2) Fracture of distal phalanx of right great toe: (3) C2 cervical fracture: (4) Overactive bladder: (5) Recurrent falls: (6) Hypothyroid: (7) Diabetes: (8) Impaired mobility and activities of daily living: Plan: I completed a substantive portion of this encounter, the medical decision makingportion of this note in its entirety, including Allied health note review, nursing note review, ibm websphere commerce consultant note review, discussion with nursing and case management, and more than 50% of my time was spent on counseling and coordination of care, time spent 70 minutes Patient was personally seen by me, Dr. Davis, on the day of encounter, within 24hours of rehab admission, reviewed the history and the relevant portions of the chart, including current orders, allied health and ibm websphere commerce consultant notes, labs/imaging and performed milan elements of exam and I formulated the plan of care and facilitated the medical decision making. Documented By: Tisha Noble APRN 08/06/22 0 947 Signed By: <Electronically signed by COLT Noble> 08/06/22 1020 <Electronically signed by Pablo Davis MD> 08/08/22 [address] [facility] Work Phone: 1([phone] 282-323206-18-2023 Consult note Author Jabari Westbrook [facility] August 07, 2022 2:38pm Note Date/Time August 06, 2022 3:55 pm [facility] [address] [place] [address] Hospitalist Consult Note Signed Patient: Tammy Sandoval MR#: [id number] : 1940 Acct:[id number] Age/Sex: 82 / F Adm Date: 3 Loc: Room: 2H4111-2 Type: ADM IN Attending Dr: Pablo Davis MD Copies to: Isaiah Shaw,MD Jabari Cooper DO Lindty Bryant, SENIOR POWER PLANT OPERATOR~ HPI DATE OF CONSULTATION: 08/06/22 REQUESTING PROVIDER: Pablo Davis Consult Narrative Reason for Consult: DM type II, HTN, hypothyroidism, GERD HPI: Patient is a pleasant 82-year-old female with an extensive PMHx including hypertension, diabetes, hyperlipidemia, GERD, pacemaker who presented to the emergency department on 08/02/2022 status post fall. She lost her balance,hitting her head. She stayed on the ground for about 3 hours and was unable to get up. She had been having recurrent falls for the past 3 to 4 months. Upon presentation, CT head did not show any acute intracranial findings. CTA head and neck showed occlusion versus spasm of the vertebral artery at the C3 level. Cervical CT showed commuted fracture involving the baseof the dens extending into the transverse process bilaterally. Right foot x-rayshowed transverse aortic fracture through the waist of the distal phalanx of thefirst digit with accompanying soft tissue swelling. Neurology and orthopedics were consulted. She was seen and evaluated by neurology who recommended conservative management. She was started on gabapentin and carbamazepine for neuropathy. She was seen and evaluated by orthopedic surgeon for right great toe distal phalanx fracture who recommended outpatient follow-up if pain persists. She was seen and evaluated by physical and Occupational Therapy and recommended acute inpatient rehabilitation. The hospitalist team has been consulted for medical management of diabetes, hypertension and all other comorbidities. Patient seen and examined, resting comfortably in bed, reports pain is adequately controlled and she is able to participate in physical therapy well. Denies chest pain or palpitation. No cough, dyspnea, or pain with inspiration. No abdominal pain or indigestion, constipation or diarrhea, nausea or vomiting. No dysuria or retention. No headache or dizziness. No fevers. Reviewed vital signs, blood pressure not well controlled, started on new medications. Plan is to continue to monitor. Labs reviewed, unremarkable. Review of Systems Review of Systems Review of systems: 10 point review of systems obtained, negative unless noted in the HPI below PMFSH Attestation Statement: The following information was validated with the patient. Source: Old Records Reviewed Vaccinated for COVID-19?: Yes Medical History Acid reflux Arthritis Back pain Diabetes GERD (gastroesophageal reflux disease) High cholesterol High triglycerides History of basal cell cancer right nose History of cardiac arrhythmia Hypothyroid Incontinence abb Other abnormal clinical finding I had fluid around my heart Overactive bladder Pacemaker st judes, 2011 placement. Huff 2021 Panic attacks Surgical History History of bladder surgery 1970 History of cystoscopy december 2021 History of hysterectomy History of lumbar laminectomy dr KELTON David, 2013 History of phacoemulsification of cataract of both eyes with intraocular lens implantation Previous back surgery Family History Father HTN (hypertension) Sister Osteoporosis Sister Uterine cancer Sister Alzheimer disease Sister COPD (chronic obstructive pulmonary disease) Social History Smoking Status: Never smoker Substance Use Type: None Substance Abuse Comment: Non smoker and non drinker Social History Comments: Mother of 2 adult males Meds Medications and Allergies Allergies adhesive Allergy (Verified 08/02/22 14:10) Redness of Skin/Removes Skin Home Medications alprazolam 0.5 mg tablet (Xanax) 0.5 mg PO TID PRN Anxiety 12/17/18 [History Confirmed 08/05/22] levothyroxine 50 mcg tablet (Synthroid) 50 mcg PO QAM 12/17/18 [History Confirmed 08/05/22] lovastatin 20 mg tablet 20 mg PO QAM 12/17/18 [History Confirmed 08/05/22] metformin 500 mg tablet (Glucophage) 500 mg PO BID 12/17/18 [History Confirmed 08/05/22] potassium gluconate 600 mg (99 mg) tablet 99 mg PO DIRECTED 10/25/19 [History Confirmed 08/02/22] meclizine 12.5 mg tablet 12.5 mg PO BID PRN Vertigo 07/29/20 [History Confirmed 08/05/22] nystatin 100,000 unit/mL oral suspension 100,000 unit PO DAILY PRN discomfort 07/29/20 [History Confirmed 08/02/22] omeprazole 40 mg capsule,delayed release 40 mg PO QAM 07/29/20 [History Confirmed 08/05/22] glimepiride 2 mg tablet (Amaryl) 2 mg PO QAM 01/18/22 [History Confirmed 08/05/22] solifenacin 5 mg tablet (Vesicare) 5 mg PO AC 01/18/22 [History Confirmed 08/02/22] mirabegron 50 mg tablet,extended release 24 hr (Myrbetriq) 50 mg PO DAILY 06/20/22 [History Confirmed 08/05/22] amlodipine 5 mg tablet 5 mg PO DAILY 08/05/22 [History Confirmed 08/05/22] carbamazepine 200 mg tablet (Tegretol) 100 mg PO BID #60 tabs 08/05/22 [Rx Confirmed 08/05/22] gabapentin 300 mg capsule 300 mg PO TID #90 caps 08/05/22 [Rx Confirmed 08/05/22] hydrochlorothiazide 25 mg tablet 25 mg PO DAILY #30 tabs 08/05/22 [Rx Confirmed 08/05/22] lisinopril 10 mg tablet 10 mg PO DAILY #30 tabs 08/05/22 [Rx Confirmed 08/05/22] oxycodone-acetaminophen 5 mg-325 mg tablet 1 tab PO Q6H PRN Pain Scale 6 - 10 #0tabs 08/05/22 [Rx Confirmed 08/05/22] tolterodine 2 mg capsule,extended release 24 hr (Detrol LA) 2 mg PO DAILY.AC.BKFAST 08/05/22 [History Confirmed 08/05/22] Active Medications: Active Medications Generic Name Dose Route Start Last Admin Trade Name Pepe PRN Reason Stop Dose Admin Acetaminophen 500 mg 08/05/22 16:50 Acetaminophen 500 Mg Tablet PO 08/05/23 16:49 Q4H PRN Pain Al Hydrox/Mg Hydrox/Simethicone 30 ml 08/05/22 16:50 Mag Hydrox/Al Hydrox/Simeth 30 Ml Udc PO 08/05/23 16:49 Q4H PRN Indigestion Alprazolam 0.5 mg 08/05/22 16:45 08/05/22 21:34 Alprazolam 0.5 Mg Tablet PO 02/01/23 16:44 0.5 mg TID PRN Administration Anxiety Amlodipine Besylate 5 mg 08/06/22 09:00 08/06/22 08:29 Amlodipine 5 Mg Tablet PO 08/06/23 08:59 5 mg DAILY DONITA Administration Atorvastatin Calcium 5 mg 08/06/22 09:00 08/06/22 08:29 Atorvastatin 10 Mg Tablet PO 08/06/23 08:59 5 mg QAM DONITA Administration Bisacodyl 10 mg 08/05/22 16:50 Bisacodyl 10 Mg Supp.Rect MS 08/05/23 16:49 DAILY PRN Constipation Carbamazepine 100 mg 08/05/22 21:00 08/06/22 08:29 Carbamazepine 200 Mg Tablet PO 08/05/23 20:59 100 mg BID DONITA Administration Docusate Sodium 100 mg 08/05/22 16:50 Docusate 100 Mg Capsule PO 08/05/23 16:49 BID PRN Constipation Docusate Sodium 283 mg 08/05/22 16:50 Docusate Enema 283 Mg/5 Ml Enema MS 08/05/23 16:49 DAILY PRN Constipation Gabapentin 300 mg 08/05/22 22:00 08/06/22 14:58 Gabapentin 300 Mg Capsule PO 08/05/23 21:59 300 mg TID DONITA Administration Glimepiride 2 mg 08/06/22 09:00 08/06/22 08:30 Glimepiride 2 Mg Tablet PO 08/06/23 08:59 2 mg QAM DONITA Administration Hydrochlorothiazide 25 mg 08/06/22 09:00 08/06/22 08:30 Hydrochlorothiazide 25 Mg Tablet PO 08/06/23 08:59 25 mg DAILY DONITA Administration Lactulose 30 gm 08/05/22 16:50 Lactulose 20 Gm/30 Ml Udc PO 08/05/23 16:49 DAILY PRN Constipation Levothyroxine Sodium 50 mcg 08/06/22 06:30 08/06/22 06:30 Levothyroxine 50 Mcg Tablet PO 08/06/23 06:29 50 mcg DAILY.0630 DONITA Administration Lisinopril 10 mg 08/06/22 09:00 08/06/22 08:28 Lisinopril 10 Mg Tablet PO 08/06/23 08:59 10 mg DAILY DONITA Administration Meclizine HCl 12.5 mg 08/05/22 16:45 Meclizine 12.5 Mg Tablet PO 08/05/23 16:44 BID PRN Vertigo Metformin HCl 500 mg 08/05/22 21:00 08/06/22 08:29 Metformin 500 Mg Tablet PO 08/05/23 20:59 500 mg BID DONITA Administration Mirabegron 50 mg 08/06/22 09:00 08/06/22 08:28 Mirabegron 25 Mg Tab.Er.24h PO 08/06/23 08:59 50 mg DAILY DONITA Administration Oxycodone/Acetaminophen 1 tab 08/06/22 09:12 Oxycodone/Acetaminophen 5-325 Mg Tablet PO Q4H PRN Pain Scale 6 - 10 Pantoprazole Sodium 40 mg 08/05/22 21:00 08/06/22 08:29 Pantoprazole 40 Mg Tablet. PO 08/05/23 20:59 40 mg BID DONITA Administration Sennosides 2 tab 08/06/22 12:00 Sennosides 8.6 Mg Tablet PO 08/06/23 11:59 DAILY@12 PRN If no BM in 2 days Sodium Chloride 0 ml 08/05/22 16:50 Sodium Chloride 0.9 % 10 Ml Syringe IV-PUSH 08/05/23 16:49 PRN PRN Flush Tolterodine Tartrate 2 mg 08/06/22 07:30 08/06/22 06:30 Tolterodine 2 Mg Cap.Er.24h PO 08/06/23 07:29 2 mg DAILY.AC.BKFAST DONITA Administration Exam Physical Exam Vital Signs: Temp Pulse Resp BP Pulse Ox O2 Del Method 98.0 F 88 18 146/72 H 95 Room Air 08/06/22 14:11 08/06/22 14:11 08/06/22 14:11 08/06/22 14:11 08/06/22 14:11 08/06/22 14:11 Narrative: CONST- Appears well -developed and well nourished No acute distress. HEAD - Normocephalic and atraumatic EENT-Sclera nonicteric and conjunctive are nonerythemic, moist oral mucosa, pharynx clear NECK-soft collar applied CARDIAC-normal rate, regular rhythm, normal S1 & S2. PULM-diminished without wheeze or rhonchi, RA, no accessory muscle use or cough noted ABD - Soft. Bowel sounds are normal. No distention No tenderness EXTREM-no edema BLE calves nontender SKIN-bruising to right great toe and right index finger MS- MAEX4 spontaneously with equal with equal strength NEURO- A&Ox3 speech clear and tongue midline, equal facial symmetry no focal motor deficits PSYCH-Mood, affect and behavior appropriate Results Lab Results Labs: Laboratory Results - last 72 hr 08/06/22 06:33: POC Glucose 183 08/06/22 04:53: PHA Creatinine Clear 41.94, Sodium 133 L, Potassium 3.5, Chloride 95 L, Carbon Dioxide 27.0, Anion Gap 14.5, BUN 28 H, Creatinine 0.89, Est GFR (CKD- EPI) > 60.0, Glucose 201 H, Calcium 9.2, Total Bilirubin 0.4, AST 17, ALT 19, Alkaline Phosphatase 74, Total Protein 7.1, Albumin 4.1, Globulin 3.0, Albumin/Globulin Ratio 1.4, Prealbumin 26.1 08/06/22 04:53: Corrected WBC 10.1, Uncorrected WBC Count 10.1, RBC 4.50, Hgb 13.1, Hct 38.6, MCV 85.7, MCH 29.2, MCHC 34.0, RDW 14.5, Plt Count 212, MPV 7.6,Neut % (Auto) 57.2, Lymph % (Auto) 34.2, [place] % (Auto) 7.3, Eos % (Auto) 0.9, Baso % (Auto) 0.4, Nucleat RBC Rel Count 0.1, Neut # (Auto) 5.8, Lymph # (Auto) 3.5, [place] # (Auto) 0.7, Eos # (Auto) 0.1, Baso # (Auto) 0.0 Assessment & Plan Assessment/Plan (1) C2 cervical fracture: (2) Fracture of distal phalanx of right great toe: (3) Contusion of right index finger without damage to nail, initial encounter: (4) Impaired mobility and activities of daily living: (5) HTN (hypertension): (6) Recurrent falls: Plan Recurrent falls C2 cervical fracture Fracture of distal phalanx of right great toe Contusion of right index finger ?Plan of care for rehabilitation for PT/OT, DVT prophylaxis, bowel regimen per PM&R team Chronic conditions: 1.Hypertension, uncontrolled?started on amlodipine, hydrochlorothiazide, lisinopril, continue to monitor 2.Diabetes?on metformin and glimepiride, blood sugars controlled 3.Hypothyroidism?on Synthroid 4.GERD?on pantoprazole 5.Overactive bladder?on Detrol LA, Myrbetriq 6.Neuropathy?on Tegretol and gabapentin 7.Hyperlipidemia?on atorvastatin Documented By: Alannah Bryant APRN 08/06/22 1535 Signed By: <Electronically signed by COLT Bryant> 08/06/22 1717 <Electronically signed by Jabari Westbrook DO> 08/07/22 1438 [facility] Work Phone: 1([phone] 684-825606-16-2023 Consult note Author Medhat Anglin [facility] August 05, 2022 9:56am Note Date/Time August 05, 2022 9:00 am [facility] [address] [place] [address] Orthopedic Consult Note Signed Patient: Tammy Sandoval MR#: [id number] : 1940 Acct:[id number] Age/Sex: 82 / F Adm Date: 3 Loc: Room: [address] [place] [address] Type: ADM IN Attending Dr: Ashleigh Roman MD Copies to: DO Ashleigh Baig MD Thomas A Olexa, MD~ History of Present Illness HPI Consult date: 08/05/2022 Requesting provider: Ashleigh Roman MD History of present illness: Is a 82-year-old female status post fall. Complains of right index finger pain. States the finger has been stiff and somewhat deformed for years. She states she thinks she bruised this after falling PMFSH Vaccinated for COVID-19?: Yes Medical History (Updated 08/05/22 @ 09:00 by Medhat Anglin MD) Acid reflux Arthritis Back pain Diabetes GERD (gastroesophageal reflux disease) High cholesterol High triglycerides History of basal cell cancer right nose History of cardiac arrhythmia Hypothyroid Incontinence abb Other abnormal clinical finding I had fluid around my heart Overactive bladder Pacemaker st judes, 2012 placement. Huff 2021 Panic attacks Surgical History History of bladder surgery 1970 History of cystoscopy december 2021 History of hysterectomy History of lumbar laminectomy dr KELTON David, 2014 History of phacoemulsification of cataract of both eyes with intraocular lens implantation Previous back surgery Family History Father HTN (hypertension) Sister Osteoporosis Sister Uterine cancer Sister Alzheimer disease Sister COPD (chronic obstructive pulmonary disease) Social History Smoking Status: Never smoker Substance Use Type: None Substance Abuse Comment: Non smoker and non drinker Social History Comments: Mother of 2 adult males Allergies & Medications Medications and Allergies Allergies adhesive Allergy (Verified 08/02/22 14:10) Redness of Skin/Removes Skin Home Medications alprazolam 0.5 mg tablet (Xanax) 0.5 mg PO TID PRN Anxiety 12/17/18 [History Confirmed 08/02/22] levothyroxine 50 mcg tablet (Synthroid) 50 mcg PO QAM 12/17/18 [History Confirmed 08/02/22] lovastatin 20 mg tablet 20 mg PO QAM 12/17/18 [History Confirmed 08/02/22] metformin 500 mg tablet (Glucophage) 500 mg PO BID 12/17/18 [History Confirmed 08/02/22] potassium gluconate 600 mg (99 mg) tablet 99 mg PO DIRECTED 10/25/19 [History Confirmed 08/02/22] meclizine 12.5 mg tablet 12.5 mg PO BID PRN Vertigo 07/29/20 [History Confirmed 08/02/22] nystatin 100,000 unit/mL oral suspension 100,000 unit PO DAILY PRN discomfort 07/29/20 [History Confirmed 08/02/22] omeprazole 40 mg capsule,delayed release 40 mg PO QAM 07/29/20 [History Confirmed 08/02/22] amlodipine 5 mg tablet 5 mg PO QAM 01/18/22 [History Confirmed 08/02/22] glimepiride 2 mg tablet (Amaryl) 2 mg PO QAM 01/18/22 [History Confirmed 08/02/22] solifenacin 5 mg tablet (Vesicare) 5 mg PO AC 01/18/22 [History Confirmed 08/02/22] mirabegron 50 mg tablet,extended release 24 hr (Myrbetriq) 50 mg PO DAILY 06/20/22 [History Confirmed 08/02/22] Exam Physical Exam Vital Signs: Temp Pulse Resp BP Pulse Ox O2 Del Method 98.3 F 80 18 188/81 H 93 L Room Air 08/05/22 08:21 08/05/22 08:21 08/05/22 08:21 08/05/22 08:21 08/05/22 08:21 08/05/22 08:21 Narrative: Patient states the right index finger is stiff however has been like this for years. Const General: cooperative Resp Effort & Inspection: normal respiratory effort Extrem Other: There is ecchymosis over the dorsal aspect of the right index finger proximal phalanx. There is degenerative deformity at the DIP joint index finger. Patient is unable to make a full fist and flex the PIP and DIP joint of the index. She states this is a chronic problem Results Lab Results 08/04/22 02:30 08/04/22 02:20 Labs: Laboratory Results - Last 48 hrs. 08/05/22 08:17: POC Glucose 230, POC Glucose Comment Glu2: cleaned meter 08/04/22 21:09: POC Glucose 177 08/04/22 07:56: POC Glucose 235, POC Glucose Comment Glu2: cleaned meter 08/04/22 02:30: Corrected WBC 9.0, RBC 4.47, Hgb 13.0, Hct 38.3, MCV 85.8, MCH 29.0, MCHC 33.8, RDW 14.5, Plt Count 172, MPV 7.7 08/04/22 02:20: PHA Creatinine Clear 34.71, Sodium 133 L, Potassium 3.9, Chloride 97 L, Carbon Dioxide 28.3, Anion Gap 11.6, BUN 23, Creatinine 0.92, EstGFR (CKD- EPI) > 60.0, Glucose 230 H, Calcium 8.8 08/03/22 21:15: POC Glucose 266 08/03/22 16:37: POC Glucose 246, POC Glucose Comment Glu2: cleaned meter H & H 08/02/22 08/04/22 Range/Units 14:56 02:30 Hgb 13.9 13.0 (11.8-15.4) g/dL Hct 41.3 38.3 (34.0-46.4) % Coagulation 08/02/22 Range/Units 14:56 INR 1.1 All other labs are normal. 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 No obvious fracture Assessment/Plan (1) C2 cervical fracture: Code(s): S12.100A - Unspecified displaced fracture of second cervical vertebra, initial encounter for closed fracture (2) Contusion of right index finger without damage to nail, initial encounter: Code(s): S60.021A - Contusion of right index finger without damage to nail, initial encounter Plan This appears to be contusion to the right index finger with associated jdea-ktmouer-nsgojzsu arthritis particular involving the DIP joint. We discussed workingon range of motion exercises. If she is having significant problems after discharge she can follow in our office at any time for further work-up Documented By: Medhat Anglin MD 08/05/22 0855 Signed By: <Electronically signed by MD Medhat Anglin> 08/05/22 0956 [facility] Work Phone: [phone]) [phone] Progress note Author Joan Page [facility] August 05, 2022 8:55am Note Date/Time August 05, 2022 8:55 am [facility] [address] [place] [address] Neurosurgery Progress Note Signed Patient: Tammy Sandoval MR#: [id number] : 1940 Acct:[id number] Age/Sex: 82 / F Adm Date: 3 Loc: 4N Room: 8K7641-3 Type: ADM IN Attending Dr: Ashleigh Roman MD Copies to: ~ Date of Service: 08/05/2022 Subjective Subjective HPI: Mrs. Sandoval was lying supine in bed in what appeared to be in an uncomfortable position. She states she slept quite well last night. She continues to have neckpain and is immobilized in a soft cervical collar. She denies extremity pain andweakness; admits she is able to move her right index finger better this morning although swelling remains. Exam Physical Exam Vital Signs: Temp Pulse Resp BP Pulse Ox O2 Del Method 98.3 F 80 18 188/81 H 93 L Room Air 08/05/22 08:21 08/05/22 08:21 08/05/22 08:21 08/05/22 08:21 08/05/22 08:21 08/05/22 08:21 Narrative: Mrs. Sandoavl's examination has not changed since my initial assessment except forthe pain with movement of the right index finger. She has excellent strength otherwise and is pleasant and comfortable during this visit. Const General: cooperative, comfortable, no acute distress and well developed Nutritional Appearance: well nourished Orientation: alert, awake and oriented x3 HEENT Head: normal to inspection Ears: hearing grossly normal bilaterally Face and sinus: normal facial exam Mouth: oral mucosae normal Teeth and gingiva: dentures Eyes General: appearance normal, both eyes and all related structures Conjunctivae: conjunctivae normal Sclera: sclerae normal EOM: EOM intact bilaterally Neck Neck: other (Soft cervical collar is in place.) Resp Effort & Inspection: normal respiratory effort Musc Cervical Spine: collar present (Soft cervical collar intact) and cervical muscular tenderness Neuro General: patient alert, patient oriented x3 and moves all extremities Cranial Nerves: EOM intact bilaterally, no nystagmus, denies facial pain, able to smile, facial strength normal, hearing normal and speech unremarkable Cognition: normal cognition Speech: speech normal Motor: muscle tone normal throughout Extrem General: other (Decreased swelling along the right index finger) Other: Decreased swelling noted along the right index finger; persistent ecchymosis andswelling of the right great toe Psych Appearance: grossly normal Mood: congruent mood Affect: normal affect Speech and Movement: speech and movement normal Attitude: cooperative Thought Process: normal Thought Content: normal Insight: insight good Judgment: judgment good Objective Lab Results Most Recent Labs: 08/05/22 08:17: POC Glucose 230, POC Glucose Comment Glu2: cleaned meter 08/04/22 21:09: POC Glucose 177 Assessment/Plan Assessment/Plan (1) C2 cervical fracture: Plan: Ms. Sandoval remains neurologically intact. I have encouraged her to continue to work with physical and occupational therapy groups to increase her mobility. I have no new recommendations. I will continue to monitor her with her managing team. Code(s): S12.100A - Unspecified displaced fracture of second cervical vertebra, initial encounter for closed fracture Status: Acute Time Spent With Patient (min): 20 Documented By: Joan Page MD 08/05/22 085 0 Signed By: <Electronically signed by Joan Page MD> 08/05/22 0855 [facility] Work Phone: 1(954) 361-614306-16-2023 Progress note Author Ashleigh Roman [facility] August 05, 2022 12:25am Note Date/Time August 04, 2022 4:48 pm [facility] [address] [place], [place] [id number] Hospitalist Progress Note Signed Patient: Tammy Sandoval MR#: [id number] : 1940 Acct:[id number] Age/Sex: 82 / F Adm Date: 3 Loc: 4N Room: [address] [place] [address] Type: ADM IN Attending Dr: Ashleigh Roman MD Copies to: ~ Date of Service: 08/04/2022 Subjective Subjective Narrative: Assessment And Plan 82F with PMH of HTN, DM, HLD, GERD, CHB (s/p Pacemaker), overactive bladder, DJD, hypothyroidism, recurrent falls, Anxiety who p/w Fall and admitted for the evaluation and treatment of Cervical fracture Fall at home/Recurrent Fall she lost balance and fell hitting her head. she has long history of recurrent falls EKG ED shows NSR@ 92 bpm no significant acute changes, Prolonged QTc CXR ED shows no acute cardiopulmonary abnormality Face CT shows No facial bone fracture. CT brain without contrast shows no acute intracranial process CTA head and neck shows occlusion vs spasm of a vertebral artery at the C3 level(intramural hematoma and/or dissection can?t be ruled out Right Hand XR shows DJD no Fx Vit D, b12 , TSH wnl Neurology recommendation appreciated Right great toe Distal phalanx fracture there is ecchymosis of the right great toe. no pain as per patient Right foot XR shows transverse aortic fracture through the waist of the distal phalanx of the first digit with accompanying soft tissue swelling consult to orthopedic sugary for expert opinion pending Cervical fracture Cervical CT shows Comminuted fracture involving the base of the dens extending into the transverse processes bilaterally. Neurosurgery recommendation appreciated soft cervical collar Supportive and pain controlled agree with gabapentin?and carbamazepine? for her neuropathic pain PT/OT DM blood sugars were reviewed sliding scale insulin and accuchecks. hold oral antidiabetic medication/metformin. hypoglycemia protocol. ? HTN Urgency BP is better controlled Lisinopril and HCTZ INTERVAL HPI: As Above, Pt resting in bed. feeling the same still has neck pain.Denies any chest pain, SOB Chronic diseases: Unless mentioned Above, Essential home medications have been continued. DVT Px: Addressed Disposition: awaiting placement Plan of care Discussed with: the medical team, the patient Exam Physical Exam Vital Signs: Temp Pulse Resp BP Pulse Ox O2 Del Method 36.4 C 76 14 159/73 H 94 L Room Air 08/04/22 16:01 08/04/22 16:01 08/04/22 16:01 08/04/22 16:01 08/04/22 16:01 08/04/22 16:01 Narrative: GEN: Pleasant, Cooperative, Not in acute distress. NECK: c-collar LUNGS: CTA CV: S1S2 nl, ? M/R/G ABD: Soft, ND, NT, + BS EXT: No edema in LE bilaterally, no calf muscle tenderness. multiple ecchymosis in the LE with bruise over the right great toe NEURO: no FND PSYCH: nl affect Objective Lab Results 08/04/22 02:30 08/04/22 02:20 Meds Allergies and Active Meds Allergies adhesive Allergy (Verified 08/02/22 14:10) Redness of Skin/Removes Skin Active Meds: Active Medications Generic Name Dose Route Start Last Admin Trade Name Pepe PRN Reason Stop Dose Admin Acetaminophen 650 mg 08/02/22 19:17 08/03/22 17:33 Acetaminophen 325 Mg Tablet PO 08/02/23 19:16 650 mg Q6H PRN Administration Pain 1-5 or fever Alprazolam 0.5 mg 08/03/22 00:28 08/03/22 21:27 Alprazolam 0.5 Mg Tablet PO 01/30/23 00:27 0.5 mg TID PRN Administration Anxiety Amlodipine Besylate 5 mg 08/04/22 09:00 08/04/22 08:19 Amlodipine 5 Mg Tablet PO 08/04/23 08:59 5 mg QAM DONITA Administration Atorvastatin Calcium 5 mg 08/03/22 21:00 08/03/22 21:25 Atorvastatin 10 Mg Tablet PO 08/03/23 20:59 5 mg QPM DONITA Administration Carbamazepine 100 mg 08/03/22 14:00 08/04/22 08:21 Carbamazepine 200 Mg Tablet PO 08/03/23 13:59 100 mg BID DONITA Administration Dextrose 0 gm 08/02/22 19:17 Dextrose 50% In Water 25 Gm/50 Ml Syringe IV-PUSH 08/02/23 19:16 PRN PRN Hypoglycemia Gabapentin 300 mg 08/04/22 22:00 Gabapentin 300 Mg Capsule PO 08/04/23 21:59 TID DONITA Hydrochlorothiazide 25 mg 08/04/22 09:00 08/04/22 11:02 Hydrochlorothiazide 25 Mg Tablet PO 08/04/23 08:59 25 mg DAILY DONITA Administration Insulin Aspart 0 units 08/02/22 22:00 08/04/22 12:13 Insulin Aspart 300 Units/3 Ml Insuln.Pen SUBCUT 08/02/23 21:59 3 units TID.WM.HS DONITA Administration Protocol Levothyroxine Sodium 50 mcg 08/03/22 06:30 08/04/22 06:49 Levothyroxine 50 Mcg Tablet PO 08/03/23 06:29 50 mcg DAILY@0630 DONITA Administration Lisinopril 10 mg 08/04/22 09:00 08/04/22 09:56 Lisinopril 10 Mg Tablet PO 08/04/23 08:59 10 mg DAILY DONITA Administration Metoprolol Tartrate 5 mg 08/04/22 00:41 Metoprolol Tartrate 5 Mg/5 Ml Vial IV-PUSH 08/04/23 00:40 Q4H PRN Blood Pressure - High Mirabegron 50 mg 08/03/22 09:00 08/04/22 08:20 Mirabegron 25 Mg Tab.Er.24h PO 08/03/23 08:59 50 mg DAILY DONITA Administration Morphine Sulfate 2 mg 08/02/22 19:17 08/04/22 08:15 Morphine Sulfate 2 Mg/Ml Vial IV-PUSH 2 mg Q4H PRN Administration Pain Scale 7 - 10 Oxycodone/Acetaminophen 1 tab 08/02/22 19:17 08/04/22 14:10 Oxycodone/Acetaminophen 5-325 Mg Tablet PO 1 tab Q6H PRN Administration Pain Scale 6 - 10 Pantoprazole Sodium 40 mg 08/03/22 09:00 08/04/22 08:19 Pantoprazole 40 Mg Tablet.Dr PO 08/03/23 08:59 40 mg BID DONITA Administration Potassium Chloride 40 meq 08/02/22 19:17 Potassium Chloride Er 20 Meq Tab.Er.Prt PO 08/02/23 19:16 DAILY PRN Hypokalemia Sodium Chloride 0 ml 08/02/22 16:38 08/04/22 01:11 Sodium Chloride 0.9 % 10 Ml Syringe IV-PUSH 08/02/23 16:37 10 ml PRN PRN Administration Flush Tolterodine Tartrate 2 mg 08/03/22 07:30 08/04/22 06:49 Tolterodine 2 Mg Cap.Er.24h PO 08/03/23 07:29 2 mg DAILY.AC.BKFAST DONITA Administration Documented By: Ashleigh Roman MD 08/04/22 1646 Signed By: <Electronically signed by Ashleigh Roamn MD> 08/05/22 0025 [facility] Work Phone: [phone] Progress note Author Alexander Everett [facility] August 04, 2022 3:05pm Note Date/Time August 04, 2022 3:05 pm [facility] [address] [place] [address] Neurology Progress Note Signed Patient: Tammy Sandoval MR#: [id number] : 1940 Acct:[id number] Age/Sex: 82 / F Adm Date: 3 Loc: 4N Room: [address] [place] [address] Type: ADM IN Attending Dr: Ashleigh Roman MD Copies to: ~ Date of Service: 08/04/2022 Exam Physical Exam Vital Signs: Temp Pulse Resp BP Pulse Ox O2 Del Method 97.8 F 75 12 176/78 H 93 L Room Air 08/04/22 12:05 08/04/22 12:05 08/04/22 12:05 08/04/22 12:05 08/04/22 12:05 08/04/22 12:05 Objective Vital Signs Vital Signs: Vital Signs - 24 hr 08/03/22 16:33 08/03/22 20:20 08/03/22 21:16 Temperature 98.1 F 98.3 F Pulse Rate 75 82 Respiratory Rate 18 17 Blood Pressure 164/77 H 196/77 H 02 Sat by Pulse Oximetry 92 L 95 Oxygen Delivery Method Room Air Room Air Room Air 08/03/22 23:22 08/04/22 03:29 08/04/22 04:10 Temperature 98.3 F 97.4 F L Pulse Rate 81 74 Respiratory Rate 17 16 Blood Pressure 183/84 H 194/83 H 185/77 H 02 Sat by Pulse Oximetry 96 92 L Oxygen Delivery Method Room Air Room Air 08/04/22 08:00 08/04/22 09:05 08/04/22 10:00 Temperature 97.8 F Pulse Rate 76 Respiratory Rate 14 Blood Pressure 183/79 H 02 Sat by Pulse Oximetry 95 Oxygen Delivery Method Room Air Room Air Room Air 08/04/22 09:50 08/04/22 11:00 08/04/22 12:05 Temperature 97.8 F Pulse Rate 75 Respiratory Rate 12 Blood Pressure 184/82 H 186/84 H 176/78 H 02 Sat by Pulse Oximetry 93 L Oxygen Delivery Method Room Air Labs 08/04/22 02:30 08/04/22 02:20 Therapy Recommendations Therapy Recommendations: OT Recommendations OT Recommended Discharge Half-Way Facility,Inpatient Rehab Unit Location PT Recommendations PT Recommended Discharge Inpatient Rehab Unit Location PT Recommended Services at Physical Therapy,Occupational Therapy,12/09 Discharge Supervision PT Discharge DME Wheeled Walker Recommendations Assessment/Plan (1) C2 cervical fracture: Assessment/Problem Details: CONSULT REASON: Recurrent falls, head pains SUBJECTIVE: Still with exquisite pain with any head movement. Some of that pain is probablydue to the actual fracture. But a lot of what she describes continues to sound like occipital neuralgia with pains radiating up over the top of her head. She says she did not sleep well last night. EXAMINATION: Soft cervical collar in place. No distress. Limbs seem well-perfused. No significant edema. Normal work of breathing. Bruising on limbs. Extensive bruising right foot affecting first and second toes. Affect normal. Patient isalert and generally oriented. Attention normal. Speech is fluent and nondysarthric. Pupils are equal. Ocular motility is full. No nystagmus. Facial sensation is normal. Hearing is normal. Facial strength is normal. Tongue is midline. Muscle bulk, tone, and strength are normal. No tremors. Reflexes diffusely hyperactive, +3/4 (same as in July 2020). Slight Pauly signs bilaterally. Light touch is normal. Vibratory sensation is normal. No spinal level. Normal rapidly alternating movements. No limb dysmetria with [id number] testing. DATA REVIEW: CT imaging of head and cervical spine reviewed CTA of head and neck reviewed ASSESSMENT: 1. 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 Not having symptoms concerning for any related posterior circulation infarction. 2. Acute and bilateral occipital neuralgia related to the C2 injury. Getting severe radicular type pains radiating over the back of her head bilaterally withany neck movement. 3. Chronic and recurrent falls. Etiology not completely clear. 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 PLAN: 1. I am increasing the gabapentin from 100 mg 3 times daily to 300 mg 3 times daily 2. Continue the carbamazepine at 100 mg twice daily 3. Could eventually consider occipital nerve blocks. Code(s): S12.100A - Unspecified displaced fracture of second cervical vertebra, initial encounter for closed fracture Status: Acute Documented By: Alexander Everett DO 08/04/22 1503 Signed By: <Electronically signed by Alexander Everett DO> 08/04/22 1504 [facility] Work Phone: [phone] 132-743106-15-2023 Progress note Author Joan Page [facility] August 04, 2022 11:12am Note Date/Time August 04, 2022 11:1 3am [facility] [address] [place] [address] Neurosurgery Progress Note Signed Patient: Tammy Sandoval MR#: [id number] : 1940 Acct:[id number] Age/Sex: 82 / F Adm Date: 3 Loc: 4N Room: 8Z3132-3 Type: ADM IN Attending Dr: Ashleigh Roman MD Copies to: ~ Date of Service: 08/04/2022 Subjective Subjective HPI: Mrs. Sandoval reports feeling tired this morning as she did not rest well during the night. She is in good humor this morning and is looking forward to increasing her activity and working with physical and occupational therapy. Exam Physical Exam Vital Signs: Temp Pulse Resp BP Pulse Ox O2 Del Method 97.8 F 76 14 183/79 H 95 Room Air 08/04/22 08:00 08/04/22 08:00 08/04/22 08:00 08/04/22 08:00 08/04/22 08:00 08/04/22 10:00 Narrative: Mrs. Sandoval's examination has not changed since my initial assessment except forthe pain with movement of the right index finger. She has excellent strength otherwise and is pleasant and comfortable during this visit. Const General: cooperative, comfortable, no acute distress and well developed Nutritional Appearance: well nourished Orientation: alert, awake and oriented x3 HEENT Head: normal to inspection Ears: hearing grossly normal bilaterally Face and sinus: normal facial exam Mouth: oral mucosae normal Teeth and gingiva: dentures Eyes General: appearance normal, both eyes and all related structures Conjunctivae: conjunctivae normal Sclera: sclerae normal EOM: EOM intact bilaterally Neck Neck: other (Soft cervical collar is in place.) Resp Effort & Inspection: normal respiratory effort Neuro General: patient alert, patient oriented x3 and moves all extremities Cranial Nerves: EOM intact bilaterally, no nystagmus, denies facial pain, able to smile, facial strength normal, hearing normal and speech unremarkable Cognition: normal cognition Speech: speech normal Motor: muscle tone normal throughout Extrem General: other (Decreased swelling along the right index finger) Psych Appearance: grossly normal Mood: congruent mood Affect: normal affect Speech and Movement: speech and movement normal Attitude: cooperative Thought Process: normal Thought Content: normal Insight: insight good Judgment: judgment good Objective Lab Results Most Recent Labs: 08/04/22 07:56: POC Glucose 235, POC Glucose Comment Glu2: cleaned meter 08/04/22 02:30: Corrected WBC 9.0, RBC 4.47, Hgb 13.0, Hct 38.3, MCV 85.8, MCH 29.0, MCHC 33.8, RDW 14.5, Plt Count 172, MPV 7.7 08/04/22 02:20: PHA Creatinine Clear 34.71, Sodium 133 L, Potassium 3.9, Chloride 97 L, Carbon Dioxide 28.3, Anion Gap 11.6, BUN 23, Creatinine 0.92, EstGFR (CKD- EPI) > 60.0, Glucose 230 H, Calcium 8.8 08/03/22 21:15: POC Glucose 266 08/03/22 16:37: POC Glucose 246, POC Glucose Comment Glu2: cleaned meter Assessment/Plan Assessment/Plan (1) C2 cervical fracture: Plan: Ms. Sandoval remains neurologically intact s/p C2 fracture. She will be maintainedin a soft cervical collar. Her follow-up c-spine films show adequate alignment given the character of the fracture. She should begin working with physical and occupational therapy groups. I will continue to monitor her progress along with her managing team. Code(s): S12.100A - Unspecified displaced fracture of second cervical vertebra, initial encounter for closed fracture Status: Acute Time Spent With Patient (min): 20 Documented By: Joan Page MD 08/04/22 110 6 Signed By: <Electronically signed by Joan Page MD> 08/04/22 1112 [facility] Work Phone: [phone]) 124-221106-15-2023 Progress note Author Ashleigh Roman [facility] August 04, 2022 2:04am Note Date/Time August 03, 2022 6:10 pm [facility] [address] [place] [address] Hospitalist Progress Note Signed Patient: Tammy Sandvoal MR#: [id number] : 1940 Acct:[id number] Age/Sex: 82 / F Adm Date: 3 Loc: 4N Room: [id number] Type: ADM IN Attending Dr: Ashleigh Roman MD Copies to: ~ Date of Service: 08/03/2022 Subjective Subjective Narrative: Assessment And Plan 82F with PMH of HTN, DM, HLD, GERD, CHB (s/p Pacemaker), overactive bladder, DJD, hypothyroidism, recurrent falls, Anxiety who p/w Fall and admitted for the evaluation and treatment of Cervical fracture Fall at home/Recurrent Fall she lost balance and fell hitting her head. she has long history of recurrent falls EKG ED shows NSR@ 92 bpm no significant acute changes, Prolonged QTc CXR ED shows no acute cardiopulmonary abnormality Face CT shows No facial bone fracture. CT brain without contrast shows no acute intracranial process CTA head and neck shows occlusion vs spasm of a vertebral artery at the C3 level(intramural hematoma and/or dissection can?t be ruled out Right Hand XR shows DJD no Fx Vit D, b12 , TSH wnl Neurology recommendation appreciated Right great toe Distal phalanx fracture there is ecchymosis of the right great toe Right foot XR shows transverse aortic fracture through the waist of the distal phalanx of the first digit with accompanying soft tissue swelling favor consulting orthopedic sugary Cervical fracture Cervical CT shows Comminuted fracture involving the base of the dens extending into the transverse processes bilaterally. Neurosurgery recommendation appreciated soft cervical collar Supportive and pain controlled agree with gabapentin?and carbamazepine? for her neuropathic pain PT/OT DM blood sugars were reviewed sliding scale insulin and accuchecks. hold oral antidiabetic medication/metformin. hypoglycemia protocol. ? HTN Urgency she has h/o HTN but she is not on any medication at home start Lisinopril and HCTZ INTERVAL HPI: As Above, Pt resting in bed. feeling the same still has neck pain and pain all over . Denies any chest pain, SOB Chronic diseases: Unless mentioned Above, Essential home medications have been continued. DVT Px: Addressed Disposition: To be determined Plan of care Discussed with: the medical team, the patient Exam Physical Exam Vital Signs: Temp Pulse Resp BP Pulse Ox O2 Del Method 36.7 C 75 18 164/77 H 92 L Room Air 08/03/22 16:33 08/03/22 16:33 08/03/22 16:33 08/03/22 16:33 08/03/22 16:33 08/03/22 16:33 Narrative: GEN: Pleasant, Cooperative, Not in acute distress. NECK: c-collar LUNGS: CTA CV: S1S2 nl, ? M/R/G ABD: Soft, ND, NT, + BS EXT: No edema in LE bilaterally, no calf muscle tenderness. multiple ecchymosisin the LE with bruise over the right great toe NEURO: no FND PSYCH: nl affect Objective Lab Results 08/02/22 14:56 08/02/22 14:56 Meds Allergies and Active Meds Allergies adhesive Allergy (Verified 08/02/22 14:10) Redness of Skin/Removes Skin Active Meds: Active Medications Generic Name Dose Route Start Last Admin Trade Name Reynaldoq PRN Reason Stop Dose Admin Acetaminophen 650 mg 08/02/22 19:17 08/03/22 17:33 Acetaminophen 325 Mg Tablet PO 08/02/23 19:16 650 mg Q6H PRN Administration Pain 1-5 or fever Alprazolam 0.5 mg 08/03/22 00:28 Alprazolam 0.5 Mg Tablet PO 01/30/23 00:27 TID PRN Anxiety Atorvastatin Calcium 5 mg 08/03/22 21:00 Atorvastatin 10 Mg Tablet PO 08/03/23 20:59 QPM DONITA Carbamazepine 100 mg 08/03/22 14:00 08/03/22 15:13 Carbamazepine 200 Mg Tablet PO 08/03/23 13:59 100 mg BID DONITA Administration Dextrose 0 gm 08/02/22 19:17 Dextrose 50% In Water 25 Gm/50 Ml Syringe IV-PUSH 08/02/23 19:16 PRN PRN Hypoglycemia Gabapentin 100 mg 08/03/22 14:00 08/03/22 15:13 Gabapentin 100 Mg Capsule PO 08/03/23 13:59 100 mg TID DONITA Administration Insulin Aspart 0 units 08/02/22 22:00 08/03/22 17:31 Insulin Aspart 300 Units/3 Ml Insuln.Pen SUBCUT 08/02/23 21:59 2 units TID.WM.HS DONITA Administration Protocol Levothyroxine Sodium 50 mcg 08/03/22 06:30 08/03/22 05:51 Levothyroxine 50 Mcg Tablet PO 08/03/23 06:29 50 mcg DAILY@0630 DONITA Administration Mirabegron 50 mg 08/03/22 09:00 08/03/22 09:12 Mirabegron 25 Mg Tab.Er.24h PO 08/03/23 08:59 50 mg DAILY DONITA Administration Morphine Sulfate 2 mg 08/02/22 19:17 Morphine Sulfate 2 Mg/Ml Vial IV-PUSH Q4H PRN Pain Scale 7 - 10 Oxycodone/Acetaminophen 1 tab 08/02/22 19:17 08/03/22 11:52 Oxycodone/Acetaminophen 5-325 Mg Tablet PO 1 tab Q6H PRN Administration Pain Scale 6 - 10 Pantoprazole Sodium 40 mg 08/03/22 09:00 08/03/22 09:12 Pantoprazole 40 Mg Tablet.Dr PO 08/03/23 08:59 40 mg BID DONITA Administration Potassium Chloride 40 meq 08/02/22 19:17 Potassium Chloride Er 20 Meq Tab.Er.Prt PO 08/02/23 19:16 DAILY PRN Hypokalemia Sodium Chloride 0 ml 08/02/22 16:38 08/02/22 16:42 Sodium Chloride 0.9 % 10 Ml Syringe IV-PUSH 08/02/23 16:37 10 ml PRN PRN Administration Flush Tolterodine Tartrate 2 mg 08/03/22 07:30 08/03/22 09:12 Tolterodine 2 Mg Cap.Er.24h PO 08/03/23 07:29 2 mg DAILY.AC.BKFAST DONITA Administration Documented By: Ashleigh Roman MD 08/03/221809 Signed By: <Electronically signed by sAhleigh Roman MD> 08/04/228 [facility] Work Phone: [phone] 232-637706-14-2023 Progress note Author Joan Page [facility] August 03, 2022 9:47pm Note Date/Time August 03, 2022 9:47 pm [facility] [address] [place] [address] Neurosurgery Progress Note Signed Patient: Tammy Sandoval MR#: [id number] : 1940 Acct:[id number] Age/Sex: 82 / F Adm Date: 3 Loc: 4N Room: 4E0639-0 Type: ADM IN Attending Dr: Ashleigh Roman MD Copies to: ~ Date of Service: 08/03/2022 Subjective Subjective HPI: Mrs. Sandoval was in good spirits this afternoon. She was sitting up in bed wearing the soft cervical collar which I adjusted in order to fit better. She reported right index finger pain and swelling. She also noted bruising and swelling of her great toe both of which were injured during the fall. She is scheduled for follow-up cervical spine films to address alignment. Exam Physical Exam Vital Signs: Temp Pulse Resp BP Pulse Ox O2 Del Method 98.3 F 82 17 196/77 H 95 Room Air 08/03/22 21:16 08/03/22 21:16 08/03/22 21:16 08/03/22 21:16 08/03/22 21:16 08/03/22 21:16 Narrative: Mrs. Sandoval's examination has not changed since my initial assessment except forthe pain with movement of the right index finger. She has excellent strength otherwise and is pleasant and comfortable during this visit. Objective Lab Results Most Recent Labs: 08/03/22 21:15: POC Glucose 266 08/03/22 16:37: POC Glucose 246, POC Glucose Comment Glu2: cleaned meter 08/03/22 08:15: POC Glucose 233, POC Glucose Comment Glu2: cleaned meter Imaging Additional studies: AP/Lateral cervical spine films demonstrate stable appearance of the odontoid fracture in the soft cervical collar. Assessment/Plan Assessment/Plan (1) C2 cervical fracture: Plan: Mrs. Sandoval is neurologically stable and the cervical spine films are stable in appearance. Physical therapy should work with her to assist with mobilization. The soft cervical collar should be worn at all times; while seated she may take the collar off for short periods of time. I will continue to monitor her with her primary medical team. Code(s): S12.100A - Unspecified displaced fracture of second cervical vertebra, initial encounter for closed fracture Status: Acute Time Spent With Patient (min): 20 Documented By: Joan Page MD 08/03/22 214 1 Signed By: <Electronically signed by Jona Page MD> 08/03/227 [facility] Work Phone: [phone] Consult note Author Alexander Everett [facility] August 03, 2022 1:59pm Note Date/Time August 03, 2022 1:59 pm [facility] [address] [place] [address] Neurology Consult Note Signed Patient: Tammy Sandoval MR#: [id number] : 1940 Acct:[id number] Age/Sex: 82 / F Adm Date: 3 Loc: Room: 7E7460-5 Type: ADM IN Attending Dr: Ashleigh Roman MD Copies to: DO Isaiah Mccoy DO Marwan Wassouf, MD~ HPI Consult Date: 08/03/22 Learning Center Instructor: Alexander Everett DO PMFSH Vaccinated for COVID-19?: Yes Medical History Acid reflux Arthritis Back pain Diabetes GERD (gastroesophageal reflux disease) High cholesterol High triglycerides History of basal cell cancer right nose History of cardiac arrhythmia Hypothyroid Incontinence abb Other abnormal clinical finding I had fluid around my heart Overactive bladder Pacemaker st judes, 2012 placement. 2021 Panic attacks Surgical History History of bladder surgery 1970 History of cystoscopy december 2021 History of hysterectomy History of lumbar laminectomy dr KELTON David, 2014 History of phacoemulsification of cataract of both eyes with intraocular lens implantation Previous back surgery Family History Father HTN (hypertension) Sister Osteoporosis Sister Uterine cancer Sister Alzheimer disease Sister COPD (chronic obstructive pulmonary disease) Social History Smoking Status: Never smoker Substance Use Type: None Substance Abuse Comment: Non smoker and non drinker Social History Comments: Mother of 2 adult males Meds Medications and Allergies Allergies adhesive Allergy (Verified 08/02/22 14:10) Redness of Skin/Removes Skin Home Medications alprazolam 0.5 mg tablet (Xanax) 0.5 mg PO TID PRN Anxiety 12/17/18 [History Confirmed 08/02/22] levothyroxine 50 mcg tablet (Synthroid) 50 mcg PO QAM 12/17/18 [History Confirmed 08/02/22] lovastatin 20 mg tablet 20 mg PO QAM 12/17/18 [History Confirmed 08/02/22] metformin 500 mg tablet (Glucophage) 500 mg PO BID 12/17/18 [History Confirmed 08/02/22] potassium gluconate 600 mg (99 mg) tablet 99 mg PO DIRECTED 10/25/19 [History Confirmed 08/02/22] meclizine 12.5 mg tablet 12.5 mg PO BID PRN Vertigo 07/29/20 [History Confirmed 08/02/22] nystatin 100,000 unit/mL oral suspension 100,000 unit PO DAILY PRN discomfort 07/29/20 [History Confirmed 08/02/22] omeprazole 40 mg capsule,delayed release 40 mg PO QAM 07/29/20 [History Confirmed 08/02/22] amlodipine 5 mg tablet 5 mg PO QAM 01/18/22 [History Confirmed 08/02/22] glimepiride 2 mg tablet (Amaryl) 2 mg PO QAM 01/18/22 [History Confirmed 08/02/22] solifenacin 5 mg tablet (Vesicare) 5 mg PO AC 01/18/22 [History Confirmed 08/02/22] mirabegron 50 mg tablet,extended release 24 hr (Myrbetriq) 50 mg PO DAILY 06/20/22 [History Confirmed 08/02/22] Exam Physical Exam Vital Signs: Temp Pulse Resp BP Pulse Ox O2 Del Method 97.8 F 85 18 183/81 H 95 Room Air 08/03/22 11:23 08/03/22 11:23 08/03/22 11:23 08/03/22 11:23 08/03/22 11:23 08/03/22 11:23 Results Laboratory Findings 08/02/22 14:56 08/02/22 14:56 Diagnostic Findings Imaging/Impressions: ITS Impressions Cervical Spine CT 08/02/22 14:11 IMPRESSION: Comminuted fracture involving the base of the dens extending into the transverse processes bilaterally. There is encroachment into the right transverse foramen concerning for vertebral artery injury. CTA head and neck recommended to further assess. Preliminary findings given at 3:52 PM 08/02/2022 Impression dictated by: Juan Mcintosh M.D.08/02/2022 4:00 PM Dictation Location: [facility] Chest X-Ray 08/02/22 14:11 IMPRESSION: No acute process. Impression dictated by: Juan Mcintosh M.D.08/02/2022 3:22 PM Dictation Location: [facility] 08/02/22 14:11 IMPRESSION: No facial bone fracture. Redemonstration of dense fracture. Impression dictated by: Juan Mcintosh M.D.08/02/2022 4:13 PM Dictation Location: [facility] 08/02/22 14:11 IMPRESSION: No acute intracranial findings. Impression dictated by: Juan Mcintosh M.D.08/02/2022 4:04 PM Dictation Location: [facility] Head CTA 08/02/22 15:49 IMPRESSION: Redemonstration of fracture of the dens which extends into the righttransverse process foramen. There is lack of contrast opacification of the midportion of the right vertebral artery with smooth narrowing starting at the C3 level with reconstitution of flow identified at the level of the occiput. Findings are concerning for occlusion of a vertebral artery this at this level with likely spasm. There also may be concern for intramural hematoma and/or dissection at this level. Dedicated angiogram may be beneficial. The left vertebral artery and carotid arteries and intracranial circulation unremarkable. Impression dictated by: Juan Mcintosh M.D.08/02/2022 5:24 PM Dictation Location: [facility] Cervical Spine X-Ray 08/03/22 12:05 IMPRESSION: Stable alignment of C2 fracture. Impression dictated by: Juan Mcintosh M.D.08/03/2022 12:59 PM Dictation Location: [facility] Hand X-Ray 08/03/22 12:33 IMPRESSION: No acute fracture. Extensive degenerative change. Impression dictated by: Juan Mcintosh M.D.08/03/2022 1:00 PM Dictation Location: [facility] Assessment/Plan (1) C2 cervical fracture: Assessment/Problem Details: CONSULT REASON: Recurrent falls, head pains HPI: 82-year-old woman with longstanding history of recurrent falls. A very high fall risk and for unclear reasons. I evaluated her back in July 2020 here at the hospital for balance issues. Even back then she had been strategically laying pillows around the house for when she falls. And she refused to use any assistive devices. She does not experience vertigo or presyncope. She has somesense of disequilibrium. And mild sensory impairment in the feet. Subsequent outpatient neurological work-up including EMG made it seem like the sensory impairment in the feet might be lumbar in origin rather than polyneuropathy. She has not developed any parkinsonism. She is here for evaluation after losing her balance at home and falling beside her couch and she struck her head in such a way that her neck hyperextended. Her phone was in a different room. She struggled on the floor a bit but then essentially laid there for several hours until her returned home and found her. She was having intense pains sweep over the back of her head which she calls spasms. He drove her in for evaluation. She said every bump in theroad scented jolt of pain throughout her head. CT of her cervical spine here showed a C2 fracture, a comminuted fracture involving the base of the dens and extending into the transverse process. It looks like she also sustained a traumatic vertebral artery occlusion with the injury. Review of systems revealed that she hurts all over but was otherwise negative unless already mentioned. EXAMINATION: Soft cervical collar in place. No distress. Limbs seem well-perfused. No significant edema. Normal work of breathing. Bruising on limbs. Extensive bruising right foot affecting first and second toes. Affect normal. Patient isalert and generally oriented. Attention normal. Speech is fluent and nondysarthric. Pupils are equal. Ocular motility is full. No nystagmus. Facial sensation is normal. Hearing is normal. Facial strength is normal. Tongue is midline. Muscle bulk, tone, and strength are normal. No tremors. Reflexes diffusely hyperactive, +3/4 (same as in July 2020). Slight Pauly signs bilaterally. Light touch is normal. Vibratory sensation is normal. No spinal level. Normal rapidly alternating movements. No limb dysmetria with [id number] testing. DATA REVIEW: CT imaging of head and cervical spine reviewed CTA of head and neck reviewed ASSESSMENT: 1. 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 Not having symptoms concerning for any related posterior circulation infarction. 2. Acute and bilateral occipital neuralgia related to the C2 injury. Getting severe radicular type pains radiating over the back of her head bilaterally withany neck movement. 3. Chronic and recurrent falls. Etiology not completely clear. 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 PLAN: 1. She has extensive bruising in her right foot that looks suspicious for a medial distal fracture; I will order right foot x-ray 2. We can try very small doses of neuropathic pain medication for her occipitalneuralgia pains. I will start gabapentin 100 mg 3 times daily and mg twice daily. Could eventually consider occipital nerve blocks. 3. Neurosurgery doing the heavy lifting in terms of management Code(s): S12.100A - Unspecified displaced fracture of second cervical vertebra, initial encounter for closed fracture Status: Acute Documented By: Alexander Everett DO 08/03/22 1345 Signed By: <Electronically signed by Alexander Everett DO> 08/03/22 [address] [facility] Work Phone: [phone] Consult note Author Joan Page [facility] August 03, 2022 9:12am Note Date/Time August 03, 2022 8:52 am [facility] [address] [place] [address] Neurosurgery Consult Note Signed Patient: Tammy Sandoval MR#: [id number] : 1940 Acct:[id number] Age/Sex: 82 / F Adm Date: 3 Loc: Room: [address] [place] [address] Type: ADM IN Attending Dr: Ashleigh Roman MD Copies to: DO Joan Baig MD Marwan Wassouf, MD~ HPI History of Present Illness Consult Date: 08/03/2022 Requesting Provider: CC: Ashleigh Roman MD Reason for Consult: S/P Fall C2 fracture History of Present Illness: Mrs. Sandoval is a delightful 82 year old woman with a complex medical history significant for hypertension, arrhythmia s/p pacemaker, diabetes mellitus, hyperlipidemia, GERD and frequent falls. She was admitted following a fall at her home. She states she lost her balance and fell beside her couch striking herforehead which then forced her head and neck into hyperextension. She states shehas been off balance since about 2020, describing her gait as though she is drunk. At the time of this fall she denies the loss of consciousness and states she had full control of her extremities. She was brought to the ER for further evaluation. PMFSH Vaccinated for COVID-19?: Yes Medical History Acid reflux Arthritis Back pain Diabetes GERD (gastroesophageal reflux disease) High cholesterol High triglycerides History of basal cell cancer right nose History of cardiac arrhythmia Hypothyroid Incontinence abb Other abnormal clinical finding I had fluid around my heart Overactive bladder Pacemaker st judes, 2011 placement. Huff 2021 Panic attacks Surgical History History of bladder surgery 1970 History of cystoscopy december 2021 History of hysterectomy History of lumbar laminectomy dr KELTON David, 2013 History of phacoemulsification of cataract of both eyes with intraocular lens implantation Previous back surgery Family History Father HTN (hypertension) Sister Osteoporosis Sister Uterine cancer Sister Alzheimer disease Sister COPD (chronic obstructive pulmonary disease) Social History Marital Status: Household Members: spouse Smoking Status: Never smoker Substance Use Type: None Substance Abuse Comment: Non smoker and non drinker Social History Comments: Mother of 2 adult males Meds Medications and Allergies Allergies adhesive Allergy (Verified 08/02/22 14:10) Redness of Skin/Removes Skin Home Medications alprazolam 0.5 mg tablet (Xanax) 0.5 mg PO TID PRN Anxiety 12/17/18 [History Confirmed 08/02/22] levothyroxine 50 mcg tablet (Synthroid) 50 mcg PO QAM 12/17/18 [History Confirmed 08/02/22] lovastatin 20 mg tablet 20 mg PO QAM 12/17/18 [History Confirmed 08/02/22] metformin 500 mg tablet (Glucophage) 500 mg PO BID 12/17/18 [History Confirmed 08/02/22] potassium gluconate 600 mg (99 mg) tablet 99 mg PO DIRECTED 10/25/19 [History Confirmed 08/02/22] meclizine 12.5 mg tablet 12.5 mg PO BID PRN Vertigo 07/29/20 [History Confirmed 08/02/22] nystatin 100,000 unit/mL oral suspension 100,000 unit PO DAILY PRN discomfort 07/29/20 [History Confirmed 08/02/22] omeprazole 40 mg capsule,delayed release 40 mg PO QAM 07/29/20 [History Confirmed 08/02/22] amlodipine 5 mg tablet 5 mg PO QAM 01/18/22 [History Confirmed 08/02/22] glimepiride 2 mg tablet (Amaryl) 2 mg PO QAM 01/18/22 [History Confirmed 08/02/22] solifenacin 5 mg tablet (Vesicare) 5 mg PO AC 01/18/22 [History Confirmed 08/02/22] mirabegron 50 mg tablet,extended release 24 hr (Myrbetriq) 50 mg PO DAILY 06/20/22 [History Confirmed 08/02/22] Exam Physical Exam Vital Signs: Temp Pulse Resp BP Pulse Ox O2 Del Method 98.1 F 75 19 168/84 H 95 Room Air 08/03/22 08:04 08/03/22 08:04 08/03/22 08:04 08/03/22 08:04 08/03/22 08:04 08/03/22 08:04 Const General: cooperative, healthy appearing, comfortable, no acute distress and welldeveloped Nutritional Appearance: well nourished Orientation: alert, awake and oriented x3 HEENT Head: normal to inspection and no palpable skull fracture Nose: external nose normal Face and sinus: normal facial exam Mouth: oral mucosae normal Teeth and gingiva: dentures Eyes General: appearance normal, both eyes and all related structures Alignment and Position: alignment normal Eyelids: eyelids normal Conjunctivae: conjunctivae normal Sclera: sclerae normal EOM: EOM intact bilaterally Neck Neck: other (Soft cervical collar in place) Resp Effort & Inspection: normal respiratory effort Neuro General: patient alert, patient awake and patient oriented x3 Cranial Nerves: EOM intact bilaterally, no nystagmus, denies facial pain, able to smile, able to blink, facial strength normal, hearing normal, speech unremarkable and able to elevate shoulders bilaterally Speech: speech normal Motor: muscle tone normal throughout (Good strength is demonstrated bilaterally) Extrem General: normal to inspection Psych Appearance: grossly normal Mental Status: mental status grossly normal Mood: congruent mood Affect: normal affect Speech and Movement: speech and movement normal Attitude: cooperative Thought Content: normal Insight: insight good Judgment: judgment good Results Lab Results Labs: Laboratory Results - Last 48 hrs. 08/03/22 08:15: POC Glucose 233, POC Glucose Comment Glu2: cleaned meter 08/02/22 15:58: Urine Color Yellow, Urine Appearance Clear, Urine pH 7.0, Ur Specific Hays 1.022, Urine Protein 300 H, Urine Glucose (UA) 500 H, Urine Ketones 1+ H, Urine Occult Blood 2+ H, Urine Nitrite Negative, Urine Bilirubin Negative, Urine Urobilinogen Normal, Ur Leukocyte Esterase Negative 08/02/22 15:58: Urine Color Yellow, Urine Appearance Clear, Urine pH 7.0, Ur Specific Hays 1.022, Urine Protein 300 H, Urine Glucose (UA) 500 H, Urine Ketones 1+ H, Urine Occult Blood 2+ H, Urine Nitrite Negative, Urine Bilirubin Negative, Urine Urobilinogen Normal, Ur Leukocyte Esterase Negative, Urine RBC 3-4, Urine WBC 10-19 H, Ur Squamous Epith Cells 5-9 H, Ur Renal Epithelial Cell None seen, Urine Bacteria None seen, Hyaline Casts 0-8 08/02/22 14:56: Vitamin B12 773, 25-OH Vitamin D Total 49.2, Folate 35.0, TSH 3rd Generation 2.46 08/02/22 14:56: B-Natriuretic Peptide 48.0 08/02/22 14:56: Troponin I High Sens 6.4 08/02/22 14:56: PHA Creatinine Clear 44.90, Sodium 134 L, Potassium 4.4, Chloride 97 L, Carbon Dioxide 25.7, Anion Gap 15.7 H, BUN 17, Creatinine 0.83, Est GFR (CKD- EPI) > 60.0, Glucose 289 H, Calcium 9.1, Total Bilirubin 0.6, AST 55 H, ALT 33, Alkaline Phosphatase 90, Total Protein 7.8, Albumin 4.6, Globulin 3.2, Albumin/Globulin Ratio 1.4 08/02/22 14:56: PT 13.1 H, INR 1.1, APTT 27.5 08/02/22 14:56: Corrected WBC 10.8, Uncorrected WBC Count 10.8, RBC 4.78, Hgb 13.9, Hct 41.3, MCV 86.5, MCH 29.1, MCHC 33.7, RDW 14.5, Plt Count 183, MPV 7.8,Neut % (Auto) 87.4, Lymph % (Auto) 9.2, [place] % (Auto) 2.9, Eos % (Auto) 0.1, Baso % (Auto) 0.4, Nucleat RBC Rel Count 0.1, Neut # (Auto) 9.5 H, Lymph # (Auto) 1.0, [place] # (Auto) 0.3, Eos # (Auto) 0.0, Baso # (Auto) 0.0, Monocyte Dist Width 21.[address] Scan - head: image reviewed (Cortical atrophy noted; Periventricular white matter changes noted) CT scan - cervical: image reviewed (C2 fracture with extension into the foramen transversarium) Additional Results Results Comments: Fracture through the waist of C2 with the dens displaced anteriorly; no canal compromise. CTA demonstrates some compromise to the caliber of the vertebral artery with reconstitution of flow proximally. Assessment/Plan (1) C2 cervical fracture: Plan: Mrs. Sandoval presents s/p fall in which she suffered a fracture to C2. At this time I have placed him in a soft cervical collar. I will have her undergo cervical spine films today, AP/Lateral, to assess alignment in the soft collar. After review of the cervical spine films we will begin having her work with physical therapy. Code(s): S12.100A - Unspecified displaced fracture of second cervical vertebra, initial encounter for closed fracture Status: Acute Time Spent With Patient (min): 30 Documented By: Joan Page MD 08/03/22 085 0 Signed By: <Electronically signed by Joan Page MD> 08/03/22 09[address] [facility] Work Phone: [phone] History and physical note Author Ashliegh Roman [facility] August 03, 2022 1:03am Note Date/Time August 02, 2022 7:23 pm [facility] [address] [place], [place] [address]ist H&P Signed Patient: Tammy Sandoval MR#: [id number] : 1940 Acct:[id number] Age/Sex: 82 / F Adm Date: 3 Loc: 4N Room: 5O0020-3 Type: ADM IN Attending Dr: Ashleigh Roman MD Copies to: DO Ashleigh Baig MD~ HPI DATE OF EXAMINATION: 08/02/22 HISTORY OF PRESENT ILLNESS: This is a pleasant 82F with PMH of HTN, DM, HLD, GERD, CHB (s/p Pacemaker), overactive bladder, DJD, hypothyroidism, recurrent falls, Anxiety who p/w Fall and admitted for the evaluation and treatment of Cervical fracture Today she lost balance and fell hitting her head. She stayed on the ground for about three hours. She felt weak and unable to stand up . She denies any sob, chest pain before or after it. no vision changes, localized weakness, numbness,loss of consciousness, slurred speech , difficulty swallowing, urine incontinence or seizures . The patient has been having recurrent falls for the past 3-4 months per her . She follows up with her neurologist. She was supposed to do MRI as a part of the workup. She has fallen at least a dozen times per her duringthis period. Her recurrent falls appear to be dated back to 2020 when she was admitted to [facility] for walking difficulty ROS: Ten Systems reviewed with the patient, all negative except what stated above and neck pain Assessment And Plan Fall at home/Recurrent Fall she lost balance and fell hitting her head.she has long history of recurrent falls EKG ED (i personally reviewed it) shows NSR@ 92 bpm no significant acute changes, Prolonged QTc CXR ED shows no acute cardiopulmonary abnormality Face CT shows No facial bone fracture. CT brain without contrast shows no acute intracranial process CTA head and neck shows occlusion vs spasm of a vertebral artery at the C3 level(intramural hematoma and/or dissection can?t be ruled out Check Vit D, b12 , TSH PT/OT once cleared per neurosurgery Neurology consult Cervical fracture Cervical CT shows Comminuted fracture involving the base of the dens extending into the transverse processes bilaterally. Neurosurgery consulted (called form ED) c-Collar Supportive and pain controlled DM blood sugars were reviewed sliding scale insulin and accuchecks. hold oral antidiabetic medication/metformin. hypoglycemia protocol. ? Chronic diseases:?Unless mentioned Above, Essential home medications have been continued.? DVT Px:?Addressed Code Status: DNR CCA, discussed with patient Plan of care Discussed with:?the medical team, the patient and her at bedside PMFSH Vaccinated for COVID-19?: Yes Medical History Acid reflux Arthritis Back pain Diabetes GERD (gastroesophageal reflux disease) High cholesterol High triglycerides History of basal cell cancer right nose History of cardiac arrhythmia Hypothyroid Incontinence abb Other abnormal clinical finding I had fluid around my heart Overactive bladder Pacemaker st judes, 2011 placement. 2021 Panic attacks Surgical History History of bladder surgery 1970 History of cystoscopy december 2021 History of hysterectomy History of lumbar laminectomy dr KELTON David, 2013 History of phacoemulsification of cataract of both eyes with intraocular lens implantation Previous back surgery Family History Father HTN (hypertension) Sister Osteoporosis Sister Uterine cancer Sister Alzheimer disease Sister COPD (chronic obstructive pulmonary disease) Social History Smoking Status: Never smoker Substance Use Type: None Substance Abuse Comment: cbd oil Meds Medications and Allergies Allergies adhesive Allergy (Verified 08/02/22 14:10) Redness of Skin/Removes Skin Home Medications alprazolam 0.5 mg tablet (Xanax) 0.5 mg PO TID PRN Anxiety 12/17/18 [History Confirmed 08/02/22] levothyroxine 50 mcg tablet (Synthroid) 50 mcg PO QAM 12/17/18 [History Confirmed 08/02/22] lovastatin 20 mg tablet 20 mg PO QAM 12/17/18 [History Confirmed 08/02/22] metformin 500 mg tablet (Glucophage) 500 mg PO BID 12/17/18 [History Confirmed 08/02/22] potassium gluconate 600 mg (99 mg) tablet 99 mg PO DIRECTED 10/25/19 [History Confirmed 08/02/22] meclizine 12.5 mg tablet 12.5 mg PO BID PRN Vertigo 07/29/20 [History Confirmed 08/02/22] nystatin 100,000 unit/mL oral suspension 100,000 unit PO DAILY PRN discomfort 07/29/20 [History Confirmed 08/02/22] omeprazole 40 mg capsule,delayed release 40 mg PO QAM 07/29/20 [History Confirmed 08/02/22] amlodipine 5 mg tablet 5 mg PO QAM 01/18/22 [History Confirmed 08/02/22] glimepiride 2 mg tablet (Amaryl) 2 mg PO QAM 01/18/22 [History Confirmed 08/02/22] solifenacin 5 mg tablet (Vesicare) 5 mg PO AC 01/18/22 [History Confirmed 08/02/22] mirabegron 50 mg tablet,extended release 24 hr (Myrbetriq) 50 mg PO DAILY 06/20/22 [History Confirmed 08/02/22] Exam Physical Exam Vital Signs: Temp Pulse Resp BP Pulse Ox O2 Del Method 37.2 C 91 H 18 205/98 H 92 L Room Air 08/02/22 17:00 08/02/22 18:01 08/02/22 18:01 08/02/22 18:01 08/02/22 18:01 08/02/22 18:01 Narrative: GEN: Pleasant, Cooperative, Not in acute distress. NECK: c-collar LUNGS: CTA. normal respiratory effort. CV: S1S2 nl, ? M/R/G ABD: Soft, ND, NT, + BS EXT: No edema in LE bilaterally, no calf muscle tenderness. NEURO: CN II-XII (intact), Motor Strength (4/5 RUE, 4/5 LUE, 4/5 RLE, 4/5 LLE) ,Sensation (Intact to soft touch)4 PSYCH: nl affect, ? hallucinations, nl speech Results Lab Results Labs: Laboratory Last Values Corrected WBC 10.8 X10E3/uL (3.8-11.6) 08/02/22 14:56 Uncorrected WBC Count 10.8 x10E3/uL (3.8-11.6) 08/02/22 14:56 RBC 4.78 X10E6/uL (3.60-5.00) 08/02/22 14:56 Hgb 13.9 g/dL (11.8-15.4) 08/02/22 14:56 Hct 41.3 % (34.0-46.4) 08/02/22 14:56 MCV 86.5 fl (80-100) 08/02/22 14:56 MCH 29.1 pg (24.7-34.3) 08/02/22 14:56 MCHC 33.7 g/dL (32.0-35.0) 08/02/22 14:56 RDW 14.5 % (11.9-15.3) 08/02/22 14:56 Plt Count 183 x10E3/uL (150-450) 08/02/22 14:56 MPV 7.8 fl (6.3-10.7) 08/02/22 14:56 Neut % (Auto) 87.4 % (.) 08/02/22 14:56 Lymph % (Auto) 9.2 % (.) 08/02/22 14:56 [place] % (Auto) 2.9 % (.) 08/02/22 14:56 Eos % (Auto) 0.1 % (.) 08/02/22 14:56 Baso % (Auto) 0.4 % (.) 08/02/22 14:56 Nucleat RBC Rel Count 0.1 /100 WBC (0-0.5) 08/02/22 14:56 Neut # (Auto) 9.5 x10E3/uL (1.8-7.7) H 08/02/22 14:56 Lymph # (Auto) 1.0 x10E3/uL (1.00-4.8) 08/02/22 14:56 [place] # (Auto) 0.3 x10E3/uL (0.0-0.8) 08/02/22 14:56 Eos # (Auto) 0.0 x10E3/uL (0.0-0.45) 08/02/22 14:56 Baso # (Auto) 0.0 x10E3/uL (0.0-0.2) 08/02/22 14:56 Monocyte Dist Width 21.64 % (0.00-20.00) H 08/02/22 14:56 PT 13.1 Seconds (9.0-12.9) H 08/02/22 14:56 INR 1.1 08/02/22 14:56 APTT 27.5 Seconds (25.1-36.5) 08/02/22 14:56 PHA Creatinine Clear 44.90 08/02/22 14:56 Sodium 134 mmol/L (136-145) L 08/02/22 14:56 Potassium 4.4 mmol/L (3.5-5.1) 08/02/22 14:56 Chloride 97 mmol/L (98-107) L 08/02/22 14:56 Carbon Dioxide 25.7 mmol/L (21.0-31.0) 08/02/22 14:56 Anion Gap 15.7 mEq/L (6.0-15.0) H 08/02/22 14:56 BUN 17 mg/dL (7-25) 08/02/22 14:56 Creatinine 0.83 mg/dL (0.60-1.20) 08/02/22 14:56 Est GFR (CKD-EPI) > 60.0 mL/Min 08/02/22 14:56 Glucose 289 mg/dL (70-100) H 08/02/22 14:56 Calcium 9.1 mg/dL (8.6-10.3) 08/02/22 14:56 Total Bilirubin 0.6 mg/dl (0.3-1.0) 08/02/22 14:56 AST 55 U/L (13-39) H 08/02/22 14:56 ALT 33 U/L (7-52) 08/02/22 14:56 Alkaline Phosphatase 90 U/L (34-104) 08/02/22 14:56 Troponin I High Sens 6.4 pg/mL (0.0-15.0) 08/02/22 14:56 B-Natriuretic Peptide 48.0 pg/mL (5-100) 08/02/22 14:56 Total Protein 7.8 gm/dL (6.4-8.9) 08/02/22 14:56 Albumin 4.6 gm/dL (3.5-5.7) 08/02/22 14:56 Globulin 3.2 gm/dL 08/02/22 14:56 Albumin/Globulin Ratio 1.4 08/02/22 14:56 Urine Color Yellow (Yellow) 08/02/22 15:58 Urine Color Yellow (Yellow) 08/02/22 15:58 Urine Appearance Clear (Clear) 08/02/22 15:58 Urine Appearance Clear (Clear) 08/02/22 15:58 Urine pH 7.0 (5.0-9.0) 08/02/22 15:58 Urine pH 7.0 (5.0-9.0) 08/02/22 15:58 Ur Specific Hays 1.022 (1.001-1.030) 08/02/22 15:58 Ur Specific Hays 1.022 (1.001-1.030) 08/02/22 15:58 Urine Protein 300 mg/dL (Negative) H 08/02/22 15:58 Urine Protein 300 mg/dL (Negative) H 08/02/22 15:58 Urine Glucose (UA) 500 mg/dL (Normal) H 08/02/22 15:58 Urine Glucose (UA) 500 mg/dL (Normal) H 08/02/22 15:58 Urine Ketones 1+ (Negative) H 08/02/22 15:58 Urine Ketones 1+ (Negative) H 08/02/22 15:58 Urine Occult Blood 2+ (Negative) H 08/02/22 15:58 Urine Occult Blood 2+ (Negative) H 08/02/22 15:58 Urine Nitrite Negative (Negative) 08/02/22 15:58 Urine Nitrite Negative (Negative) 08/02/22 15:58 Urine Bilirubin Negative (Negative) 08/02/22 15:58 Urine Bilirubin Negative (Negative) 08/02/22 15:58 Urine Urobilinogen Normal mg/dL (Normal) 08/02/22 15:58 Urine Urobilinogen Normal mg/dL (Normal) 08/02/22 15:58 Ur Leukocyte Esterase Negative (Negative) 08/02/22 15:58 Ur Leukocyte Esterase Negative (Negative) 08/02/22 15:58 Urine RBC 3-4 /HPF (0-4) 08/02/22 15:58 Urine WBC 10-19 /HPF (0-4) H 08/02/22 15:58 Ur Squamous Epith Cells 5-9 /HPF (0-2) H 08/02/22 15:58 Ur Renal Epithelial Cell None seen /HPF (0-1) 08/02/22 15:58 Urine Bacteria None seen (None Seen) 08/02/22 15:58 Hyaline Casts 0-8 /LPF (0-8) 08/02/22 15:58 Assessment & Plan IP vs OBS Justification Based on differential dx, clinical care plan, and risk of adverse events, if untreated, in my clinical judgement this patient requires an acute care setting as: INPATIENT because of an expectation of an over 2 midnight stay. Estimated length of stay (# of days): 2 Documented By: Ashleigh Roman MD 08/02/22 192 Signed By: <Electronically signed by Ashleigh Roman MD> 08/03/22102 [facility] Work Phone: [phone]) 914-648405-01-2023 Evaluation note* Encounter Date Diagnosis Assessment Notes Treatment Notes Treatment Clinical Notes June, Frequent falls (ICD-10 - R29.6) As reported above the patient has had multiple falls for the past six weeks. The patient lives in a three-story house and has fallen down the steps many times, she states the basement steps are the worse, that is where she stores her fruit. The patient states she has to hold onto something with ambulation or will fall, denies dizziness or the room spinning. Complains when she bends over will fall over The patient states she will go to bed feeling normal then wakes up the next morning confused and off balance.Positive heel to toe walking examination, the patient does report feeling off balance with her eyes closed and arms out. The patient advised she needs to be appropriately evaluated, I recommend she reports to the ED today.The patient advised not to drive until appropriately evaluated by a neurologist.The patients' spouse is with her today and is able to drive to the ER and is in agreement. The patient has received a new pacemaker that is adaptable with an MRI. Discussion was had we need a diagnosis for proper treatment, advised her symptoms could be related to a stroke, early onset dementia or Parkinson's June, Hypertension (ICD-10 - I10) Pt is to continue with the above medication and we will continue to monitor. June, Anxiety and depression (ICD-10 - F41.8) June, Memory loss (ICD-10 - R41.3) June, Lack of coordination (ICD-10 - R27.9) June, Weakness (ICD-10 - R53.1) June, Traumatic injury of head, initial encounter (ICD-10 - S09.90XA) [facility] 01-23-2023 Evaluation note* Encounter Date Diagnosis Assessment Notes Treatment Notes Treatment Clinical Notes Feb, Diabetes type 2, controlled (ICD-10 - E11.9) In house hgb a1c ordered and reviewed today. Encouraged to watch diet and increase exercise regimen; we will continue to monitor. Feb, Hyperthyroidism (ICD-10 - E05.90) Pt is to continue with the above medication and we will continue to monitor. Feb, Hypertension (ICD-10 - I10) Pt is to continue with the above medication and we will continue to monitor. Feb, Unsteady gait (ICD-1 0 - R26.81) Feb, GERD (gastroesophage al reflux disease) (ICD-10 - K21.9) GERD appears to be well controlled , patient is to continue with the above medication and we will continue to monitor. Feb, Hyperlipidemia (ICD- 10 - E78.5) Pt is to continue with the above medication and continue watching their diet and increase their exercise regimen. Feb, Anxiety and depressi on (ICD-10 - F41.8) I am in agreement the patient continue the above medication regimen , refills provided. Feb, Urinary incontinence (ICD-10 - R32) I am in agreement the patient continue the above medication and advise she take only one tablet daily not two tablets. The patient has consulted with urologist in the past , I advise if the above medication is not effective at once a day then we will initiate a new referral to urology. We will re-evaluate in three months. Feb, Encounter for screening mammogram for malignant neoplasm of breast (ICD-10 - Z12.31) [facility] Other 01-05-2023 Evaluation note* Encounter Date Diagnosis Assessment Notes Treatment Notes Treatment Clinical Notes Feb, Anxiety and depression (ICD-10 - F41.8) [facility] Other 11-15-2022 Hospital Discharge instructions Patient Education 01/04/2022 15:10:00 Urodynamic Testing Urodynamic Testing What is urodynamic testing? Urodynamic tests are done to determine how well your lower urinary tract is working. The lower urinary tract includes your bladder and the part of your body that drains urine from the bladder (urethra). When your kidneys filter your blood, urine is stored in your bladder until you feel the urge to urinate. Urination requires coordination between the nerves and muscles of your bladder and urethra. When your lower urinary tract is working well, you should be able to: Start urinating when your bladder is full. Empty your bladder completely. Control the flow of your urine. Why do I need urodynamic testing? You may need urodynamic testing to help find the cause of any of these problems: Leaking urine (incontinence). Problems starting or stopping your urine flow. Frequent or painful urination. Frequent urinary tract infections. Being unable to empty your bladder completely. Having strong urges to pass urine (urgency). Having a weak flow of urine. How do I prepare for the tests? Ask your health care provider about changing or stopping your regular medicines. This is especiallyimportant if you are taking diabetes medicines or blood thinners. You may be asked to avoid urinating before coming to the test so that you arrive with a full bladder. Tell a health care provider about: ?Any allergies you have. ?All medicines you are taking, including vitamins, herbs, eye drops, creams, and [id number] medicines. ?Whether you are or may be . What are the risks of this testing? Generally, these tests are safe. However, some of the tests have risks, including: Discomfort. Frequent urge to urinate. Bleeding. Infection. Allergic reactions to medicines or dyes (contrast material). How is urodynamic testing done? You may have various urodynamic tests. The tests may be done separately or may all be done during one testing visit. You may be given an antibiotic medicine before or after testing to help prevent infection. The types of tests that may be done include: Uroflowmetry This test measures how much urine you pass and how long it takes to pass. You will urinate into a certain type of toilet or device (flowmeter). The device will measure the volume and the time of your urine flow. These measurements will be sent to a computer that creates a graph of your urine flow. Postvoid residual measurement This test measures how much urine is left in your bladder after you urinate. The test may be done with ultrasound. In this method, sound waves and a computer will be used to create an image of your bladder. The test can also be done by inserting a thin, flexible tube (catheter) into your bladder after youurinate. The remaining urine will be removed through the catheter so it can be measured. Remaining urine will be measured in milliliters (mL). If you have more than 100 mL left in your bladder after you urinate, your bladder is not emptying as it should. Cystometric testing This test uses a type of bladder catheter that can measure pressure. You may be given a medicine to numb the area (local anesthetic). The area around the opening of your urethra will be cleaned. A urinary catheter will be passed through your urethra into your bladder and used to empty your bladder completely. Then a measuring catheter will be placed, and your bladder will be filled with warm, germ-free (sterile) water. Pressure measurements will be taken: ?As your bladder fills. ?When you feel the need to urinate. ?As your bladder is emptied. You may be asked to cough or bear down to check for leakage. In some cases, your bladder may be filled with a material that shows up on X- rays (contrast material) so that X-ray pictures can be taken during the test. Electromyogram This test measures the electrical activity of the nerves and muscles of your bladder and the opening of your urethra. Sticky patches (electrodes) will be placed near your rectum and urethra to measure electrical activity. The measurements will show how well your nerves are communicating with your muscles. What happens after the testing? You should be able to go home right away and do your usual activities. You may be told to drink a glass of water every 30 minutes for the first 2 hours after testing. Taking a warm bath or using warm, wet cloths (warm compresses) may relieve any discomfort near yoururethra. Contact your health care provider if you have: ?Pain. ?Blood in your urine. ?Chills. ?Fever. What do the results mean? Talk with your health care provider about what your results mean. Some common causes for abnormal results from urodynamic tests include: Enlarged prostate in men. Overactive bladder. Urinary tract infection. Nervous system diseases. Spinal cord damage. Questions to ask your health care provider Ask your health care provider, or the department that is doing the test: When will my results be ready? How will I get my results? What are my treatment options? What other tests do I need? What are my next steps? Summary Urodynamic tests are done to determine how well your lower urinary tract is working. The lower urinary tract includes your bladder and urethra. You may need urodynamic testing to help find the cause of various problems with urination, such as leaking urine (incontinence) or problems starting or stopping your urine flow. You may have various urodynamic tests. The tests may be done separately or may all be done during one testing visit. Talk with your health care provider about what your results mean. Contact your health care provider if you have pain, chills, a fever, or blood in your urine. This information is not intended to replace advice given to you by your health care provider. Make sure you discuss any questions you have with your health care provider. Document Released: 12/04/2007 Document Revised: 05/28/2019 Document Reviewed: 12/11/2017 [employer] Patient Education 2020 [employer]. Follow Up Care 12/21/2021 20:45:54 With:LEA SHAW, Jaret Davila, URL Address: [facility] [address], [place] [address]- When:Within 3 Month(s) Comments:Office visit [facility] 11-08-2022 Evaluation note* Encounter Date Diagnosis Assessment Notes Treatment Notes Treatment Clinical Notes Dec, History of lumbar fusion (ICD-10 - Z98.1) Dec, Lumbar stenosis without neurogenic claudication (ICD-10 - M48.061) I independently reviewed the myelogram with the CT to follow and the reports of each study. The patient has degenerative disc disease at L2-3 with a mild stenosis. There is no stenosis at L3-4 and then a fusion at L4-5 which is intact. The disc at L5 is grossly normal. There is no instability on flexion-extension views which were independently reviewed. At this point the patient has absolutely no symptoms although she had pain in a fixed area for up to a year, but everything is now gone. My recommendations are for her to come back should the pain recur; at this point I see no surgical lesions. If the same situation exists I would probably recommend pain management. 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 Advanced care planning reviewed and/or information given as requested. The above visit was performed by Loyda Enrique LPN, under direct supervision of Dr. Isaiah Shaw. Document reviewed and amended by provider signed below. Oct, Hyperlipidemia (ICD-10 - E78.5) Review of blood work results with the patient. No signs of anemia or leukemia. Liver enzymes , kidney functions and thyroid are within normal range. Total cholesterol is 166 ,down from 206 , HDL is 37 and LDL is 83. Pt is to continue with the above medication and continue watching their diet and increase their exercise regimen. Oct, Diabetes type 2, controlled (ICD-10 - E11.9) Glucose is elevated at 176 with a hgb a1c of 7.6 up from 7.3 . I recommend the patient add Glimiperide to her daily regimen once a day in the morning and continue Metformin as directed along with diet moderation and exercise as tolerated. Oct, Hyperthyroidism (ICD-10 - E05.90) Thyroid level is within normal range upon review of blood work results. Pt is to continue with the above medication and we will continue to monitor. 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 Oct, Spinal stenosis of lumbar region (ICD-10 - M48.061) CT myelogram of the lumbar spine performed 10/14/21 noting moderate L2-L3 disc space narrowing with suspected mild hypermobility . Mild to moderate L3-L4 canal stenois. I recommend the patient consult with a neurosurgeon for further recommendation and treatment . The patient is in agreement , a referral was initiated. The patient advised she will need to get a copy of her CT myelogram disc from medical records and take to the appointment. Oct, Anxiety and depression (ICD-10 - F41.8) Pt is to continue with the above medication , a Xanax refill was provided and we will continue to monitor. Oct, Post-menopausal (ICD-10 - Z78.0) DEXA scan recommended and ordered . 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) Sep, Radiculopathy of sacral region (ICD-10 - M54.18) [facility] Other 08-01-2022 Evaluation note* Encounter Date Diagnosis Assessment Notes Treatment Notes Treatment Clinical Notes Sep, Bladder incontinence (ICD-10 - R32) Sep, Recurrent UTI (ICD-10 - N39.0) [facility] 07-15-2022 Evaluation note* Encounter Date Diagnosis Assessment Notes Treatment Notes Treatment Clinical Notes Aug, Encounter for Medicare annual wellness exam (ICD-10 - Z00.00) Aug, Hyperlipidemia (ICD-10 - E78.5) Aug, Diabetes type 2, controlled (ICD-10 - E11.9) Aug, Hypertension (ICD-10 - I10) Aug, Hypothyroidism, unspecified (ICD-10 - E03.9) [facility] Other 05-18-2022 Evaluation note* Encounter Date Diagnosis Assessment Notes Treatment Notes Treatment Clinical Notes June, Lumbar back pain (ICD-10 - M54.50) Patient has a history of lumbar fusion with Dr. Kelton brady in 2013. Patient has recently started back up with severe lumbar pain that has been keeping her up at bedtime. Patient did have a recent EMG at [facility] but is unable to do an MRI due to pacemaker. I did discuss a referral to Dr. Page if the patient is willing to travel. Patient is agreeable. We will call over to Dr. Page office to check if they will see her without an MRI. I will also call over to [facility] to check on all the testing they did for the patient since we do no have the records available. Myelogram reordered. 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 Kelton Quinn in 2013. Unable to have MRI due to pacemaker status June, Yeast infection (ICD-10 - B37.9) Refill provided of the above medication. June, Left lumbosacral radiculopathy (ICD-10 - M54.17) Unable to have MRI due to pacemaker status June, DDD (degenerative disc disease), lumbar (ICD-10 - M51.36) Unable to have MRI due to pacemaker status [facility] Other 04-06-2022 Evaluation note* Encounter Date Diagnosis Assessment Notes Treatment Notes Treatment Clinical Notes May, S/P lumbar fusion (ICD-10 - Z98.1) May, Lumbar pain (ICD-10 - M54.50) [facility] Other 02-14-2022 Evaluation note* Encounter Date Diagnosis Assessment Notes Treatment Notes Treatment Clinical Notes Mar, Sinus drainage (ICD-10 - J34.89) Mar, Diabetes type 2, controlled (ICD-10 - E11.9) In house A1C performed and reviewed with a result of 6.8. Patient is to continue on the above medication. Encouraged to monitor diet and exercise as tolerated. Mar, Hypertension (ICD-10 - I10) Upon check in, patients blood pressure is on the higher end of normal. Patient is to continue on the above medications. Mar, Bladder incontinence (ICD-10 - R32) Refill provided Mar, GERD (gastroesophageal reflux disease) (ICD-10 - K21.9) Patient feels she has an ulcer at this momemt. I did provide a refill for Carafate to start taking today. Mar, Anxiety and depression (ICD-10 - F41.8) Patient states that her is very controlling over everything. Patient feels she has an ulcer from the stress he causes. Patient is to continue on the above medications. Prescriptions e-scribed. OARRs generated and reviewed Mar, Hyperlipidemia (ICD-10 - E78.5) Patient is to continue on the above medication. Encouraged to monitor diet and increase exercise as tolerated. Mar, Hyperthyroidism (ICD-10 - E05.90) [facility] 01-31-2022 Evaluation note* Encounter Date Diagnosis Assessment Notes Treatment Notes Treatment Clinical Notes Feb, Thrush (ICD-10 - B37.0) [facility] 10-06-2021 Evaluation note* Encounter Date Diagnosis Assessment Notes Treatment Notes Treatment Clinical Notes Nov, Anxiety and depression (ICD-10 - F41.8) [facility] Other [id number] Evaluation note* Encounter Date Diagnosis Assessment Notes Treatment Notes Treatment Clinical Notes Nov, Diabetes type 2, controlled (ICD-10 - E11.9) Review of in house A1C, this has improved to 7.0 from 7.3%. Refill provided. We will continue to monitor. Nov, Hypertension (ICD-10 - I10) Upon check in, patient's blood pressure is elevated. We will continue to monitor. Nov, GERD (gastroesophageal reflux disease) (ICD-10 - K21.9) Refill provided. Nov, Sinus drainage (ICD-10 - J34.89) Refil provided. Patient states she does have persistent sinus drainage in the morning and at night. She requested a referral to an ENT. I am in agreement. Referral initiated. We will continue to monitor. Nov, Thrush (ICD-10 - B37.0) Refill provided. Nov, Anxiety and depression (ICD-10 - F41.8) Refill provided. OARRS report generated and reviewed. She has been doing well since her celexa was increased. Nov, Hyperlipidemia (ICD-10 - E78.5) Refill provided. Nov, Hyperthyroidism (ICD-10 - E05.90) Refill provided. Nov, Unsteady gait (ICD-1 0 - R26.81) Refill provided. Nov, Need for influenza vaccination (ICD-10 - Z23) Flu vaccine administered today in office. [facility] Other Discharge summary Author Ashleigh Roman [facility] August 05, 2022 6:00pm Note Date/Time August 05, 2022 2:16 pm [facility] [address] [place] [address] Discharge Summary Signed Patient: Tammy Sandoval MR#: [id number] : 1940 Acct:[id number] Age/Sex: 82 / F Adm Date: 3 Loc: 4N Room: 4E4061-[address]: Ashleigh Roman MD Copies to: DO Ashleigh Baig MD~ Providers Date of Discharge: 08/05/22 Discharging Provider: Ashleigh Roman Primary Care Provider: Isaiah Shaw Consults: * Alexander Everett DO; Neurology * Joan Page MD; Neurosurgery * Medhat Anglin MD; Orthopedic Surgery * Physical Therapy * Occupational Therapy Discharge Diagnosis (1) Recurrent falls: (2) C2 cervical fracture: (3) Contusion of right index finger without damage to nail, initial encounter: (4) Fracture of distal phalanx of right great toe: (5) Diabetes: (6) Hypothyroid: (7) HTN (hypertension): Final Diagnosis Final Discharge Diagnosis: As Above Summary Hospital Course Hospital course: Mrs. Sandoval is a pleasant 82F with PMH of HTN, DM, HLD, GERD, CHB (s/p Pacemaker), overactive bladder, DJD, hypothyroidism, recurrent falls, Anxiety who p/w Fall and admitted for the evaluation and treatment of Cervical fracture Fall at home/Recurrent Fall she lost balance and fell hitting her head. she has long history of recurrent falls * EKG ED shows NSR@ 92 bpm no significant acute changes, Prolonged QTc * CXR ED shows no acute cardiopulmonary abnormality * Face CT shows No facial bone fracture. * CT brain without contrast shows no acute intracranial process * CTA head and neck shows occlusion vs spasm of a vertebral artery at the C3 level (intramural hematoma and/or dissection can?t be ruled out * Vit D, b12 , TSH wnl Neurology recommended outpatient follow up. She is going to rehab Right index finger contusion Right great toe Distal phalanx fracture There is ecchymosis of the right great toe with no pain. there is bruise over the middle phalanx of the right index finger with mild pain * Right foot XR shows transverse aortic fracture through the waist of the distal phalanx of the first digit with accompanying soft tissue swelling * Right Hand XR shows DJD no Fx Orthopedic surgery recommended outpatient follow up if pain persist Cervical fracture Cervical CT shows Comminuted fracture involving the base of the dens extending into the transverse processes bilaterally. Neurosurgery was consulted; conservative management was recommended. she is to continue soft cervical collar and ?to continue to work with physical and occupational therapy She was started gabapentin and carbamazepine for her neuropathic pain as per neurology recommendation HTN Urgency She was started on Lisinopril and HCTZ . home amlodipine was discontinued * All other chronic conditions were stable during the patient's stay unless mentioned above. I have seen and examined the patient on the date of this note. The patient is stable and improved. Therefore, the patient will be discharged tocontinue treatment as an outpatient. verbal and written discharge instructions will be provided. Time Spent with Patient Time spent providing/coordinating discharge services (# min): 35 Diagnostic Studies Completed and Pending Studies Labs on day of discharge: 08/05/22 08:17: POC Glucose 230, POC Glucose Comment Glu2: cleaned meter 08/04/22 21:09: POC Glucose 177 Exam Physical Exam Narrative: BP: 161/80; Pulse: 83; Temp: 36.4C; RR: 16; SpO2: 93% [On RA] GEN: Pleasant, Cooperative, Not in acute distress. NECK: c-collar LUNGS: CTA CV: S1S2 nl, ? M/R/G ABD: Soft, ND, NT, + BS EXT: No edema in LE bilaterally, no calf muscle tenderness. multiple ecchymosis in the LE with bruise over the right great toe NEURO: no FND PSYCH: nl affect Discharge Plan Discharge Plan Patient [place] [facility] [place]: Ambulate as Tolerated Diet: Diabetic Prescriptions: New carbamazepine [Tegretol] 200 mg Tablet 100 mg PO BID Qty: 60 0RF oxycodone-acetaminophen 5-325 mg Tablet 1 tab PO Q6H PRN (Reason: Pain Scale 6 - 10) Qty: 0 0RF lisinopril 10 mg Tablet 10 mg PO DAILY Qty: 30 0RF gabapentin 300 mg Capsule 300 mg PO TID Qty: 90 0RF hydrochlorothiazide 25 mg Tablet 25 mg PO DAILY Qty: 30 0RF Continued metformin [Glucophage] 500 mg tablet 500 mg PO BID alprazolam [Xanax] 0.5 mg Tablet 0.5 mg PO TID PRN (Reason: Anxiety) levothyroxine [Synthroid] 50 mcg tablet 50 mcg PO QAM lovastatin 20 mg tablet 20 mg PO QAM potassium gluconate 600 mg (99 mg) Tablet 99 mg PO DIRECTED Rx Instructions: twice a week nystatin 100,000 unit/mL suspension 100,000 unit PO DAILY PRN (Reason: discomfort) Rx Instructions: thrush meclizine 12.5 mg Tablet 12.5 mg PO BID PRN (Reason: Vertigo) omeprazole 40 mg Capsule,Delayed Release(Dr/Ec) 40 mg PO QAM glimepiride [Amaryl] 2 mg tablet 2 mg PO QAM solifenacin [Vesicare] 5 mg tablet 5 mg PO AC Myrbetriq 50 mg tablet extended release 24 hr 50 mg PO DAILY Patient Comments: take 1 tablet by mouth once daily Discontinued amlodipine 5 mg tablet 5 mg PO QAM Documented By: Ashleigh Roman MD 08/05/22 1408 Signed By: <Electronically signed by Ashleigh Roman MD> 08/05/22 1800 [facility] Work Phone: Discharge summary Author Pablo Davis [facility] August 19, 2022 4:44pm Note Date/Time August 19, 2022 10:5 3am [facility] [address] [place] [address] Discharge Summary Signed Patient: Tammy Sandoval MR#: [id number] : 1940 Acct:[id number] Age/Sex: 82 / F Adm Date: 3 Loc: Room: 7E8563-[address]: Pablo Davis MD Copies to: DO Pablo Baig MD~ Providers Date of Discharge: 08/19/22 Discharging Provider: Pablo Davis Primary Care Provider: Isaiah Shaw Consults: 08/05/22 16:50 Consult to Adult Hospitalist Routine Consult to Dietitian Routine Consult to Occupational Therapy Routine Consult to Physical Therapy Routine Speech Admit Screen Routine 08/05/22 17:45 Consult to Speech Therapy Routine 08/11/22 13:26 Consult to Psychiatry Routine Discharge Diagnosis (1) HTN (hypertension): (2) Fracture of distal phalanx of right great toe: (3) C2 cervical fracture: (4) Overactive bladder: (5) Recurrent falls: (6) Hypothyroid: (7) Diabetes: (8) Impaired mobility and activities of daily living: Final Diagnosis Final Discharge Diagnosis: as above Summary Hospital Course Hospital course: Ms. Sandoval is a 82 year old female presenting to acute rehab with functional impairments secondary to C2 fracture s/p fall.? Her past medical history is notable for type II DM, hyperlipidemia, GERD, hypothyroidism, cardiac arrhythmias/p pacemaker implantation. Patient reports a history of recurrent falls due to poor balance for the past 2 years.? She was seen and worked up by Dr. Klein with neurology a few years ago, however no diagnosis was made at that time. This time she sustained a fall in her living room, striking her head on something; she is not exactly sure whether that was a piece of furniture, or just the floor.? She did not lose consciousness, but felt an intense? pain in her head and neck.? She was unable to get to her phone and laid on the floor forapproximately 3 hours until her made his way back home. CT spine demonstrated comminuted mildly displaced fracture of the base of C2, aswell as encroachment to the right transverse foramen concerning for vertebral artery injury.? Head CT was nonacute.? CTA redemonstrated C2 fracture and opacification of the midpoint of the right vertebral artery with narrowing starting at the C3 level.? There was also a right great toe distal phalanx fracture noted, otherwise no acute injuries. Neurosurgery was consulted and recommended conservative treatment with soft c- collar. Neurology was also following while inpatient.? 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 Considerations are made for occipital nerve block down the road if symptoms do not improve. Rehab Course: Rehabilitation course uncomplicated. Her headache improved. She is ambulatory with a walker, about 400 feet. Her was present for multiple instructionsessions. Decision was made to discharge her home in stable condition on August 19, further work-up regarding her frequent falls can be undertaken in the outpatient setting. She follows regularly with neurology. Condition Condition at Discharge: Stable Status at Discharge Functional status at discharge: uses cane/walker Overall status at discharge: patient is progressing back to baseline Time Spent with Patient Time spent providing/coordinating discharge services (# min): 40 Specific discharge activities: Total time spent discharging this patient > 30 minutes Greater than 30 minutes spent preparing the patient for discharge including the following: Discussion of the hospital stay with patient and/or family Instructions for continuing care to all relevant caregivers Reviewing discharge plan with medical staff, social work, care management, and nursing staff Supervision of discharge paperwork, medication reconciliation, prescriptions, and outpatient appointments Prescribed necessary DME at discharge when indicated Diagnostic Studies Completed and Pending Studies Labs on day of discharge: 08/18/22 20:34: POC Glucose 194, POC Glucose Comment Glu2: cleaned meter 08/18/22 16:23: POC Glucose 94, POC Glucose Comment Glu2: cleaned meter 08/18/22 11:06: POC Glucose 159, POC Glucose Comment Glu2: cleaned meter Exam Physical Exam Vital Signs: Temp Pulse Resp BP Pulse Ox O2 Del Method 98.0 F 72 15 118/68 95 Room Air 08/19/22 05:00 08/19/22 05:00 08/19/22 05:00 08/19/22 05:00 08/19/22 05:00 08/19/22 09:06 Discharge Plan Discharge Plan Patient Disposition[place] [facility] [place]: Ambulate as Tolerated Comment: Soft cervical collar to be worn at all times. Diet: Diabetic Comment: 2000 calories, carb consistent diet. Additional Instructions: -Code status: DNRCCA with intubation. -Activity: Ambulate as tolerated. Wear soft cervical collar at all times until told otherwise by Dr. Page. Continue to wear right foot post-op shoe when out of bed. No driving, may ride in car. -Diet: Diabetic, 2000 calories a day, carb consistent diet. -You should check your fingerstick blood sugar twice daily, prior to breakfast and dinner. Keep a log of your blood sugars to review with your primary care provider at your follow up appointment (see below for appointment details). [facility] ). They will contact you 24-48 hours after discharge to schedule a day/time to meet withyou at your home to establish care. You have been given prescriptions for new and/or needed medications. These prescriptions are for a one-time fill only, with no re-fills. For further re- fills going forward, you will need to address with your PCP at your follow up appointment, or by calling your PCP?s office prior to the prescriptions running out. NOTE: please call within 24 hours if you need to cancel or change any follow up appointments. Arrive early to all follow up appointments, bring current medication list, photo ID and any insurance card(s) to all future follow ups (listed below). Please remember to wear a mask to all appointments. If you develop any symptoms (cough, fever/chills, shortness of breath, sore throat, nausea/vomiting, etc.) please contact your provider's office to inform them prior to your appointment. Instructions: Carbohydrate Counting Diet, Neck Fracture (DC) Prescriptions: New polyethylene glycol 3350 [HealthyLax] 17 gram Powder In Packet 17 g PO BID 30 Days Qty: 60 0RF melatonin 5 mg Tablet 5 mg PO QHS 30 Days Qty: 30 0RF tolterodine 2 mg Capsule,Extended Release 24hr 2 mg PO DAILY.AC.BKFAST 30 Days Qty: 30 0RF metformin 500 mg Tablet 500 mg PO BID 30 Days Qty: 60 0RF lisinopril 20 mg Tablet 20 mg PO DAILY 30 Days Qty: 30 0RF meclizine 12.5 mg Tablet 12.5 mg PO BID PRN (Reason: Vertigo) 30 Days Qty: 60 0RF acetaminophen 500 mg Tablet 500 mg PO Q4H PRN (Reason: Pain) 30 Days Qty: 180 0RF oxycodone-acetaminophen 5-325 mg Tablet 1 tab PO QID PRN (Reason: Pain (Scale Score 7-10)) 5 Days Qty: 20 0RF Continued alprazolam [Xanax] 0.5 mg Tablet 0.5 mg PO TID PRN (Reason: Anxiety) levothyroxine [Synthroid] 50 mcg tablet 50 mcg PO QAM lovastatin 20 mg tablet 20 mg PO QAM amlodipine 5 mg Tablet 5 mg PO DAILY 30 Days Qty: 30 0RF omeprazole 40 mg Capsule,Delayed Release(Dr/Ec) 40 mg PO QAM 30 Days Qty: 30 0RF carbamazepine [Tegretol] 200 mg Tablet 100 mg PO BID 30 Days Qty: 60 0RF Myrbetriq 50 mg tablet extended release 24 hr 50 mg PO DAILY 30 Days Qty: 30 0RF glimepiride [Amaryl] 2 mg tablet 2 mg PO QAM gabapentin 300 mg Capsule 300 mg PO TID Qty: 90 0RF hydrochlorothiazide 25 mg Tablet 25 mg PO DAILY Qty: 30 0RF Discontinued metformin [Glucophage] 500 mg tablet 500 mg PO BID potassium gluconate 600 mg (99 mg) Tablet 99 mg PO DIRECTED Rx Instructions: twice a week tolterodine [Detrol LA] 2 mg Capsule,Extended Release 24hr 2 mg PO DAILY.AC.BKFAST nystatin 100,000 unit/mL suspension 100,000 unit PO DAILY PRN (Reason: discomfort) Rx Instructions: thrush meclizine 12.5 mg Tablet 12.5 mg PO BID PRN (Reason: Vertigo) solifenacin [Vesicare] 5 mg tablet 5 mg PO AC oxycodone-acetaminophen 5-325 mg Tablet 1 tab PO Q6H PRN (Reason: Pain Scale 6 - 10) Qty: 0 0RF lisinopril 10 mg Tablet 10 mg PO DAILY Qty: 30 0RF Other Ambulatory Orders: Initiate Home Health (Routine) Timeframe: 20220817 Location: Determined by Patient Ordered By: Pablo Davis [facility] Home Medical Equipment (Routine) Timeframe: 20220817 Location: Determined by Patient Ordered By: Pablo Davis Follow Up: Medhat Anglin MD [Active Staff] - 09/05/22 1:15 pm (orthopedic surgeon) Isaiah Shaw DO [Primary Care Provider] - (08/19 record center coordinator will call youat home with a F/U appt.) Alexander Everett DO [Courtesy/Consulting Physician] - (Neurologist- Office was closed when trying to make this appointment. Please call and schedule a follow up appointment after discharge from rehab. [phone]) Pablo Davis MD [Active Staff] - (follow up with rehab physician as/if needed) Joan Page MD [Active Staff] - 08/31/22 10:00 am (-Neurosurgeon) Documented By: Pablo Davis MD 08/19/22 1052 Signed By: <Electronically signed by Pablo Davis MD> 08/19/22 0166 [facility] Work Phone: Evaluation + Plan note No data available for this section [facility] Evaluation + Plan note Future Appointments Appointment Date:04/06/2022 02:00:00 PM Scheduled Provider:Jaret TATE MD Location:[facility] Appointment Type:URO Office Visit [facility] Evaluation noteNo InformationNort Merkle Other Evaluation noteNort Merkle Other Evaluation noteNo assessment information available [facility] Work Phone: [email or web address] note* Diagnosis Onset Date Resolution Status C2 cervical fracture acute Contusion of right index fin gregory without damage to nail, initial encounter acute Recurrent falls acute [facility] Work Phone: [email or web address] note* Diagnosis Onset Date Resolution Status C2 cervical fracture acute Contusion of right index fin gregory without damage to nail, initial encounter acute Recurrent falls acute Adjustment disorder acute C2 cervical fracture acute Contusion of right index fin gregory without damage to nail, initial encounter acute Diabetes acute Fracture of distal phalanx of right great toe acute HTN (hypertension) acute Hypothyroid acute Impaired mobility and activities of daily living acute Overactive bladder acute Recurrent falls acute [facility] Work Phone: Hisvbld general Narrative - Reported* Type Description Date Medical History lactose intolerant Medical History bulging disk L-4 L-5 Medical History lumbar lordosis Medical History IBS Medical History History of colon polyps Medical History Pacemaker Medical History f/u with Dr Tate @ [facility] Medical History Mammogram 01-01-16- Negative Medical History f/u with [facility] for pacemaker Medical History f/u with Dr Frankie Chicas for S /P Lumbar Fusion Medical History f/u with Dr Ohara @ [facility] Medical History 10/25/2019 EKG , CTA neck Surgical History MIKAELA left one ovary Surgical History bladder surgery Surgical History pacemaker 12/2011 Surgical History lumbar fusion Surgical History colonoscopy 11/2018 Hospitalization History see above [place] [facility] Other History general Narrative - [employer] Other History general Narrative - Reported* Type Description Date Medical History lactose intolerant Medical History bulging disk L-4 L-5 Medical History lumbar lordosis Medical History IBS Medical History History of colon polyps Medical History Pacemaker Medical History f/u with Dr Tate @ [facility] Medical History Mammogram 01-01-16- Negative Medical History f/u with [facility] for pacemaker Medical History f/u with Dr Frankie Mackey Neuro for S /P Lumbar Fusion Medical History f/u with Dr Ohara @ [facility] Medical History 10/25/2019 EKG , CTA neck Surgical History MIKAELA left one ovary Surgical History bladder surgery Surgical History pacemaker 12/2011 Surgical History lumbar fusion Surgical History colonoscopy 11/2018 Hospitalization History see above surg. hx. [employer] Other Hospital Discharge instructions No data available for this section [facility] Hospital Discharge instructions Additional Instructions DISCHARGE INSTRUCTIONS FOR PERMANENT PACEMAKER AND IMPLANTABLE CARDIOVERTER DEFIBRILLATOR (ICD) INSTRUCTIONS 1. Incision should be kept clean and dry. Please notify us if the site becomes red, swollen, develops drainage, or if you begin having a fever or chills before your 1 week appointment. 2. May shower- avoid running water directly on your incision. 3. Do NOT stop antibiotics. If you have problems with them, please call. 4. Call with any symptoms of dizziness, lightheadedness, or passing out. 5. You may use the involved arm but you must avoid reaching backwards with the involved arm for 6 weeks[address] 6[address] Remember to place your pacemaker/ICD implant card in your wallet/purse to carry with you at all times. You will receive this card in 6-8 weeks by mail. 7. You may resume driving in 2 weeks. 8. Continue all your home medications and the prescribed antibiotics per the medication reconciliation form. APPOINTMENT: 1. Office visit with nurse for incision check in the [facility] Office on 01/27/2022 at 10:00am. 2. Pacemaker/ICD clinic appointment at [facility] on 05/03/2022 at 1:30pm . 3. Office visit with Lelo Warren at [facility] in the [place] Office on 05/13/22 at 2:00pm. [][facility] Work Phone: Hospital Discharge instructions Additional Instructions If your symptoms return/worsen or you develop any further concerns or symptoms please see your doctor or return to the emergency department immediately.[facility] Work Phone: Hospital Discharge instructions Additional Instructions Rehab to manage: - PT/OT to eval and treat - Monitor VS routine - Dx. HTN - Neuro assessments - Dx. C2 cervical fracture -- Please maintain cervical collar - Orthopedic assessments - Dx. Right index finger contusion and right great toe phalanx fracture -- WBAT to right foot -- Cast/post-op shoe to right foot - Fall precautions - high fall risk - recent and recurrent falls - Monitor blood sugars - Dx. DM - Routine skin assessments/care - Dietary recommendations: -- Boost Glucose Control daily with [facility] Work Phone: Progress note No data available for this section [facility] Summary Purpose Family History No Family History Records Found Relationship Condition Age at Onset Recorded Date/T lamin Not Specified No pertinent family history Unknown Unknown Family Member Name Dates Details No pertinent family history: Mother, Father, Sister, Brother(V49.89, Z78.9) Status:Active Relationship Condition Age at Onset Recorded Date/T lamin father Hypertension Unknown sister Osteoporosis Unknown sister Malignant neoplasm of uterus Unknown sister Alzheimer's disease Unknown sister Chronic obstructive pulmonary disease Unk nown Unknown Family Member Name Dates Details No pertinent family history: Mother, Father, Sister, Brother(V49.89, Z78.9) Status:Active Unknown Family Member Name Dates Details No pertinent family history: Mother, Father, Sister, Brother(V49.89, Z78.9) Status:Active Unknown Family Member Name Dates Details No pertinent family history: Mother, Father, Sister, Brother(V49.89, Z78.9) Status:Active Unknown Family Member Name Dates Details No pertinent family history: Mother, Father, Sister, Brother(V49.89, Z78.9) Status:Active Unknown Family Member Name Dates Details No pertinent family history: Mother, Father, Sister, Brother(V49.89, Z78.9) Status:Active Relationship Condition Age at Onset Recorded Date/T lamin father Hypertension Unknown sister Osteoporosis Unknown sister Malignant neoplasm of uterus Unknown sister Alzheimer's disease Unknown sister Chronic obstructive pulmonary disease Unk nown Unknown Not Specified Unknown natural son History of stroke Unknown Malignant neoplasm Unknown sister History of stroke Unknown Advance Directives No Advanced Directives Records Found Advance Directive Response Recorded Date/ Time Advance Directives No October 15, 2016 10:50am Advance Directive Response Recorded Date/ Time Advance Directives No October 15, 2016 9:50am Advance Directive Response Recorded Date/ Time Advance Directives No March 16, 2023 11:24am Reason for Referral Reason *Waiting for appt consult and treat; lumbar CT and myelogram done 09/28/21 - pt unable to have MRI due to pacemaker Diagnosis 1 Spinal stenosis of l umbar region (M48.061) Diagnosis 2 Radiculopathy of sac ral region (M54.18) Diagnosis 3 Fusion of lumbar spi ne (M43.26) Diagnosis 4 Left lumbosacral rad iculopathy (M54.17) Referral Organization [facility] [place] Referring Provider First Name Isaiah Referring Provider Last Name Magnolia Referring Provider Specialty Family Prac tyrone Referred Organization [facility] Referred Provider Paulo Rhoades Referred Address [address],[address] Referred Provider Specialty Neurological Surgery Referral Priority Routine General Notes Fore, Anuradha M 022 02:52:30 PM >Received today and sent P2P Reason * 11/15 consult and treat ; CT myelogram done 10/14/21- pt unable to have MRI Diagnosis 1 Spinal stenosis of l umbar region (M48.061) Diagnosis 2 Fusion of lumbar spi ne (M43.26) Referral Organization [facility] [place] Referring Provider First Name Isaiah Referring Provider Last Name Magnolia Referring Provider Specialty Family Prac tyrone Referred Organization [facility] [place] Referred Provider Joan Page Referred Address [address] [place], [place],[address] Referred Provider Specialty Neurological Surgery Referral Priority Routine General Notes Fore, Anuradha M 022 09:17:38 AM >Received today. Waiting for office notes to be locked before sending referral Fore, Anuradha M 11/08/2021 11:43:39 AM >Referral was fax Reason Patient is having re current UTI with bladder incontinence. Needing urology consult and treatment. Please contact patient with appt date and time. Either [facility] or [facility] are fine. Thanks Diagnosis 1 Bladder incontinence (R32) Diagnosis 2 Recurrent UTI (N39.0 ) Referral Organization [facility] [place] Referring Provider First Name Isaiah Referring Provider Last Name Magnolia Referring Provider Specialty Family Prac tyrone Referred Organization Unknown Facility Referred Provider Specialty Urology Referral Priority Routine Reason consult and treat pe rsistent sinus drainage Diagnosis 1 Sinus drainage (J34. 89) Referral Organization [facility] [place] Referring Provider First Name Isaiah Referring Provider Last Name Magnolia Referring Provider Specialty Family Prac tyrone Referred Organization [facility] Referred Provider Mitchell Duenas Referred Address ,[place], [place],[address] Referred Provider Specialty Otolaryngolo gy Referral Priority Routine Chief Complaint and Reason for Visit Chief Complaint 2 av block Z00.00 E78.5 E11.9 I10 E0.9 M54.50 M54.18 M43.26 z87.442 n39.0 r30.0 n32.89 Chief Complaint Z00.00 E78.5 E11.9 I 10 E0.9 M54.50 M54.18 M43.26 z87.442 n39.0 r30.0 n32.89 2 av block z78.0 Chief Complaint Z00.00 E78.5 E11.9 I 10 E0.9 M54.50 M54.18 M43.26 z87.442 n39.0 r30.0 n32.89 2 av block z78.0 M48.061 Chief Complaint z87.442 n39.0 r30.0 n32.89 2 av block z78.0 M48.061 Second Degree AV Block Chief Complaint z87.442 n39.0 r30.0 n32.89 2 av block z78.0 M48.061 Second Degree AV Block Second Degree AV Block Chief Complaint Completed heart bloc k Chief Complaint Completed heart bloc k E11.9 E78.5 flavia green, sent by Chief Complaint E11.9 E78.5 flavia green, sent by Spasms in head,fell,hit head x 4 hours Reason for Visit C2 cervical fracture Contusion of right index finger without damage to nail, initial encounter Recurrent falls Chief Complaint E11.9 E78.5 shakey,falls, sent by Spasms in head,fell,hit head x 4 hours c2 fracture/r va occlusion s/p fall Reason for Visit C2 cervical fracture Contusion of right index finger without damage to nail, initial encounter Recurrent falls Adjustment disorder C2 cervical fracture Contusion of right index finger without damage to nail, initial encounter Diabetes Fracture of distal phalanx of right great toe HTN (hypertension) Hypothyroid Impaired mobility and activities of daily living Overactive bladder Recurrent falls Chief Complaint E11.9 E78.5 shakey,falls, sent by Spasmrosendo in head,fell,hit head x 4 hours c2 fracture/r va occlusion s/p fall R29.818 R27.9 S12.101D M54.2 Reason for Visit C2 cervical fracture Contusion of right index finger without damage to nail, initial encounter Recurrent falls Adjustment disorder C2 cervical fracture Contusion of right index finger without damage to nail, initial encounter Diabetes Fracture of distal phalanx of right great toe HTN (hypertension) Hypothyroid Impaired mobility and activities of daily living Overactive bladder Recurrent falls Chief Complaint Spasms in head,fell, hit head x 4 hours c2 fracture/r va occlusion s/p fall R29.818 R27.9 S12.101D M54.2 S12.101S Reason for Visit C2 cervical fracture Contusion of right index finger without damage to nail, initial encounter Recurrent falls Adjustment disorder C2 cervical fracture Contusion of right index finger without damage to nail, initial encounter Diabetes Fracture of distal phalanx of right great toe HTN (hypertension) Hypothyroid Impaired mobility and activities of daily living Overactive bladder Recurrent falls Chief Complaint S12.101S 2 av block r03.a0 MEDICARE/gait and balance training Chief Complaint S12.101S 2 av block r03.a0 MEDICARE/gait and balance training cervical spine, left shoulder/arm Chief Complaint r03.a0 MEDICARE/gait and balance training cervical spine, left shoulder/arm 2 av block Chief Complaint Sickness For 3 Month s Completed heart block Chief Complaint Patient here s/p gen change [place] Drew [place] [facility] [place]. Dr. Thien Murdock MD in suite. Patient denies any cardiac complaints. Medication list was updated verbally with patient. No antibiotics were given to patient. Insertion site was free of any drainage or signs of infection. Patient states that bandage fell off on it's own on 01/25. Insertion site was reviewed by Lelo Keith RN prior to discharge. To Dr. Drew Warren MD for review.* THIS PATIENTS HOSPITAL CHART WAS REVIEWED AND WE DID SEND RX FOR CLINDAMYCIN TO HER PHARMACY. * Patient here s/p gen change done [place]. Drew Warren [place] [facility] [place] 01/[place]. Dr. Thien Murdock MD in suite. Patient denies any cardiac complaints. Medication list was updated verbally with patient. No antibiotics were given to patient. Insertion site was free of any drainage or signs of infection. Patient states that bandage fell off on it's own on 01/25. Insertion site was reviewed by Lelo Keith RN prior to discharge. To Dr. Drew Warren MD for review. Additional Source Comments INFORMATION SOURCE (unrecogn ized section and content) DATE CREATED AUTHOR 04/21/2020 [facility] DATE CREATED AUTHOR AUTHOR'S ORGANIZ ATION 09/06/2022 [facility] DATE CREATED AUTHOR AUTHOR'S ORGANIZ ATION 11/10/2022 [facility] DATE CREATED AUTHOR AUTHOR'S ORGANIZ ATION 05/14/2023 [facility] REASON FOR VISIT (unrecogniz ed section and content) resend rxfollow up HTN /DM - hgb [id number] Acute MedicineClinicalNO SHOWRefillsclinicalfollow up3 month follow upREFERRALClinicalClinicallumbar back painno showClinicalClinicalClinical Acute MedicineClinicalUrologist Referral UpdateMEDICARE WELLNESS SUBClinicalreferred by Dr. Isaiah Shaw Spinal Stenosis LumbarNeurosurgery Office NotesRefill3 month Follow upclinicalcheck up /pt fallingClinical FYIClinicalClinicalClinicalhospital f/us/p C2 fractureDC servicesclinical PT denialr/s hospital follow upClinicalRefillsfollow upRefillsrx -bpk to send rxClinicalsickness for 3 monthsPULM REFERRAL Care Team (unrecognized sect ion and content) Team Status: Inactive Member Role Status Dates Isaiah Shaw , DO Primary Care Provider, Attending Provi jo Active Team Status: Active Member Role Status Dates Isaiah Shaw , DO Primary Care Provider Active Faustino Mac PA-C Attending Provider Active Team Status: Inactive Member Role Status Dates Isaiah Shaw , DO Primary Care Provider Active Drew Warren MD Attending Provider Active Team Status: Active Member Role Status Dates Isaiah Shaw , DO Primary Care Provider Active Team Status: Inactive Member Role Status Dates Isaiah Shaw , DO Primary Care Provider Active Faustino Mac PA-C Attending Provider Active Team Status: Inactive Member Role Status Dates Isaiah Shaw , DO Primary Care Provider Active Pastor Chavarria , DO Emergency Provider Active Team Status: Inactive Member Role Status Dates Isaiah Shaw , DO Primary Care Provider Active Regan Jolley MD Emergency Provider Active Ashleigh Roman MD Admit Provider, Attending Provider Active Joan Page MD Other Provider Active Alexander Everett , DO Other Provider Active Medhat Anglin MD Other Provider Active Regan Villalba MD Other Provider Active Gege Nava MD Other Provider Active Naun Odell , DO Other Provider Active Anibal Gomes II, MD Other Provider Active Team Status: Inactive Member Role Status Dates Isaiah Shaw , DO Primary Care Provider Active Pablo Davis MD Admit Provider, Attending Provider A ctive Casie العراقي , ERIC Other Provider Active Marcelle Arauz , RN Other Provider Active Mary Akins , RN Other Provider Active Helena Simetnal , RN Other Provider Active Tawanna Merchant , ERIC Other Provider Active Louann Valentin , ERIC Other Provider Active Rahel Farmer MD Other Provider Active Juvenal Taveras MD Other Provider Active Liberty Chapin APRN Other Provider Active Jory Crow , DO Other Provider Active Guillermo Zeng MD Other Provider Active Jabari Westbrook , DO Other Provider Active Nate Somers MD Other Provider Active Inessa Chavez MD Other Provider Active Hayley Donovan , ANP-BC Other Provider Active Ashleigh Roman MD Other Provider Active Alfonso Gutierrez MD Other Provider Active Mauri Hernandez MD Other Provider Active Matt Peguero MD Other Provider Active Regan Mederos , DO Other Provider Active Charlene Amaro MD Other Provider Active Krishna Pereira MD Other Provider Active Rachel Bernard , BLEACH PACKER-C Other Provider Active Geovany Shirley MD Other Provider Active Vasquez Wall MD Other Provider Active Marvel Montiel MD Other Provider Active Dai Dooley , DO Other Provider Active William Ramirez , DO Other Provider Active Nehemias Heaton , DO Other Provider Active Alannah Bryant , SENIOR POWER PLANT OPERATOR Other Provider Active Kaleb Espino , DO Other Provider Active Stas Araujo MD Other Provider Active Nitza Cardozo , SENIOR POWER PLANT OPERATOR Other Provider Active Lee Ann Franklin , SENIOR POWER PLANT OPERATOR Other Provider Active Александр Bonilla MD Other Provider Active Naomy Fraser RN Other Provider Active Igor Pham MD Other Provider Active Team Status: Inactive Member Role Status Dates Isaiah Shaw , DO Primary Care Provider Active Joan Page MD Attending Provider Active Team Status: Inactive Member Role Status Dates Isaiah Shaw , DO Primary Care Provider Active Jaziel Carbone , DO Attending Provider Active Team Status: Active Member Role Status Dates Isaiah Shaw , DO Primary Care Provider Active Joan Page MD Attending Provider Active Team Status: Active Member Role Status Dates Isaiah Shaw , DO Primary Care Provider, Attending Provi jo Active Team Status: Inactive Member Role Status Dates Isaiah Shaw , Attending Provider Active Start: March 03, 2023 End: March 03, 2023 Team Status: Inactive Member Role Status Dates Isaiah Shaw , DO Primary Care Provider Active Sta rt: May 10, 2023 End: May 10, 2023 Drew Warren MD Attending Provider Active Start: May 10, 2023 End: May 10, 2023 Goals (unrecognized section and content) Goals may be documented in a n alternate section FOR RECORDS PERTAINING TO PATIENTS WHO ARE OR HAVE BEEN ENROLLED IN A CHEMICAL DEPENDENCY/SUBSTANCEABUSE PROGRAM, SOME INFORMATION MAY BE OMITTED. This clinical summary was aggregated from multiple sources. Caution should be exercised in using it in the provision of clinical care. This summary normalizes information from multiple sources, and as a consequence, information in this document may materially change the coding, format and clinical context of patient data. In addition, data may be omitted in some cases. CLINICAL DECISIONS SHOULD BE BASED ON THE PRIMARY CLINICAL RECORDS. [facility] provides no warranty or guarantee of the accuracy or completeness of information in this document.
[2023-05-16 08:16] LABS: Hemoglobin 13.7 g/dL (12.0-16.0)
--- NOTE | 2023-05-16 08:19 | CT_ITS ---
The [address] [address] Patient Name: TAMMY SANDOVAL MRN: [id number] date: 1940 Sex: F Assigned Patient Location: CT Current Patient Location: Accession/Order Number: [id number] Exam Date: 05/16/2023 08:25 Report Date: 05/17/2023 06:54 At the request of: MATTIE BALL Procedure: CT chest high res EXAMINATION: CT chest high res HISTORY: Chronic Cough R05.3 , shortness of breath with exertion COMPARISON: No relevant comparison available. TECHNIQUE: Axial images were obtained at 10 mm intervals during inspiration and expiration in the supine and prone positions. No IV contrast given. Dose reduction techniques were achieved by using automated exposure control and/or adjustment of mA and/or kV according to patient size and/or use of iterative reconstruction technique. FINDINGS: LUNGS: Right middle lobe 7 mm spiculated nodule. Multiple tiny sub-5 mm nodules scattered within the lungs; some are calcified; not calcified. No appreciable infiltrates, air trapping, or significant chronic interstitial changes. PLEURA: No mass, effusion, or pneumothorax. HAYDEN: No mass or adenopathy. MEDIASTINUM: No mass or adenopathy. CHEST WALL: No mass or axillary adenopathy LIMITED ABDOMEN: Nonspecific 1 cm left renal complex cyst. Limited images of the upper abdomen. OTHER: Negative. CT/CT chest high res IMPRESSION: 1. Suspicious 7 mm nodule within right middle lobe. This is at lower limits for PET imaging, but consider PET imaging at this time or follow-up CT chest without contrast in 3 months to document stability versus change. 2. Multiple tiny nodules scattered within the lungs; nonspecific but favoring granulomatous disease. 3. Nonspecific 1 cm left renal lesion. Consider CT abdomen and pelvis without and with IV contrast. Electronically authenticated by: PATRIA HARGROVE Date: 05/17/2023 06:54
--- NOTE | 2023-05-16 09:39 | RT_ITS ---
The [facility] Test Date: 2023-05-16 Pat Name: TAMMY SANDOVAL Department: Room: - Gender: Female Note Specialist: Maricruz Bhandari RRT : 1940 Requested By: Jadile Mcqueen Order Number: [id number] Reading MD: Jadiel Mcqueen Interpretive Statements Pulmonary function testing was completed according to ATS criteria. Findings were considered accurate and reproducible, with exception of pre-bronchodilator FVC which did not meet ATS standards. Both pre- and post-bronchodilator values utilized for spirometry. Spirometry (based on pre-bronchodilator values): -FEV1/FVC: Normal @ 76% -FEV1: Normal @ 89% -FVC: Normal @ 84% -There is no significant bronchodilator response. Lung volumes by plethysmography: -RV: Normal @ 86% -TLC: Normal @ 84% Diffusion capacity: -DLCO: Mild reduction @ 79% when corrected for Hb 13.7g/dL -DLCO/VA: -Abnormal spikes suggestive of a glottic maneuver (e.g. cough) Impressions: -Normal spirometry and lung volumes with a minimally decreased DLCO. This pattern can be seen in, but not restricted to, cardiopulmonary vascular disorders, early interstitial lung disease, and early emphysema. Clinical correlation required. Electronically Signed On 05-16-2023 12:56:25 EDT by Jadiel Mcqueen
[2023-05-16] MEDS: ALBUTEROL SULFATE 2.5 MG/3 ML VIAL NEB IH (11:58)
== END 2023-05-16 08:02 | disposition home or self-care (01) ==
LOC: CT 08:02
PROVIDERS: PCP Family Medicine; Visit Provider Internal Medicine
DX: R05.3 Chronic cough (principal); R91.8 Other nonspecific abnormal finding of lung field; N28.9 Disorder of kidney and ureter, unspecified
CPT/HCPCS: 36415; 71250; 85018; 94060; 94726; 94729

== ENCOUNTER 2023-08-23 14:34 | Outpatient (OUT) | payer MEDICARE, OTHER, SELFPAY ==
--- NOTE | 2023-08-23 14:36 | CT_ITS ---
[address] [address] Patient Name: TAMMY SANDOVAL MRN: [id number] date: 1940 Sex: F Assigned Patient Location: CT Current Patient Location: Accession/Order Number: [id number] Exam Date: 08/23/2023 14:55 Report Date: 08/26/2023 05:17 At the request of: MATTIE BALL Procedure: CT chest wo con EXAMINATION: CT chest wo con HISTORY: Multiple Pulmonary Nodules R91.8 COMPARISON: CT high-resolution chest 05/16/2023 TECHNIQUE: Multi-planar CT images were obtained without and/or with IV contrast as indicated by examination type. Axial, Coronal, and Sagittal images. Dose reduction techniques were achieved by using automated exposure control and/or adjustment of mA and/or kV according to patient size and/or use of iterative reconstruction technique. FINDINGS: LUNGS: Stable 7 mm diameter by 4 mm thick opacity within posterior lateral right middle lobe with poorly defined margins. Multiple stable 2-5 mm nodules scattered within the lungs; some calcified and some noncalcified. PLEURA: No mass, effusion, or pneumothorax. VASCULATURE: No abnormality. HAYDEN: Mild adenopathy. MEDIASTINUM: Mild adenopathy. CARDIAC: No enlargement or pericardial thickening.. Coronary artery calcifications: Mild. AORTA: No aneurysm or dissection. CHEST WALL: No mass or axillary adenopathy. BONES: No bone lesion or fracture. LIMITED ABDOMEN: No suspicious findings Limited images of the upper abdomen. OTHER: Negative. CT/CT chest wo con IMPRESSION: 1. Stable pulmonary nodules; the majority favor granulomas. However, a 7 mm poorly marginated nodule within the right middle lobe remains suspicious. Follow-up CT chest in 6 months is recommended to document continued stability. 2. Minimal hilar and mediastinal adenopathy; nonspecific but this may be secondary to chronic granulomatous disease. Electronically authenticated by: PATRIA HARGROVE Date: 08/26/2023 05:17
== END 2023-08-23 14:35 | disposition home or self-care (01) ==
LOC: CT 14:34
PROVIDERS: PCP Family Medicine; Visit Provider Internal Medicine
DX: R91.8 Other nonspecific abnormal finding of lung field (principal); R59.0 Localized enlarged lymph nodes
CPT/HCPCS: 71250